=== PATIENT | female | born 1935 | race Caucasian/White ===

== ENCOUNTER → 2016-10-19 | Outpatient (CLI) | payer BC ==
[~2016-10-19] MED LIST: ALPOPS1510 OPL; BRIM0.1S OP; LISI-461 PO; MULT-506 PO
--- NOTE | 2016-10-20 12:48 | MAMMOGRAPHY REPORT ---
BILATERAL DIGITAL SCREENING MAMMOGRAM TOMOSYNTHESIS WITH CAD: 10/19/2016 CLINICAL HISTORY: Asymptomatic. Personal history of breast cancer. Routine screening. TECHNIQUE: Breast tomosynthesis in addition to standard 2D mammography was performed. Current study was also evaluated with a Computer Aided Detection (CAD) system. COMPARISON: Comparison is made to exams dated: 10/16/2015 mammogram, 10/15/2014 mammogram, 10/13/2013 dennis mogram, 10/12/2012 mammogram, 10/12/2011 mammogram, and 10/14/2010 ultrasound - [facility] ter. BREAST COMPOSITION: The tissue of both breasts is almost entirely fatty. FINDINGS: A linear scar marker overlies the 12:00 anterior left breast, denoting the area of prior l umpectomy. There is a coarse dystrophic calcification at the surgical site. There are mild to mode rate vascular calcifications in the breasts. Scattered benign-appearing round and coarse calcificat ions. An asymmetry in the superior right breast on the MLO view effaces on the tomosynthesis images , most likely normal overlapping blood vessels and fibroglandular tissue. No new suspicious mass, a rchitectural distortion or cluster of microcalcifications is seen. IMPRESSION: ACR BI-RADS CATEGORY 1: NEGATIVE There is no mammographic evidence of malignancy. A 1 year screening mammogram is recommended. The p atient will receive written notification of the results. Approximately 10% of breast cancers are not detected with mammography. A negative mammographic repor t should not delay biopsy if a clinically suggestive mass is present. Pamela Del Toro M.D. ay/:10/19/2016 16:49:48 Freight Unloader: Caroline Pimentel M, [facility] letter sent: Normal 1/2 BI-RADS Code: ACR BI-RADS Category 1: Negative
== END | disposition home or self-care (01) ==
LOC: C.MAMM 10:32
PROVIDERS: ATTEND Internal Medicine
DX: Z12.31 Encounter for screening mammogram for malignant neoplasm of breast (principal); Z85.3 Personal history of malignant neoplasm of breast

== ENCOUNTER 2016-11-19 10:07 | Observation (INO) | payer BC ==
[~2016-11-19] VITALS: Ht 162.6 cm; Wt 84.2 kg
[~2016-11-19 10:07] MED LIST changes: -BRIM0.1S OP
[2016-11-19] MEDS ORDERED: LORAZEPAM 2 MG/ML 1 ML VIAL IV STA (10:56)
[2016-11-19] MEDS ORDERED: SODIUM CHLORIDE 0.9% 250ML 250 ML IV STA (10:56)
[2016-11-19] MEDS ORDERED: SODIUM CHLORIDE 0.9% 1000ML 1,000 ML IV STA (10:56)
[2016-11-19] MEDS ORDERED: METHYLPREDNISOLONE 125 MG VIAL IV STA (10:56)
[2016-11-19] MEDS ORDERED: ONDANSETRON INJ 2 MG/ML 2 ML VIAL IV STA (10:56)
--- NOTE | 2016-11-19 11:15 | EMERGENCY ROOM VISIT NOTE ---
History Report prepared by Sylvester: Princess Mejias Under the Supervision of: Dr. Leah Quintero M.D. First contact with patient: 10:46 Chief Complaint: VERTIGO Stated Complaint: DIZZY Nursing Triage Summary: lasted for 10 days of "vertigo" seen by pcp pa was prescribed meclazine with no relief. pt reports every day increasing vertigo with nausea History of Present Illness The patient is a 81 year old female who presents to the Emergency Room with complaints of constant dizziness beginning 1 week ago. The patient states that she was having trouble walking and was stumbling and feeling like the room was spinning. She reports that she went to see her doctor and was prescribed Meclizine. She notes that the Meclizine helps her dizziness for an hour before her symptoms resume. She complains of dull head pain, light sensitivity, nausea , room spinning, and muscle achiness. The patient denies any vomiting, speech changes, chest pain, urinary symptoms, fever, cough, cold, and shortness of breath. She notes that she has a history of vertigo and last got it shortly after she was diagnosed with shingles. The patient's family notes that she has stenosis in her lower back and had an injection 2 weeks ago just prior to the onset of her vertigo. She reports that her dizziness today feels similar to the last time that she had vertigo but notes that she did had a fall with her previous episode of vertigo. Source of History: patient Onset: 1 week ago Position: other (global) Quality: other (dizziness) Timing: constant Modifying Factors (Worsening): other (light) Associated Symptoms: + nausea, No fevers, No cough, No chest pain, No SOB, No vomiting, No urinary symptoms Note: She complains of room spinning and muscle achiness. The patient denies any speech changes and cold. Review of Systems See HPI for pertinent positives & negatives. A total of 10 systems reviewed and were otherwise negative. Past Medical & Surgical Medical Problems: (1) Shingles (2) Vertigo Family History No pertinent family history stated. Social History Smoking Status: Never Smoker Marital Status: Housing Status: lives with significant other Occupation Status: retired Current/Historical Medications Scheduled Brimonidine Tartrate (Alphagan P Oph), 1 DROPS OP BID Lisinopril (Zestril), 10 MG PO DAILY Multivitamin (Multivitamin), 1 TAB PO DAILY Allergies Coded Allergies: Codeine (Verified Adverse Reaction, Mild, HALLUCINATIONS, 11/19/16) Physical Exam Vital Signs Date Time Temp Pulse Resp B/P (MAP) Pulse Ox O2 Delivery O2 Flow Rate FiO2 11/19/16 13:43 168/66 11/19/16 13:07 66 20 94 11/19/16 12:37 65 19 92 11/19/16 12:20 60 11/19/16 11:52 60 14 132/69 97 Room Air 11/19/16 11:49 132/69 11/19/16 11:45 62 18 143/69 63 137/74 77 132/69 11/19/16 10:13 36.7 80 18 142/71 95 Room Air Physical Exam Vital signs reviewed. General: Well-appearing, elderly, in no significant distress. HEENT: No scleral icterus, PERRLA, neck supple. Atraumatic. Cardiovascular: Regular rate and rhythm, no extra sounds. Pulmonary: Clear to auscultation bilaterally, normal work of breathing. Abdomen: Soft, nontender, nondistended, positive bowel sounds. Musculoskeletal: Atraumatic, no peripheral edema. Neurologic: Patient awake alert and oriented x 3, full strength in all 4 extremities. Cranial nerves 2 through 12 grossly intact. Cerebellar exam is intact. Skin: Warm, dry, no rash Medical Decision & Procedures ER Provider Diagnostic Interpretation: CT results as stated below per my review and radiologist interpretation: CT SCAN OF THE BRAIN WITHOUT IV CONTRAST FINDINGS: Brain parenchyma: There are age-related involutional changes noting mild to moderate patchy subcortical and periventricular microangiopathic change. There is no hemorrhage, mass effect, or evidence of acute territorial ischemia by CT criteria. Payne-white matter is preserved. No extra-axial fluid collection is seen. Ventricles, sulci, cisterns: Prominent secondary to involutional change. Intracranial vasculature: There is atherosclerotic calcification of the cavernous carotid and vertebral arteries. Calvarium: Unremarkable. Sinuses and mastoids: The visualized paranasal sinuses are clear. The mastoid air cells are well pneumatized. Orbits: The bony orbits are grossly intact. There are bilateral ocular lens implants. IMPRESSION: There is no hemorrhage, mass effect, or evidence of acute territorial ischemia by CT criteria. Electronically signed by: Haroon Norris M.D. 11/19/2016 11:44 AM Dictated Date/Time: 11/19/2016 11:42 AM Laboratory Results Test 11/19/16 11:15 11/19/16 11:32 Immature Granulocyte % (Auto) 0.2 % White Blood Count 5.96 K/uL (4.8-10.8) Red Blood Count 4.63 M/uL (4.2-5.4) Hemoglobin 13.8 g/dL (12.0-16.0) Hematocrit 41.7 % (37-47) Mean Corpuscular Volume 90.1 fL (80-100) Mean Corpuscular Hemoglobin 29.8 pg (25-34) Mean Corpuscular Hemoglobin Concent 33.1 g/dl (32-36) Platelet Count 233 K/uL (130-400) Mean Platelet Volume 9.7 fL (7.4-10.4) Neutrophils (%) (Auto) 57.5 % Lymphocytes (%) (Auto) 26.2 % Monocytes (%) (Auto) 13.9 % Eosinophils (%) (Auto) 1.7 % Basophils (%) (Auto) 0.5 % Neutrophils # (Auto) 3.43 K/uL (1.4-6.5) Lymphocytes # (Auto) 1.56 K/uL (1.2-3.4) Monocytes # (Auto) 0.83 K/uL (0.11-0.59) Eosinophils # (Auto) 0.10 K/uL (0-0.5) Basophils # (Auto) 0.03 K/uL (0-0.2) Immature Granulocyte # (Auto) 0.01 K/uL (0.00-0.02) Prothrombin Time 10.5 SECONDS (9.0-12.0) Prothromb Time International Ratio 1.0 (0.9-1.1) Activated Partial Thromboplast Time 25.5 SECONDS (21.0-31.0) Partial Thromboplastin Ratio 1.0 Magnesium Level 2.5 mg/dl (1.8-2.4) Total Bilirubin 0.4 mg/dl (0.2-1) Direct Bilirubin < 0.1 mg/dl (0-0.2) Aspartate Amino Transf (AST/SGOT) 28 U/L (15-37) Alanine Aminotransferase (ALT/SGPT) 35 U/L (12-78) Alkaline Phosphatase 88 U/L (45-117) Total Protein 6.8 gm/dl (6.4-8.2) Albumin 3.4 gm/dl (3.4-5.0) Urine Color YELLOW Urine Appearance CLEAR (CLEAR) Urine pH 7.5 (4.5-7.5) Urine Specific [place] 1.011 (1.000-1.030) Urine Protein NEG (NEG) Urine Glucose (UA) NEG (NEG) Urine Ketones NEG (NEG) Urine Occult Blood NEG (NEG) Urine Nitrite NEG (NEG) Urine Bilirubin NEG (NEG) Urine Urobilinogen NEG (NEG) Urine Leukocyte Esterase NEG (NEG) Laboratory results per my review. Medications Administered Medications (Trade) Dose Ordered Sig/Sandy Route Start Time Stop Time Status Last Admin Dose Admin Sodium Chloride 250 ml @ 999 mls/hr Q16M STAT IV 11/19/16 10:56 11/19/16 11:11 DC 11/19/16 10:56 999 MLS/HR Sodium Chloride 1,000 ml @ 125 mls/hr Q8H STAT IV 11/19/16 10:56 11/19/16 16:11 DC 11/19/16 10:56 125 MLS/HR Lorazepam (Ativan Inj) 0.5 mg NOW STAT IV 11/19/16 10:56 11/19/16 11:00 DC 11/19/16 10:56 0.5 MG Ondansetron HCl (Zofran Inj) 4 mg NOW STAT IV 11/19/16 10:56 11/19/16 11:00 DC 11/19/16 10:56 4 MG Methylprednisolone Sodium Succinate (Solu-Medrol IV) 125 mg NOW STAT IV 11/19/16 10:56 11/19/16 11:00 DC 11/19/16 10:56 125 MG ECG Indication: other (Dizziness) Rate (beats per minute): 68 Rhythm: normal sinus Findings: no acute ischemic change, left axis deviation, other (previous inferior and anterior infarct) ED Course 1046: Past medical records reviewed. The patient was evaluated in room C3. A complete history and physical examination was performed. 1056: Solu-Medrol IV 125mg IV, Zofran Inj 4mg IV, Ativan Inj 0.5mg IV, Sodium Chloride 1000 ml @ 125 mls/hr IV, Sodium Chloride 250 ml @ 999 mls/hr IV. 1317: I reevaluated and updated the patient. She is feeling better and will get an ambulatory trial and lunch tray. 1345: I reviewed the patient's case with Dr. Tovar. She will evaluate the patient for further management. 1352: Upon reevaluation, the patient is resting comfortably. I discussed laboratory and radiographic results with the patient. She verbalized agreement of the treatment plan. I spoke with Dr. Tovar of the [facility] Hospitalist Service. The patient will be evaluated for further management and care. Medical Decision Differential diagnosis: Etiologies such as benign positional vertigo, dehydration, hypovolemia, anemia, tumor, infection, hypoglycemia, electrolyte abnormalities, cardiac sources, intracerebral event, toxicologic, neurologic, as well as others were entertained. Medication Reconciliation: I attest that I have personally reviewed the patient' s current medication list. Blood Pressure Screening: Patient was found to have a slightly elevated blood pressure due to age and circumstances. I do not believe that the patient requires hypertension monitoring. This pt was evaluated and appeared to be in no distress. IV access was obtained and lab work was drawn. Pt was placed on the ekg monitor. PT was hydrated with IV NSS, given IV zofran, ativan and solu medral. 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 CT head is negative. Pt continued to have difficulty ambulating , falling to the side. There is concern for intractable vertigo vs stroke. Given her age and duration of symptoms, pt was d/w the hospitalist for further management. Consults Time Called: 1341 Consulting Physician: Dr. Tovar - [facility] Returned Call: [phone] I reviewed the patient's case with Dr. Tovar. She will evaluate the patient for further management. Impression Primary Impression: Vertigo Scribe Attestation The scribe's documentation has been prepared under my direction and personally reviewed by me in its entirety. I confirm that the note above accurately reflects all work, treatment, procedures, and medical decision making performed by me. Departure Information Dispostion Being Evaluated By Hospitalist Referrals Doron Gibbs MD (PCP) Patient Instructions [facility]
--- NOTE | 2016-11-19 11:45 | DIAGNOSTIC IMAGING REPORT ---
CT SCAN OF THE BRAIN WITHOUT IV CONTRAST CLINICAL HISTORY: Dizziness and vertigo. COMPARISON STUDY: CT of the brain dated 10/09/2006. TECHNIQUE: Unenhanced axial CT scan of the brain is performed from the vertex to the skull base. CT DOSE: 788.63 mGycm FINDINGS: Brain parenchyma: There are age-related involutional changes noting mild to moderate patchy subcortical and periventricular microangiopathic change. There is no hemorrhage, mass effect, or evidence of acute territorial ischemia by CT criteria. Payne-white matter is preserved. No extra-axial fluid collection is seen. Ventricles, sulci, cisterns: Prominent secondary to involutional change. Intracranial vasculature: There is atherosclerotic calcification of the cavernous carotid and vertebral arteries. Calvarium: Unremarkable. Sinuses and mastoids: The visualized paranasal sinuses are clear. The mastoid air cells are well pneumatized. Orbits: The bony orbits are grossly intact. There are bilateral ocular lens implants. IMPRESSION: There is no hemorrhage, mass effect, or evidence of acute territorial ischemia by CT criteria. Electronically signed by: Haroon Norris M.D. 11/19/2016 11:44 AM Dictated Date/Time: 11/19/2016 11:42 AM
[2016-11-19 11:48] LABS: BASO % 0.5 %; BASO ABS # 0.03 K/uL (0-0.2); COMPLETE YES; EOS % 1.7 %; HEMATOCRIT 41.7 % (37-47); IG% 0.2 %; LYMPH % 26.2 %; LYMPH ABS # 1.56 K/uL (1.2-3.4); MEAN CELL VOLUME 90.1 fL (80-100); MEAN CORPUSCULAR HEMOGLOBIN 29.8 pg (25-34); MEAN CORPUSCULAR HGB CONC 33.1 g/dl (32-36); MEAN PLATELET VOLUME 9.7 fL (7.4-10.4); MONO % 13.9 %; NEUT % 57.5 %; PLATELET COUNT 233 K/uL (130-400); RED BLOOD COUNT 4.63 M/uL (4.2-5.4); WHITE BLOOD COUNT 5.96 K/uL (4.8-10.8)
[2016-11-19 11:53] LABS: URINE APPEARANCE CLEAR (CLEAR); URINE BILIRUBIN NEG (NEG); URINE COLOR YELLOW; URINE NITRITE NEG (NEG); URINE PH 7.5 (4.5-7.5); URINE SPECIFIC GRAVITY 1.011 (1.000-1.030); UROBILINOGEN NEG (NEG); ZZUR CULT IF INDIC CLEAN CATCH NO
[2016-11-19 12:03] LABS: MANUAL MICROSCOPIC REQUIRED? NO; REVIEW REQ? NO
[2016-11-19 12:16] LABS: ALKALINE PHOSPHATASE 88 U/L (45-117); ALT/SGPT 35 U/L (12-78); BLOOD UREA NITROGEN 14 mg/dl (7-18); CALCIUM 8.7 mg/dl (8.5-10.1); CARBON DIOXIDE 30 mmol/L (21-32); CHLORIDE 106 mmol/L (98-107); GLUCOSE 122 mg/dl (70-99); SODIUM 141 mmol/L (136-145)
[2016-11-19 12:19] LABS: CREATININE 0.79 mg/dl (0.60-1.20)
[2016-11-19 12:22] LABS: AST/SGOT 28 U/L (15-37); MAGNESIUM 2.5 mg/dl (1.8-2.4)
[2016-11-19] MEDS ORDERED: BRIM0.1S OP (12:32)
[2016-11-19 13:03] LABS: POTASSIUM 4.3 mmol/L (3.5-5.1)
[2016-11-19] MEDS ORDERED: POLYETHYLENE (MIRALAX) 17 GM PACK PO PRN (14:00)
[2016-11-19] MEDS ORDERED: ONDANSETRON INJ 2 MG/ML 2 ML VIAL IV PRN (14:00)
[2016-11-19] MEDS ORDERED: ACETAMINOPHEN 325 MG TAB PO PRN (14:00)
[2016-11-19] MEDS ORDERED: MAGNESIUM HYDROXIDE SUSP 30 ML UDC PO PRN (14:00)
[2016-11-19] MEDS ORDERED: IV FLUIDS COMPLETED PRN (14:00)
[2016-11-19] MEDS ORDERED: MECLIZINE HCL 25 MG TAB PO PRN (14:00)
--- NOTE | 2016-11-19 14:09 | History and Physical ---
History & Physical Date & Time of Service: Nov 19, 2016 at 14:07 Chief Complaint: DIZZY Primary Care Physician: Doron Gibbs MD History of Present Illness Source: patient The patient is a 81 year old female with PMH as mentioned below, who presents to the Emergency Room with complaints of vertigo beginning 1 week ago. Patient had similar complaints 1 year ago- vertigo, relieved by maneuver, and at same time was diagnosed with shingles as well. She was at her baseline (independently ambulates without any assistance, ADLS- independently) till 1 week ago when she developed sudden onset vertigo, worse when she tries to walk, worse with head movements, change in positions, associated with nausea, on and off headaches, but no vomiting, localized weakness, numbness, facial asymmetry, tingling, fever, chills. No chest pain, SOB, abd pain, diarrhea. She does have spinal stenosis and had an injection 2 wees ago. She saw her PCP for these complaints, was prescribed Meclizine - helped partially, but as symptoms continued came to ER for further evaluation. In ED, hemodynamically stable. Labs- no sig abnormalities, Received Meclizine, Ativan, Zofran, solu medrol, with partial relief. CT head- no sig abnormalities , CBC, BMP- no significant abnormalities. Will admit her to ER for vertigo, persistent, difficulty ambulating secondary to it = for further evaluation and mx. Past Medical/Surgical History Medical Problems: (1) Shingles Status: Resolved (2) Vertigo Status: Resolved Social History Smoking Status: Never Smoker Marital Status: Occupational Status: retired Immunizations History of Tetanus Vaccine?: Yes History of Pneumococcal: No History of Hepatitis B Vaccine: No Multi-Drug Resistant Organisms History of MDRO: No Allergies Coded Allergies: Codeine (Verified Adverse Reaction, Mild, HALLUCINATIONS, 11/19/16) Home Medications Scheduled Brimonidine Tartrate (Alphagan P Oph), 1 DROPS OP BID Lisinopril (Zestril), 10 MG PO DAILY Multivitamin (Multivitamin), 1 TAB PO DAILY Review of Systems Constitutional: No fever, No chills, No weight loss Eyes: No worsening of vision, No redness, No discharge ENT: No hearing loss, No nasal symptoms Respiratory: No cough, No sputum, No wheezing, No shortness of breath Cardiovascular: No chest pain, No orthopnea, No edema Abdomen: No pain, No nausea, No vomiting, No diarrhea, No constipation Genitourinary - Female: No dysuria, No urinary frequency Neurologic: + vertigo, + balance problems, No memory loss, No paralysis, No weakness, No numbness/tingling Psychiatric: No depression symptoms, No anxiety Endocrine: No fatigue Hematologic / Lymphatic: No abnormal bleeding/bruising Integumentary: No rash Physical Exam Vital Signs Date Time Temp Pulse Resp B/P (MAP) Pulse Ox O2 Delivery O2 Flow Rate FiO2 11/19/16 12:20 60 11/19/16 11:52 60 14 132/69 97 Room Air 11/19/16 11:45 62 18 143/69 63 137/74 77 132/69 11/19/16 10:13 36.7 80 18 142/71 95 Room Air General Appearance: no apparent distress Head: normocephalic, atraumatic Eyes: PERRL ENT: hearing grossly normal Neck: supple, no JVD Respiratory/Chest: chest non-tender, lungs clear, normal breath sounds, no respiratory distress, no accessory muscle use Cardiovascular: regular rate, rhythm, no edema, no JVD, no murmur Abdomen/GI: normal bowel sounds, non tender, soft Extremities/Musculoskelatal: no calf tenderness, no pedal edema Neurologic/Psych: 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, no motor/sensory deficits, alert, oriented x 3, + pertinent finding (gait not assessed as patient has vertigo) Skin: normal color Diagnostics Laboratory Results Results Past 24 Hours Test 11/19/16 11:15 11/19/16 11:32 Range/Units White Blood Count 5.96 4.8-10.8 K/uL Red Blood Count 4.63 4.2-5.4 M/uL Hemoglobin 13.8 12.0-16.0 g/dL Hematocrit 41.7 37-47 % Mean Corpuscular Volume 90.1 80-100 fL Mean Corpuscular Hemoglobin 29.8 25-34 pg Mean Corpuscular Hemoglobin Concent 33.1 32-36 g/dl Platelet Count 233 130-400 K/uL Mean Platelet Volume 9.7 7.4-10.4 fL Neutrophils (%) (Auto) 57.5 % Lymphocytes (%) (Auto) 26.2 % Monocytes (%) (Auto) 13.9 % Eosinophils (%) (Auto) 1.7 % Basophils (%) (Auto) 0.5 % Neutrophils # (Auto) 3.43 1.4-6.5 K/uL Lymphocytes # (Auto) 1.56 1.2-3.4 K/uL Monocytes # (Auto) 0.83 0.11-0.59 K/uL Eosinophils # (Auto) 0.10 0-0.5 K/uL Basophils # (Auto) 0.03 0-0.2 K/uL RDW Standard Deviation 42.5 36.4-46.3 fL RDW Coefficient of Variation 13.0 11.5-14.5 % Immature Granulocyte % (Auto) 0.2 % Immature Granulocyte # (Auto) 0.01 0.00-0.02 K/uL Sodium Level 141 136-145 mmol/L Potassium Level 4.3 3.5-5.1 mmol/L Chloride Level 106 98-107 mmol/L Carbon Dioxide Level 30 21-32 mmol/L Anion Gap 5.0 3-11 mmol/L Blood Urea Nitrogen 14 7-18 mg/dl Creatinine 0.79 0.60-1.20 mg/dl Est Creatinine Clear Calc Drug Dose 57.7 ml/min Estimated GFR () 80.8 Estimated GFR (Non- 69.7 BUN/Creatinine Ratio 18.0 10-20 Random Glucose 122 70-99 mg/dl Calcium Level 8.7 8.5-10.1 mg/dl Magnesium Level 2.5 1.8-2.4 mg/dl Total Bilirubin 0.4 0.2-1 mg/dl Direct Bilirubin < 0.1 0-0.2 mg/dl Aspartate Amino Transf (AST/SGOT) 28 15-37 U/L Alanine Aminotransferase (ALT/SGPT) 35 12-78 U/L Alkaline Phosphatase 88 45-117 U/L Total Protein 6.8 6.4-8.2 gm/dl Albumin 3.4 3.4-5.0 gm/dl Urine Color YELLOW Urine Appearance CLEAR CLEAR Urine pH 7.5 4.5-7.5 Urine Specific [place] 1.011 1.000-1.030 Urine Protein NEG NEG Urine Glucose (UA) NEG NEG Urine Ketones NEG NEG Urine Occult Blood NEG NEG Urine Nitrite NEG NEG Urine Bilirubin NEG NEG Urine Urobilinogen NEG NEG Urine Leukocyte Esterase NEG NEG Diagnostic Radiology CT head- no significant acute abnormalities Impression Assessment and Plan Patient is a 81 year old F who comes in with vertigo, persistent x 7 days. ASSESSMENT AND PLAN: VERTIGO: Persistent x 7 days, partially relieved by Meclizine prescribed by outpatient PCP. Prior hx of similar episode x 1 year ago, when she had shingles, was treated with maneuver per her. Vertigo is worse with movements and associated with nausea, headaches, but no localized weakness. Gait affected as stumbles -Likely BPPV, Benign etiology, but need to rule out stroke as persistent x 7 days -IVF -PT/OT for Nicola Maneuver -Meclizine 25 mg PO TID PRN -Work up- MRI brain, Orthostats HTN Blood pressure stable -On lisinopril at home- hold till stroke ruled out DVT PROPHYLAXIS Lovenox SQ FULL CODE PER PATIENT, but no prolonged artificial support DISPOSITION Observation med-surg PT/OT ordered If MRI +ve for stroke, will transfer to telemetry Discussed with daughter/ by bedside. Level of Care Med/Surg Resuscitation Status DO NOT RESUSCITATE VTE Prophylaxis VTE Risk Assessment Done? Y/N: Yes Risk Level: Moderate Given or contraindicated: Enoxaparin (Lovenox)SQ
[2016-11-19] MEDS ORDERED: GADAVIST IV PRN (15:30)
[2016-11-19 15:37] VITALS: O2SAT 95
--- NOTE | 2016-11-19 15:42 | DIAGNOSTIC IMAGING REPORT ---
MRI OF THE BRAIN WITHOUT AND WITH IV CONTRAST CLINICAL HISTORY: Vertigo. Evaluate for stroke. COMPARISON STUDY: Head CT November 19, 2016. TECHNIQUE: Utilizing a 1.5 Lena magnet and dedicated coil, multiplanar, multiecho imaging of the brain was performed pre and postcontrast administration. IV administration of 8 mL of Gadavist contrast was uneventful. FINDINGS: There are no areas of restricted diffusion. No acute intracranial hemorrhage, midline shift or mass effect is present. Ventricular system is unremarkable for age. Basilar cisterns are patent. There are no extra axial collections. Flow-voids for the major intracranial vessels are present. There is no intracranial masses or pathologic enhancement. Numerous white matter T2 hyperintense foci suggest small vessel disease. Calvarial signal is maintained. A small mucous retention cyst within the left maxillary sinus is noted. Orbits are unremarkable. IMPRESSION: 1. No acute intracranial findings. 2. No intracranial mass or pathologic enhancement. 3. Mild atrophy and moderate small vessel disease. Electronically signed by: Akhil Lombardo M.D. 11/19/2016 3:41 PM Dictated Date/Time: 11/19/2016 3:36 PM
[2016-11-19 16:21] VITALS: BP 136/65; PULSE 75; TEMP 36.4; O2SAT 93
[2016-11-19 16:33] LABS: PROTHROMBIN TIME (PATIENT) 10.5 SECONDS (9.0-12.0)
[2016-11-19 16:57] VITALS: BP 136/65; PULSE 75; TEMP 36.4; Ht 162.6 cm; Wt 84.2 kg
[2016-11-19] MEDS: ENOXAPARIN 30 MG/0.3 ML SYR SQ SCH (18:09)
[2016-11-19] MEDS: SODIUM CHLORIDE 0.9% 1000ML 1,000 ML IV SCH (18:09)
[2016-11-19 23:27] VITALS: BP 125/63; PULSE 79; TEMP 36.5; O2SAT 92
[2016-11-20] MEDS: SODIUM CHLORIDE 0.9% 1000ML 1,000 ML IV SCH ×2 (03:13→17:15)
[2016-11-20 07:14] VITALS: BP 104/60; PULSE 65; TEMP 36.4; O2SAT 93
[2016-11-20 07:43] LABS: HEMATOCRIT 39.4 % (37-47); MEAN CELL VOLUME 90.6 fL (80-100); MEAN PLATELET VOLUME 9.6 fL (7.4-10.4); PLATELET COUNT 216 K/uL (130-400); RED BLOOD COUNT 4.35 M/uL (4.2-5.4); WHITE BLOOD COUNT 11.23 K/uL (4.8-10.8)
[2016-11-20] MEDS: MULTIVITAMIN TAB PO SCH (07:57)
[2016-11-20] MEDS: PANTOprazole SOD 40 MG TAB PO SCH (07:57)
[2016-11-20 08:20] LABS: BUN/CREATININE RATIO 19.8 (10-20); CREATININE 0.88 mg/dl (0.60-1.20); POTASSIUM 4.7 mmol/L (3.5-5.1)
[2016-11-20 09:07] LABS: CALCIUM 8.7 mg/dl (8.5-10.1)
[2016-11-20] MEDS ORDERED: MECLIZINE HCL 25 MG TAB PO STA (11:09)
--- NOTE | 2016-11-20 12:46 | DIAGNOSTIC IMAGING REPORT ---
CERVICAL SPINE 3 VIEWS HISTORY: Neuropathy neck pain COMPARISON: None. FINDINGS: The cervical spine is visualized from C1 through the superior endplate of T1. There is no fracture. No subluxation. Moderate degenerative disc change primarily from C5 through C7. Prevertebral soft tissues and the atlantodens interval are intact. IMPRESSION: Moderate degenerative disc change from C5 through C7. Otherwise negative cervical spine. Incidental note is made of dense calcification of the carotid vasculature. Electronically signed by: Cristóbal Hayes M.D. 11/20/2016 12:44 PM Dictated Date/Time: 11/20/2016 12:43 PM
--- NOTE | 2016-11-20 13:01 | Neurology Consultation ---
Neurology Consultation Date of Consultation: Nov 20, 2016. Attending Physician: Boris Pelayo MD Primary Care Physician: Doron Gibbs MD Reason for Consultation: persistent dizziness History of Present Illness Source: patient Marianne is a 81 year old female who has a PMH HTN, spinal stenosis vertigo presents with a 1 week history of dizziness and neck pain similar complaints 1 year ago- vertigo, relieved by maneuver, and at same time was diagnosed with shingles as well. She was at her baseline (independently ambulates without any assistance, ADLS- independently) till 1 week ago when she developed sudden onset vertigo, worse when she tries to walk, worse with head movements, change in positions, associated with nausea, on and off headaches. She saw her PCP for these complaints, was prescribed Meclizine which helped some but was still dizzy and came to the ED to be evaluated. She states when she rolls in bed and stands and turns her head or when she drives she gets dizzy. It is a room spinning with rolling in bed and when she drives the car with the motion. denies CP, SOB, abdominal pain, weakness, numbness tingling, slurred speech, facial droop, N, V, falls. Social History Marital Status: Housing Status: lives with significant other Occupation Status: retired Allergies Coded Allergies: Codeine (Verified Adverse Reaction, Mild, HALLUCINATIONS, 11/19/16) Current Inpatient Medications Current Inpatient Medications Medications (Trade) Dose Ordered Sig/Sandy Route Start Time Stop Time Status Last Admin Dose Admin Multivitamins (Multivitamin Tab) 1 tab DAILY PO 11/20/16 09:00 12/20/16 08:59 11/20/16 07:57 1 TAB Miscellaneous Information (Order Awaiting Action) 1 ea QS N/A 11/20/16 00:00 12/20/16 00:00 Acetaminophen (Tylenol Tab) 650 mg Q4H PRN PO 11/19/16 14:00 12/19/16 13:59 11/20/16 07:58 650 MG Magnesium Hydroxide (Milk Of Magnesia Susp) 30 ml Q6H PRN PO 11/19/16 14:00 12/19/16 13:59 Polyethylene (Miralax Powder Packet) 17 gm DAILY PRN PO 11/19/16 14:00 12/19/16 13:59 Ondansetron HCl (Zofran Inj) 4 mg Q6H PRN IV 11/19/16 14:00 12/19/16 13:59 Pantoprazole Sodium (Protonix Tab) 40 mg QAM PO 11/20/16 09:00 12/20/16 08:59 11/20/16 07:57 40 MG Sodium Chloride 1,000 ml @ 75 mls/hr [id number] IV 11/19/16 14:00 12/19/16 13:59 11/20/16 03:13 75 MLS/HR Meclizine HCl (Antivert Tab) 25 mg TID PRN PO 11/19/16 14:00 12/19/16 13:59 Miscellaneous (Iv Fluids Completed) 1 ea PRN PRN N/A 11/19/16 14:00 11/19/17 13:59 Enoxaparin Sodium (Lovenox Inj) 30 mg Q24H SQ 11/19/16 18:00 12/19/16 17:59 11/19/16 18:09 30 MG Gadobutrol (Gadavist) 8 mmol UD PRN IV 11/19/16 15:30 11/23/16 15:29 Physical Exam Vital Signs (Past 24 Hrs): Date Time Temp Pulse Resp B/P (MAP) Pulse Ox O2 Delivery O2 Flow Rate FiO2 11/20/16 08:00 Room Air 11/20/16 07:14 36.4 65 18 104/60 (75) 93 11/20/16 00:00 Room Air 11/19/16 23:27 36.5 79 20 125/63 (83) 92 Room Air 11/19/16 16:57 36.4 75 20 136/65 Room Air 11/19/16 16:21 36.4 75 20 136/65 (88) 93 Room Air 11/19/16 15:37 36.7 70 16 133/66 95 11/19/16 14:42 70 16 95 11/19/16 14:37 71 22 94 11/19/16 14:32 133/66 11/19/16 14:07 67 21 95 11/19/16 14:02 164/88 11/19/16 13:43 168/66 11/19/16 13:07 66 20 94 Physical Exam: Constitutional: appearance nourished, healthy and normal Ears, Nose, Mouth and Throat: mucous membranes moist, no injection and skin normal, eyes normal Cardiovascular: normal S-1 and S-2 and regular rate and rhythm with systolic murmur Respiratory: clear to auscultation (CTA) and no rales, rhonchi or wheeze Musculoskeletal: non pitting peripheral edema Skin: no stigmata of neurocutaneous disease noted and normal and intact Eyes: extraocular muscles intact (EOMI) and pupils equal, round and reactive to light (PERRL) NEUROLOGIC EXAMINATION: Mental status: Alert and interactive Oriented to full date and location Oriented to person Speech fluent with no evidence of aphasia Cranial Nerves smile eye brow raise symmetric, tongue midline Reflexes: Deep tendon reflexes were symmetrical and graded 2/5. Plantar responses were flexor. Sensory: vibration intact, GT proprioception intact Coordination: Romberg absent Gait/Stance: Posture normal. Gait normal: with steady with steps, base, turning, heel and toe walking and tandem gait. Motor: Negative for pronator drift of out stretched arms with eyes closed. 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 5/5 bilaterally, hip flex 5/5 bilaterally Laboratory Results Past 24 Hours: 11/20/16 07:19 11/20/16 07:19 Test 11/20/16 07:19 Red Blood Count 4.35 M/uL (4.2-5.4) Mean Corpuscular Volume 90.6 fL (80-100) Mean Corpuscular Hemoglobin 29.0 pg (25-34) Mean Corpuscular Hemoglobin Concent 32.0 g/dl (32-36) RDW Standard Deviation 42.5 fL (36.4-46.3) RDW Coefficient of Variation 12.7 % (11.5-14.5) Mean Platelet Volume 9.6 fL (7.4-10.4) Anion Gap 6.0 mmol/L (3-11) Est Creatinine Clear Calc Drug Dose 51.8 ml/min Estimated GFR () 70.9 Estimated GFR (Non- 61.2 BUN/Creatinine Ratio 19.8 (10-20) Calcium Level 8.7 mg/dl (8.5-10.1) Imaging MRI with and without contrast- . No acute intracranial findings. No intracranial mass or pathologic enhancement. Mild atrophy and moderate small vessel disease. C spine plain film- Moderate degenerative disc change from C5 through C7. Otherwise negative cervical spine. Incidental note is made of dense calcification of the carotid vasculature. Impression 81 year old female with 10 days of vertigo with standing and motion Plan 1. no focal weakness 2. MRI with no evidence of stroke 3. ECHO pending read 4. PT for Nicola 5. if not resolved would contact [facility] for further treatment 6. meclizine is only minimally effect in these cases 7. 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 Meclizine not likely to do much other than sedate her and would not go with scopolamine patch as this is likely to be mor harmful than beneficial Needs Nicola and may need several attempts as her prior treatment in [place] needed three treatments At this ;point neurology has nothing to offer Would suggest contacting our audiology/ent section at [facility] to see if outpatient therapy is available here in hopes that she would not need to travel to [place] for treatment in the balance center We will sign off for now please feel free to contact us in the future if any other neurological issues emerge Erik Smart MD
[2016-11-20] MEDS ORDERED: PERFLUTREN LIPID MICROSPHERE (DEFINITY) IV ONE (14:09)
[2016-11-20 14:11] VITALS: BP_SYST 146; BP_SYST 149; BP_SYST 155; BP_DIAS 71; PULSE 69; PULSE 79; PULSE 81; TEMP 36.5; O2SAT 95
[2016-11-20 14:51] VITALS: BP 137/71; PULSE 80
--- NOTE | 2016-11-20 16:40 | Progress Note ---
Internal Med Progress Note Date of Service: Nov 20, 2016. Provider Documentation: SUBJECTIVE: still feels dizzy Turing head makes head spin afebrile has some nausea no sob or cough OBJECTIVE: Vital Signs-as noted below Exam: General-alert and awake. Not in distress ENT-Normal hearing Neck-no neck masses, supple Lungs-cta b/l no wheezing or crackles Heart-s1 and s2 heard regular , no murmurs Abdomen-soft bowel sounds present non tender no distension Extremities- no edema present no erythema Neuro-alert and awake moves extremities Lab data as noted below. 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 and recommends repeat cliff HTN On lisinopril DVT PROPHYLAXIS Lovenox SQ FULL CODE PER PATIENT, but no prolonged artificial support DISPOSITION pt/ot to be determined Vital Signs: Date Time Temp Pulse Resp B/P (MAP) Pulse Ox O2 Delivery O2 Flow Rate FiO2 11/20/16 14:51 80 11/20/16 14:11 36.5 69 20 149/71 (97) 95 79 155/71 (99) 81 146/71 (96) 11/20/16 08:00 Room Air 11/20/16 07:14 36.4 65 18 104/60 (75) 93 11/20/16 00:00 Room Air 11/19/16 23:27 36.5 79 20 125/63 (83) 92 Room Air 11/19/16 16:57 36.4 75 20 136/65 Room Air Lab Results: Results Past 24 Hours Test 11/20/16 07:19 Range/Units White Blood Count 11.23 4.8-10.8 K/uL Red Blood Count 4.35 4.2-5.4 M/uL Hemoglobin 12.6 12.0-16.0 g/dL Hematocrit 39.4 37-47 % Mean Corpuscular Volume 90.6 80-100 fL Mean Corpuscular Hemoglobin 29.0 25-34 pg Mean Corpuscular Hemoglobin Concent 32.0 32-36 g/dl RDW Standard Deviation 42.5 36.4-46.3 fL RDW Coefficient of Variation 12.7 11.5-14.5 % Platelet Count 216 130-400 K/uL Mean Platelet Volume 9.6 7.4-10.4 fL Sodium Level 142 136-145 mmol/L Potassium Level 4.7 3.5-5.1 mmol/L Chloride Level 106 98-107 mmol/L Carbon Dioxide Level 30 21-32 mmol/L Anion Gap 6.0 3-11 mmol/L Blood Urea Nitrogen 17 7-18 mg/dl Creatinine 0.88 0.60-1.20 mg/dl Est Creatinine Clear Calc Drug Dose 51.8 ml/min Estimated GFR () 70.9 Estimated GFR (Non- 61.2 BUN/Creatinine Ratio 19.8 10-20 Random Glucose 121 70-99 mg/dl Calcium Level 8.7 8.5-10.1 mg/dl
--- NOTE | 2016-11-20 16:56 | ECHOCARDIOGRAM REPORT ---
*NOTICE TO RECEIVING [employer]ENCY This information is strictly Confidential and protected under [place] law. [place] law prohibits you from making any further disclosure of this information unless further disclosure is expressly permitted by the written consent of the person to whom it pertains or is authorized by law. A general authorization for the release of medical or other information is not sufficient for this purpose. Hospital accepts no responsibility if the information is made available to any other person, INCLUDING THE PATIENT. Interpretation Summary * Name: CRISSY EDWARDS Study Date: 11/20/2016 12:41 PM BP: 104/60 mmHg * Patient Location: .[id number]\[id number]\1 HR: 65 * : 1935 (M/d/yyy) Gender: Female Height: 64 in * Age: 81 yrs Ethnicity: MO Weight: 185 lb * Ordering Physician: Boris Pelayo * Referring Physician: Doron Gibbs * Performed By: Meli Osorio, design intern * * Reason For Study: Dizzy, EKG changes, valve issues * BSA: 1.9 m2 * -- Conclusions -- * The left ventricular wall motion is normal. * There is mild concentric left ventricular hypertrophy. * The left ventricle is hyperdynamic. * The LV Ejection Fraction = >70 %. * The aortic valve is moderately calcified. * Mild valvular aortic stenosis. * Doppler findings do not suggest pulmonary hypertension. * Grade I diastolic dysfunction, (abnormal relaxation pattern). Procedure Details * A complete two-dimensional transthoracic echocardiogram was performed (2D, M-mode, Doppler and color flow Doppler). * A contrast injection of Definity was performed to improve assessment of LV function. * Contrast was injected into an intravenous site in the left arm. * One vial of Definity ultrasound contrast was diluted in normal saline to a total volume of 10 ml. A total of '3' ml of solution was administered during imaging. * Lot # [id number] of Definity utilized for procedure. * Expiration date DEC 29. * The attending nurse who injected the contrast agent was Amalia Barksdale RN. Left Ventricle * The left ventricle is normal in size. * There is mild concentric left ventricular hypertrophy. * The left ventricle is hyperdynamic. * Ejection Fraction = >70 %. * The left ventricular wall motion is normal. Right Ventricle * The right ventricle is normal size. * The right ventricular systolic function is normal as assessed by tricuspid annular plane systolic excursion (TAPSE) (normal >1.5 cm). Atria * The left atrial size is normal. * Right atrial size is normal. * There is no evidence of atrial septal defect, but resolution does not allow assessment for a patent foramen ovale. Mitral Valve * There is mild mitral annular calcification. * There is no mitral valve stenosis. * Significant mitral regurgitation is absent. Tricuspid Valve * The tricuspid valve is normal. * There is no tricuspid stenosis. * Significant tricuspid regurgitation is absent. * Doppler findings do not suggest pulmonary hypertension. Aortic Valve * The aortic valve is moderately calcified. * Mild valvular aortic stenosis. * There is no significant aortic regurgitation. Pulmonic Valve * The pulmonary valve is not well seen, but the Doppler examination is normal without significant regurgitation or stenosis. Great Vessels * The aortic root and proximal ascending aorta are normal sized. Pericardium/Pleural * There is no pericardial effusion. Great Vessels * Normal inferior vena cava diameter and respiratory variation suggests normal central venous pressure. Left Ventricular Diastolic Function * Grade I diastolic dysfunction, (abnormal relaxation pattern). MMode 2D Measurements and Calculations IVSd 1.3 cm IVSs 2.3 cm LVIDd 3.8 cm LVIDs 2.3 cm LVPWd 1.8 cm LVPWs 2.0 cm IVS/LVPW 0.72 FS 39.1 % EDV(Teich) 62.8 ml ESV(Teich) 18.7 ml EF(Teich) 70.3 % EDV(cubed) 55.8 ml ESV(cubed) 12.6 ml EF(cubed) 77.4 % % IVS thick 78.5 % % LVPW thick 12.9 % LV mass(C)d 226.5 grams LV mass(C)dI 119.7 grams/m\S\2 LV mass(C)s 233.0 grams LV mass(C)sI 123.1 grams/m\S\2 CO(Teich) 3.1 l/min CI(Teich) 1.7 l/min/m\S\2 SV(Teich) 44.2 ml SI(Teich) 23.3 ml/m\S\2 CO(cubed) 3.1 l/min CI(cubed) 1.6 l/min/m\S\2 SV(cubed) 43.2 ml SI(cubed) 22.8 ml/m\S\2 ACS 1.1 cm asc Aorta Diam 3.0 cm LVOT diam 2.2 cm LVOT area 3.7 cm\S\2 LVAd ap4 26.3 cm\S\2 LVLd ap4 8.1 cm EDV(MOD-sp4) 69.2 ml LVAs ap4 13.1 cm\S\2 LVLs ap4 6.3 cm ESV(MOD-sp4) 22.2 ml EF(MOD-sp4) 67.9 % LVAd ap2 26.7 cm\S\2 LVLd ap2 8.1 cm EDV(MOD-sp2) 71.7 ml LVAs ap2 13.0 cm\S\2 LVLs ap2 6.3 cm ESV(MOD-sp2) 21.7 ml EF(MOD-sp2) 69.7 % CO(MOD-sp4) 3.3 l/min CI(MOD-sp4) 1.8 l/min/m\S\2 SV(MOD-sp4) 47.0 ml SI(MOD-sp4) 24.8 ml/m\S\2 CO(MOD-sp2) 3.6 l/min CI(MOD-sp2) 1.9 l/min/m\S\2 SV(MOD-sp2) 50.0 ml SI(MOD-sp2) 26.4 ml/m\S\2 Doppler Measurements and Calculations MV E max sharon 84.5 cm/sec MV A max sharon 109.0 cm/sec MV E/A 0.78 MV P1/2t max sharon 104.5 cm/sec MV P1/2t 105.9 msec MVA(P1/2t) 2.1 cm\S\2 MV dec slope 289.1 cm/sec\S\2 MV dec time 0.43 sec Ao V2 max 283.7 cm/sec Ao max PG 32.5 mmHg Ao max PG (full) 25.5 mmHg Ao V2 mean 188.6 cm/sec Ao mean PG 16.8 mmHg Ao V2 VTI 61.6 cm AUGUSTINA(V,A) 1.7 cm\S\2 AUGUSTINA(V,D) 1.7 cm\S\2 LV V1 max PG 7.0 mmHg LV V1 max 131.9 cm/sec PA V2 max 110.8 cm/sec PA max PG 5.1 mmHg
[2016-11-20] MEDS: ENOXAPARIN 30 MG/0.3 ML SYR SQ SCH (18:10)
[2016-11-20 23:22] VITALS: BP 124/68; PULSE 70; TEMP 36.6; O2SAT 91
[2016-11-21] MEDS: SODIUM CHLORIDE 0.9% 1000ML 1,000 ML IV SCH (03:50)
[2016-11-21 07:19] VITALS: BP 131/69; TEMP 36.5; O2SAT 92
[2016-11-21] MEDS: PANTOprazole SOD 40 MG TAB PO SCH (07:41)
[2016-11-21] MEDS: MULTIVITAMIN TAB PO SCH (07:42)
[2016-11-21] MEDS ORDERED: LISINOPRIL 10 MG TAB PO SCH (09:00)
--- NOTE | 2016-11-21 10:02 | Discharge Instructions ---
Discharge Instructions Date of Service Nov 21, 2016. Admission Reason for Admission: Vertigo Discharge Discharge Diagnosis / Problem: vertigo Discharge Goals Goal(s): Decrease discomfort, Improve function Activity Recommendations Activity Limitations: resume your previous activity . Instructions / Follow-Up Instructions / Follow-Up FOLLOWUP WITH FAMILY DOCTOR ON December AT 12:45PM Current Hospital Diet Patient's current hospital diet: Regular Diet Discharge Diet Recommended Diet: AHA Diet (Heart Healthy) Pending Studies Studies pending at discharge: no Medical Emergencies . Who to Call and When: Medical Emergencies: If at any time you feel your situation is an emergency, please call 911 immediately. . Non-Emergent Contact Non-Emergency issues call your: Primary Care Provider . . "Provider Documentation" section prepared by Boris Pelayo. . VTE Core Measure Inpt VTE Proph given/why not?: Enoxaparin (Lovenox)SQ
[2016-11-21 10:12] VITALS: BP 131/69; PULSE 70; TEMP 36.5; O2SAT 92
--- NOTE | 2016-11-21 18:59 | Progress Note ---
Internal Med Progress Note Date of Service: Nov 21, 2016. Provider Documentation: SUBJECTIVE: dizziness and vertigo resolved ambulating in room fine afebrile no nausea wants to go home OBJECTIVE: Vital Signs-as noted below Exam: General-alert and awake. Not in distress ENT-Normal hearing Neck-no neck masses, supple Lungs-cta b/l no wheezing or crackles Heart-s1 and s2 heard regular , no murmurs Abdomen-soft bowel sounds present non tender no distension Extremities- no edema present no erythema Neuro-alert and awake moves extremities Lab data as noted below. 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
--- NOTE | 2016-11-21 19:06 | Discharge Summary ---
Discharge Summary Date of Service Nov 21, 2016. Discharge Summary Admission Date: Nov 19, 2016 at 13:49 Discharge Date: Nov 21, 2016 Discharge Disposition: Home Principal Diagnosis: vertigo Secondary Diagnoses/Problems: (1) Shingles Status: Resolved (2) Vertigo Procedures: CT HEAD: There is no hemorrhage, mass effect, or evidence of acute territorial ischemia by CT criteria. BRAIN MRI: 1. No acute intracranial findings. 2. No intracranial mass or pathologic enhancement. 3. Mild atrophy and moderate small vessel disease. CERVICAL SPINE XRAY: Moderate degenerative disc change from C5 through C7. Otherwise negative cervical spine. Incidental note is made of dense calcification of the carotid vasculature. ECHO: The left ventricular wall motion is normal. * There is mild concentric left ventricular hypertrophy. * The left ventricle is hyperdynamic. * The LV Ejection Fraction = >70 %. * The aortic valve is moderately calcified. * Mild valvular aortic stenosis. * Doppler findings do not suggest pulmonary hypertension. * Grade I diastolic dysfunction, (abnormal relaxation pattern). Consultations: NEUROLOGY Medication Reconciliation Continued Medications: Brimonidine Tartrate (Alphagan P Oph) 0.1 % Narcisa 1 DROPS OP BID Lisinopril (Zestril) 10 Mg Tab 10 MG PO DAILY, 0 Refills Multivitamin (Multivitamin) Tab 1 TAB PO DAILY, 0 Refills Admission Information HPI (per Admitting provider): The patient is a 81 year old female with PMH as mentioned below, who presents to the Emergency Room with complaints of vertigo beginning 1 week ago. Patient had similar complaints 1 year ago- vertigo, relieved by maneuver, and at same time was diagnosed with shingles as well. She was at her baseline (independently ambulates without any assistance, ADLS- independently) till 1 week ago when she developed sudden onset vertigo, worse when she tries to walk, worse with head movements, change in positions, associated with nausea, on and off headaches, but no vomiting, localized weakness, numbness, facial asymmetry, tingling, fever, chills. No chest pain, SOB, abd pain, diarrhea. She does have spinal stenosis and had an injection 2 wees ago. She saw her PCP for these complaints, was prescribed Meclizine - helped partially, but as symptoms continued came to ER for further evaluation. In ED, hemodynamically stable. Labs- no sig abnormalities, Received Meclizine, Ativan, Zofran, solu medrol, with partial relief. CT head- no sig abnormalities , CBC, BMP- no significant abnormalities. Will admit her to ER for vertigo, persistent, difficulty ambulating secondary to it = for further evaluation and mx. 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 Discharge Instructions Discharge Instructions Date of Service Nov 21, 2016. Admission Reason for Admission: Vertigo Discharge Discharge Diagnosis / Problem: vertigo Discharge Goals Goal(s): Decrease discomfort, Improve function Activity Recommendations Activity Limitations: resume your previous activity . Instructions / Follow-Up Instructions / Follow-Up FOLLOWUP WITH FAMILY DOCTOR ON December AT 12:45PM Current Hospital Diet Patient's current hospital diet: Regular Diet Discharge Diet Recommended Diet: AHA Diet (Heart Healthy) Pending Studies Studies pending at discharge: no Medical Emergencies . Who to Call and When: Medical Emergencies: If at any time you feel your situation is an emergency, please call 911 immediately. . Non-Emergent Contact Non-Emergency issues call your: Primary Care Provider . . "Provider Documentation" section prepared by Boris Pelayo. . VTE Core Measure Inpt VTE Proph given/why not?: Enoxaparin (Lovenox)SQ
--- NOTE | 2016-11-26 13:25 | EDITING REQUIRED CODING QUERY ---
CQSUPPORTING DIAGNOSIS NEEDED A supporting diagnosis is required for the test/procedure performed on this patient in order for us to be reimbursed by the patient's insurance. Please provide a supporting diagnosis for the following test/procedure listed below next to the test name along with your signature. *If there is no additional diagnosis for this patient that would support the following test/procedure please document that below next to the test/procedure. Test(s)/Procedure(s) that require a supporting diagnosis: DOS 11/20/16 THERAPY REHAB OT/PT Provider Signature: __benign position vertigo? Date: Thank you Bety Carpenter Health Information Management Once completed, please kindly fax back to [phone] For questions please call [phone]
== END 2016-11-21 10:28 | disposition home or self-care (01) ==
LOC: C.EDB 10:08 → C.MS2W 13:49 → ENRESERV 14:04
PROVIDERS: ADMIT Internal Medicine; ATTEND Internal Medicine
DX: R42 Dizziness and giddiness (principal); Z88.5 Allergy status to narcotic agent; H81.10 Benign paroxysmal vertigo, unspecified ear

== ENCOUNTER 2020-03-08 08:07 | Inpatient (IN) ==
--- NOTE | 2020-02-21 16:39 | PAT Medication Instructions ---
Medication Instructions Date of Service February 21, 2020 Home Medications brimonidine [Alphagan P] 1 drp OPB BID lisinopril 20 mg PO QAM rosuvastatin 10 mg PO HS Zyvulta 1 drp OPB QAM aspirin 81 mg PO PM gabapentin 100 mg PO BID meclizine 12.5 mg PO DAILY PRN thrzvakcyhpp-xcow-[id number] acid [Centrum] 1 tab PO QAM DO NOT take the morning of surgery lisinopril 20 mg PO QAM [id number]-eomv-bqkgm acid [Centrum] 1 tab PO QAM Take morning of surgery With a small sip of water, OTHERWISE NOTHING TO EAT OR DRINK AFTER MIDNIGHT: brimonidine [Alphagan P] 1 drp OPB BID Zyvulta 1 drp OPB QAM gabapentin 100 mg PO BID meclizine 12.5 mg PO DAILY PRN (if needed) BRING YOUR EYE DROPS WITH YOU TO THE HOSPITAL Take evening before surgery brimonidine [Alphagan P] 1 drp OPB BID rosuvastatin 10 mg PO HS aspirin 81 mg PO PM gabapentin 100 mg PO BID meclizine 12.5 mg PO DAILY PRN (if needed) Other Notes If you have any questions please call us at [phone] or [phone] or or [phone]
--- NOTE | 2020-02-23 13:47 | Anesthesiology Consultation ---
Date of Service February 23, 2020 Assessment & Plan (1) Encounter for pre-operative examination: COVID Status: As of 02/22 assessment, patient denies travel to endemic area, known exposure/sick contacts, or symptoms of COVID19. Patient instructed that they and their household members must follow strict social distancing guidelines, wear a mask in public and avoid travel for 14 days prior to surgery. Preoperative COVID19 testing to be completed prior to surgery per surgeon's a rrangements. Patient made aware to self-isolate as much as possible between COVID testing and surgery. [facility] AM DOS Chart Review Chart Review: Acceptable Risk for Surgery (pending surgeon-ordered PCP and cardio clearance) and Patient seen in Pre Admission Testing Teaching & Discussion Instructed NPO after midnight before surgery, except medications with 15 cc of water. Medication instructions provided according to the PAT guidelines. History Surgery Operation Date: 03/08/20 10:05 Proposed Procedures p L3-L5 Decompression and Fusion, Spinal Cord Monitoring - Aidan Mack, Height/Weight Height: 5 ft 4 in Weight: 83.4 kg Allergies Allergy/AdvReac Type Severity Reaction Status Date / Time latex Allergy Redness of Verified 02/20/20 08:58 Skin codeine AdvReac Mild HALLUCINATI Verified 10/13/18 11:08 ONS Medications Home Medications Medication Instructions Recorded Confirmed Last Taken brimonidine [Alphagan P] 1 drp OPB BID 10/13/18 02/20/20 10/12/18 21:00 lisinopril 20 mg PO QAM 10/13/18 02/20/20 10/12/18 rosuvastatin 10 mg PO HS 10/13/18 02/20/20 10/12/18 Zyvulta 1 drp OPB QAM 02/20/20 02/20/20 Unknown aspirin 81 mg PO PM 02/20/20 02/20/20 Unknown gabapentin 100 mg PO BID 02/20/20 02/20/20 Unknown meclizine 12.5 mg PO DAILY PRN 02/20/20 02/20/20 Unknown barucvuugywq-adld-qkeoy acid 1 tab PO QAM 02/20/20 02/20/20 Unknown [Centrum] Past Medical History Medical History (Updated 02/26/20 @ 08:39 by Venkat Watters) Aortic stenosis Mild per 2017 [facility] echo GERD (gastroesophageal reflux disease) Glaucoma History of breast cancer left breast Hyperlipidemia Hypertension Macular degeneration Paroxysmal A-fib Follows with [facility] cardiology, Dr. Cid. On ASA 81mg only. Shingles ~2013 Type 2 diabetes mellitus Diet "controlled," though glucose > 200 on pre-op labs and most recent A1C with PCP 01/04 7.1% Exercise / Class Metabolic Activity III < 4 Walking/Shop/Light housework (Denies CP or SOB with ambulation on one level) Past Surgical History Surgical History H/O: hysterectomy History of appendectomy History of cholecystectomy History of colonoscopy History of lumpectomy of left breast with lymph node dissection. LEFT LIMB RESTRICTION History of right shoulder replacement History of tonsillectomy Status post right knee replacement [place] teeth extracted Past Anesthesia History No Hx of Anesthesia Complications and No Family Hx of Anesthesia Complications History of PONV No Hx of PONV and Hx of Motion Sickness (HAS VERTIGO) Social History Smoking Status: Never smoker Do You Dip or Chew Tobacco: No Hx Alcohol Use: No Hx Substance Use: No substance use type: does not use Review of Systems Pt denies any recent chest pain, shortness of breath, palpitations, cough, fever, URI, or uncontrolled acid reflux. Physical Exam Vital Signs BP: 144/76 P: 75bpm SPO2: 96% RA T: 98.1 F R: 16 ENMT Mouth: + dentures (full upper); no chipped teeth and no loose teeth Thyromental Distance: > or= 3.5 Finger Breadths Mallampati Class: II Neck normal visual inspection; neck extension not limited (but does have some pain with extension) Respiratory normal respiratory effort Auscultation: lungs clear to auscultation bilaterally Cardiovascular Rate/Rhythm: regular rate and regular rhythm Heart Sounds: + murmur (II-III/ MARY loudest at RSB and tricuspid area) Vessels: + carotid bruit (vs radiation, L>R) Extremities: no edema Testing Laboratory Results 02/23/20 14:01 02/23/20 14:01 PT 10.8 Seconds (9.0-12.0) 02/23/20 14:01 INR 1.0 (0.9-1.1) 02/23/20 14:01 APTT 26.1 Seconds (21.0-31.0) 02/23/20 14:01 Urine Color Yellow 02/23/20 14:01 Urine Appearance Clear (Clear) 02/23/20 14:01 Urine pH 7.0 (4.5-7.5) 02/23/20 14:01 Ur Specific Snyder 1.008 (1.000-1.030) 02/23/20 14:01 Urine Protein Negative (Negative) 02/23/20 14:01 Urine Glucose (UA) Negative (Negative) 02/23/20 14:01 Urine Ketones Negative (Negative) 02/23/20 14:01 Urine Nitrite Negative (Negative) 02/23/20 14:01 Ur Leukocyte Esterase 1+ (Negative) H 02/23/20 14:01 Urine WBC (Auto) 1-5 /hpf (0-5) 02/23/20 14:01 Urine RBC (Auto) 0-4 /hpf (0-4) 02/23/20 14:01 U Hyaline Cast (Auto) 0 /lpf (0-5) 02/23/20 14:01 U Epithel Cells (Auto) 5-10 /lpf (0-5) H 02/23/20 14:01 Urine Bacteria (Auto) Negative (Negative) 02/23/20 14:01 Blood Type O Positive 02/23/20 14:01 Antibody Screen NEGATIVE 02/23/20 14:01 Electrocardiogram Date: 02/23/20 Findings: + NSR @ (72bpm) LAFB. No significant change from 10/13/18. Chest X-Ray Date: 02/23/20 FINDINGS: Right shoulder arthroplasty is partially imaged. There are cholecystectomy clips. Lung volumes are diminished. This is unchanged. Mild bibasilar opacities favor atelectasis. There is no consolidation or evidence for pulmonary edema. The appearance of the chest is unchanged. Mild cardiomegaly is unchanged. IMPRESSION: No acute cardiopulmonary findings. No change in appearance of the chest. Echocardiogram Date: 02/12/15 EF: >70% Other Findings: + diastolic dysfunction (grade I) LV wall motion is normal. Mild concentric LVH. The left ventricle is hyp erdynamic. The aortic valve is moderately calcified with mild valvular aortic stenosis (AUGUSTINA 1.7cm2, MG 16.8). Doppler findings do not suggest pulmonary hypertension. Grade 1 diastolic dysfunction.
--- NOTE | 2020-02-23 14:52 | XRay Report ---
XR chest Pre-admission PA/Lat CLINICAL HISTORY: Preoperative evaluation. COMPARISON STUDY: Chest radiograph October 13, 2018. FINDINGS: Right shoulder arthroplasty is partially imaged. There are cholecystectomy clips. Lung volu mes are diminished. This is unchanged. Mild bibasilar opacities favor atelectasis. There is no consol idation or evidence for pulmonary edema. The appearance of the chest is unchanged. Mild cardiomegaly is unchanged. IMPRESSION: No acute cardiopulmonary findings. No change in appearance of the chest. ACT 112: Negative or not required by law. Electronically signed by: Akhil Lombardo M.D. 02/23/2020 2:51 PM
[2020-02-23 15:21] LABS: Basophils # (auto) 0.03 K/uL (0-0.2); Basophils % (auto) 0.4 %; Eosinophils # (auto) 0.11 K/uL (0-0.5); Eosinophils % (auto) 1.5 %; Hematocrit (blood only) 40.4 % (37-47); Hemoglobin 12.9 g/dL (12.0-16.0); Lymphocytes # (auto) 2.41 K/uL (1.2-3.4); Lymphocytes % (auto) 32.1 %; Mean Corpuscular Hemoglobin 29.3 pg (25-34); Mean Corpuscular Hgb Conc 31.9 g/dL (32-36); Mean Corpuscular Volume 91.8 fL (80-100); Monocytes # (auto) 0.72 K/uL (0.11-0.59); Monocytes % (auto) 9.6 %; Neutrophils # (auto) 4.23 K/uL (1.4-6.5); Neutrophils % (auto) 56.4 %; Platelet Count 278 K/uL (130-400); RDW Coefficient of Variation 12.7 % (11.5-14.5); RDW Standard Deviation 42.5 fL (36.4-46.3)
[2020-02-23 15:30] LABS: Appearance Urine Clear (Clear); Bacteria Urine Automated Negative (Negative); Bilirubin Urine Negative (Negative); Blood Urine Negative (Negative); Cast Urine Automated 0 /lpf (0-5); Color Urine Yellow; Glucose Urine UA Negative (Negative); Ketones Urine Negative (Negative); Leukocyte Esterase Urine 1+ (Negative); Nitrite Urine Negative (Negative); Protein Urine Negative (Negative); RBC Urine Automated 0-4 /hpf (0-4); Specific Gravity Urine 1.008 (1.000-1.030); Urobilinogen Urine Negative (Negative)
[2020-02-23 15:44] LABS: Partial Thromboplastin Ratio 0.9; Partial Thromboplastin Time 26.1 Seconds (21.0-31.0); Prothrombin Time 10.8 Seconds (9.0-12.0)
[2020-02-23 16:17] LABS: BUN Creatinine Ratio 11.1 (10-20); Calcium 9.4 mg/dl (8.5-10.1); Creatinine Clr Calc Pharmacy 45.2 ml/min; Est GFR (African American) 63.3; Est GFR (Non-African American) 54.6; Potassium 4.6 mmol/L (3.5-5.1)
--- NOTE | 2020-02-23 17:54 | Electrocardiogram Report ---
Test Reason : Blood Pressure : / mmHG Vent. Rate : 072 BPM Atrial Rate : 072 BPM P-R Int : 188 ms QRS Dur : 122 ms QT Int : 398 ms P-R-T Axes : 044 -63 057 degrees QTc Int : 435 ms Normal sinus rhythm Left anterior fascicular block Abnormal ECG When compared with ECG of 13-OCT-2018 10:21, No significant change was found Confirmed by Ray Hart ([id number]) on 02/23/2020 5:53:33 PM Referred By: Aidan Mack Confirmed By:Franco Hart
[~2020-03-08 08:07] MED LIST changes: +ACETAMINOPHEN 500 MG TAB PO SCH; -ALPOPS1510 OPL; +CEFAZOLIN 2000MG 2,000 MG/15 ML SYR IV SCH; +CeleBREX 200 MG CAP PO SCH; +GABAPENTIN 300 MG CAP PO SCH; -LISI-461 PO; +LR 15ML/HR IV SCH; -MULT-506 PO
[2020-03-08] MEDS ORDERED: ONDANSETRON INJ 2 MG/ML 2 ML VIAL IV PRN ×2 (08:26→13:03)
[2020-03-08] MEDS ORDERED: ePHEDrine sulfate 50 MG/ML AMP IV PRN (08:26)
[2020-03-08] MEDS ORDERED: HYDROmorphone INJ 1 MG/ML SYRINGE IV PRN ×2 (08:26→13:03)
[2020-03-08] MEDS ORDERED: fentaNYL citrate 100 MCG/2 ML VIAL IV PRN (08:26)
[2020-03-08] MEDS ORDERED: ATROPINE SULFATE 0.1 MG/ML 10ML SYR IV PRN (08:26)
--- NOTE | 2020-03-08 08:58 | History & Physical Bridge Note ---
Date of Service March 08, 2020 History & Physical Bridge Note I have examined the patient, reviewed the History & Physical and in the interval since the performance of the History & Physical I have noted the following changes of clinical significance: no changes noted
--- NOTE | 2020-03-08 09:00 | History & Physical Report ---
Date of Service March 08, 2020 Assessment & Plan (1) Neurogenic claudication due to lumbar spinal stenosis: Admission and Anticipated Discharge Date Admission Date: L3-L5 decompression fusion History of Present Illness Chief Complaint: Back and bilateral leg pain Primary Care Provider: Doron Gibbs MD This is a 84-year-old female who presents with worsening back and bilateral leg pain. After failing course of nonoperative care is here for surgical invention. Allergies Allergy/AdvReac Type Severity Reaction Status Date / Time latex Allergy Redness of Verified 03/08/20 08:40 Skin codeine AdvReac Mild HALLUCINATI Verified 03/08/20 08:40 ONS Home Medications Home Medications Medication Instructions Recorded Confirmed Type lisinopril 20 mg PO QAM 10/13/18 03/08/20 History rosuvastatin 10 mg PO HS 10/13/18 03/08/20 History aspirin 81 mg PO PM 02/20/20 03/08/20 History gabapentin 100 mg PO BID 02/20/20 03/08/20 History meclizine 12.5 mg PO DAILY PRN 02/20/20 03/08/20 History jbmrzyyzndjt-osmn-fxlch acid 1 tab PO QAM 02/20/20 03/08/20 History [Centrum] latanoprostene bunod [Vyzulta] 1 drp OPB DAILY 03/08/20 03/08/20 History Past Med/Surg History Medical History (Updated 03/08/20 @ 08:59 by Aidan Mack DO) Aortic stenosis Mild per 2017 [facility] echo GERD (gastroesophageal reflux disease) Glaucoma History of breast cancer left breast Hyperlipidemia Hypertension Macular degeneration Paroxysmal A-fib Follows with [facility] cardiology, Dr. Cid. On ASA 81mg only. Shingles ~2013 Type 2 diabetes mellitus Diet "controlled," though glucose > 200 on pre-op labs and most recent A1C with PCP 01/04 7.1% Surgical History H/O: hysterectomy History of appendectomy History of cholecystectomy History of colonoscopy History of lumpectomy of left breast with lymph node dissection. LEFT LIMB RESTRICTION History of right shoulder replacement History of tonsillectomy Status post right knee replacement [place] teeth extracted Social History Smoking Status: Never smoker Second Hand Exposure: No; Do You Dip or Chew Tobacco: No; Hx Alcohol Use: No Hx Substance Use: No Preferred Language: Angolan Communication Ability: Effective Beliefs That Will Affect Care: None Current Living Situation: Alone Current Living Situation Comment: Lives in independent living [facility] Feels Safe at Home: Yes Safety Concerns: Feels Safe At This Time Assistive Devices: Glasses and Walker Physical Exam Physical Exam: Patient alert and oriented neurologically intact. Heart regular rate and rhythm. Lungs clear to auscultation.
[2020-03-08] MEDS ORDERED: LIDOCAINE HCL 2% 2 ML VIAL/AMP(20MG/ML) INFIL ONE (09:23)
[2020-03-08] MEDS ORDERED: MIDAZOLAM HCL 1 MG/ML 2ML VIAL ONE (09:23)
[2020-03-08] MEDS ORDERED: PROPOFOL IV EMULSION 10 MG/ML 20 ML VIAL IV ONE ×2 (09:23→11:28)
[2020-03-08] MEDS ORDERED: DEXAMETHASONE SOD INJ 4 MG/ML VIAL ONE ×2 (09:23→10:07)
[2020-03-08] MEDS ORDERED: fentaNYL citrate 100 MCG/2 ML VIAL ONE (09:23)
[2020-03-08] MEDS ORDERED: ROCURONIUM BROMIDE 10 MG/ML 5 ML VIAL IV ONE (09:23)
[2020-03-08] MEDS ORDERED: ONDANSETRON INJ 2 MG/ML 2 ML VIAL ONE (09:23)
[2020-03-08] MEDS ORDERED: BUPIVACAINE/EPINEPHRINE 0.25% 1:200,000 30 ML VIAL ONE (09:29)
[2020-03-08] MEDS ORDERED: BACITRACIN INJ 50,000 UNIT VIAL ONE (09:30)
[2020-03-08] MEDS ORDERED: FLOSEAL HEMOSTATIC MATRIX 10ML TOP ONE (10:58)
[2020-03-08] MEDS ORDERED: NEOSTIGMINE METHYLSULFATE 1 MG/ML 10ML VIAL ONE (11:28)
[2020-03-08] MEDS ORDERED: GLYCOPYRROLATE 0.2 MG/ML VIAL ONE (11:29)
--- NOTE | 2020-03-08 11:33 | Operative Report ---
Post Operative Report Pre & Post Diagnosis Operation Date: 03/08/20 09:10 Pre-Op Diagnosis: Neurogenic claudication due to lumbar spinal stenosis Post-Op Diagnosis: Neurogenic claudication due to lumbar spinal stenosis I identified the patient and participated in the time-out.: Yes Procedure Operation Date: 03/08/20 09:10 Actual Procedures #1 lumbar decompression with bilateral medial facetectomies and foraminotomies L3-4 L4-5. #2 posterior spinal fusion L3-4 L4-5 per #3 placement posterior instrumentation L3-4 L4-5 per #4 placement of locally harvested morselized autograft in the posterior lateral gutters. #5 placement infuse collagen sponge plan master graft in the posterior lateral gutters. Surgeon Aidan Mack, Certified Procedural Coder Lamin Gamino Estimated Blood Loss 400 Findings Consistent with Post-Op Diagnosis Specimens None Indications This is an 84-year-old female presents with above-mentioned diagnosis after failing extensive course of nonoperative care is here for surgical invention. Description of Procedure Patient was met with identified informed consent obtained. Patient was then taken to the operative suite underwent intubation placed in the prone position the Mckay table atop the Rodolfo frame. All bony prominences well-padded eyes inspected to ensure no external pressure placed upon them. This point the lumbar spine was prepped and draped in normal sterile fashion. Sharp dissection with the assistance of Bovie cautery was performed down to and exposing the lamina transverse processes of L3-L4-L5 bilaterally. From caudal cephalad fashion complete laminectomy of L4 and L3 was performed including bilateral medial facetectomies and foraminotomies addressing severe spinal stenosis. Pedicle screws were then placed in L3-L4-L5 bilaterally with assistance of fluoroscopy and the proper size cesar locked in position. The transverse pro cesses of L3 L4-5 were then burred to subcortical bleeding bone. Infuse collagen sponge master graft local autograft was placed in the posterior lateral gutters. 15 round RUDOLPH drain inserted. Incision was then closed with 1 Vicryl the fascia 2-0 Vicryl subcutaneously and 4 Monocryl for final skin closure. Steri-Strip sterile dressings placed. Patient waken taken to PACU stable condition. Please note spinal cord monitoring was utilized at the procedure no changes noted. Lastly Lamin Gamino was present at the entire surgery involved the patient positioning complex portions of the surgery and final skin closure. I attest to the content of the Intraoperative Record and any orders documented therein. Any exceptions are noted below.
--- NOTE | 2020-03-08 11:44 | Fluoroscopy Report ---
FL lumbar spine 2-3V CLINICAL HISTORY: L3-5 DECOMPRESSION/FUSION/INTERBODY COMPARISON STUDY: None. FLUOROSCOPY TIME: 28 seconds. FINDINGS: 2 fluoroscopic spot images of the lumbar spine demonstrate posterior decompression and fusi on from L3 through L5 with posterior screws and rods. The hardware appears intact. IMPRESSION: Fluoroscopy provided for a L3-L5 posterior decompression and fusion ACT 112: Negative or not required by law. Electronically signed by: Mario More M.D. 03/08/2020 11:43 AM
[2020-03-08] MEDS ORDERED: LORazepam 0.5 MG/1 ML VIAL IV PRN (13:03)
[2020-03-08] MEDS ORDERED: METOCLOPRAMIDE HCL INJ 5 MG/ML 2 ML VIAL IV PRN (13:03)
[2020-03-08] MEDS ORDERED: bisacodyL 10 MG SUPP PR PRN (13:03)
[2020-03-08] MEDS ORDERED: DO NOT ADMINISTER PNEUMOCOCCAL VACCINE PRN (13:03)
[2020-03-08] MEDS ORDERED: MAGNESIUM HYDROXIDE SUSP 30 ML UDC PO PRN (13:03)
[2020-03-08] MEDS ORDERED: HYDROmorphone INJ 0.5 MG/0.5 ML SYR IV PRN (13:03)
[2020-03-08] MEDS ORDERED: LORazepam 0.5 MG TAB PO PRN (13:03)
[2020-03-08] MEDS ORDERED: SOD PHOSPHATE/SOD BIPHOSPHATE ENEMA 132 ML BTL PR PRN (13:03)
[2020-03-08] MEDS ORDERED: ONDANSETRON 4 MG OD TAB PO PRN (13:03)
[2020-03-08] MEDS ORDERED: DO NOT ADMINISTER FLU VACCINE PRN (13:03)
[2020-03-08] MEDS ORDERED: OXYCODONE HCL IR 5 MG TAB (IMMEDIATE RELEASE) PO PRN (13:03)
[2020-03-08] MEDS ORDERED: NALOXONE HCL 0.4 MG/1 ML VIAL/CARP IV PRN (13:03)
[2020-03-08] MEDS ORDERED: PROMETHAZINE HCL 12.5 MG in SODIUM CHLORIDE 0.9% 50 ML IV PRN (13:03)
[2020-03-08] MEDS ORDERED: MECLIZINE 12.5 MG TAB PO PRN (13:03)
[2020-03-08] MEDS ORDERED: TRAMADOL HCL 50 MG TABLET PO PRN (13:03)
[2020-03-08] MEDS ORDERED: ACETAMINOPHEN 1,000 MG/100 ML VIAL IV PRN (13:03)
[2020-03-08] MEDS ORDERED: FAMOTIDINE 20 MG TAB PO PRN (13:03)
[2020-03-08] MEDS ORDERED: ALUMINUM/MAGNESIUM SUSP 30 ML UDC PO PRN (13:03)
--- NOTE | 2020-03-08 13:34 | Hospitalist Consultation ---
Date of Consultation March 08, 2020 Assessment & Plan (1) S/P spinal surgery: This is an 84-year-old female with PMH of moderate aortic stenosis, paroxysmal atrial fibrillation, hypertension, history of breast cancer s/p surgical resection, vertigo and other medical problems as below who is POD#0 s/p lumbar decompression with bilateral medial facetectomies and foraminotomies L3-4 L4-5. - POD#0 s/p lumbar decompression with bilateral medial facetectomies and foraminotomies L3-4 L4-5 -Pt is doing well post-operatively -Per ortho for pain control, wound care, anticoagulation and activities -Monitor H&H (preop hgb 12.9, EBL 400ml), continue incentive spirometry, PT/OT when appropriate (2) Aortic stenosis: Preop TTE showed aortic stenosis is now moderate. Will decrease IV fluid rate to 60ml/hr (3) Hypertension: Mildly elevated at 146/73. Optimize pain control and continue lisinopril (4) Hyperlipidemia: Continue statin (5) Paroxysmal A-fib: Controlled heart rate at 78 in NSR. Not on any rate or rhythm control or anticoagulation. Follows with Dr. Cid of cardiology (6) Type 2 diabetes mellitus: A1v of 7.1 in December 2019 - diet controlled -SSI while in-patient -[facility] AC HS (7) History of breast cancer: Status post surgical resection 2013 (8) Vertigo: Meclizine as needed PCP: Bernie Dispo: Per primary service Patient seen in collaboration with Dr. Hatch. Please see addendum. Supervising Physician Co-Signing Physician Notes Attending Addendum: Delayed entry Date of service noted above care coordinated with IFTIKHAR Cunningham please refer to her notes for full details, I agree with her notes patient seen and examined, records reviewed by myself as well on exam, patient seen resting in bed, comfortable, not in distress States pain is well controlled Denies chest pain, dizziness, palpitations no other symptoms VS noted and reviewed oriented x3 , not in distress, speaks in sentences with no effort nor accessory muscle use normal rate, regular rhythm, no murmurs clear breath sounds bilaterally non distended, soft, nontender no bipedal edema, erythema, warmth no neuro deficits ASSESSMENT AND PLAN Diabetes type 2 Hyperglycemia noted likely from a steroid Pharmacy glycemic consult placed History of aortic stenosis Needs to be cautious with IV fluids to prevent volume overload other diagnoses and plan of care as per IFTIKHAR Hatch MD History of Present Illness Reason for Consultation: Postop medical management Attending Physician: Aidan Mack DO History of Present Illness This is an 84-year-old female with PMH of moderate aortic stenosis, paroxysmal atrial fibrillation, hypertension, history of breast cancer s/p surgical resection, vertigo and other medical problems as below who is POD#0 s/p lumbar decompression with bilateral medial facetectomies and foraminotomies L3-4 L4-5. Patient is feeling well postoperatively, denying any surgical site pain or paresthesias or pain of lower extremities. Denies any fever, chills, lightheadedness, visual changes, chest pain, palpitations, shortness of breath, nausea, vomiting, abdominal pain, dysuria, diarrhea or constipation. Peace catheter in place. PCP is Dr. Gibbs. Allergies Allergy/AdvReac Type Severity Reaction Status Date / Time latex Allergy Redness of Verified 03/08/20 08:40 Skin codeine AdvReac Mild HALLUCINATI Verified 03/08/20 08:40 ONS Home Medications Home Medications Medication Instructions Recorded Confirmed Type lisinopril 20 mg PO QAM 10/13/18 03/08/20 History rosuvastatin 10 mg PO HS 10/13/18 03/08/20 History aspirin 81 mg PO PM 02/20/20 03/08/20 History gabapentin 100 mg PO BID 02/20/20 03/08/20 History meclizine 12.5 mg PO DAILY PRN 02/20/20 03/08/20 History uvkcfxvxsdko-lprw-psnpi acid 1 tab PO QAM 02/20/20 03/08/20 History [Centrum] latanoprostene bunod [Vyzulta] 1 drp OPB DAILY 03/08/20 03/08/20 History oxycodone 5 mg PO Q6H PRN #20 tab 03/09/20 Rx tramadol 50 mg PO Q6H PRN #20 tab 03/09/20 Rx Patient History Medical History Aortic stenosis Moderate per February 2020 echo GERD (gastroesophageal reflux disease) Glaucoma History of breast cancer left breast Hyperlipidemia Hypertension Macular degeneration Paroxysmal A-fib Follows with [facility] cardiology, Dr. Palak Wing 2013 Type 2 diabetes mellitus Diet "controlled," though glucose > 200 on pre-op labs and most recent A1C with PCP 01/04 7.1% Surgical History H/O: hysterectomy History of appendectomy History of cholecystectomy History of colonoscopy History of lumpectomy of left breast with lymph node dissection. LEFT LIMB RESTRICTION History of right shoulder replacement History of tonsillectomy Status post right knee replacement [place] teeth extracted Family History Other Cancer Heart disease Social History Smoking Status: Never smoker Second Hand Exposure: No; Do You Dip or Chew Tobacco: No; Hx Alcohol Use: No Hx Substance Use: No Preferred Language: Greenlandic Communication Ability: Effective Beliefs That Will Affect Care: None Current Living Situation: Alone Current Living Situation Comment: Lives in independent living [facility] Feels Safe at Home: Yes Safety Concerns: Feels Safe At This Time Assistive Devices: Walker Review of Systems Review of Systems: At least ten systems reviewed and negative except as noted in the HPI. Physical Exam Physical Exam: General Appearance: WD/WN, vitals as above, NAD, sitting up in bed, pleasant, conversing easily Head: normocephalic, atraumatic Eyes: normal inspection, PERRL, conjunctivae normal, anicteric sclerae ENT: external ear and nose normal, oropharynx normal Neck: normal visual inspection, trachea midline, no thyromegaly Respiratory: normal respiratory effort, lungs clear to auscultation, no wheeze, rales, rhonchi Cardiovascular: regular rate, rhythm, +systolic ejection murmur, normal peripheral pulses, no BLE edema Abdomen/GI: normal bowel sounds, soft, nontender, no hepatosplenomegaly Extremities/Musculoskeletal: + Lumbosacral dressing c/d/i. RUDOLPH drain visualized. No cyanosis or clubbing, extremities motor strength 5/5 Neurologic: PERRL, CN's II-XI intact bilaterally and moves all extremities Psychiatric: A+Ox3, euthymic affect Skin: no rashes, normal color, warm/dry Results & Data Results & Data ([facility]) Vital Signs (Past 12 Hours) Vital Signs Temp Pulse Pulse Resp BP Pulse Ox 03/08/20 13:08 36.5 C 73 16 156/71 H 100 03/08/20 12:45 73 15 155/54 H 99 03/08/20 12:35 36.3 C L 73 18 152/63 H 99 03/08/20 12:25 73 12 171/64 H 98 03/08/20 12:15 77 19 169/68 H 100 03/08/20 12:05 88 18 183/71 H 100 03/08/20 11:55 36.5 C 104 H 23 179/89 H 97 03/08/20 08:49 36.8 C 72 20 173/70 H 95
[2020-03-08] MEDS ORDERED: DEXTROSE 50% 50 ML SYRINGE IV PRN (14:21)
[2020-03-08] MEDS ORDERED: GLUCOSE 10 TABS/TUBE PO PRN (14:21)
[2020-03-08] MEDS ORDERED: GLUCAGON FOR INJ 1 MG VIAL SQ PRN (14:21)
[2020-03-08] MEDS ORDERED: CARBOHYDRATES FOR HYPOGLYCEMIA PO PRN (14:21)
[2020-03-08] MEDS ORDERED: GLUCOSE 40% GEL 15 GM TUBE PO PRN (14:21)
--- NOTE | 2020-03-08 14:47 | Anesthesiology Progress Note ---
Date of Service March 08, 2020 Anesthesia Post Procedure Vital Signs Vital Signs: Temp Pulse Pulse Resp BP Pulse Ox 03/08/20 14:00 36.4 C L 91 H 16 135/70 100 03/08/20 13:30 36.4 C L 78 16 146/73 H 100 03/08/20 13:08 36.5 C 73 16 156/71 H 100 03/08/20 12:45 73 15 155/54 H 99 03/08/20 12:35 36.3 C L 73 18 152/63 H 99 03/08/20 12:25 73 12 171/64 H 98 03/08/20 12:15 77 19 169/68 H 100 03/08/20 12:05 88 18 183/71 H 100 03/08/20 11:55 36.5 C 104 H 23 179/89 H 97 03/08/20 08:49 36.8 C 72 20 173/70 H 95 Pain Intensity Bilateral Lower Back: Pain Intensity: 0 Transfer of Care Handoff Completed per policy Notes Mental Status: alert / awake / arousable and participated in evaluation Patient Amnestic to Procedure: Yes Nausea / Vomiting: adequately controlled Pain: adequately controlled Airway Patency, RR, SpO2: stable & adequate BP & HR: stable & adequate Hydration State: stable & adequate Anesthetic Complications: no major complications apparent and Pt Satisfied with anesthetic care
[2020-03-08] MEDS: SODIUM CHLORIDE 0.9% 1000ML 1,000 ML IV SCH (14:48)
[2020-03-08] MEDS: INSULIN ASPART 100 UNITS/ML 3 ML PEN SC SCH ×2 (17:54→21:06)
[2020-03-08] MEDS: CEFAZOLIN 2000MG 2,000 MG/15 ML SYR IV SCH (17:55)
[2020-03-08] MEDS ORDERED: LANTUS PER UNIT CHARGE SQ ONE (18:15)
[2020-03-08] MEDS ORDERED: PHARMACY GLYCEMIC MGMT CONSULT SCH (20:43)
[2020-03-08] MEDS: GABAPENTIN 100 MG CAP PO SCH (21:07)
[2020-03-08] MEDS: DOCUSATE SODIUM/SENNA 50/8.6MG TAB PO SCH (21:07)
[2020-03-08] MEDS: ASPIRIN 81 MG ECTAB PO SCH (21:07)
[2020-03-08] MEDS: ROSUVASTATIN CALCIUM 10 MG TAB PO SCH (21:08)
[2020-03-09] MEDS: INSULIN ASPART 100 UNITS/ML 3 ML PEN SC SCH ×6 (00:25→20:48)
[2020-03-09] MEDS: CEFAZOLIN 2000MG 2,000 MG/15 ML SYR IV SCH (02:35)
[2020-03-09] MEDS: SODIUM CHLORIDE 0.9% 1000ML 1,000 ML IV SCH (02:43)
[2020-03-09] MEDS: POLYETHYLENE (MIRALAX) 17 GM PACK PO SCH ×4 (06:26→23:46)
[2020-03-09 06:39] LABS: Hematocrit (blood only) 32.6 % (37-47); Hemoglobin 10.6 g/dL (12.0-16.0); Immature Granulocytes # (auto) 0.07 K/uL (0.00-0.02); Immature Granulocytes % (auto) 0.4 %; Lymphocytes # (auto) 1.89 K/uL (1.2-3.4); Lymphocytes % (auto) 10.6 %; Mean Corpuscular Hemoglobin 29.1 pg (25-34); Mean Corpuscular Hgb Conc 32.5 g/dL (32-36); Mean Corpuscular Volume 89.6 fL (80-100); Mean Platelet Volume 9.5 fL (7.4-10.4); Monocytes # (auto) 1.18 K/uL (0.11-0.59); Monocytes % (auto) 6.6 %; Neutrophils # (auto) 14.69 K/uL (1.4-6.5); Neutrophils % (auto) 82.4 %; Platelet Count 249 K/uL (130-400); RDW Coefficient of Variation 12.8 % (11.5-14.5); RDW Standard Deviation 41.6 fL (36.4-46.3); Red Blood Count 3.64 M/uL (4.2-5.4); White Blood Count 17.83 K/uL (4.8-10.8)
[2020-03-09 07:07] LABS: BUN Creatinine Ratio 14.8 (10-20); Calcium 8.9 mg/dl (8.5-10.1); Creatinine Clr Calc Pharmacy 56.5 ml/min; Est GFR (African American) 82.9; Est GFR (Non-African American) 71.5; Potassium 4.9 mmol/L (3.5-5.1)
[2020-03-09] MEDS: lisinopriL 20 MG TAB PO SCH (08:52)
[2020-03-09] MEDS: [UNRECOGNIZED DRUG - OTHER] OP SCH (08:54)
[2020-03-09] MEDS: LATANOPROSTENE BUNOD OP SCH (08:54)
[2020-03-09] MEDS: GABAPENTIN 100 MG CAP PO SCH ×2 (08:54→20:05)
--- NOTE | 2020-03-09 10:41 | Orthopedic Progress Note ---
Date of Service March 09, 2020 Assessment & Plan (1) Neurogenic claudication due to lumbar spinal stenosis: Admission and Anticipated Discharge Date Admission Date: March 08, 2020 At this time continue physical therapy monitor RUDOLPH output anticipate possible discharge home Wednesday. Subjective Back pain controlled leg symptoms markedly improved. Physical Exam Physical Exam: Patient is in the chair at the bedside. Is good strength testing. Appears comfortable. Results & Data ([facility]) Vital Signs (Past 12 Hours) Vital Signs Temp Pulse Resp BP Pulse Ox 03/09/20 07:37 36.6 C 74 16 120/63 94 03/09/20 03:53 36.8 C 71 16 107/63 95 03/09/20 00:06 36.4 C L 71 16 111/66 93
[2020-03-09] MEDS: INSULIN GLARGINE SOLOSTAR 100 UNITS/ML 3 ML PEN SC SCH ×2 (13:33→20:47)
--- NOTE | 2020-03-09 14:17 | Pharmacy Report ---
Glycemic Control Consultation - Date of Service March 09, 2020 - Scope Scope: Glycemic Pharmacist consulted for glycemic control and to write orders per [facility] inpatient glycemic control protocol. - Objective Weight: 83.4 kg Accuchecks BSG (last 24hrs): 03/08/20 03/08/20 03/08/20 17:09 20:26 20:28 Glucose POC Glucose 271 H 329 H* 353 H* 03/09/20 03/09/20 03/09/20 00:18 03:55 06:02 Glucose 98 POC Glucose 181 H 112 H 03/09/20 03/09/20 08:22 11:57 Glucose POC Glucose 116 H 171 H Laboratory Data (last 24hrs): 03/09/20 06:02 Potassium 4.9 Carbon Dioxide 28 Anion Gap 6.0 Creatinine 0.76 Est Cr Clr Drug Dosing 56.5 - Recent Pertinent Medications Outpatient Anti-diabetic Regimen: * N/A * A1c = -- % -- The patient is currently receiving: * Basal insulin: Lantus 30 units SQ x 1 * Correctional Insulin: Novolog Correction per scale ACHS Goal Range: Low 120 mg/dL - High 150 mg/dL Correction Factor: 20 mg/dL/unit * Prandial insulin: Per carb ratio of 1 unit per 6 grams CHO consumed Risk Factors for Insulin Resistance: * Steroids: dexamethasone 8 mg IV x 1 * Recent Surgery: POD 0 * Diet: T2DM - Assessment & Plan Assessment & Plan: ASSESSMENT: * Mrs Myrick is an 84 y/o F with no PMH of diabetes who presents for lumbar surgery. She received dexamethasone 8 mg during surgery. * Her post-op blood sugars were 271-329 mg/dL. She was given 30 units of Lantus by the evening pharmacist and started on weight-based stress of 3 Novolog. * Overnight BSGs were 181-112 mg/dL and she received 2 extra units. * Fasting BSG this morning was 116 mg/dL. Held off on going morning Lantus to see if BSGs bounced back. Lunch was 171 mg/dL. * Aim for approximately 24 units of Lantus/day (30 units appears too aggressive especially since patient received dexamethasone yesterday). Start Lantus 12 units BID with lunch. * Continue Novolog weight-based stress of 3. PLAN FOR INPATIENT GLYCEMIC CONTROL: * Basal insulin * Lantus 12 units SQ BID * Bolus insulin * NovoLog per scale ACHS or Q6hrs while NPO * Goal Range: Low 120 mg/dL - High 150 mg/dL * Correction Factor: 20 mg/dL/unit * Nutritional / Prandial insulin per carb ratio of 1 unit per 6 grams CHO consumed * Please note that the plan above was derived based on current level of insulin resistance and hospital stress. These recommendations are appropriate for inpatient admission only. Plan of care upon discharge will need to be reassessed to avoid potential outpatient hypo/hyperglycemia. Thank you.
--- NOTE | 2020-03-09 19:58 | Hospitalist Progress Note ---
Date of Service March 09, 2020 Assessment & Plan (1) S/P spinal surgery: This is an 84-year-old female with PMH of moderate aortic stenosis, paroxysmal atrial fibrillation, hypertension, history of breast cancer s/p surgical resection, vertigo and other medical problems as below who is POD#0 s/p lumbar decompression with bilateral medial facetectomies and foraminotomies L3-4 L4-5. - POD#1 s/p lumbar decompression with bilateral medial facetectomies and foraminotomies L3-4 L4-5 -Stable overall -Management of medical conditions noted below (2) Aortic stenosis: Preop TTE showed aortic stenosis is now moderate Patient is euvolemic We will monitor volume status closely Practice caution with IV fluids to prevent volume overload (3) Hypertension: Pressure stable overall Continue lisinopril (4) Hyperlipidemia: Continue statin (5) Paroxysmal A-fib: Heart rate controlled Follows with Dr. Cid of cardiology (6) Type 2 diabetes mellitus: A1c of 7.1 in December 2019 - diet controlled Hyperglycemia noted yesterday Likely secondary to dexamethasone Pharmacy glycemic control consult placed Currently on insulin Lantus and sliding scale (7) History of breast cancer: Status post surgical resection 2013 (8) Vertigo: Meclizine as needed PCP: Bernie Dispo: Per primary service Thank you for this consultation. We will follow the patient with you during their hospital stay. You can reach a member of the [facility] Hospitalist Team 04/01 via pager @ [phone]. Admission and Anticipated Discharge Date Admission Date: March 08, 2020 Subjective Follow-up for status post back surgery, hyperglycemia, aortic stenosis, other problems noted below Seen resting bed, comfortable, not in distress States she feels fine overall Ambulating the hallways twice today with no problems Denies chest pain, palpitations, shortness of breath, dizziness No other symptoms Review of Systems Review of Systems: All systems reviewed & are unremarkable except as noted in Subjective Physical Exam Physical Exam: General- oriented x 3, not in distress, speaks in sentences with no effort or accessory muscle use Eyes- anicteric Neck- no JVD Lungs- clear breath sounds bilaterally, no crackles or wheezing Heart- normal rate, regular rhythm; no murmurs Abdomen- normal bowel sounds, nondistended, soft, nontender Extremities- no pretibial edema, no calf tenderness Neuro- alert, oriented x 3; no gross focal neurologic deficits Skin- warm & dry Results & Data Results & Data ([facility]) Vital Signs (Past 12 Hours) Vital Signs Temp Pulse Resp BP Pulse Ox 03/09/20 15:11 36.8 C 71 18 122/68 99 03/09/20 12:10 36.8 C 68 16 102/61 98 Laboratory Results Laboratory Results - last 24 hr 03/08/20 03/08/20 03/09/20 20:26 20:28 00:18 WBC RBC Hgb Hct MCV MCH MCHC RDW Std Deviation RDW Coeff of Kasey Plt Count MPV Immature Gran % (Auto) Neut % (Auto) Lymph % (Auto) [place] % (Auto) Eos % (Auto) Baso % (Auto) Neut # (Auto) Lymph # (Auto) [place] # (Auto) Eos # (Auto) Baso # (Auto) Immature Gran # (Auto) Sodium Potassium Chloride Carbon Dioxide Anion Gap BUN Creatinine Est Cr Clr Drug Dosing Est GFR ( Amer) Est GFR (Non-Af Amer) BUN/Creatinine Ratio Glucose POC Glucose 329 H* 353 H* 181 H Calcium 03/09/20 03/09/20 03/09/20 03:55 06:02 06:02 WBC 17.83 H RBC 3.64 L Hgb 10.6 L Hct 32.6 L MCV 89.6 MCH 29.1 MCHC 32.5 RDW Std Deviation 41.6 RDW Coeff of Kasey 12.8 Plt Count 249 MPV 9.5 Immature Gran % (Auto) 0.4 Neut % (Auto) 82.4 Lymph % (Auto) 10.6 [place] % (Auto) 6.6 Eos % (Auto) 0.0 Baso % (Auto) 0.0 Neut # (Auto) 14.69 H Lymph # (Auto) 1.89 [place] # (Auto) 1.18 H Eos # (Auto) 0.00 Baso # (Auto) 0.00 Immature Gran # (Auto) 0.07 H Sodium 136 Potassium 4.9 Chloride 102 Carbon Dioxide 28 Anion Gap 6.0 BUN 11 Creatinine 0.76 Est Cr Clr Drug Dosing 56.5 Est GFR ( Amer) 82.9 Est GFR (Non-Af Amer) 71.5 BUN/Creatinine Ratio 14.8 Glucose 98 POC Glucose 112 H Calcium 8.9 09/03/09/20 03/09/20 08:22 11:57 17:10 WBC RBC Hgb Hct MCV MCH MCHC RDW Std Deviation RDW Coeff of Kasey Plt Count MPV Immature Gran % (Auto) Neut % (Auto) Lymph % (Auto) [place] % (Auto) Eos % (Auto) Baso % (Auto) Neut # (Auto) Lymph # (Auto) [place] # (Auto) Eos # (Auto) Baso # (Auto) Immature Gran # (Auto) Sodium Potassium Chloride Carbon Dioxide Anion Gap BUN Creatinine Est Cr Clr Drug Dosing Est GFR ( Amer) Est GFR (Non-Af Amer) BUN/Creatinine Ratio Glucose POC Glucose 116 H 171 H 125 H Calcium
[2020-03-09] MEDS: ACETAMINOPHEN 500 MG TAB PO PRN (20:03)
[2020-03-09] MEDS: ROSUVASTATIN CALCIUM 10 MG TAB PO SCH (20:04)
[2020-03-09] MEDS: DOCUSATE SODIUM/SENNA 50/8.6MG TAB PO SCH (20:05)
[2020-03-09] MEDS: ASPIRIN 81 MG ECTAB PO SCH (20:05)
[2020-03-10] MEDS ORDERED: INSULIN ASPART 100 UNITS/ML 3 ML PEN SC SCH
[2020-03-10] MEDS: POLYETHYLENE (MIRALAX) 17 GM PACK PO SCH (04:02)
[2020-03-10] MEDS: ACETAMINOPHEN 500 MG TAB PO PRN (04:03)
[2020-03-10] MEDS: GABAPENTIN 100 MG CAP PO SCH ×2 (08:21→20:59)
[2020-03-10] MEDS: lisinopriL 20 MG TAB PO SCH (08:21)
[2020-03-10] MEDS: DEXAMETHASONE SOD PHOSPHATE 8 MG in SYRINGE 0 ML IV SCH (08:22)
[2020-03-10] MEDS: INSULIN ASPART 100 UNITS/ML 3 ML PEN SC SCH ×4 (08:28→21:01)
[2020-03-10] MEDS: INSULIN GLARGINE SOLOSTAR 100 UNITS/ML 3 ML PEN SC SCH ×2 (08:29→21:02)
[2020-03-10] MEDS: LATANOPROSTENE BUNOD OP SCH (08:30)
[2020-03-10] MEDS: [UNRECOGNIZED DRUG - OTHER] OP SCH (08:30)
--- NOTE | 2020-03-10 08:39 | Orthopedic Progress Note ---
Date of Service March 10, 2020 Assessment & Plan (1) Neurogenic claudication due to lumbar spinal stenosis: Patient is doing well. Continue with pain control today. DVT prophylaxis is in the form of teds and SCDs. Continue physical therapy and ambulation. Maintain RUDOLPH drain. Anticipate discharge home to [facility] living tomorrow. Admission and Anticipated Discharge Date Admission Date: March 08, 2020 Supervising Physician Co-Signing Physician Notes Dr. Aidan Mack Subjective Patient is postoperative day 2 posterior lumbar decompression fusion L3-5. She is doing well. Radicular leg pain that she had preoperatively has resolved. Back pain is controlled. Yesterday in physical therapy she was ambling roughly 160 feet. RUDOLPH drain output last shift was 30 cc. Lab values are stable. Overall she is doing well. Review of Systems Review of Systems: All systems reviewed & are unremarkable except as noted in HPI & below Physical Exam Physical Exam: She sitting in a chair eating breakfast. She is in no acute distress. She is alert and oriented x3. Lumbar dressing is clean dry and intact with RUDOLPH drain intact and functioning. Calf soft nontender bilaterally. Strength is intact bilateral lower extremities. Constitutional: WD/WN, vitals as above Eyes: normal visual harvey by confrontation ENMT: external ear and nose normal, oropharynx normal Neck: normal visual inspection Respiratory: normal respiratory effort Cardiovascular: Vessels: normal peripheral pulses and dorsalis pedis pulses present Chest (Breasts): Chest: normal inspection of chest Gastrointestinal (Abdomen): Inspection/Auscultation: abdomen normal to inspection Musculoskeletal: no cyanosis or clubbing, extremities motor strength 5/5 Extremities: extremities normal to inspection Skin: no rashes, warm and dry Neurologic: normal touch/pain/proprioception, deep tendon reflexes 2+ bilaterally and moves all extremities Psychiatric: A+Ox3, euthymic affect Results & Data ([facility]) Vital Signs (Past 12 Hours) Vital Signs Temp Pulse Resp BP Pulse Ox 03/10/20 07:15 37 C 70 16 142/66 H 94 03/09/20 23:17 36.9 C 69 16 114/64 90
--- NOTE | 2020-03-10 11:36 | Pharmacy Report ---
Glycemic Control Progress Note - Date of Service March 10, 2020 - Scope Glycemic Pharmacist consulted for glycemic control to write orders per [facility] inpatient glycemic control protocol. - Objective Accuchecks BSG(last 24 hours):: 03/09/20 03/09/20 03/09/20 11:57 17:10 20:41 POC Glucose 171 H 125 H 136 H 03/10/20 07:49 POC Glucose 112 H - Recent Pertinent Medications The patient is currently receiving: * Basal insulin: Lantus 12 units every 12 hours * Correctional Insulin: Novolog Correction per scale ACHS Goal Range: Low 120 mg/dL - High 150 mg/dL Correction Factor: 20 mg/dL/unit * Prandial insulin: Per carb ratio of 1 unit per 6 grams CHO consumed - Outpatient Anti-Diabetic Meds N/A - Assessment & Plan ASSESSMENT: * See progress note from 03/09/20 for more background info, in short: * Pt receiving SQ basal bolus insulin regimen for hyperglycemia secondary to baseline DM (outpatient regimen on hold). Patient is currently POD 2 for lumbar surgery. She is receiving dexamethasone 8 mg IV daily starting today. * Patient is currently receiving an average of 39 units of insulin per day * 24 units of basal insulin * 15 units of prandial/correctional insulin * BSGs ranging 116 - 171 mg/dl over the past 24hrs * Changes needed to insulin regimen: * AM Fasting BSG = 112 mg/dl. This is in goal range for patient based on inpatient targets and co-morbidities. Eventually this dose of Lantus will be too aggressive but with dexamethasone 8 mg IV on board will continue. * Post-prandial BSGs were in range yesterday. Tightened slightly for addition of steroid. * Total daily dose = 40-50 units. PLAN FOR INPATIENT GLYCEMIC CONTROL: * Continuing Lantus 12 units SQ BID * TIGHTENING correction factor to 18 mg/dl/unit * TIGHTENING carb ratio to 1 unit per 5 grams CHO consumed * Continuing goal range of Low 110 mg/dL - High 140 mg/dL RECOMMENDATIONS FOR DISCHARGE: * HbA1C ordered for tomorrow. Thank you.
[2020-03-10 17:01] LABS: Hematocrit (blood only) 32.8 % (37-47); Hemoglobin 10.6 g/dL (12.0-16.0)
--- NOTE | 2020-03-10 19:42 | Hospitalist Progress Note ---
Date of Service March 10, 2020 Assessment & Plan (1) S/P spinal surgery: This is an 84-year-old female with PMH of moderate aortic stenosis, paroxysmal atrial fibrillation, hypertension, history of breast cancer s/p surgical resection, vertigo and other medical problems as below who is POD#0 s/p lumbar decompression with bilateral medial facetectomies and foraminotomies L3-4 L4-5. - s/p lumbar decompression with bilateral medial facetectomies and foraminotomies L3-4 L4-5 -Stable overall -Management of medical conditions noted below (2) Aortic stenosis: Preop TTE showed aortic stenosis is now moderate Patient remains euvolemic Practice caution with IV fluids to prevent volume overload (3) Hypertension: Pressure stable overall Continue lisinopril (4) Hyperlipidemia: Continue statin (5) Paroxysmal A-fib: Heart rate controlled Follows with Dr. Cid of cardiology (6) Type 2 diabetes mellitus: A1c of 7.1 in December 2019 - diet controlled Hyperglycemia Likely secondary to dexamethasone Pharmacy glycemic control consult placed Currently on insulin Lantus and sliding scale Blood glucose readings within acceptable range (7) History of breast cancer: Status post surgical resection 2013 (8) Vertigo: Meclizine as needed PCP: Bernie Dispo: Per primary service Thank you for this consultation. We will follow the patient with you during their hospital stay. You [facility] via pager @ [phone]. Admission and Anticipated Discharge Date Admission Date: March 08, 2020 Subjective Follow-up status post back surgery, history of aortic stenosis, etc. Seen resting in bed, comfortable, watching TV In good spirits States she feels fine overall Ambulated again today with no problems Denies chest pain, shortness of breath, dizziness abdominal pain, nausea vomiting No other symptom Review of Systems Review of Systems: All systems reviewed & are unremarkable except as noted in HPI & below Physical Exam Physical Exam: General- oriented x 3, not in distress, speaks in sentences with no effort or accessory muscle use Eyes- anicteric Neck- no JVD Lungs- clear sounds, no crackles or wheezing bilaterally Heart- normal rate, regular rhythm; no murmurs Abdomen- normal bowel sounds, nondistended, soft, no tenderness Extremities- no pretibial edema, no calf tenderness Neuro- alert, oriented x 3; no gross focal neurologic deficits Skin- warm & dry Results & Data Results & Data ([facility]) Vital Signs (Past 12 Hours) Vital Signs Temp Pulse Resp BP Pulse Ox 03/10/20 15:24 36.9 C 96 H 18 119/69 92 Laboratory Results Laboratory Results - last 24 hr 03/08/20 03/09/20 03/10/20 08:53 20:41 07:49 Hgb Hct POC Glucose 136 H 112 H Crossmatch See Detail 03/10/20 03/10/20 03/10/20 12:11 16:48 17:05 Hgb 10.6 L Hct 32.8 L POC Glucose 120 H 263 H Crossmatch
[2020-03-10] MEDS: ASPIRIN 81 MG ECTAB PO SCH (20:58)
[2020-03-10] MEDS: ROSUVASTATIN CALCIUM 10 MG TAB PO SCH (20:58)
[2020-03-10] MEDS: DOCUSATE SODIUM/SENNA 50/8.6MG TAB PO SCH (20:59)
[2020-03-11 06:56] LABS: Estimated Average Glucose 157 mg/dl; Hemoglobin A1C 7.1 % (4.5-5.6)
[2020-03-11] MEDS: lisinopriL 20 MG TAB PO SCH (07:43)
[2020-03-11] MEDS: [UNRECOGNIZED DRUG - OTHER] OP SCH (07:43)
[2020-03-11] MEDS: DEXAMETHASONE SOD PHOSPHATE 8 MG in SYRINGE 0 ML IV SCH (07:43)
[2020-03-11] MEDS: LATANOPROSTENE BUNOD OP SCH (07:43)
[2020-03-11] MEDS: GABAPENTIN 100 MG CAP PO SCH (07:44)
[2020-03-11] MEDS: INSULIN GLARGINE SOLOSTAR 100 UNITS/ML 3 ML PEN SC SCH (07:44)
[2020-03-11] MEDS: INSULIN ASPART 100 UNITS/ML 3 ML PEN SC SCH ×2 (07:47→12:30)
--- NOTE | 2020-03-11 11:13 | Discharge Summary ---
Date of Service March 11, 2020 Admission HPI Per Admitting Provider This is a 84-year-old female who presents with worsening back and bilateral leg pain. After failing course of nonoperative care is here for surgical invention. Principal Diagnosis Lumbar spinal stenosis with neurogenic claudication Discharge Data Allergies Allergy/AdvReac Type Severity Reaction Status Date / Time latex Allergy Redness of Verified 03/08/20 08:40 Skin codeine AdvReac Mild HALLUCINATI Verified 03/08/20 08:40 ONS Consultations 03/08/20 13:03 Consult Case Management - Discharge Planning Routine Consult Hospitalist Routine Procedures Performed Operation Date: 03/08/20 09:10 Actual Procedures p L3-L5 Decompression and Fusion, Spinal Cord Monitoring(Not Applicable) - Aidan Mack DO Ordered Studies 03/08/20 09:10 FL fluoroscopy <1hr Routine FL lumbar spine 2-3V Routine Hospital Course (1) Neurogenic claudication due to lumbar spinal stenosis: Patient with lumbar decompression fusion tolerated as well as taken to orthopedic for postoperative. Postop day 1 she was up and ambulating progressed to postop 2 on postop day 3 RUDOLPH drain decreased probably. Excellent strength testing. Pain well controlled. Subsequently discharged home. Discharge orders instructions from the chart for further review. Total Time Total Time Spent Total Time Spent (In Minutes): 20 minutes Discharge Plan Discharge Items Patient Disposition: Home - Self-Care Reason For Visit: Spinal Stenosis, Lumbar Region with Neurogenic Cla Discharge Diagnosis: Lumbar spinal stenosis with neurogenic claudication Activity: As commented below Non-emergency contact: Primary Care Provider Call non-emergency contact if: you have any medication questions Follow-up/Referrals: Doron Gibbs MD [Primary Care Provider] - Diet: Regular Addtl Attending Provider Instructions: ACTIVITY RECOMMENDATIONS: SELF CARE INSTRUCTIONS AFTER THORACIC/LUMBAR FUSIONS 1. You may walk to your tolerance. It is good exercise for your legs and back. Expect some back and intermittent leg aches and pains. 2. You may perform "counter-top" level activities (make a sandwich, thomas with a project, etc.). 3. No bending or lifting of more than 10 pounds or back twisting of any nature (roll like a log when turning in bed). 4. You may ride in a car for 20-30 minutes at a time. No driving until after your first visit with your doctor. 5. Frequent changes of position and restricting sitting to 30 minutes at a time will help limit the amount of back spasms and stiffness you may experience. 6. You may discontinue the use of ambulatory aids (cane, crutches, etc.) once your strength and confidence allow. 7. You may costing analyst the shower and let water strike your incision when you arrive home at least once daily. Do not take a tub bath, sit in a hot tub or go into a swimming pool until after your first recheck in the office. SPECIAL CARE INSTRUCTIONS: VERY IMPORTANT TO READ AND REVIEW A. Your surgical incision has been closed with a cosmetic suture under the skin that will dissolve in about 6 weeks. In 14 days, you can use a pair of clean scissors and cut the suture that is left outside of the skin at the ends of your incision. 1. The small skin tapes can be removed 7 days after surgery if they have not fallen off by that point. 2. You may keep the wound open to air as much as possible to promote healing after post-op day number 5 unless told otherwise by your doctor. 3. If you think the wound looks like it is becoming infected (redness or worsening drainage) and/or you are experiencing fever, chill or worsening back pain and muscle spasms, contact the office so that we may evaluate you as soon as possible. B. Complications are uncommon, but please contact us if you have any signs or symptoms of: 1. wound infection (fever higher than 102.5 degrees F, redness, separation of wound, drainage, or increasing pain from the incision) 2. blood clots in legs (pain, swelling, redness and warmth in legs) 3. urinary tract infection (fever higher than 102.5 degrees F, burning upon urination or increased frequency of urination) 4. nerve problems (inability to walk on your toes or heels, numbness, loss of bowel or bladder control) 5. any other symptoms that concern you C. Please call the office at if you have any concerns or questions about your operation or recovery. D. No smoking! Smoking drastically decreases the chance of a solid fusion. E. Do not take any anti-inflammatory medications (Indocin, Advil, Motrin, Aspirin, Naprosyn, etc.) as these may inhibit the chance of a solid fusion. Tylenol is okay to take for pain. MANAGING PAIN AFTER SPINAL SURGERY 1. Narcotic medication is intended for short-term use and will be provided for surgical pain. Surgical pain usually lasts for a period of 4-6 weeks. Narcotic medication includes Percocet, Vicodin, Darvocet, Tylenol #3 or Lortab. 2. Longer-term pain is more appropriately treated with non-narcotic medication such as Tylenol ES. 3. Muscle spasm is not appropriately treated with narcotics. Muscle relaxers such as Soma, Flexeril or Skelaxin can be used along with Tylenol ES. 4. Remember that we all live with some "aches and pains". This is not unusual or uncommon after an injury or as we get older. a. Back pain is expected and may include muscle spasms for [address] surgery[address] The pain should gradually improve. If the pain worsens for no apparent reason, please contact the office. b. Intermittent leg pain may also be experienced and should not be concerned about unless it worsens for no apparent reason. If so, please contact the office. 5. We will provide appropriate medication within the normal guidelines of their prescribed use. We will also be very cautious and aware of potential abuse and extended duration of patients' medication needs. a. Pain medications are for your comfort and to assist with sleep and rest so that the tissue can heal. They are not provided in order to return to normal activity and should not be used through the day. To do so or worsening pain at night can result from ongoing tissue damage and development of tolerance to the prescribed medicine. 6. Please allow 2-3 days to process refills. Prescriptions will not be mailed but must be picked up at the office. FOLLOW UP VISIT: Keep your scheduled follow-up appointment. Any questions, please call the office at . Pending Studies at Discharge: No Stand-Alone Forms: My All [employer], Smoking Cessation Medications and DC Order Prescriptions: New tramadol 50 mg tablet 50 mg PO Q6H PRN (Reason: pain, moderate) Qty: 20 RF: 0 oxycodone 5 mg tablet 5 mg PO Q6H PRN (Reason: pain, severe) Qty: 20 RF: 0 Continued lisinopril 10 mg tablet 20 mg PO QAM RF: 0 rosuvastatin 10 mg tablet 10 mg PO HS RF: 0 meclizine 12.5 mg Tablet 12.5 mg PO DAILY PRN (Reason: Dizziness) RF: 0 aspirin 81 mg Tablet 81 mg PO PM RF: 0 gabapentin 100 mg Capsule 100 mg PO BID RF: 0 Centrum 18-400 mg-mcg Tablet 1 tab PO QAM RF: 0 Vyzulta 0.024 % Drops 1 drp OPB DAILY RF: 0 Discharge Orders: Discharge Order (Routine); Ordered 03/11/20 Ordered By: Aidan Kendall/Other Patient Handouts: Managing Type 2 Diabetes, A1C Admission Data Admit Date/Time: 03/08/20 12:17 Attending Provider: Aidan Mack Admit Provider: Aidan Mack Primary Care Provider: Doron Gibbs Other Providers: Erik Cornell ; Venkat Hatch ; [facility]
--- NOTE | 2020-03-13 18:22 | Hospitalist Progress Note ---
Date of Service delayed entry date of service 03/11/20 March 13, 2020 Assessment & Plan (1) S/P spinal surgery: This is an 84-year-old female with PMH of moderate aortic stenosis, paroxysmal atrial fibrillation, hypertension, history of breast cancer s/p surgical resection, vertigo and other medical problems as below who is POD#0 s/p lumbar decompression with bilateral medial facetectomies and foraminotomies L3-4 L4-5. - s/p lumbar decompression with bilateral medial facetectomies and foraminotomies L3-4 L4-5 -Stable for discharge -Management of medical conditions noted below (2) Aortic stenosis: Preop TTE showed aortic stenosis is now moderate Patient remains euvolemic (3) Hypertension: Pressure stable overall Continue lisinopril (4) Hyperlipidemia: Continue statin (5) Paroxysmal A-fib: Heart rate controlled Follows with Dr. Cid of cardiology (6) Type 2 diabetes mellitus: A1c 7.1 Hyperglycemia Likely secondary to dexamethasone recommended to patient and daughter to ff up with PCP to discuss possible initiation of Metformin (7) History of breast cancer: Status post surgical resection 2013 (8) Vertigo: Meclizine as needed PCP: Bernie Dispo: Per primary service Plan of care discussed with patient in detail and at length all questions answered They are understanding, agreeable and comfortable with plan of care Thank you for this consultation. We will follow the patient with you during their hospital stay. You can [facility] a [facility] via pager @ [phone]. Admission and Anticipated Discharge Date Admission Date: March 08, 2020 Subjective ff up for s/p back surgery seen resting in bed, comfortable states she feels fine overall denies chest pain, dyspnea, palpitations, dizziness no other symptoms Review of Systems Review of Systems: All systems reviewed & are unremarkable except as noted in Subjective Physical Exam Physical Exam: General- oriented x 3, not in distress, speaks in sentences with no effort or accessory muscle use Eyes- anicteric Neck- no JVD Lungs- clear breath sounds bilaterally no crackles Heart- normal rate, regular rhythm; no murmurs Abdomen- normal bowel sounds, nondistended, soft, nontender Extremities- no pretibial edema, no calf tenderness Neuro- alert, oriented x 3; no gross focal neurologic deficits Skin- warm & dry Results & Data Results & Data ([facility]) Laboratory Results noted and reviewed
== END 2020-03-11 13:53 | disposition home or self-care (01) | DRG 460 ==
LOC: ASU 08:07 → 3E 12:17

== ENCOUNTER 2023-08-12 11:50 | Inpatient (IN) ==
--- NOTE | 2023-08-12 11:58 | Emergency Department Note ---
Impression & Plan Closed intertrochanteric fracture, Fall, Chronic hyponatremia, Acute hip pain ED Provider Note NAME: CRISSY EDWARDS AGE: 87 SEX: F : 1935 ARRIVES VIA: Ambulance INFORMANT: Patient, ED PROVIDER(S): Leobardo Gresham MD CHIEF COMPLAINT: Fall, left hip pain MEDICAL DECISION MAKING: Patient presents due to concern for fall and associated left hip pain. IV was established and blood work was obtained. Patient did have an x-ray completed of the left hip. Patient does not take any blood thinning medications. Blood work shows a normal white count H&H and platelet count. The patient's kidney function unremarkable. Hyponatremic at 133 although this appears chronic and stable from prior blood work. Glucose 115 but nonfasting and not DKA. Bicarb is actually elevated at 33 with normal anion gap. Urinalysis does not show evidence of blood or infection. The patient's hip and pelvis x-ray does show intertrochanteric fracture. Chest x-ray does not show any obvious pneumonia or pneumothorax. I did convey the findings to the patient and the patient's family at the bedside. Patient was ordered additional pain medication IV fentanyl 25 mcg. I did speak with the on-call hospital Baylee Mccloud PA-C and the patient was admitted by Dr. Persaud. Discussion w/ other healthcare providers: Baylee Mccloud PA-C and Dr. Persaud Prior /Outside records reviewed: None Differential diagnosis: Fracture, sprain, strain, subluxation, dislocation, contusion, ligamentous injury, neurovascular, as well as other etiologies were considered. Diagnostics, as interpreted by me: ECG: Sinus with PVCs, rate of 62, left axis deviation no ST elevations. Cardiac monitoring: An order was placed for continuous cardiac monitoring. The monitor shows a rate of 65 with sinus rhythm. Patient was placed on pulse oximetry Medical decision rules: None Imaging studies: I informally interpreted the patient's left hip and pelvis x-ray does show a left intertrochanteric fracture with formal report to follow. I informally interpreted the patient's chest x-ray which does not show obvious pneumonia or pneumothorax with formal report to follow. Right shoulder prosthesis noted. HPI: Patient presents due to concern for fall and associated left hip pain. The patient states that she was walking in the grass toward a concrete pathway and then she fell to her left side. The patient denies any head strike or LOC. Patient denies any chest pain or shortness of breath but does complain of left- sided hip discomfort and was not able to get up and ambulate. Patient denies any back or abdominal pain. The patient does not take any blood thinning medications. Patient did not take anything prior to arrival and was brought in via EMS. PAST MEDICAL HISTORY: See Below PAST SURGICAL HISTORY: See Below SOCIAL HISTORY: See Below HOME MEDICATIONS: See Below ALLERGIES: See Below VITALS: See Below PHYSICAL EXAMINATION: GENERAL: NAD, non-toxic. Wearing glasses. EYE EXAM: Normal conjunctiva. PERRL, no anisocoria and EOM's grossly intact w/o pain. OROPHARYNX: Moist mucus membranes, grossly normal dentition. NECK: Trachea midline, no stridor. Supple, no nuchal rigidity, no adenopathy, non-tender. No signs of meningismus. FROM of the neck with good chin to chest and neck extension. LUNGS: Clear to auscultation. Normal chest wall mechanics. HEART: Normal sinus rhythm, systolic ejection murmur noted. ABDOMEN: Abdomen soft, non-tender, no masses, no rebound or guarding. BACK: No midline lower back discomfort. SKIN: No rashes and no bruising. UPPER EXTREMITIES: Upper extremities are grossly normal. LOWER EXTREMITIES: Left lower extremity slightly shortened compared to the right, pain over the lateral aspect of the left hip, no ecchymosis, decreased range of motion of the left hip but able to flex and extend at the ankle with no sensory deficits and is perfused in the left lower extremity. NEURO EXAM: A&O x3, cranial nerves II-XII grossly intact, normal speech, moves all 4 extremities. Past Med/Surg History Medical History (Updated 08/12/23 @ 16:50 by Leobardo Gresham MD) Type 2 diabetes mellitus Diet "controlled," though glucose > 200 on pre-op labs and most recent A1C with PCP 01/04 7.1% Aortic stenosis Moderate per February 2020 echo Paroxysmal A-fib Follows with [facility] cardiology, Dr. Cid History of breast cancer left breast GERD (gastroesophageal reflux disease) Macular degeneration Glaucoma Hyperlipidemia Hypertension Shingles 2013 Surgical History History of lumpectomy of left breast with lymph node dissection. LEFT LIMB RESTRICTION History of appendectomy Status post right knee replacement History of right shoulder replacement History of colonoscopy H/O: hysterectomy History of cholecystectomy Mobile teeth extracted History of tonsillectomy Family History Other Cancer Heart disease Social History Smoking Status: Never smoker Second Hand Exposure: No; Do You Dip or Chew Tobacco: No; Hx Alcohol Use: No Hx Substance Use: No Preferred Language: Albanian Communication Ability: Effective Beliefs That Will Affect Care: None Current Living Situation: Alone Current Living Situation Comment: Lives in independent living [facility] Feels Safe at Home: Yes Assistive Devices: Glasses and Walker Allergies Allergies Allergy/AdvReac Type Severity Reaction Status Date / Time latex Allergy Redness of Verified 09/09/21 08:26 Skin codeine AdvReac Mild HALLUCINATI Verified 09/09/21 08:26 ONS Home Meds Home Medications Medication Instructions Recorded Confirmed lisinopril 10 mg tablet 40 mg PO QAM 10/13/18 08/12/23 rosuvastatin 10 mg tablet 10 mg PO HS 10/13/18 08/12/23 multivitamin-ferrous 1 tab PO QAM 02/20/20 08/12/23 fumarate-folic acid 18 mg-400 mcg tablet (Centrum) latanoprost 0.005 % eye drops 1 drp OPB DAILY 09/09/21 08/12/23 metoprolol tartrate 25 mg tablet 12.5 mg PO BID 09/09/21 08/12/23 Stool Softener See Rx Instructions .Route .COMPLEX 08/12/23 08/12/23 aspirin 81 mg tablet,delayed 81 mg PO PM 08/12/23 08/12/23 release Results & Data (ED) Vital Signs Vital Signs - 24 hr 08/12/23 11:50 08/12/23 11:52 08/12/23 12:00 Temperature 36.5 C Temperature Source Oral Pulse Rate 62 65 63 Pulse Rate from SpO2 Sensor Respiratory Rate 18 38 H 29 H Respiratory Effort / Characteristics Non-Labored Spontaneous Respiratory Depth Normal Respiratory Pattern Regular Blood Pressure 197/111 H 197/111 H 178/94 H Blood Pressure Mean 139 139 122 Blood Pressure Position Lying Pulse Oximetry 96 96 97 Oxygen Delivery Method Room Air Room Air Room Air Sepsis Recent Fever Within 48 Hours No Sepsis New/Unexplained Change in Mental Status No Sepsis Action Taken by Nursing No Action Required 08/12/23 12:30 08/12/23 12:40 08/12/23 13:00 Temperature Temperature Source Pulse Rate 61 59 L 64 Pulse Rate from SpO2 Sensor Respiratory Rate 27 H 29 H 25 H Respiratory Effort / Characteristics Respiratory Depth Respiratory Pattern Blood Pressure 173/68 H 167/70 H Blood Pressure Mean 103 102 Blood Pressure Position Pulse Oximetry 98 96 Oxygen Delivery Method Room Air Room Air Sepsis Recent Fever Within 48 Hours Sepsis New/Unexplained Change in Mental Status Sepsis Action Taken by Nursing 08/12/23 13:14 08/12/23 13:20 08/12/23 13:50 Temperature Temperature Source Pulse Rate 58 L 59 L 65 Pulse Rate from SpO2 Sensor 58 L Respiratory Rate 17 21 Respiratory Effort / Characteristics Respiratory Depth Respiratory Pattern Blood Pressure Blood Pressure Mean Blood Pressure Position Pulse Oximetry 97 Oxygen Delivery Method Sepsis Recent Fever Within 48 Hours Sepsis New/Unexplained Change in Mental Status Sepsis Action Taken by Nursing 08/12/23 14:00 08/12/23 14:31 08/12/23 15:01 Temperature Temperature Source Pulse Rate 60 60 63 Pulse Rate from SpO2 Sensor Respiratory Rate 18 18 18 Respiratory Effort / Characteristics Respiratory Depth Respiratory Pattern Blood Pressure 163/75 H 169/56 H 169/56 H Blood Pressure Mean 104 93 93 Blood Pressure Position Pulse Oximetry 94 95 95 Oxygen Delivery Method Room Air Room Air Room Air Sepsis Recent Fever Within 48 Hours Sepsis New/Unexplained Change in Mental Status Sepsis Action Taken by [facility] Medications Current Medication List: was personally reviewed by me Laboratory Data Attestation: I reviewed the patient's lab results. 08/12/23 11:50 08/12/23 11:50 Lab Results 08/12/23 08/12/23 Range/Units 11:50 15:00 WBC 9.59 (4.8-10.8) K/ul RBC 4.61 (4.20-5.40) M/uL Hgb 14.1 (12.0-16.0) g/dl Hct 41.1 (37.0-47.0) % MCV 89.2 (80.0-100.0) fL MCH 30.6 (25.0-34.0) pg MCHC 34.3 (32.0-36.0) g/dL RDW Std Deviation 40.4 (36.4-46.3) fL RDW Coeff of Kasey 12.5 (11.5-14.5) % Plt Count 280 (130-400) K/uL MPV 9.5 (9.4-12.4) fL Immature Gran % (Auto) 0.9 % Neut % (Auto) 53.5 % Lymph % (Auto) 34.6 % Nance % (Auto) 9.7 % Eos % (Auto) 0.8 % Baso % (Auto) 0.5 % Neut # (Auto) 5.12 (1.40-6.50) K/uL Lymph # (Auto) 3.32 (1.20-3.40) K/uL Nance # (Auto) 0.93 H (0.11-0.59) K/uL Eos # (Auto) 0.08 (0.00-0.50) K/uL Baso # (Auto) 0.05 (0.00-0.20) K/uL Immature Gran # (Auto) 0.09 (0.01-0.20) K/uL PT 10.9 (9.0-12.0) Seconds INR 1.0 (0.9-1.1) APTT 27 (21-31) Seconds PTT Ratio 1.0 Sodium 133 L (136-145) mmol/L Potassium 4.2 (3.5-5.1) mmol/L Chloride 94 L (98-107) mmol/L Carbon Dioxide 33 H (21-32) mmol/L Anion Gap 6 (3-11) BUN 9 (6-23) mg/dl Creatinine 0.62 (0.6-1.2) mg/dl Est Cr Clr Drug Dosing 61.3 ml/min Est GFR ( Amer) 93.3 ml/min Est GFR (Non-Af Amer) 80.5 ml/min BUN/Creatinine Ratio 14.5 (10-20) Glucose 150 H (70-99(Fasting)) mg/dl Calcium 9.3 (8.6-10.3) mg/dl Total Bilirubin 0.5 (0.2-1.0) mg/dl AST 27 (13-39) U/L ALT 22 (7-52) U/L Alkaline Phosphatase 67 (34-104) U/L Total Protein 7.0 (6.0-8.3) gm/dl Albumin 4.2 (3.4-5.0) gm/dl Globulin 2.8 (2.5-4.0) gm/dl Albumin/Globulin Ratio 1.5 (0.9-2) SARS-CoV-2, RNA, NAAT NEGATIVE (NEGATIVE) Administered Medications Discontinued Medications Fentanyl Citrate (Fentanyl Citrate Pf 100 Mcg/2 Ml Vial) 25 mcg IV NOW STA Stop: 08/12/23 14:15 Last Admin: 08/12/23 15:10 Dose: 25 mcg Documented By: LMM Acetaminophen (Ofirmev) 1,000 mg in 100 mls @ 400 mls/hr IV NOW STA Stop: 08/12/23 12:30 Last Infusion: 08/12/23 12:46 Dose: Infused Documented By: Admin: 08/12/23 12:30 Dose: 400 mls/hr Documented By: LMM Morphine Sulfate (Morphine Sulfate 4 Mg/Ml 1 Ml Carp\\Vial) 4 mg IV NOW STA Stop: 08/12/23 12:17 Last Admin: 08/12/23 12:49 Dose: Not Given Documented By: LMM Morphine Sulfate (Morphine Sulfate 2 Mg/Ml Carp) 2 mg IV NOW STA Stop: 08/12/23 12:37 Last Admin: 08/12/23 12:41 Dose: 2 mg Documented By: LMM Imaging Data Radiologist's Impression: Chest X-Ray 08/12/23 00:00 XR chest 1V not portable HISTORY: Left hip fracture. Preop. COMPARISON: Chest 04/10/2023. FINDINGS: No pneumothorax. No pleural effusions. There are low lung volumes. Left basilar linear densities favor subsegmental atelectasis or scarring. This is similar to the prior study. The heart remains mildly enlarged. No evidence for pulmonary edema. No new focal lung consolidations. The right shoulder prosthesis, prior cholecystectomy, lumbar spinal fusion hardware again noted. No acute fractures identified. IMPRESSION: No significant change compared to the prior study. No acute process. ACT 112: Negative or not required by law. Electronically signed by: Mario More M.D. 08/12/2023 2:09 PM Hip/Pelvis X-Ray 08/12/23 12:17 SINGLE VIEW PELVIS; 2 VIEWS LEFT HIP CLINICAL HISTORY: Fall. Left hip injury. FINDINGS: An AP, portable, supine view of the pelvis with AP and crosstable lateral views of the left hip are correlated with pelvic CT dated 10/13/2018. The skeletal structures are osteopenic. There is a comminuted and angulated intertrochanteric fracture of the left proximal femur. Fragments are offset by up to 1.5 cm. Overlying soft tissue edema is noted. No additional acute fracture is seen involving the right hip or the bony pelvis. Moderate arthritic change and joint space narrowing is seen in the hips, left greater than right. Degenerative sclerosis is noted in the sacroiliac joints and pubic symphysis. Spondylotic and postsurgical change is noted in the lower lumbar spine. There are numerous pelvic phleboliths. IMPRESSION: Intertrochanteric fracture of the left proximal femur as above. Electronically signed by: Haroon Norris M.D. 08/12/2023 1:43 PM Discharge Plan Visit Data Chief Complaint: Fall Stated Complaint: FALL, L HIP PAIN ED Provider: Leobardo Gresham Discharge Problem: Closed intertrochanteric fracture, Fall, Chronic hyponatremia, Acute hip pain Patient Disposition: Admitted As Inpatient Discharge Instructions Interventions: ED Discharge Assessment Last Done: 08/12/23 15:38 Discharge Problem: Closed intertrochanteric fracture Qualifiers: Encounter type: initial encounter Fracture alignment: displaced Laterality: l eft Qualified Code(s): S72.142A - Displaced intertrochanteric fracture of left femur, initial encounter for closed fracture Fall Qualifiers: Encounter type: initial encounter Qualified Code(s): W19.XXXA - Unspecified fall, initial encounter Acute hip pain Qualifiers: Laterality: left Qualified Code(s): M25.552 - Pain in left hip
[2023-08-12] MEDS: ACETAMINOPHEN 1,000 MG/100 ML VIAL IV STA (12:30)
[2023-08-12] MEDS: MoRPHine SULFATE 2 MG/ML CARP IV STA (12:41)
[2023-08-12] MEDS: MoRPHine SULFATE 4 MG/ML 1 ML CARP\\VIAL IV STA (12:49)
[2023-08-12 13:20] LABS: Basophils # (auto) 0.05 K/uL (0.00-0.20); Basophils % (auto) 0.5 %; Eosinophils # (auto) 0.08 K/uL (0.00-0.50); Eosinophils % (auto) 0.8 %; Hematocrit (blood only) 41.1 % (37.0-47.0); Hemoglobin 14.1 g/dl (12.0-16.0); Immature Granulocytes # (auto) 0.09 K/uL (0.01-0.20); Immature Granulocytes % (auto) 0.9 %; Lymphocytes # (auto) 3.32 K/uL (1.20-3.40); Lymphocytes % (auto) 34.6 %; Mean Corpuscular Hemoglobin 30.6 pg (25.0-34.0); Mean Corpuscular Hgb Conc 34.3 g/dL (32.0-36.0); Mean Corpuscular Volume 89.2 fL (80.0-100.0); Mean Platelet Volume 9.5 fL (9.4-12.4); Monocytes # (auto) 0.93 K/uL (0.11-0.59); Monocytes % (auto) 9.7 %; Neutrophils # (auto) 5.12 K/uL (1.40-6.50); Neutrophils % (auto) 53.5 %; Platelet Count 280 K/uL (130-400); RDW Coefficient of Variation 12.5 % (11.5-14.5); RDW Standard Deviation 40.4 fL (36.4-46.3); Red Blood Count 4.61 M/uL (4.20-5.40); White Blood Count 9.59 K/ul (4.8-10.8)
[2023-08-12 13:38] LABS: Albumin Globulin Ratio 1.5 (0.9-2); Albumin Level 4.2 gm/dl (3.4-5.0); BUN Creatinine Ratio 14.5 (10-20); Bilirubin,Total 0.5 mg/dl (0.2-1.0); Calcium 9.3 mg/dl (8.6-10.3); Creatinine Clr Calc Pharmacy 61.3 ml/min; Est GFR (African American) 93.3 ml/min; Est GFR (Non-African American) 80.5 ml/min; Globulin 2.8 gm/dl (2.5-4.0); Potassium 4.2 mmol/L (3.5-5.1)
--- NOTE | 2023-08-12 13:44 | XRay Report ---
SINGLE VIEW PELVIS; 2 VIEWS LEFT HIP CLINICAL HISTORY: Fall. Left hip injury. FINDINGS: An AP, portable, supine view of the pelvis with AP and crosstable lateral views of the left hip are correlated with pelvic CT dated 10/13/2018. The skeletal structures are osteopenic. There is a comminuted and angulated intertrochanteric fracture of the left proximal femur. Fragments are offset by up to 1.5 cm. Overlying soft tissue edema is noted. No additional acute fracture is seen involvin g the right hip or the bony pelvis. Moderate arthritic change and joint space narrowing is seen in th e hips, left greater than right. Degenerative sclerosis is noted in the sacroiliac joints and pubic s ymphysis. Spondylotic and postsurgical change is noted in the lower lumbar spine. There are numerous pelvic phleboliths. IMPRESSION: Intertrochanteric fracture of the left proximal femur as above. Electronically signed by: Haroon Norris M.D. 08/12/2023 1:43 PM
[2023-08-12 13:45] LABS: Partial Thromboplastin Time 27 Seconds (21-31); Prothrombin Time 10.9 Seconds (9.0-12.0)
--- NOTE | 2023-08-12 14:10 | History & Physical Report ---
Date of Service August 12, 2023 Assessment & Plan (1) Fracture of left hip: Plan: -Admit to med telemetry -Check CXR for preop clearance, EKG reviewed personally without signs of acute ST wave inversions or ischemia -Last echo reviewed from June 23, 2023 showing EF of 55 to 59%, moderate to severe aortic stenosis, heard on exam -Pain control ordered, Tylenol [id number], tramadol every 4, IV morphine for breakthrough pain -Bowel regimen, ordered MiraLAX and stool softener today, last BM was 3 days ago - Ortho consulted - Pt has not eaten yet today, keep NPO until ortho see's to determine if she would be candidate for late evening surgery. If not, then allow diet today and will make NPO after midnight. -PT/OT consults (2) Paroxysmal A-fib: Plan: -Chronic, stable, rate controlled on metoprolol 12.5 twice daily -She is not on anticoagulation other than baby aspirin (3) Hypertension: Plan: -Chronic, stable -BP is slightly elevated likely secondary to pain, pain management as above, continue lisinopril p.o. daily (4) Hyperlipidemia: Plan: -Continue statin therapy -Chronic, stable (5) Aortic stenosis: Plan: -Present on exam, reviewed most recent echo done on 06/23/2023 as above -Chronic, stable (6) History of breast cancer: Plan: -Remote history of such status post partial mastectomy, right, XRT, no history of chemotherapy (7) Type 2 diabetes mellitus: Plan: -ISS with Accu-Cheks ACHS -Check A1c, patient is not on any oral anti-hyperglycemic medications DVT PPx:teds, scds Lines: 2 PIV FEN/GI: N.p.o. for now, await Ortho to determine if patient can have diet today CODE: Full code Dispo: From home, likely to remain in the hospital x 1-2 days A total of 77 minutes were spent with greater than 50% of that time face to face with the patient, personally reviewing all current laboratories, imaging studies, past medication reconciliation, outpatient chart review, and discussion with specialists to collaborate care for the patient with attending. Please see attending documentation for corrections and/or additions. History of Present Illness Chief Complaint: Fall Primary Care Provider: Doron Gibbs MD This is an 87-year-old female with PMHx of paroxysmal A-fib, severe aortic stenosis, history of SVT, HTN, HLD, DM type II, anxiety, mild dementia, remote history of breast cancer in 2004 noticed post partial mastectomy, who presents to the hospital with acute fall, suffering a left-sided hip fracture. Her son in law is present with her at bedside and supports the history. Patient walks with a walker at baseline. Was ambulating outside to son's car to grab some groceries this morning ultimately had mechanical fall and tripped over the edge of the sidewalk. She was unable to stand up, could not bear weight on the leg due to pain. She has good sensation in her lower leg and can move/wiggle toes. She is not on any blood thinning medications, took her medications last yesterday. She has not eaten anything yet today. Last bowel movement was 3 days ago, patient notes this is not normal for her, is willing to take stool softener today. Her pain is fairly well-controlled in her hip but it reports chronic lower back pain and states that this is the thing that is bothering her the worst currently. She underwent spinal surgery by Dr. Mack approximately 1 year ago. Other orthopedic surgeries include a right shoulder replacement which was done in a different facility many years ago. She has no preference on orthopedic surgeon currently. Allergies Allergy/AdvReac Type Severity Reaction Status Date / Time latex Allergy Redness of Verified 09/09/21 08:26 Skin codeine AdvReac Mild HALLUCINATI Verified 09/09/21 08:26 ONS Home Medications Medication Instructions Recorded Confirmed Type lisinopril 10 mg tablet 40 mg PO QAM 10/13/18 08/12/23 History rosuvastatin 10 mg tablet 10 mg PO HS 10/13/18 08/12/23 History multivitamin-ferrous 1 tab PO QAM 02/20/20 08/12/23 History fumarate-folic acid 18 mg-400 mcg tablet (Centrum) latanoprost 0.005 % eye drops 1 drp OPB DAILY 09/09/21 08/12/23 History metoprolol tartrate 25 mg tablet 12.5 mg PO BID 09/09/21 08/12/23 History Stool Softener See Rx Instructions .Route .COMPLEX 08/12/23 08/12/23 History aspirin 81 mg tablet,delayed 81 mg PO PM 08/12/23 08/12/23 History release Past Med/Surg History Medical History Type 2 diabetes mellitus Diet "controlled," though glucose > 200 on pre-op labs and most recent A1C with PCP 01/04 7.1% Aortic stenosis Moderate per February 2020 echo Paroxysmal A-fib Follows with [facility] cardiology, Dr. Cid History of breast cancer left breast GERD (gastroesophageal reflux disease) Macular degeneration Glaucoma Hyperlipidemia Hypertension Shingles 2013 Surgical History History of lumpectomy of left breast with lymph node dissection. LEFT LIMB RESTRICTION History of appendectomy Status post right knee replacement History of right shoulder replacement History of colonoscopy H/O: hysterectomy History of cholecystectomy [place] teeth extracted History of tonsillectomy Family History Other Cancer Heart disease Social History Smoking Status: Never smoker Second Hand Exposure: No; Do You Dip or Chew Tobacco: No; Hx Alcohol Use: No Hx Substance Use: No Preferred Language: [place] Communication Ability: Effective Station Baggage Porter Required: No Beliefs That Will Affect Care: None Current Living Situation: Family Current Living Situation Comment: Lives in independent living [facility] Feels Safe at Home: Yes Safety Concerns: Feels Safe At This Time Assistive Devices: Denture - Upper, Denture - Lower and Walker Review of Systems Review of Systems: Constitutional: No fever, sweats or chills Eyes: No diplopia, no worsening or blurred vision ENT: normal hearing, no trouble swallowing Respiratory: No cough, sputum, dyspnea at rest or on exertion Cardiovascular: No chest pain, tightness or palpitations Abdomen: No pain, nausea, vomiting, diarrhea or constipation Musculoskeletal: Left hip pain, chronic lower back pain, otherwise no joint pain, calf pain, swelling Neurologic: No weakness, numbness/tingling, or balance problems, uses a walker at baseline Psychiatric: No anxiety or depression Skin: No rash or itch Physical Exam Physical Exam: General: awake, alert, no apparent distress, elderly white female Head: Normocephalic, atraumatic ENT: PERRL, EOMI, no pharyngeal exudate, mucous membranes moist Chest: Clear to auscultation, on room air, no adventitious breath sounds Cardiac: Regular rate and rhythm, loud MARY grade 3/4 with radiation to carotids, no JVD, normal peripheral pulses, good capillary refill Abdominal: NABS x 4 quadrants, soft, nondistended, nontender to palpation, no rebound or guarding Extremities: LLE shortened and externally rotated, sensation to light touch intact, distal pulses present and equal bilaterally 2+, no peripheral edema or erythema, calfs nontender to palpation Psych: Normal mood and affect Neuro: AAO x 3, strength intact bilaterally and rated 5/5 in all extremities except strength not tested in LLE, no motor deficits, speech is clear, no peripheral sensory deficits Results & Data Results & Data Vital Signs (Past 12 Hours) Vital Signs Temp Pulse Resp BP Pulse Ox O2 Del Method 08/12/23 13:50 65 21 97 08/12/23 13:20 59 L 17 08/12/23 13:14 58 L 08/12/23 13:00 64 25 H 167/70 H 96 Room Air 08/12/23 12:40 59 L 29 H 08/12/23 12:30 61 27 H 173/68 H 98 Room Air 08/12/23 12:00 63 29 H 178/94 H 97 Room Air 08/12/23 11:52 65 38 H 197/111 H 96 Room Air 08/12/23 11:50 36.5 C 62 18 197/111 H 96 Room Air Laboratory Results 08/12/23 11:50 WBC 9.59 RBC 4.61 Hgb 14.1 Hct 41.1 MCV 89.2 MCH 30.6 MCHC 34.3 RDW Std Deviation 40.4 RDW Coeff of [place] 12.5 Plt Count 280 MPV 9.5 Immature Gran % (Auto) 0.9 Neut % (Auto) 53.5 Lymph % (Auto) 34.6 [place] % (Auto) 9.7 Eos % (Auto) 0.8 Baso % (Auto) 0.5 Neut # (Auto) 5.12 Lymph # (Auto) 3.32 [place] # (Auto) 0.93 H Eos # (Auto) 0.08 Baso # (Auto) 0.05 Immature Gran # (Auto) 0.09 PT 10.9 INR 1.0 APTT 27 PTT Ratio 1.0 Sodium 133 L Potassium 4.2 Chloride 94 L Carbon Dioxide 33 H Anion Gap 6 BUN 9 Creatinine 0.62 Est Cr Clr Drug Dosing 61.3 Est GFR ( Amer) 93.3 Est GFR (Non-Af Amer) 80.5 BUN/Creatinine Ratio 14.5 Glucose 150 H Calcium 9.3 Total Bilirubin 0.5 AST 27 ALT 22 Alkaline Phosphatase 67 Total Protein 7.0 Albumin 4.2 Globulin 2.8 Albumin/Globulin Ratio 1.5 Diagnostic Findings Hip/Pelvis X-Ray 08/12/23 12:17 SINGLE VIEW PELVIS; 2 VIEWS LEFT HIP CLINICAL HISTORY: Fall. Left hip injury. FINDINGS: An AP, portable, supine view of the pelvis with AP and crosstable lateral views of the left hip are correlated with pelvic CT dated 10/13/2018. The skeletal structures are osteopenic. There is a comminuted and angulated intertrochanteric fracture of the left proximal femur. Fragments are offset by up to 1.5 cm. Overlying soft tissue edema is noted. No additional acute fracture is seen involving the right hip or the bony pelvis. Moderate arthritic change and joint space narrowing is seen in the hips, left greater than right. Degenerative sclerosis is noted in the sacroiliac joints and pubic symphysis. Spondylotic and postsurgical change is noted in the lower lumbar spine. There are numerous pelvic phleboliths. IMPRESSION: Intertrochanteric fracture of the left proximal femur as above. Electronically signed by: Haroon Norris M.D. 08/12/2023 1:43 PM ECG Additional Comments: Reviewed personally no signs of ST wave inversions or ischemia Code Status & VTE Plan Code Status Full code-discussed with patient and son-in-law at present at bedside Supervising Physician Co-Signing Physician Notes I have seen and examined the patient and have discussed the case with the provider above. I have reviewed the advanced practitioner's documentation, and I agree with, and take responsibility for that plan of care. Patient is 87-year-old female with a history of mild dementia diabetes and other conditions as noted above including severe aortic stenosis. Family is at bedside and assist with history. Patient denies any recent issues with chest pain, shortness of breath or other issues with ambulation. She is very functional at baseline. She denies any syncope or recent hospitalizations. She denies any history of problems with surgeries. On exam she is awake and alert in no acute distress. Lower extremities are neurovascularly intact. She does report some numbness to her left leg which is externally rotated and she has not repositions leg for a while. Exam as otherwise noted above. Agree with surgery if orthopedics recommends. Aortic stenosis appears chronic and stable and EKG was reviewed. Plan for OR tonight for repair of left hip fracture after mechanical fall. Will continue with postoperative care and standard DVT prophylaxis when cleared by surgery. DO Hung
--- NOTE | 2023-08-12 14:10 | XRay Report ---
XR chest 1V not portable HISTORY: Left hip fracture. Preop. COMPARISON: Chest 04/10/2023. FINDINGS: No pneumothorax. No pleural effusions. There are low lung volumes. Left basilar linear dens ities favor subsegmental atelectasis or scarring. This is similar to the prior study. The heart remai ns mildly enlarged. No evidence for pulmonary edema. No new focal lung consolidations. The right shou lder prosthesis, prior cholecystectomy, lumbar spinal fusion hardware again noted. No acute fractures identified. IMPRESSION: No significant change compared to the prior study. No acute process. ACT 112: Negative or not required by law. Electronically signed by: Mario More M.D. 08/12/2023 2:09 PM
--- NOTE | 2023-08-12 14:21 | Electrocardiogram Report ---
Test Reason : Blood Pressure : / mmHG Vent. Rate : 062 BPM Atrial Rate : 062 BPM P-R Int : 190 ms QRS Dur : 108 ms QT Int : 418 ms P-R-T Axes : 073 -62 044 degrees QTc Int : 424 ms Sinus rhythm with occasional Premature ventricular complexes Left axis deviation Moderate voltage criteria for LVH, may be normal variant ( R in aVL ) Septal infarct (cited on or before 12-AUG-2023) Abnormal ECG When compared with ECG of 10-APR-2023 11:37, Premature ventricular complexes are now Present Right bundle branch block is no longer Present Questionable change in initial forces of Septal leads Confirmed by Niko Laureano ([id number]) on 08/12/2023 2:21:33 PM Referred By: REFERRED SELF Confirmed By:Niko Laureano
[2023-08-12] MEDS: fentaNYL citrate PF 100 MCG/2 ML VIAL IV STA (15:10)
[2023-08-12 15:42] LABS: Appearance Urine Clear (Clear); Bacteria Urine Automated Negative (Negative); Bilirubin Urine Negative (Negative); Blood Urine Negative (Negative); Cast Urine Automated 0 /lpf (0-5); Color Urine Yellow; Glucose Urine UA Negative (Negative); Ketones Urine Negative (Negative); Leukocyte Esterase Urine Negative (Negative); Nitrite Urine Negative (Negative); RBC Urine Automated 0-4 /hpf (0-4); Specific Gravity Urine 1.012 (1.000-1.030); Urobilinogen Urine Negative (Negative); WBC Urine Automated 0 /hpf (0-5)
[2023-08-12 15:43] LABS: Protein Urine Trace (Negative)
[2023-08-12] MEDS ORDERED: ONDANSETRON INJ 2 MG/ML 2 ML VIAL IV PRN ×2 (16:11→16:21)
[2023-08-12] MEDS ORDERED: NALOXONE HCL 0.4 MG/1 ML VIAL/CARP IV PRN (16:11)
--- NOTE | 2023-08-12 16:18 | Anesthesiology Consultation ---
Date of Service August 12, 2023 Assessment & Plan (1) Encounter for pre-operative examination: Plan Last echo reviewed from June 23, 2023 showing EF of 55 to 59%, moderate to severe aortic stenosis per hospitalist Chart Review Chart Review: copy worker initiated History Surgery Operation Date: 08/12/23 12:45 Proposed Procedures p Left Hip Long Trochanteric Femoral Nail - Eric Bryant M.D. Height/Weight Height: 5 ft 3 in Weight: 76.2 kg Allergies Allergy/AdvReac Type Severity Reaction Status Date / Time latex Allergy Redness of Verified 09/09/21 08:26 Skin codeine AdvReac Mild HALLUCINATI Verified 09/09/21 08:26 ONS Medications Home Medications Medication Instructions Recorded Confirmed Last Taken lisinopril 10 mg tablet 40 mg PO QAM 10/13/18 08/12/23 03/07/20 08:00 rosuvastatin 10 mg tablet 10 mg PO HS 10/13/18 08/12/23 03/07/20 21:00 multivitamin-ferrous 1 tab PO QAM 02/20/20 08/12/23 03/07/20 08:00 fumarate-folic acid 18 mg-400 mcg tablet (Centrum) latanoprost 0.005 % eye drops 1 drp OPB DAILY 09/09/21 08/12/23 Unknown metoprolol tartrate 25 mg tablet 12.5 mg PO BID 09/09/21 08/12/23 Unknown Stool Softener See Rx Instructions .Route .COMPLEX 08/12/23 08/12/23 Unknown aspirin 81 mg tablet,delayed 81 mg PO PM 08/12/23 08/12/23 Unknown release Past Medical History Medical History (Updated 08/12/23 @ 16:20 by Dm Hubbard DO) Type 2 diabetes mellitus Diet "controlled," though glucose > 200 on pre-op labs and most recent A1C with PCP 01/04 7.1% Aortic stenosis Moderate per February 2020 echo Paroxysmal A-fib Follows with [facility] cardiology, Dr. Cid History of breast cancer left breast GERD (gastroesophageal reflux disease) Macular degeneration Glaucoma Hyperlipidemia Hypertension Shingles 2013 Past Family History Family History Other Cancer Heart disease Past Surgical History Surgical History History of lumpectomy of left breast with lymph node dissection. LEFT LIMB RESTRICTION History of appendectomy Status post right knee replacement History of right shoulder replacement History of colonoscopy H/O: hysterectomy History of cholecystectomy [place] teeth extracted History of tonsillectomy Social History Smoking Status: Never smoker Do You Dip or Chew Tobacco: No Hx Alcohol Use: No Hx Substance Use: No substance use type: does not use Physical Exam Vital Signs Last Vital Signs Temp 97.7 F 08/12/23 11:50 Pulse 63 08/12/23 16:00 Resp 18 08/12/23 16:00 BP 153/61 H 08/12/23 16:00 Pulse Ox 96 08/12/23 16:00 O2 Del Method Room Air 08/12/23 16:00 Testing Laboratory Results 08/12/23 11:50 08/12/23 11:50 PT 10.9 Seconds (9.0-12.0) 08/12/23 11:50 INR 1.0 (0.9-1.1) 08/12/23 11:50 APTT 27 Seconds (21-31) 08/12/23 11:50 Urine Color Yellow 08/12/23 15:25 Urine Appearance Clear (Clear) 08/12/23 15:25 Urine pH 8.0 (4.5-7.5) H 08/12/23 15:25 Ur Specific [place] 1.012 (1.000-1.030) 08/12/23 15:25 Urine Protein Trace (Negative) H 08/12/23 15:25 Urine Glucose (UA) Negative (Negative) 08/12/23 15:25 Urine Ketones Negative (Negative) 08/12/23 15:25 Urine Nitrite Negative (Negative) 08/12/23 15:25 Ur Leukocyte Esterase Negative (Negative) 08/12/23 15:25 Urine WBC (Auto) 0 /hpf (0-5) 08/12/23 15:25 Urine RBC (Auto) 0-4 /hpf (0-4) 08/12/23 15:25 U Hyaline Cast (Auto) 0 /lpf (0-5) 08/12/23 15:25 U Epithel Cells (Auto) 5-10 /lpf (0-5) H 08/12/23 15:25 Urine Bacteria (Auto) Negative (Negative) 08/12/23 15:25 Electrocardiogram Date: 08/12/23 Sinus rhythm with occasional Premature ventricular complexes, rate 62 bpm Left axis deviation Moderate voltage criteria for LVH, may be normal variant ( R in aVL ) Septal infarct (cited on or before 12-AUG-2023) Abnormal ECG When compared with ECG of 10-APR-2023 11:37, Premature ventricular complexes are now Present Right bundle branch block is no longer Present Questionable change in initial forces of Septal leads Confirmed by Niko Laureano ([id number]) on 08/12/2023 2:21:33 PM Chest X-Ray Date: 08/12/23 Findings: + NAD
[2023-08-12] MEDS ORDERED: fentaNYL citrate PF 100 MCG/2 ML VIAL IV PRN (16:21)
[2023-08-12] MEDS ORDERED: ATROPINE SULFATE 0.1 MG/ML 10ML SYR IV PRN (16:21)
[2023-08-12] MEDS ORDERED: ePHEDrine sulfate 50 MG/ML AMP IV PRN (16:21)
[2023-08-12] MEDS ORDERED: ROCURONIUM BROMIDE 10 MG/ML 5 ML VIAL IV ONE (16:32)
[2023-08-12] MEDS ORDERED: fentaNYL citrate PF 100 MCG/2 ML VIAL ONE (16:32)
[2023-08-12] MEDS ORDERED: PROPOFOL IV EMULSION 10 MG/ML 20 ML VIAL IV ONE (16:32)
[2023-08-12] MEDS ORDERED: LIDOCAINE 2% 2 ML VIAL/AMP(20MG/ML) INFIL ONE (16:32)
[2023-08-12] MEDS ORDERED: ONDANSETRON INJ 2 MG/ML 2 ML VIAL ONE (16:32)
[2023-08-12] MEDS ORDERED: DEXAMETHASONE SOD INJ 4 MG/ML VIAL ONE (16:32)
--- NOTE | 2023-08-12 16:46 | Orthopedic Consultation ---
Date of Consultation August 12, 2023 Assessment & Plan (1) Intertrochanteric fracture of left hip: She has a comminuted, displaced, intertrochanteric proximal femur fracture with some subtrochanteric extension. I would either recommend cephalomedullary nailing to stabilize this injury. Patient and her daughter are in agreement. Risks, benefits, and alternatives of surgery were explained in detail. The surgical procedure, as well as postoperative recovery and rehabilitation, was also explained in detail. Risks include bleeding; infection; damage to surrounding structures such as nerves, blood vessels, and tendons that run in the area; persistent pain or stiffness; nonunion; malunion; hardware failure; painful prominent hardware requiring removal; or need for further surgery. The patient and her daughter understand all of this and wish to proceed with surgery. Informed consent was obtained from her daughter, Felipa Meléndez, who is her power of deputy county attorney. History of Present Illness Reason for Consultation: Left hip fracture Requesting Physician: Dr. Persaud Attending Physician: Amanda Persaud, DO History of Present Illness Ms. Myrick is an 87-year-old female who injured her left hip during a ground- level fall this morning when she tripped on a curb and fell onto her left side. She had immediate pain and inability bear weight. She normally ambulates with a walker. She has numerous medical issues including paroxysmal atrial fibrillation (although not on anticoagulation), severe aortic stenosis, diabetes. Allergies Allergy/AdvReac Type Severity Reaction Status Date / Time latex Allergy Redness of Verified 09/09/21 08:26 Skin codeine AdvReac Mild HALLUCINATI Verified 09/09/21 08:26 ONS Home Medications Medication Instructions Recorded Confirmed Type lisinopril 10 mg tablet 40 mg PO QAM 10/13/18 08/12/23 History rosuvastatin 10 mg tablet 10 mg PO HS 10/13/18 08/12/23 History multivitamin-ferrous 1 tab PO QAM 02/20/20 08/12/23 History fumarate-folic acid 18 mg-400 mcg tablet (Centrum) latanoprost 0.005 % eye drops 1 drp OPB DAILY 09/09/21 08/12/23 History metoprolol tartrate 25 mg tablet 12.5 mg PO BID 09/09/21 08/12/23 History Stool Softener See Rx Instructions .Route .COMPLEX 08/12/23 08/12/23 History aspirin 81 mg tablet,delayed 81 mg PO PM 08/12/23 08/12/23 History release Patient History Medical History (Updated 08/12/23 @ 16:50 by Leobardo Gresham MD) Type 2 diabetes mellitus Diet "controlled," though glucose > 200 on pre-op labs and most recent A1C with PCP 01/04 7.1% Aortic stenosis Moderate per February 2020 echo Paroxysmal A-fib Follows with [facility] cardiology, Dr. Cid History of breast cancer left breast GERD (gastroesophageal reflux disease) Macular degeneration Glaucoma Hyperlipidemia Hypertension Shingles 2013 Surgical History History of lumpectomy of left breast with lymph node dissection. LEFT LIMB RESTRICTION History of appendectomy Status post right knee replacement History of right shoulder replacement History of colonoscopy H/O: hysterectomy History of cholecystectomy [place] teeth extracted History of tonsillectomy Family History Other Cancer Heart disease Social History Smoking Status: Never smoker Second Hand Exposure: No; Do You Dip or Chew Tobacco: No; Hx Alcohol Use: No Hx Substance Use: No Preferred Language: Korean Communication Ability: Effective Beliefs That Will Affect Care: None Current Living Situation: Alone Current Living Situation Comment: Lives in independent living [facility] Feels Safe at Home: Yes Assistive Devices: Glasses and Walker Physical Exam Physical Exam: She is disoriented to place and time. Examination of the left hip shows no open wounds. There is shortening and external rotation of the leg. There is mild swelling and tenderness to palpation of the thigh and hip area. Compartments are soft and compressible. Intact ankle dorsiflexion and plantarflexion. Results & Data Vital Signs (Past 12 Hours) Vital Signs Temp Pulse Resp BP Pulse Ox O2 Del Method 08/12/23 16:27 65 08/12/23 16:00 63 18 153/61 H 96 Room Air 08/12/23 15:30 63 18 128/73 97 Room Air 08/12/23 15:01 63 18 169/56 H 95 Room Air 08/12/23 14:31 60 18 169/56 H 95 Room Air 08/12/23 14:00 60 18 163/75 H 94 Room Air 08/12/23 13:50 65 21 97 08/12/23 13:20 59 L 17 08/12/23 13:14 58 L 08/12/23 13:00 64 25 H 167/70 H 96 Room Air 08/12/23 12:40 59 L 29 H 08/12/23 12:30 61 27 H 173/68 H 98 Room Air 08/12/23 12:00 63 29 H 178/94 H 97 Room Air 08/12/23 11:52 65 38 H 197/111 H 96 Room Air 08/12/23 11:50 36.5 C 62 18 197/111 H 96 Room Air Diagnostic Findings New x-rays of the left hip obtained today were reviewed. They show a comminuted, displaced, intertrochanteric proximal femur fracture. There is a reverse obliquity component to this fracture, with slight subtrochanteric extension. (1) Intertrochanteric fracture of left hip Encounter type: initial encounter Fracture alignment: displaced Fracture type: closed Qualified Code(s): S72.142A - Displaced intertrochanteric fracture of left femur, initial encounter for closed fracture
[2023-08-12] MEDS: ceFAZolin 2000MG 2,000 MG/15 ML SYR IV SCH (17:16)
[2023-08-12] MEDS ORDERED: ePHEDrine sulfate 50 MG/5 ML SYR ONE (17:43)
[2023-08-12] MEDS: BUPIVACAINE 0.5 % 5 MG/1 ML MPF 30ML VIAL ONE (18:25)
[2023-08-12] MEDS: LIDOCAINE 1% LOCAL 20 ML VIAL ONE (18:26)
--- NOTE | 2023-08-12 18:46 | Operative Report ---
Post Operative Report Pre & Post Diagnosis Operation Date: 08/12/23 12:45 Pre-Op Diagnosis: Left hip intertrochanteric femur fracture Post-Op Diagnosis: Left hip intertrochanteric femur fracture I identified the patient and participated in the time-out.: Yes Procedure Operation Date: 08/12/23 12:45 Actual Procedures Left hip cephalomedullary nailing of intertrochanteric femur fracture ([id number]) - Eric Bryant M.D. Surgeon Eric Bryant MD Quad Stayer None Estimated Blood Loss 75 Findings Consistent with Post-Op Diagnosis Specimens None Drains None Anesthesia Type General Complications none Disposition Disposition: Recovery Room Indications Ms. Myrick is an 87-year-old female who injured her left hip during a ground- level fall. History, clinical exam, and imaging were consistent with the above diagnosis. Risks, benefits, and alternatives of surgery were explained in detail. The patient understood all this and wished to proceed. Description of Procedure Implants: Synthes Intermediate (235mm) 130 degree 12mm Trochanteric Fixation Nail, 11mm helical blade, 5mm distal locking screw Patient was identified in the preoperative holding area. Operative extremity was marked. Patient was then brought back to the operating room, and general anesthesia was induced without complication. Appropriate weight-based dose of Ancef was infused intravenously for antibiotic prophylaxis. Patient was then positioned on the fracture table with the traction apparatus. The nonoperative hip was flexed and placed into the well leg ponce. Longitudinal traction was applied to the operative hip. Fracture reduction was then performed under fluoroscopic imaging. Once acceptable reduction had been achieved, the left hip was then prepped and draped in a standard sterile fashion using Chlorhexidine prep. I first made an incision just proximal to the greater trochanter in line with the femoral shaft axis, and split the fibers of the iliotibial band. I then bluntly palpated down to the greater trochanter and inserted the guidewire down to the tip of the greater trochanter. It was appropriately positioned on AP and lateral images, and then driven into the proximal femur. I then inserted the soft tissue protector down to the tip of the greater trochanter and then passed the entry reamer over top of the guidewire. It was advanced down towards the lesser trochanter to open the proximal femur. I then inserted the Synthes intermediate length TFN attached to the targeting arm into the proximal femur. I malleted it down to an appropriate depth for proper trajectory of the helical blade into the femoral head. Once the nail was at an appropriate depth, I then attached the targeting guide for the helical blade onto the targeting arm. Incision was made in line with the guide through the skin and iliotibial band. The guide sleeve was placed against the lateral cortex of the femur. Guidewire was then inserted through the guide and up into the femoral neck and head. I verified proper placement and trajectory under both AP and lateral images. I advanced the guidewire to the subchondral bone in the femoral head and verified proper depth on orthogonal images. I then measured the depth off of the guidewire. The drill for the helical blade was then set at an appropriate level to match the measured length. The drill was then advanced to the set depth. An appropriate length helical blade was selected and malleted into place over the guidewire. The fracture site was then compressed through the helical blade with the compression ring. I then deployed the set screw proximally to prevent rotation of the helical blade during fracture compression. Fracture compression was then applied using the compression ring on the helical blade targeting sleeve. I then made an incision for the distal locking screw in line with the drill guide through skin and iliotibial band. I then placed the drill sleeve down on the lateral cortex of the femur and drilled through the distal locking hole. Screw length was then measured off of the calibrated drill bit, and an appropriate length was selected and then inserted. The screw length was verified under fluoroscopic imaging. Final fluoroscopic images were then obtained to ensure proper hardware placement, screw length, and fracture reduction. The wounds were then copiously irrigated with sterile saline. Incision sites were then anesthetized with a 50-50 mixture of 1% lidocaine and 0.5% Marcaine without epinephrine. I then closed the iliotibial band and deep dermal tissue with #0 Vicryl suture. Subcutaneous tissues closed with 3-0 Vicryl suture, and skin was closed with larisa. Sterile dressings were then applied with Xeroform, sterile gauze, and foam tape. Drapes were then removed and traction apparatus was disconnected. The patient was awakened from general anesthesia, transferred over to the stretcher, and taken to the Post Anesthesia Care Unit in stable condition. There were no immediate complications from the procedure. I was present and scrubbed for the entire procedure. I attest to the content of the Intraoperative Record and any orders documented therein. Any exceptions are noted below.
[2023-08-12] MEDS: LABETALOL HCL IV 5 MG/ML 20ML IV ONE (18:48)
--- NOTE | 2023-08-12 19:09 | Anesthesiology Progress Note ---
Date of Service August 12, 2023 Anesthesia Post Procedure Vital Signs Vital Signs: Temp Pulse Pulse Pulse Resp BP BP 08/12/23 19:00 88 21 131/60 08/12/23 18:50 100 H 25 H 90/59 L 08/12/23 18:48 124 H 145/67 H 08/12/23 18:42 97.9 F 128 H 21 148/72 H 08/12/23 16:50 97.9 F 69 25 H 161/65 H 08/12/23 16:27 65 08/12/23 16:00 63 18 153/61 H 08/12/23 15:30 63 18 128/73 08/12/23 15:01 63 18 169/56 H 08/12/23 14:31 60 18 169/56 H 08/12/23 14:00 60 18 163/75 H 08/12/23 13:50 65 21 08/12/23 13:20 59 L 17 08/12/23 13:14 58 L 08/12/23 13:00 64 25 H 167/70 H 08/12/23 12:40 59 L 29 H 08/12/23 12:30 61 27 H 173/68 H 08/12/23 12:00 63 29 H 178/94 H 08/12/23 11:52 65 38 H 197/111 H 08/12/23 11:50 97.7 F 62 18 197/111 H Pulse Ox O2 Del Method O2 Flow Rate 08/12/23 19:00 99 Nasal Cannula 2 08/12/23 18:50 95 Nasal Cannula 2 08/12/23 18:48 08/12/23 18:42 99 Oxymask 10 08/12/23 16:50 98 Room Air 08/12/23 16:27 08/12/23 16:00 96 Room Air 08/12/23 15:30 97 Room Air 08/12/23 15:01 95 Room Air 08/12/23 14:31 95 Room Air 08/12/23 14:00 94 Room Air 08/12/23 13:50 97 08/12/23 13:20 08/12/23 13:14 08/12/23 13:00 96 Room Air 08/12/23 12:40 08/12/23 12:30 98 Room Air 08/12/23 12:00 97 Room Air 08/12/23 11:52 96 Room Air 08/12/23 11:50 96 Room Air Pain Intensity Left Hip: Pain Intensity: 5 Transfer of Care Handoff Completed per policy Notes Mental Status: alert / awake / arousable and participated in evaluation Patient Amnestic to Procedure: Yes Nausea / Vomiting: adequately controlled Pain: adequately controlled Airway Patency, RR, SpO2: stable & adequate BP & HR: stable & adequate Hydration State: stable & adequate Anesthetic Complications: no major complications apparent and Pt Satisfied with anesthetic care
--- NOTE | 2023-08-12 19:16 | Fluoroscopy Report ---
INTRAOPERATIVE RADIOGRAPHS CLINICAL HISTORY: Open reduction and internal fixation of the left proximal femur. Fluoro time: 66 seconds Ka,r: 16.68 mGy FINDINGS: 5 spot fluoroscopic views of the left femur are correlated with radiographs dated 08/12/2023 . There has been intertrochanteric and intramedullary nail fixation of a comminuted intertrochanteric fracture of the left proximal femur. Near anatomic alignment is restored. A single cortical lag scre w transfixes the distal end of the intramedullary nail. IMPRESSION: Intraoperative images from open reduction and internal fixation of the left proximal femu r as above. Electronically signed by: Haroon Norris M.D. 08/12/2023 7:13 PM
[2023-08-12] MEDS: METOPROLOL TARTRATE 25 MG TAB PO SCH (21:14)
[2023-08-12] MEDS: ACETAMINOPHEN 500 MG TAB PO SCH (21:15)
[2023-08-12] MEDS: POLYETHYLENE (MIRALAX) 17 GM PACK PO SCH (21:15)
[2023-08-12] MEDS: ROSUVASTATIN CALCIUM 10 MG TAB PO SCH (21:16)
[2023-08-12] MEDS: LABETALOL HCL IV 5 MG/ML 20ML IV STA (21:29)
[2023-08-12] MEDS: bisacodyL 5 MG TABEC PO ONE (21:31)
[2023-08-12] MEDS: LACTATED RINGER'S 1,000 ML IV SCH (23:15)
--- NOTE | 2023-08-13 00:37 | XRay Report ---
LEFT HIP 2 VIEWS CLINICAL HISTORY: Postoperative examination. FINDINGS: AP and crosstable lateral views of the left hip are compared to study dated 08/12/2023. The skeletal structures are osteopenic. Intertrochanteric and intramedullary nails have been placed trans fixing a comminuted intertrochanteric fracture of the left proximal femur. Near-anatomic alignment is restored. A single cortical lag screw transfixes the distal end of the intramedullary nail. No new f racture is seen. The visualized left hemipelvis appears intact. Mild arthritic change and joint space narrowing is seen in the left hip. Fusion hardware is noted in the lower lumbar spine. Skin clips, s ubcutaneous gas, and soft tissue swelling overlying the left hip are expected postsurgical changes. T here is atherosclerotic calcification of the left femoral artery. IMPRESSION: Expected postsurgical findings status post open reduction PA and internal fixation of the left proximal femur. Near anatomic alignment is restored. Electronically signed by: Haroon Norris M.D. 08/13/2023 12:35 AM
[2023-08-13] MEDS: ceFAZolin 2000MG 2,000 MG/15 ML SYR IV SCH (00:51)
[2023-08-13 06:31] LABS: Basophils # (auto) 0.03 K/uL (0.00-0.20); Basophils % (auto) 0.2 %; Hematocrit (blood only) 33.2 % (37.0-47.0); Hemoglobin 10.5 g/dl (12.0-16.0); Immature Granulocytes # (auto) 0.09 K/uL (0.01-0.20); Immature Granulocytes % (auto) 0.6 %; Lymphocytes # (auto) 1.35 K/uL (1.20-3.40); Lymphocytes % (auto) 9.7 %; Mean Corpuscular Hemoglobin 28.2 pg (25.0-34.0); Mean Corpuscular Hgb Conc 31.6 g/dL (32.0-36.0); Mean Corpuscular Volume 89.2 fL (80.0-100.0); Mean Platelet Volume 9.3 fL (9.4-12.4); Monocytes # (auto) 0.85 K/uL (0.11-0.59); Monocytes % (auto) 6.1 %; Neutrophils # (auto) 11.57 K/uL (1.40-6.50); Neutrophils % (auto) 83.4 %; Platelet Count 204 K/uL (130-400); RDW Coefficient of Variation 12.4 % (11.5-14.5); RDW Standard Deviation 40.6 fL (36.4-46.3); Red Blood Count 3.72 M/uL (4.20-5.40); White Blood Count 13.89 K/ul (4.8-10.8)
[2023-08-13 07:53] LABS: BUN Creatinine Ratio 16.1 (10-20); Calcium 8.4 mg/dl (8.6-10.3); Creatinine Clr Calc Pharmacy 61.3 ml/min; Est GFR (African American) 93.3 ml/min; Est GFR (Non-African American) 80.5 ml/min; Potassium 4.8 mmol/L (3.5-5.1)
[2023-08-13] MEDS: ASPIRIN 325 MG ECTAB PO SCH (08:09)
[2023-08-13] MEDS: lisinopril 40 MG TAB PO SCH (08:11)
[2023-08-13] MEDS: LATANOPROST 0.005% OP SOLN 2.5 ML BTL OPB SCH (08:13)
[2023-08-13] MEDS: CEROVITE ADV FORMULA TAB PO SCH (08:14)
--- NOTE | 2023-08-13 10:03 | Orthopedic Progress Note ---
Date of Service August 13, 2023 Assessment & Plan (1) Intertrochanteric fracture of left hip: Plan: Postop day 1 status post left TFN PT/OT protocols. DVT prophylaxis-aspirin 325 mg p.o. daily-SCDs Pain management as written. DC planning-patient is a resident of [facility]. Plans will be to transfer to their nursing facility for a short-term stay before returning to her apartment. Admission and Anticipated Discharge Date Admission Date: August 12, 2023 Subjective Postop day 1 Patient sitting up in bed awake and alert. She is complaining of pain in the left hip from where her surgery is. At rest she states that the pain is controlled however getting in and out of bed is her biggest sure right now. She is able to do it and get to a bedside commode with help. No other complaints this morning. Physical Exam Physical Exam: Dressings are clean, dry, and intact. Calves are soft and nontender. Neurovascular intact. Toes are mobile. Results & Data Vital Signs (Past 12 Hours) Vital Signs Temp Pulse Resp BP Pulse Ox O2 Del Method O2 Flow Rate 08/13/23 08:02 Nasal Cannula 08/13/23 07:49 36.5 C 76 16 104/58 L 97 Room Air, Nasal Cannula 2 08/13/23 03:17 36.5 C 71 16 110/56 L 97 Room Air 08/12/23 23:11 36.3 C L 72 16 113/65 96 Nasal Cannula 2 Laboratory Results Laboratory Results WBC 13.89 K/ul (4.8-10.8) H 08/13/23 05:42 RBC 3.72 M/uL (4.20-5.40) L 08/13/23 05:42 Hgb 10.5 g/dl (12.0-16.0) L D 08/13/23 05:42 Hct 33.2 % (37.0-47.0) L 08/13/23 05:42 MCV 89.2 fL (80.0-100.0) 08/13/23 05:42 MCH 28.2 pg (25.0-34.0) 08/13/23 05:42 MCHC 31.6 g/dL (32.0-36.0) L 08/13/23 05:42 RDW Std Deviation 40.6 fL (36.4-46.3) 08/13/23 05:42 RDW Coeff of Kasey 12.4 % (11.5-14.5) 08/13/23 05:42 Plt Count 204 K/uL (130-400) 08/13/23 05:42 MPV 9.3 fL (9.4-12.4) L 08/13/23 05:42 Immature Gran % (Auto) 0.6 % 08/13/23 05:42 Neut % (Auto) 83.4 % 08/13/23 05:42 Lymph % (Auto) 9.7 % 08/13/23 05:42 Bowman % (Auto) 6.1 % 08/13/23 05:42 Eos % (Auto) 0.0 % 08/13/23 05:42 Baso % (Auto) 0.2 % 08/13/23 05:42 Neut # (Auto) 11.57 K/uL (1.40-6.50) H 08/13/23 05:42 Lymph # (Auto) 1.35 K/uL (1.20-3.40) 08/13/23 05:42 Bowman # (Auto) 0.85 K/uL (0.11-0.59) H 08/13/23 05:42 Eos # (Auto) 0.00 K/uL (0.00-0.50) 08/13/23 05:42 Baso # (Auto) 0.03 K/uL (0.00-0.20) 08/13/23 05:42 Immature Gran # (Auto) 0.09 K/uL (0.01-0.20) 08/13/23 05:42 PT 10.9 Seconds (9.0-12.0) 08/12/23 11:50 INR 1.0 (0.9-1.1) 08/12/23 11:50 APTT 27 Seconds (21-31) 08/12/23 11:50 PTT Ratio 1.0 08/12/23 11:50 Sodium 131 mmol/L (136-145) L 08/13/23 05:42 Potassium 4.8 mmol/L (3.5-5.1) 08/13/23 05:42 Chloride 95 mmol/L (98-107) L 08/13/23 05:42 Carbon Dioxide 30 mmol/L (21-32) 08/13/23 05:42 Anion Gap 6 (3-11) 08/13/23 05:42 BUN 10 mg/dl (6-23) 08/13/23 05:42 Creatinine 0.62 mg/dl (0.6-1.2) 08/13/23 05:42 Est Cr Clr Drug Dosing 61.3 ml/min 08/13/23 05:42 Est GFR ( Amer) 93.3 ml/min 08/13/23 05:42 Est GFR (Non-Af Amer) 80.5 ml/min 08/13/23 05:42 BUN/Creatinine Ratio 16.1 (10-20) 08/13/23 05:42 Glucose 192 mg/dl (70-99(Fasting)) H 08/13/23 05:42 POC Glucose 181 mg/dl (70-99) H 08/13/23 07:40 Calcium 8.4 mg/dl (8.6-10.3) L 08/13/23 05:42 Total Bilirubin 0.5 mg/dl (0.2-1.0) 08/12/23 11:50 AST 27 U/L (13-39) 08/12/23 11:50 ALT 22 U/L (7-52) 08/12/23 11:50 Alkaline Phosphatase 67 U/L (34-104) 08/12/23 11:50 Total Protein 7.0 gm/dl (6.0-8.3) 08/12/23 11:50 Albumin 4.2 gm/dl (3.4-5.0) 08/12/23 11:50 Globulin 2.8 gm/dl (2.5-4.0) 08/12/23 11:50 Albumin/Globulin Ratio 1.5 (0.9-2) 08/12/23 11:50 25-OH Vitamin D Total 34.4 ng/ml (30-100) 08/13/23 05:42 Urine Color Yellow 08/12/23 15:25 Urine Appearance Clear (Clear) 08/12/23 15:25 Urine pH 8.0 (4.5-7.5) H 08/12/23 15:25 Ur Specific [place] 1.012 (1.000-1.030) 08/12/23 15:25 Urine Protein Trace (Negative) H 08/12/23 15:25 Urine Glucose (UA) Negative (Negative) 08/12/23 15:25 Urine Ketones Negative (Negative) 08/12/23 15:25 Urine Blood Negative (Negative) 08/12/23 15:25 Urine Nitrite Negative (Negative) 08/12/23 15:25 Urine Bilirubin Negative (Negative) 08/12/23 15:25 Urine Urobilinogen Negative (Negative) 08/12/23 15:25 Ur Leukocyte Esterase Negative (Negative) 08/12/23 15:25 Urine WBC (Auto) 0 /hpf (0-5) 08/12/23 15:25 Urine RBC (Auto) 0-4 /hpf (0-4) 08/12/23 15:25 U Hyaline Cast (Auto) 0 /lpf (0-5) 08/12/23 15:25 U Epithel Cells (Auto) 5-10 /lpf (0-5) H 08/12/23 15:25 Urine Bacteria (Auto) Negative (Negative) 08/12/23 15:25 SARS-CoV-2, RNA, NAAT NEGATIVE (NEGATIVE) 08/12/23 15:00 Impressions Hip/Pelvis X-Ray 08/12/23 12:17 SINGLE VIEW PELVIS; 2 VIEWS LEFT HIP CLINICAL HISTORY: Fall. Left hip injury. FINDINGS: An AP, portable, supine view of the pelvis with AP and crosstable lateral views of the left hip are correlated with pelvic CT dated 10/13/2018. The skeletal structures are osteopenic. There is a comminuted and angulated intertrochanteric fracture of the left proximal femur. Fragments are offset by up to 1.5 cm. Overlying soft tissue edema is noted. No additional acute fracture is seen involving the right hip or the bony pelvis. Moderate arthritic change and joint space narrowing is seen in the hips, left greater than right. Degenerative sclerosis is noted in the sacroiliac joints and pubic symphysis. Spondylotic and postsurgical change is noted in the lower lumbar spine. There are numerous pelvic phleboliths. IMPRESSION: Intertrochanteric fracture of the left proximal femur as above. Electronically signed by: Haroon Norris M.D. 08/12/2023 1:43 PM Hip X-Ray 08/12/23 18:52 LEFT HIP 2 VIEWS CLINICAL HISTORY: Postoperative examination. FINDINGS: AP and crosstable lateral views of the left hip are compared to study dated 08/12/2023. The skeletal structures are osteopenic. Intertrochanteric and intramedullary nails have been placed transfixing a comminuted intertrochanteric fracture of the left proximal femur. Near-anatomic alignment is restored. A single cortical lag screw transfixes the distal end of the intramedullary nail. No new fracture is seen. The visualized left hemipelvis appears intact. Mild arthritic change and joint space narrowing is seen in the left hip. Fusion hardware is noted in the lower lumbar spine. Skin clips, subcutaneous gas, and soft tissue swelling overlying the left hip are expected postsurgical changes. There is atherosclerotic calcification of the left femoral artery. IMPRESSION: Expected postsurgical findings status post open reduction PA and internal fixation of the left proximal femur. Near anatomic alignment is restored. Electronically signed by: Haroon Norris M.D. 08/13/2023 12:35 AM (1) Intertrochanteric fracture of left hip Encounter type: initial encounter Fracture type: closed Fracture alignment: displaced Qualified Code(s): S72.142A - Displaced intertrochanteric fracture of left femur, initial encounter for closed fracture
[2023-08-13] MEDS: bisacodyL 5 MG TABEC PO SCH (10:11)
--- OUTSIDE RECORDS SUMMARY | 2023-08-13 11:39 | External Medical Summary | Summary of Care ---
Author Name Unknown Organization [facility] Address [address] [facility] [place] [address] Phone [phone] Care Team Providers Care Line Patroller Name Role Phone Doron Gibbs MD Primary Care Provider + Reason for Visit * Reason Comments Follow Up Encounter Details Date Type Department Care Team (Late st Contact Info) Description 07/26/2023 3:30 PM EST Office Visit Cardiology, [facility] [address] [facility] [place] [address] Beth Pisano PA-C [address] [place] [address] PAF (paroxysmal atrial fibrillation) (FORMERLY [facility]; Nonrheumatic aortic valve stenosis; HTN, goal below 140/80; Dyslipidemia, goal LDL below 130 Allergies Active Allergy Reactions Criticality Noted Date Comments Alendronate Sodium Other (Please comment) High 03/07/2014 GERD Brimonidine Tartrate 09/17/2021 Codeine 01/07/2011 nausea Donepezil Nausea/vomiting 03/15/2023 Nausea with 1 month trial Latex Rash 10/13/2017 Rivastigmine Rash 03/15/2023 Rivastigmine patch caused skin rash documented as of this encounter (statuses as of 07/26/2023) Medications Medication Sig Dispensed Refills Start Date End Date Status CENTRUM SILVER PO TABS 1 po qd 0 0 12/30/2004 Active Aspirin 81 MG Tablet Take 1 Tab by mouth daily. 34 Tab 5 03/18/2016 Active Latanoprost 0.005 % Ophthalmic Solution (Xalatan) INSTILL 1 DROP INTO EACH EYE ONCE DAILY AT NIGHT 0 02/21/2021 Active Acetaminophen 500 MG Oral Tablet (Tylenol)Indications :Chronic left-sided low back pain without sciatica Take 2 Tablets by mouth every 8 hours as needed for Pain, Severe. 100 Tablet 0 05/13/2021 Active Metoprolol Tartrate 25 MG Oral Tablet (Lopressor)Indicatio ns:Palpitations,PAF (paroxysmal atrial fibrillation) (HCC),HTN, goal below 140/90 TAKE 1 TABLET IN THE MORNING AND 1 TABLET BEFORE BEDTIME 180 Tablet 2 03/05/2023 Active Rosuvastatin Calcium 10 MG Oral Tablet (Crestor)Indications :PAD (peripheral artery disease) (FORMERLY [facility]) TAKE 1 TABLET DAILY 90 Tablet 1 06/03/2023 Active Lisinopril 40 MG Oral TabletIndications:Hy pertension goal BP (blood pressure) < 140/90 TAKE 1 TABLET DAILY 90 Tablet 3 07/14/2023 Active documented as of this encounter (statuses as of 07/26/2023) Active Problems Problem Noted Date Diagnosed Date Mixed Alzheimer's and vascular dementia 04/14/20 23 Mild dementia with anxiety 09/23/2022 Bilateral carotid artery disease 08/29/2021 SVT (supraventricular tachycardia) 05/13/2021 Obesity, Class I, BMI 30.0-34.9 (see actual BMI) 03/01/2021 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 03/01/2021 Retinal change 03/01/2021 Moderate aortic stenosis 03/18/2020 PALMA (generalized anxiety disorder) 01/24/2019 Type 2 diabetes mellitus wit h hemoglobin A1c goal of less than 8.5% 02/16/2018 Chronic left-sided low back pain without sciatic a 02/15/2018 BPPV (benign paroxysmal positional vertigo) 11/12 PAF (paroxysmal atrial fibrillation) 01/22/2016 Hyperlipidemia 03/12/2014 HTN, goal below 140/90 03/07/2014 documented as of this encounter (statuses as of 07/26/2023) Resolved Problems Problem Noted Date Diagnosed Date Resolved Date Disorder of arteries and art erioles, unspecified 09/12/2020 08/29/2021 PAD (peripheral artery disease) 02/15/2018 03/10/2018 Carotid atherosclerosis 11/24/201601/2019 Kidney disease, chronic, sta ge III (GFR 30-59 ml/min) 12/23/2015 10/13/2017 Overview: Per CKD protocol #1 Vertigo 09/25/2015 03/02/2018 Mild aortic stenosis by prior echocardiogram 4 03/18/2020 ADVANCE DIRECTIVE INFORMATION 06/03/2005 02/15/2018 Overview: Yes, Copy scanned at patient level in the electronic medical record.(Go to Action, Patient File to view) Patient aware they must notify their healthcare provider of changes. MAL ARA [id number] 03/03/200505/2017 BREAST CANCER UPPER INNER 01/13/2005 Malignant neoplasm of female breast 09/23/2016 Overview: Breast documented as of this encounter (statuses as of 07/26/2023) Immunizations Name Administration Dates Next Due COVID-19 mRNA, LNP-s, No Pre serve, 2-Dose Series (GraphSQL) 04/14/2021,08/03/2020,07/13/2020 Pneumococcal Conjugate Vacc, 13 Valent (Prevnar) 03/12/2015 Pneumococcal Polysaccharide PPV23 (Pneumovax) 06/14/2004 Season Influenza, Quad, PF, Adjuvanted, 65+ Yrs, IM (FLUAD) 04/05/2020 Seasonal Influenza, PF, 6 M & above, IM , (FluLaval or Fluzone) 03/08/2018 Seasonal Influenza, Quadriva lent Hd (Fluzone Hd) 03/29/2023,03/24/2022 Seasonal Influenza, Quadriva lent, No Preserve, IM 03/20/2016 Seasonal Influenza, Split, I IV3, With Preserve, Inj 02/15/2015,03/07/2014 Seasonal Influenza, Trivalen t, Adjuvanted, 65+ yrs 03/12/2021,03/29/2019 Seasonal Influenza, Trivalen t, High Dose, No Preserve, IM 02/26/2017 TD - Tetanus/Diptheria (ADULT) 10/14/2017 TDAP (age 11 and older)(Adacel) 06/14/2004 documented as of this encounter Social History Tobacco Use Types Packs/Day Years Used Date Smoking Tobacco: Never Smokeless Tobacco: Never Tobacco Cessation:Counseling Given: Not Answered Alcohol Use Standard Drinks/Week Comments No 0 (1 standard drink = 0.6 oz pur e alcohol) PHQ-2 Answer Date Recorded PHQ Adult Total Score 0 04/14/2023 Hunger Vital Sign Answer Date Recorded Within the past 12 months, y ou worried that your food would run out before you got the money to buy more. Never true 05/24/20 20 Within the past 12 months, t he food you bought just didn't last and you didn't have money to get more. Never true 05/24/2020 Sex and Gender Information Value Date Recorded Sex Assigned at Female 01/24/2019 2:37 PM EDT Gender Identity Female 01/24/2019 2:37 PM EDT Sexual Orientation Straight 01/24/2019 2: 37 PM EDT Job Start Date Occupation Industry Not on file Not on file Not on file documented as of this encounter Last Filed Vital Signs Vital Sign Reading Time Taken Comments Blood Pressure 130/74 07/26/2023 3:36 PM EST Pulse 64 07/26/2023 3:36 PM EST Temperature - - Respiratory Rate - - Oxygen Saturation 96% 07/26/2023 3:36 PM EST Inhaled Oxygen Concentration - - Weight 75.8 kg (167 lb) 07/26/2023 3:36 PM EST Height - - Body Mass Index 29.58 06/16/2023 10:52 AM EST documented in this encounter Progress Notes * Beth Pisano PA-C - 07/26/2023 3:35 PM EST 07/26/2023 Cardiology Follow Up Primary Stations Superintendent: Dr. Cid Past Medical History: Paroxysmal atrial fibrillation Moderate to severe aortic stenosis Dementia HPI: Marianne Myrick is a 87 year old female who presents for cardiology follow up. Presents today accompanied by daughter who helps provide history due to patient's dementia. States she has been feeling well. Had one episode of dizziness around New Years, but improved. Gets short of breath if she over exerts herself. Denies chest pain, palpitations, shortness of breath, edema, PND , orthopnea, syncope. Compliant with all medications. Sees ophthalmology routinely. Follows with neurology for dementia. REVIEW OF SYSTEMS: See HPI for pertinent positives. All others negative other than those noted in the HPI. CONSTITUTIONAL: No change in weight, No weakness, No fatigue and No fevers, No sweats or chills. PULMONARY: No cough, sputum, or hemoptysis, No wheezing, No shortness of breath and No recent change in breathing. CARDIOVASCULAR: No chest pain, + dyspnea on exertion, No edema, No palpitations and No syncope. GASTROINTESTINAL: No abdominal pain, No change in bowel habits, No significant heartburn, No nausea, No vomiting, No diarrhea, No constipation, No blood in stools or black tarry stools. No dysphagia. HEMATOLOGIC: No abnormal bleeding and No bruising. NEUROLOGICAL: Normal balance, No headaches and No weakness. Review of patient's allergies indicates: Allergen Reactions Alendronate Sodium Other (Please comment) GERD Brimonidine Tartrate Codeine nausea Donepezil Nausea/vomiting Nausea with 1 month trial Latex Rash Rivastigmine Rash Rivastigmine patch caused skin rash Current Outpatient Medications Medication Sig Dispense Refill CENTRUM SILVER PO TABS 1 po qd 0 0 Aspirin 81 MG Tablet Take 1 Tab by mouth daily. 34 Tab 5 Latanoprost 0.005 % Ophthalmic Solution (Xalatan) INSTILL 1 DROP INTO EACH EYE ONCE DAILY AT NIGHT Acetaminophen 500 MG Oral Tablet (Tylenol) Take 2 Tablets by mouth every 8 hours as needed for Pain, Severe. 100 Tablet 0 Metoprolol Tartrate 25 MG Oral Tablet (Lopressor) TAKE 1 TABLET IN THE MORNING AND 1 TABLET BEFORE BEDTIME 180 Tablet 2 Rosuvastatin Calcium 10 MG Oral Tablet (Crestor) TAKE 1 TABLET DAILY 90 Tablet 1 Lisinopril 40 MG Oral Tablet TAKE 1 TABLET DAILY 90 Tablet 3 No current facility-administered medications for this visit. Past Medical History: Diagnosis Date Breast cancer (HCC) 2004 BREAST CANCER UPPER INNER 01/13/2005 HTN, goal below 140/90 03/07/2014 INFORMATION 12/2009 DVT left leg/[facility]/Dr. Burns MAL ARA [id number] 03/03/2005 Malignant neoplasm of female breast (HCC) Breast Malignant neoplasm of female breast (HCC) Breast Mild aortic stenosis by prior echocardiogram 03/07/2014 Severe Alzheimer's dementia (HCC) Shingles 08/2015 left chest wall Type 2 diabetes mellitus with hemoglobin A1c goal of less than 8.5% (HCC) 02/16/2018 Vertigo 09/25/2015 Family History Problem Relation Age of Onset Arthritis Mother Heart failure Mother Arthritis Father Glaucoma Father Heart failure Brother COPD Brother Other (chrones) Sister Obesity Sister Cancer Sister Cervical Multiple Sclerosis Daughter Cancer Brother Lung Social History Socioeconomic History Marital status: Spouse name: Ronn Number of children: 1 Occupational History Occupation: retired Occupation: [employer] Tobacco Use Smoking status: Never Smokeless tobacco: Never Vaping Use Vaping Use: Never used Substance and Sexual Activity Alcohol use: No Drug use: No Social Determinants of Health Food Insecurity: No Food Insecurity (05/24/2020) Hunger Vital Sign Worried About Running Out of Food in the Last Year: Never true Ran Out of Food in the Last Year: Never true OBJECTIVE/PHYSICAL EXAMINATION: BP 130/74 | Pulse 64 | Wt 75.8 kg (167 lb) | SpO2 96% | BMI 29.58 kg/m | BSA 1.84 m General: No acute distress. A+Ox3. HEENT: Normocephalic. Atraumatic. PERRL. EOMI. Conjunctiva and sclera clear. NECK: No carotid bruits. No JVD. Carotid upstrokes are brisk. Heart: RRR. S1 and S2 noted. Grade 3/6 systolic murmur. No rubs or gallops. PMI non displaced. Lungs: Clear to auscultation. No wheezes. No rhonchi. No rales. Abdomen: Normal bowel sounds. Soft. Nontender. No masses or organomegaly. No abdominal bruits. Extremities: No edema. No clubbing or cyanosis. Pulses: radial=2/4, posterior tibial=2/4, dorsalis pedis = 2/4. NEURO: No focal deficits. PSYCH: Appropriate affect and insight. DATA Labs & Imaging Reviewed Below: Echo 06/23/23 The examination is adequate to evaluate the referral indication. The qualitative LV ejection fraction is 55-59% (normal). The left ventricular cavity size is normal. The LV wall thickness is moderately increased (concentric). The left atrium is normal sized (< 35 ml/m^2). The left ventricular diastolic function is mildly abnormal (grade I). Moderate aortic valve sclerosis is present. The aortic valve is moderately calcified. There is no significant aortic regurgitation. moderate to severe aortic stenosis EKG 04/08/23 Normal sinus rhythm, left axis deviation, no change compared to previous EKG Zio 09/2022 Patient had a min HR of 41 bpm, max HR of 152 bpm, and avg HR of 65 bpm. Predominant underlying rhythm was Sinus Rhythm. Slight P wave morphology changes were noted. 2294 Supraventricular Tachycardiaruns occurred, the run with the fastest interval lasting 9 beats with a max rate of 152 bpm, the longest lasting 31.9 secs with an avg rate of 118 bpm. Supraventricular Tachycardia was detected within +/- 45 seconds of symptomatic patient event(s). Isolated SVEs were rare (<1.0%), SVE Couplets were rare (<1.0%), and SVE Triplets were rare (<1.0%). Isolated VEs were rare (<1.0%), VE Couplets were rare (<1.0%), and no VE Triplets were present. Ventricular Trigeminy was present. Symptoms correlate with supraventricular tachycardia and supraventricular ectopy. ASSESSMENT/PLAN: 87 year old female 1. PAF (paroxysmal atrial fibrillation) ([facility]) - feeling well from cardiac standpoint - continue aspirin 81 mg daily, patient declined anticoagulation in past, concern for fall risk, bleeding - continue metoprolol tartrate 25 mg twice daily 2. Nonrheumatic aortic valve stenosis - moderate to severe aortic stenosis per echo 06/2023 3. HTN, goal below 140/80 - continue lisinopril 40 mg daily 4. Dyslipidemia - controlled, LDL 50 - continue rosuvastatin 10 mg daily DISPOSITION: Follow up 6 months or sooner if symptoms worsen/fail to improve. All questions were answered to the patients satisfaction. Patient advised to report to ED with any and all emergencies. The patient agrees to the above plan and will call with additional questions or concerns. Beth Pisano PA-C Cardiology, [address] [place] [address] I spent a total of 30 minutes on the date of service in preparation, delivery, and documentation ofthe care provided to Marianne Myrick excluding any time spent in the performance of separately billed services. This chart was completed in part utilizing [employer] Speech Voice Recognition Software. Grammatical errors, random word insertions, pronoun errors, and incomplete sentences are an occasional consequence of this system due to software limitations, ambient noise, and hardware issues. Any formal questions or concerns about the content, text, or information contained within the body of this dictation should be directly addressed to the provider for clarification. documented in this encounter Nursing Notes * Leann Joshua CMA - 07/26/2023 3:35 PM EST Examination Room: 2 Name: Marianne Myrick Date of : (1935) Reason for Visit: 3M Interim Hospitalization(s): NONE Problems/Concerns: denied Chest Pain/SOB: denied chest pain, but does have SOB [facility] is a way you can talk to your provider online through e-mail. Would you like to sign up? I can activate it for you? ALREADY ACTIVE Patient was instructed to not get up on the exam table until directed and assisted by their provider; patient is to remain seated in the chair/ wheelchair/ exam table for fall prevention and safety reasons. Patient is aware to have assistance to step down off exam table with personnel. Patient voiced full comprehension of instructions. documented in this encounter Plan of Treatment Upcoming Encounters Date Type Department Care Team (Late st Contact Info) Description 08/20/2023 9:00 AM EST Office Visit Neurology [place] [address] [address] [place] [address] Jasmyn Santana CRNP [address] [place] [address] 11/03/2023 4:40 PM EDT Office Visit General Internal Medicine [facility] [place] [address] [place] [address] Doron Gibbs MD [address] [facility] [address] Health Maintenance Due Date Last Done Comments Zoster Vaccines (1 of 2) 1984 Hepatitis B (1 of 3 - Risk 3-dose series) 1994 Diabetic Eye Exam 11/24/2022 11/24/2021, , 07/07/2021, Additional history exists DXA Scan 01/19/2023 01/20/2016, 07/2007, 02/14/2008, Additional history exists COVID-19 Vaccine ( season) 2023 04/14/2021, 08/03/2020, 07/13/2020 Albumin/Creatinine Ratio 09/24/2023 023, 08/29/2021, 07/10/2020, Additional history exists Diabetic Foot Exam 09/24/2023 09/23/2022, 0 08/29/2021, 10/24/2020, Additional history exists HbA1c 10/19/2023 04/20/2023, 09/12, 04/02/2022, Additional history exists Depression Screening 04/14/2024 04/14/2023 DTaP,Tdap,and Td Vaccines (3 - Td or Tdap) 10/15/2027 10/14/2017, 06/14/2004 Pneumococcal Vaccine: 65+ Years Completed 03/12/2015, 06/14/2004 Influenza Vaccine (FLU shot) Completed , 03/24/2022, 03/12/2021, Additional history exists GARDASIL-HPV IMMUNIZATION SERIES Aged Out No longer eligible based on patient's age to complete this topic MENINGOCOCCAL (MENACTRA/MENVEO) Aged Out No longer eligible based on patient's age to complete this topic documented as of this encounter Medical Devices Not on filedocumented as of this encounter Visit Diagnoses Diagnosis PAF (paroxysmal atrial fibrillation) (HCC)- Primary Atrial fibrillation Nonrheumatic aortic valve stenosis Aortic valve disorders HTN, goal below 140/80 Unspecified essential hypertension Dyslipidemia, goal LDL below 130 Other and unspecified hyperlipidemia documented in this encounter Advance Directives Documents on File Type Date Recorded Patient Station Captain Expl anation POLST 06/19/2019 POLST - Care Teams Line Patroller Relationship Specialty Start Date End Date Doron Gibbs MD [address] [place] [address] PCP - General Internal Medicine 02/16/14 documented as of this encounter"
--- OUTSIDE RECORDS SUMMARY | 2023-08-13 11:40 | External Medical Summary | Summary of Care ---
Author Name Unknown Organization [facility] Address [address] [place] [address] Phone [phone] Care Team Providers Care [employer] Sales Representative Name Role Phone Niko Burns MD Primary Care Provider Encounter Details Date Type Department Care Team (Latest Contact Info) Description 10/12/2012 10:15 AM EDT - 10/12/2012 11:59 PM EDT Hospital Encounter Radiology Film File [address] [place] [address] Discharge Disposition: Home - Self Care Allergies Active Allergy Reactions Criticality Noted Date Comments Alendronate Sodium Other (Please comment) High 03/07/2014 GERD Brimonidine Tartrate 09/17/2021 Codeine 01/07/2011 nausea Donepezil Nausea/vomiting 03/15/2023 Nausea with 1 month trial Latex Rash 10/13/2017 Rivastigmine Rash 03/15/2023 Rivastigmine patch caused skin rash documented as of this encounter (statuses as of 07/09/2023) Medications Medication Sig Dispensed Refills Start Date End Date Status CENTRUM SILVER PO TABS 1 po qd 0 0 12/30/2004 Active documented as of this encounter (statuses as of 07/09/2023) Active Problems Problem Noted Date Diagnosed Date Mixed Alzheimer's and vascular dementia 04/14/20 Mild dementia with anxiety 09/23/2022 Bilateral carotid [...] as of this encounter (statuses as of 07/09/2023) Resolved Problems Problem Noted Date Diagnosed Date Resolved Date Disorder of arteries and art erioles, unspecified 09/12/2020 08/29/2021 PAD (peripheral artery disease) 02/15/2018 03/10/2018 Carotid atherosclerosis 11/24/2016 0501/2019 Kidney disease, chronic, sta ge III (GFR 30-59 ml/min) 12/23/2015 10/13/2017 Overview: Per CKD protocol #1 Vertigo 09/25/2015 03/02/2018 Mild aortic stenosis by prior echocardiogram 4 03/18/2020 ADVANCE DIRECTIVE INFORMATION 06/03/2005 02/15/2018 Overview: Yes, Copy scanned at patient level in the electronic medical record.(Go to Action, Patient File to view) Patient aware they must notify their healthcare provider of changes. MAL ARA [id number] 03/03/200505/2017 BREAST CANCER UPPER INNER 01/13/2005 Malignant neoplasm of female breast 09/23/2016 Overview: Breast documented as of this encounter (statuses as of 07/09/2023) Immunizations Name Administration Dates Next Due Pneumococcal Polysaccharide PPV23 (Pneumovax) TDAP (age 11 and older)(Adacel) 06/14/2004 documented as of this encounter Social History Tobacco Use Types Packs/Day Years Used Date Smoking Tobacco: Never Alcohol Use Standard Drinks/Week Comments Yes 0 (1 standard drink = 0.6 oz pur e alcohol) occ. PHQ-2 Answer Date Recorded PHQ Adult Total [...] file Not on file Not on file COVID-19 Exposure Response Date Recorded In the last month, have you been in contact with someone who was confirmed or suspected to have Coronavirus / COVID-19? No / Unsure 01/09/2020 1:00 PM EDT documented as of this encounter Plan of Treatment Upcoming Encounters Date Type Department Care Team (Late st Contact Info) Description 07/26/2023 3:30 PM EST Office Visit Cardiology, [facility] [address] [facility] [place] [address] Beth Pisano PA-C [address] [place], [place] [id number] 08/20/2023 9:00 AM EST Office Visit Neurology [facility] [address] [place] [address] Jasmyn Santana CRNP [address] [place] [address] 11/03/2023 4:40 PM EDT Office Visit General Internal Medicine [facility] [address] [place] [address] Doron Gibbs MD [address] [facility] [place] [address] Health Maintenance Due Date Last Done Comments Zoster Vaccines (1 of 2) 1984 Hepatitis B (1 of 3 - Risk 3-dose series) 1994 Diabetic Eye Exam 11/24/2022 11/24/2021, , 07/07/2021, Additional history exists DXA Scan 01/19/2023 01/20/2016, 0907/2007, 02/14/2008, Additional history exists COVID-19 Vaccine ( [...] Not on filedocumented as of this encounter Procedures Procedure Name Priority Date/Time Associated Diagnosis Comments RADIOLOGY EXAM - MAMMOGRAPHY (IMAGES ONLY, NO REPORT) Routine 10/12/2012 10:15 AM EDT documented in this encounter Results * RADIOLOGY EXAM - MAMMOGRAPHY (IMAGES ONLY, NO REPORT) (10/12/2012 10:15 AM EDT) 10/12/2012 10:1 3 AM EDT Narrative Scheduling, Silent - 07/08/2023 10:42 AM EST This is an imaging study not interpreted or resulted by a [facility] or [facility] contracted radiologist. Naif Gayle PA-C RAD MAMMOGRAPHY documented in this encounter Advance Directives Documents on File Type Date Recorded Patient Forensic Examiner Expl anation POLST 06/19/2019 POLST - Care Teams Electronics Parts Sales Representative Relationship Specialty Start Date End Date Niko Burns MD [address] [place] [address] PCP - General 10/12/99 02/15/14 documented as of this encounter
--- OUTSIDE RECORDS SUMMARY | 2023-08-13 11:40 | External Medical Summary | Summary of Care ---
Author Name Unknown Organization [facility] Address [address] [place] [address] Phone [phone] Care Team Providers Care Event Producer Name Role Phone Doron Gibbs MD Primary Care Provider + Encounter Details Date Type Department Care Team (Latest Contact Info) Description 10/15/2014 11:05 AM EDT - 10/15/2014 11:59 PM EDT Hospital Encounter Radiology Film File [address] [place] [address] Discharge Disposition: Home - Self [...] their healthcare provider of changes. MAL ARA [id number] 03/03/200505/2017 BREAST CANCER UPPER INNER 01/13/2005 Malignant neoplasm of female breast 09/23/2016 Overview: Breast documented as of this encounter (statuses as of 07/09/2023) Immunizations Name Administration Dates Next Due Pneumococcal Polysaccharide PPV23 (Pneumovax) Seasonal Influenza, Split, IIV3, With Preserve, Inj 03/07/2014 TDAP (age 11 and older)(Adacel) 06/14/2004 documented as of this encounter Social History Tobacco Use Types Packs/Day Years Used Date Smoking Tobacco: Never Smokeless Tobacco: Never Alcohol Use Standard Drinks/Week Comments No 0 [...] 07/26/2023 3:30 PM EST Office Visit Cardiology, [facility] 132 [facility] [place] [address] Beth Pisano PA-C [address] [place], [place] [id number] 08/20/2023 9:00 AM EST Office Visit Neurology [facility] [address] [place] [address] Jasmyn Santana CRNP [address] [place] [address] 11/03/2023 4:40 PM EDT Office Visit General Internal Medicine [facility] [address] [place] [address] Doron Gibbs MD 200 [facility] [place] [address] Health Maintenance Due Date Last Done Comments [...] - MAMMOGRAPHY (IMAGES ONLY, NO REPORT) Routine 10/15/2014 11:05 AM EDT documented in this encounter Results * RADIOLOGY EXAM - MAMMOGRAPHY (IMAGES ONLY, NO REPORT) (10/15/2014 11:05 AM EDT) 10/15/2014 11:0 4 AM EDT Narrative Scheduling, Silent - 07/08/2023 10:44 AM EST This is an imaging study not interpreted or resulted by a [facility] or [employer] contracted radiologist. Naif Gayle PA-C RAD MAMMOGRAPHY documented in this encounter Advance Directives Documents on File Type Date Recorded Patient Pallet Rectifier Expl anation POLST 06/19/2019 POLST - Care Teams Event Producer Relationship Specialty Start Date End Date Doron Gibbs MD 200 [facility] [place] [address] PCP - General Internal Medicine 02/16/14 documented as of this encounter
--- OUTSIDE RECORDS SUMMARY | 2023-08-13 11:40 | External Medical Summary | Summary of Care ---
Author Name Unknown Organization [facility] Address [address] [place] [address] Phone [phone] Care Team Providers Care Lcpc Name Role Phone Doron Gibbs MD Primary Care Provider + Encounter Details Date Type Department Care Team (Latest Contact Info) Description 10/19/2016 10:50 AM EDT - 10/19/2016 11:59 PM EDT Hospital Encounter Radiology Film File [address] [place] [address] Discharge Disposition: Home - Self Care Allergies Active Allergy Reactions Criticality Noted Date Comments Alendronate Sodium Other (Please comment) High 03/07/2014 GERD Brimonidine Tartrate 09/17/2021 Codeine 01/07/2011 nausea Donepezil Nausea/vomiting 03/15/2023 Nausea with 1 month trial Latex Rash 10/13/2017 Rivastigmine Rash 03/15/2023 Rivastigmine patch caused skin rash documented as of this encounter (statuses as of 07/08/2023) Medications Medication Sig Dispensed Refills Start Date End Date Status CENTRUM SILVER PO TABS 1 po qd 0 0 12/30/2004 Active Aspirin 81 MG Tablet Take 1 Tab by mouth daily. 34 Tab 5 03/18/2016 Active documented as of this encounter (statuses as of 07/08/2023) Active Problems Problem Noted Date Diagnosed Date [...] as of this encounter (statuses as of 07/08/2023) Resolved Problems Problem Noted Date Diagnosed Date [...] their healthcare provider of changes. MAL ARA [id number] 03/03/200505/2017 BREAST CANCER UPPER INNER 01/13/2005 Malignant neoplasm of female breast 09/23/2016 Overview: Breast documented as of this encounter (statuses as of 07/08/2023) Immunizations Name Administration Dates Next Due Pneumococcal Conjugate Vacc, 13 Valent (Prevnar) 03/12/2015 Pneumococcal Polysaccharide PPV23 (Pneumovax) Seasonal Influenza, Quadrivalent, No Preserve, I M 03/20/2016 Seasonal Influenza, Split, IIV3, With Preserve, Inj 02/15/2015,03/07/2014 TDAP (age 11 and older)(Adacel) 06/14/2004 documented [...] 07/26/2023 3:30 PM EST Office Visit Cardiology, [facility] 132 [facility] [place] [address] Beth Pisano PA-C [address] [place] [address] 08/20/2023 9:00 AM EST Office Visit Neurology [facility] 200 [facility] [address] Jasmyn Santana CRNP [address] [facility] [address] 11/03/2023 4:40 PM EDT Office Visit General Internal Medicine [facility] 200 [facility] [place], [place] [address] Doron Gibbs MD 200 [facility] [place] [address] Health Maintenance Due Date Last Done Comments [...] - MAMMOGRAPHY (IMAGES ONLY, NO REPORT) Routine 10/19/2016 10:50 AM EDT documented in this encounter Results * RADIOLOGY EXAM - MAMMOGRAPHY (IMAGES ONLY, NO REPORT) (10/19/2016 10:50 AM EDT) 10/19/2016 10:5 0 AM EDT Narrative Scheduling, Silent - 07/07/2023 2:23 PM EST This is an imaging study not interpreted or resulted by a [facility] or [employer] contracted radiologist. Naif Gayle PA-C RAD MAMMOGRAPHY documented in this encounter Advance Directives Documents on File Type Date Recorded Patient Proposal Analyst Expl anation POLST 06/19/2019 POLST - Care Teams Lcpc Relationship Specialty Start Date End Date Doron Gibbs MD 200 [facility] [place] [address] PCP - General Internal Medicine 02/16/14 documented as of this encounter
--- OUTSIDE RECORDS SUMMARY | 2023-08-13 11:40 | External Medical Summary | Summary of Care ---
Author Name Unknown Organization [facility] Address [address] [place] [address] Phone [phone] Care Team Providers Care Bench Worker Apprentice Name Role Phone Niko Burns MD Primary Care Provider Encounter Details Date Type Department Care Team (Latest Contact Info) Description 10/12/2011 2:35 PM EDT - 10/12/2011 11:59 PM EDT Hospital Encounter Radiology Film File [address] [place] [address] Discharge Disposition: Home - Self [...] their healthcare provider of changes. MAL ARA [id number] 03/03/200505/2017 BREAST CANCER UPPER INNER 01/13/2005 Malignant [...] 07/26/2023 3:30 PM EST Office Visit Cardiology, [facility] 132 [facility] [place] [address] Beth Pisano PA-C [address] [place], [place] [phone] 08/20/2023 9:00 AM EST Office Visit Neurology [facility] [address] [place] [address] Jasmyn Santana CRNP [address] [place] [address] 11/03/2023 4:40 PM EDT Office Visit General Internal Medicine [facility] [address] [place] [address] Doron Gibbs MD 200 [facility] [place] [address] Health Maintenance Due Date Last Done Comments [...] - MAMMOGRAPHY (IMAGES ONLY, NO REPORT) Routine 10/12/2011 2:35 PM EDT documented in this encounter Results * RADIOLOGY EXAM - MAMMOGRAPHY (IMAGES ONLY, NO REPORT) (10/12/2011 2:35 PM EDT) 10/12/2011 2:33 PM EDT Narrative Scheduling, Silent - 07/07/2023 3:12 PM EST This is an imaging study not interpreted or resulted by a [facility] or [employer] contracted radiologist. Naif Gayle PA-C RAD MAMMOGRAPHY documented in this encounter Advance Directives Documents on File Type Date Recorded Patient Merchandising Representative Expl anation POLST 06/19/2019 POLST - Care Teams Bench Worker Apprentice Relationship Specialty Start Date End Date Niko Burns MD [address] [place] [address] [facility] 101 [place] [address] PCP - General 10/12/99 02/15/14 documented as of this encounter
--- OUTSIDE RECORDS SUMMARY | 2023-08-13 11:40 | External Medical Summary | Summary of Care ---
Author Name Unknown Organization [facility] Address [address] [place] [address] Phone [phone] Care Team Providers Care Stain Applicator Name Role Phone Doron Escobar MD Primary Care Provider + Reason for Visit * Reason Comments eRx-Medication Refill Encounter Details Date Type Department Care Team (Late st Contact Info) Description 07/13/2023 Refill General Internal Medicine [facility] 200 [facility] [address] Doron Escobar MD 200 [place] [address] Hypertension goal BP (blood pressure) < 140/90 Allergies Active Allergy Reactions Criticality Noted Date Comments Alendronate Sodium Other (Please comment) High 03/07/2014 GERD Brimonidine Tartrate 09/17/2021 Codeine 01/07/2011 nausea Donepezil Nausea/vomiting 03/15/2023 Nausea with 1 month trial Latex Rash 10/13/2017 Rivastigmine Rash 03/15/2023 Rivastigmine patch caused skin rash documented as of this encounter (statuses as of 07/14/2023) Medications Medication Sig Dispensed Refills Start Date End Date Status CENTRUM SILVER PO TABS 1 po qd 0 0 12/30/2004 Active Aspirin 81 MG Tablet Take 1 Tab by mouth daily. 34 Tab 5 03/18/2016 Active Latanoprost 0.005 % Ophthalmic Solution (Xalatan) INSTILL 1 DROP INTO EACH EYE ONCE DAILY AT NIGHT 0 02/21/2021 Active Acetaminophen 500 MG Oral Tablet (Tylenol)Indicati ons:Chronic left-sided low back pain without sciatica Take 2 Tablets by mouth every 8 hours as needed for Pain, Severe. 100 Tablet 0 05/13/2021 Active Metoprolol Tartrate 25 MG Oral Tablet (Lopressor)Indica tions:Palpitation s,PAF (paroxysmal atrial fibrillation) (HCC),HTN, goal below 140/90 TAKE 1 TABLET IN THE MORNING AND 1 TABLET BEFORE BEDTIME 180 Tablet 2 03/05/2023 Active Rosuvastatin Calcium 10 MG Oral Tablet (Crestor)Indicati ons:PAD (peripheral artery disease) (HCC) TAKE 1 TABLET DAILY 90 Tablet 1 06/03/2023 Active Lisinopril 40 MG Oral TabletIndications :Hypertension goal BP (blood pressure) < 140/90 TAKE 1 TABLET DAILY 90 Tablet 3 07/14/2023 Active Lisinopril 40 MG Oral TabletIndications :Hypertension goal BP (blood pressure) < 140/90 TAKE 1 TABLET DAILY 90 Tablet 3 07/20/2022 07/14/2023 Discontinued documented as of this encounter (statuses as of 07/14/2023) Active Problems Problem Noted Date Diagnosed Date [...] as of this encounter (statuses as of 07/14/2023) Resolved Problems Problem Noted Date Diagnosed Date [...] their healthcare provider of changes. MAL ARA [id number] 03/03/200505/2017 BREAST CANCER UPPER INNER 01/13/2005 Malignant neoplasm of female breast 09/23/2016 Overview: Breast documented as of this encounter (statuses as of 07/14/2023) Immunizations Name Administration Dates Next Due COVID-19 mRNA, LNP-s, No Pre serve, 2-Dose Series ([employer]) 04/14/2021,08/03/2020,07/13/2020 Pneumococcal Conjugate Vacc, 13 Valent (Prevnar) [...] on file documented as of this encounter Miscellaneous Notes * Telephone Encounter - Kayce Salazar RPh - 07/14/2023 11:25 AM EST Signed Prescriptions: Disp Refills Lisinopril 40 MG Oral Tablet 90 Tab*3 Sig: TAKE 1 TABLET DAILYAuthorizing Provider: DORON ESCOBAR User: KAYCE SALAZAR documented in this encounter Plan of Treatment Upcoming Encounters Date Type Department Care Team (Late st Contact Info) Description 07/26/2023 3:30 PM EST Office Visit Cardiology, [address] [place] [id number] Beth Pisano PA-C [address] [place] [address] [place] [address] 08/20/2023 9:00 AM EST Office Visit Neurology [facility] 200 [facility] [place] [address] Jasmyn Santana CRNP [address] [facility] [place] [address] 11/03/2023 4:40 PM EDT Office Visit General Internal Medicine [facility] [place] [address] [facility] [place] [address] Doron Escobar MD 200 [facility] [place] [address] Health Maintenance Due Date Last Done Comments [...] as of this encounter Visit Diagnoses Diagnosis Hypertension goal BP (blood pressure) < 140/90 Unspecified essential hypertension documented in this encounter Advance Directives Documents on File Type Date Recorded Patient Job Honer Expl anation POLST 06/19/2019 POLST - Care Teams Stain Applicator Relationship Specialty Start Date End Date Doron Escobar MD 200 [place] [address] PCP - General Internal Medicine 02/16/14 documented as of this encounter
--- OUTSIDE RECORDS SUMMARY | 2023-08-13 11:40 | External Medical Summary | Summary of Care ---
Author Name Unknown Organization [facility] Address [address] [place] [address] Phone [phone] Care Team Providers Care Clerk Of Court Name Role Phone Doron Gibbs MD Primary Care Provider + Reason for Referral * (Within 10 days (routine)) - Pending Review Specialty Diagnoses / Procedures Referred By Grecia murray Referred To Contact Radiology Diagnoses Breast pain, left Procedures US BREAST LIMITED LEFT Naif Gayle PA-C [address] [place] [address] Referral ID Status Reason Start Date Expiration Date V isits Requested Visits Authorized [id number] Pending Review 06/16/2023 999 999 Reason for Visit * Reason Comments Nausea Dizziness X's 2 days Palpitations Breast Pain X's several weeks. L breast, to and L side. Intermittent. Encounter Details Date Type Department Care Team (Late st Contact Info) Description 06/16/2023 11:00 AM EST Office Visit General Internal Medicine [facility] 200 [facility] [place] [phone] Naif Gayle PA-C [address] [place] [address] Breast pain, left*; Nausea without vomiting; Dizziness; HTN, goal below 140/90; PAF (paroxysmal atrial fibrillation) (HCC); Benign paroxysmal positional vertigo, unspecified laterality; Mixed Alzheimer's and vascular dementia (HCC) Allergies Active Allergy Reactions Criticality Noted Date Comments Alendronate Sodium Other (Please comment) High 03/07/2014 GERD Brimonidine Tartrate 09/17/2021 Codeine 01/07/2011 nausea Donepezil Nausea/vomiting 03/15/2023 Nausea with 1 month trial Latex Rash 10/13/2017 Rivastigmine Rash 03/15/2023 Rivastigmine patch caused skin rash documented as of this encounter (statuses as of 06/16/2023) Medications Medication Sig Dispensed Refills Start Date [...] Pain, Severe. 100 Tablet 0 05/13/2021 Active Lisinopril 40 MG Oral TabletIndications :Hypertension goal BP (blood pressure) < 140/90 TAKE 1 TABLET DAILY 90 Tablet 3 07/20/2022 Active Metoprolol Tartrate 25 MG Oral Tablet (Lopressor)Indica tions:Palpitation s,PAF (paroxysmal atrial fibrillation) ([facility]),HTN, goal below 140/90 TAKE 1 TABLET IN THE MORNING AND 1 TABLET BEFORE BEDTIME 180 Tablet 2 03/05/2023 Active Rosuvastatin Calcium 10 MG Oral Tablet (Crestor)Indicati ons:PAD (peripheral artery disease) ([facility]) TAKE 1 TABLET DAILY 90 Tablet 1 06/03/2023 Active meclizine (ANTIVERT) 25 MG TabletIndications :Benign paroxysmal positional vertigo, unspecified laterality TAKE 1 TABLET BY MOUTH THREE TIMES DAILY NEEDED FOR DIZZINESS 270 Tab 1 09/19/2019 4 Discontinued Fluconazole 150 MG Oral Tablet (Diflucan)Indicat ions:Fungal rash of torso Take 1 Tablet by mouth once a week. 3 Tablet 0 04/14/2023 4 Discontinued documented as of this encounter (statuses as of 06/16/2023) Active Problems Problem Noted Date Diagnosed Date [...] as of this encounter (statuses as of 06/16/2023) Resolved Problems Problem Noted Date Diagnosed Date [...] their healthcare provider of changes. MAL ARA [id number] 03/03/200505/2017 BREAST CANCER UPPER INNER 01/13/2005 Malignant neoplasm of female breast 09/23/2016 Overview: Breast documented as of this encounter (statuses as of 06/16/2023) Immunizations Name Administration Dates Next Due COVID-19 mRNA, LNP-s, No Pre serve, 2-Dose Series ([employer]) 04/14/2021,08/03/2020,07/13/2020 Pneumococcal Conjugate Vacc, 13 Valent (Prevnar) [...] Sign Reading Time Taken Comments Blood Pressure 132/68 06/16/2023 10:52 AM EST Pulse 64 06/16/2023 10:52 AM EST Temperature 37.1 C (98.7 F) 06/16/2023 10:[address] Respiratory Rate - - Oxygen Saturation 97% 06/16/2023 10:52 AM EST Inhaled Oxygen Concentration - - Weight 75.8 kg (167 lb 3.2 oz) 06/16/2023 10:52 AM EST Height 160 cm (5' 3") 06/16/2023 10:52 AM EST Body Mass Index 29.62 06/16/2023 10:52 AM EST documented in this encounter Nursing Notes * Nohemy Ashley LPN - 06/16/2023 10:52 AM EST Chief Complaint Patient presents with Nausea Dizziness X's 2 days Palpitations Breast Pain X's several weeks. L breast, to and L side. Intermittent. documented in this encounter Plan of Treatment Upcoming Encounters Date Type Department Care Team (Late st Contact Info) Description 06/22/2023 3:00 PM EST Cardiac Studies Cardiac Studies, [address] [place] [address] 06/28/2023 12:30 PM EST Imaging Radiology [address] [place] [address] 06/28/2023 2:00 PM EST Imaging Radiology [facility] [place] [address] 07/26/2023 3:30 PM EST Office Visit Cardiology, [address] [place] [address] Beth Pisano PA-C [address] [place] [address] [place] [address] 08/20/2023 9:00 AM EST Office Visit Neurology [facility] 200 [facility] [place] [address] Jasmyn Santana CRNP [address] [place] [address] 11/03/2023 4:40 PM EDT Office Visit General Internal Medicine [facility] 200 [facility] [place] [address] Doron Gibbs MD 200 [facility] [place] [address] Pending Results Name Type Priority Associated Diagnoses Date /Time COMPREHENSIVE METABOLIC PANEL Lab Routine Nausea without vomiting Dizziness 06/16/2023 11:32 AM EST Scheduled Orders Name Type Priority Associated Diagnoses Orde r Schedule MAMMOGRAM DIAGNOSTIC BILATERAL Medical Imaging Routine Breast pain, left Expected: 06/16/2023, Expires: 07/17/2024 BREAST LIMITED LEFT Medical Imaging Routine Breast pain, left Expected: 06/16/2023, Expires: 07/17/2024 COMPREHENSIVE METABOLIC PANEL Lab Routine Nausea without vomiting Dizziness Expected: 06/16/2023 (Approximate), Expires: 06/15/2024 Health Maintenance Due Date Last Done Comments [...] as of this encounter Visit Diagnoses Diagnosis Breast pain, left- Primary Mastodynia Nausea without vomiting Dizziness Dizziness and giddiness HTN, goal below 140/90 Unspecified essential hypertension PAF (paroxysmal atrial fibrillation) (HCC) Atrial fibrillation Benign paroxysmal positional vertigo, unspecified laterality Mixed Alzheimer's and vascular dementia (HCC) Alzheimer's disease documented in this encounter Advance Directives Documents on File Type Date Recorded Patient Sugar Sampler Expl anation POLST 06/19/2019 POLST - Care Teams Clerk Of Court Relationship Specialty Start Date End Date Doron Gibbs MD 200 [facility] [place] [address] PCP - General Internal Medicine 02/16/14 documented as of this encounter
--- OUTSIDE RECORDS SUMMARY | 2023-08-13 11:40 | External Medical Summary | Summary of Care ---
Author Name Unknown Organization [facility] Address [address] [place] [address] Phone [phone] Care Team Providers Care Business Trainer Name Role Phone Doron Gibbs MD Primary Care Provider + Encounter Details Date Type Department Care Team (Latest Contact Info) Description 11/16/2017 11:30 AM EDT - 11/16/2017 11:59 PM EDT Hospital Encounter Radiology Film File [address] [place] [address] Discharge Disposition: Home - Self [...] their healthcare provider of changes. MAL ARA [id number] 03/03/200505/2017 BREAST CANCER UPPER INNER 01/13/2005 Malignant neoplasm of female breast 09/23/2016 Overview: Breast documented as of this encounter (statuses as of 07/08/2023) Immunizations Name Administration Dates Next Due Pneumococcal Conjugate Vacc, 13 Valent (Prevnar) 03/12/2015 Pneumococcal Polysaccharide PPV23 (Pneumovax) Seasonal Influenza, Quadrivalent, No Preserve, I M 03/20/2016 Seasonal Influenza, Split, IIV3, With Preserve, Inj 02/15/2015,03/07/2014 Seasonal Influenza, Trivalen t, High Dose, No [...] 07/26/2023 3:30 PM EST Office Visit Cardiology, [facility] 132 [facility] [place] [address] Beth Pisano PA-C [address] [place] [address] 08/20/2023 9:00 AM EST Office Visit Neurology [facility] 200 [facility] [address] Jasmyn Santana CRNP [address] [facility] [place] [address] 11/03/2023 4:40 PM EDT Office Visit General Internal Medicine [facility] [address] [place] [address] [place] [address] Doron Gibbs MD 200 [facility] [place] [address] Health Maintenance Due Date Last Done Comments [...] 10/24/2020, Additional history exists HbA1c 10/19/2023 04/20/2023, 0407/2022, 04/02/2022, Additional history exists Depression Screening 04/14/2024 [...] - MAMMOGRAPHY (IMAGES ONLY, NO REPORT) Routine 11/16/2017 11:30 AM EDT documented in this encounter Results * RADIOLOGY EXAM - MAMMOGRAPHY (IMAGES ONLY, NO REPORT) (11/16/2017 11:30 AM EDT) 11/16/2017 11:2 8 AM EDT Narrative Scheduling, Silent - 07/07/2023 2:22 PM EST This is an imaging study not interpreted or resulted by a [employer] or [employer] contracted radiologist. Naif Gayle PA-C RAD MAMMOGRAPHY documented in this encounter Advance Directives Documents on File Type Date Recorded Patient Recordist Expl anation POLST 06/19/2019 POLST - Care Teams Business Trainer Relationship Specialty Start Date End Date Doron Gibbs MD [address] [place] [address] PCP - General Internal Medicine 02/16/14 documented as of this encounter
--- OUTSIDE RECORDS SUMMARY | 2023-08-13 11:40 | External Medical Summary | Summary of Care ---
Author Name Unknown Organization [facility] Address [address] [place] [address] Phone [phone] Care Team Providers Care Hand Etcher Helper Name Role Phone Doron Gibbs MD Primary Care Provider + Encounter Details Date Type Department Care Team (Latest Contact Info) Description 10/16/2015 11:05 AM EDT - 10/16/2015 11:59 PM EDT Hospital Encounter Radiology Film File [address] [place] [address] Discharge Disposition: Home - Self [...] their healthcare provider of changes. MAL ARA [id number] 03/03/200505/2017 BREAST CANCER UPPER INNER 01/13/2005 Malignant neoplasm of female breast 09/23/2016 Overview: Breast documented as of this encounter (statuses as of 07/08/2023) Immunizations Name Administration Dates Next Due Pneumococcal Conjugate Vacc, 13 Valent (Prevnar) 03/12/2015 Pneumococcal Polysaccharide PPV23 (Pneumovax) Seasonal Influenza, Split, [...] Visit Cardiology, [facility] [address] [place] [address] Beth Pisano PA-C [address] [place], [place] [phone] 08/20/2023 9:00 AM EST Office Visit Neurology [facility] [address] [place] [address] Jasmyn Santana CRNP [address] [place] [address] 11/03/2023 4:40 PM EDT Office Visit General Internal Medicine [facility] [address] [place] [address] Doron Gibbs MD [address] [place] [address] Health Maintenance Due Date Last Done Comments [...] - MAMMOGRAPHY (IMAGES ONLY, NO REPORT) Routine 10/16/2015 11:05 AM EDT documented in this encounter Results * RADIOLOGY EXAM - MAMMOGRAPHY (IMAGES ONLY, NO REPORT) (10/16/2015 11:05 AM EDT) 10/16/2015 11:0 1 AM EDT Narrative Scheduling, Silent - 07/07/2023 2:21 PM EST This is an imaging study not interpreted or resulted by a [facility] or [employer] contracted radiologist. Naif BUITRAGO-Lexi RAD MAMMOGRAPHY documented in this encounter Advance Directives Documents on File Type Date Recorded Patient Taxi Cab Driver Expl anation POLST 06/19/2019 POLST - Care Teams Hand Etcher Helper Relationship Specialty Start Date End Date Doron Gibbs MD 200 [place] [address] PCP - General Internal Medicine 02/16/14 documented as of this encounter
--- OUTSIDE RECORDS SUMMARY | 2023-08-13 11:40 | External Medical Summary | Summary of Care ---
Author Name Unknown Organization [facility] Address [address] [place] [address] Phone [phone] Care Team Providers Care Bailiff Name Role Phone Niko Burns MD Primary Care Provider Encounter Details Date Type Department Care Team (Latest Contact Info) Description 10/13/2013 10:40 AM EDT - 10/13/2013 11:59 PM EDT Hospital Encounter Radiology Film File [address] [place] [address] Discharge Disposition: Home - Self [...] their healthcare provider of changes. MAL ARA [id number] 03/03/200505/2017 BREAST CANCER UPPER INNER 01/13/2005 Malignant [...] Visit Cardiology, [facility] [address] [facility] [place] [address] Beth Pisano PA-C [address] [place], [place] [id number] 08/20/2023 9:00 AM EST Office Visit Neurology [facility] [address] [place] [address] Jasmyn Santana CRNP [address] [place] [address] 11/03/2023 4:40 PM EDT Office Visit General Internal Medicine [facility] [address] [place] [address] Doron Gibbs MD 200 [facility] [place] [address] Health Maintenance Due Date Last Done Comments [...] - MAMMOGRAPHY (IMAGES ONLY, NO REPORT) Routine 10/13/2013 10:40 AM EDT documented in this encounter Results * RADIOLOGY EXAM - MAMMOGRAPHY (IMAGES ONLY, NO REPORT) (10/13/2013 10:40 AM EDT) 10/13/2013 10:3 8 AM EDT Narrative Scheduling, Silent - 07/08/2023 10:43 AM EST This is an imaging study not interpreted or resulted by a [facility] or [facility] contracted radiologist. Naif Gayle PA-C RAD MAMMOGRAPHY documented in this encounter Advance Directives Documents on File Type Date Recorded Patient Machine Rebuilder Expl anation POLST 06/19/2019 POLST - Care Teams Bailiff Relationship Specialty Start Date End Date Niko Burns MD [address] [place] [address] PCP - General 10/12/99 02/15/14 documented as of this encounter
--- OUTSIDE RECORDS SUMMARY | 2023-08-13 11:40 | External Medical Summary | Summary of Care ---
Author Name Unknown Organization [facility] Address [address] [place] [address] Phone [phone] Care Team Providers Care Game Design Instructor Name Role Phone Doron Gibbs MD Primary Care Provider + Reason for Visit * Reason Comments Outpatient Testing Encounter Details Date Type Department Care Team (Late st Contact Info) Description 06/16/2023 11:40 AM EST Laboratory [facility] [place] [address] [place] [id number] [place], Lab Scenery [address] [place] [address] Nausea without vomiting; Dizziness Allergies Active Allergy Reactions Criticality Noted Date [...] 0 05/13/2021 Active Lisinopril 40 MG Oral TabletIndications:Hy pertension [...] Oral Tablet (Crestor)Indications :PAD (peripheral artery disease) (HCC) TAKE 1 TABLET DAILY 90 Tablet 1 06/03/2023 Active documented as of this encounter (statuses [...] their healthcare provider of changes. MAL ARA [id number] 03/03/200505/2017 BREAST CANCER UPPER INNER 01/13/2005 Malignant neoplasm of female breast 09/23/2016 Overview: Breast documented as of this encounter (statuses as of 06/16/2023) Immunizations Name Administration Dates Next Due COVID-19 mRNA, LNP-s, No Pre serve, 2-Dose Series (Xatori) 04/14/2021,08/03/2020,07/13/2020 Pneumococcal Conjugate Vacc, 13 Valent (Prevnar) [...] on file documented as of this encounter Plan of Treatment Upcoming Encounters Date Type Department Care Team (Late st Contact Info) Description 06/22/2023 3:00 PM EST Cardiac Studies [address], [address] [address] 06/28/2023 12:30 PM EST Imaging Radiology [address] [place] [address] 06/28/2023 2:00 PM EST Imaging Radiology [address] [place] [address] 07/26/2023 3:30 PM EST Office [address] Cardiology, [address] [place] [address] Beth Pisano PA-C 400 [facility] [place] [address] 08/20/2023 9:00 AM EST Office Visit Neurology [facility] [address] [facility] [place] [address] Jasmyn Santana CRNP [address] [facility] [address] 11/03/2023 4:40 PM EDT Office Visit General Internal Medicine [facility] [address] [place] [address] Doron Gibbs MD 200 [facility] [place] [place] [address] Pending Results Name Type Priority Associated Diagnoses Date /Time COMPREHENSIVE METABOLIC PANEL Lab Routine Nausea without vomiting Dizziness 06/16/2023 11:32 AM EST Health Maintenance Due Date Last Done Comments [...] Procedure Name Priority Date/Time Associated Diagnosis Comments DIFFERENTIAL, AUTOMATED Routine 06/16/2023 11:32 AM EST Nausea without vomiting Dizziness CBC Routine 06/16/2023 11:32 AM EST Nausea without vomiting Dizziness CBC Routine 06/16/2023 11:32 AM EST Nausea without vomiting Dizziness documented in this encounter Results * (ABNORMAL) DIFFERENTIAL, AUTOMATED (06/16/2023 11:32 AM EST) WBC 9.44 4.00 - 10.80 K/uL 06/16/2023 11:43 AM EST [place] [place] Neutrophils % 60.4 40.0 - 75.0 % 06/16/2023 11:43 AM EST [place] 56-02 Lymphocytes % 25.8 18.0 - 42.0 % 06/16/2023 11:43 AM [facility] [place] 56-02 Monocytes % 13.2(H) 1.0 - 11.0 % 06/16/2023 11:43 AM EST LAB[facility] [place] 56-02 Eosinophils % 0.4 0.0 - 6.0 % 06/16/2023 11:43 AM EST [facility] [place] 56-02 Basophils % 0.2 0.0 - 2.0 % 06/16/2023 11:43 AM EST [facility] [place] 56-02 Absolute Neutrophils 5.69 1.80 - 7.70 K/uL 06/16/2023 11:43 AM EST [facility] [place] 56-02 Absolute Lymphocytes 2.44 1.00 - 4.80 K/ul 06/16/2023 11:43 AM EST [place] [place] 56-02 Absolute Monocytes 1.25(H) 0.00 - 1.10 K/uL 06/16/2023 11:43 AM EST [facility] [place] 56-02 Absolute Eosinophils 0.04 0.00 - 0.70 K/uL 06/16/2023 11:43 AM EST [facility] 56-02 Absolute Basophils 0.02 0.00 - 0.20 K/uL 06/16/2023 11:43 AM [facility] 56-02 Blood Venous blood specimen / Unknown Venipuncture / Unknown 06/16/2023 11:32 AM EST 06/16/2023 11:32 AM EST Naif Gayle PA-C LAB BLOOD ORDERABL ES [facility] [address] [place] [address] * CBC (06/16/2023 11:32 AM EST) WBC 9.44 4.00 - 10.80 K/uL 06/16/2023 11:43 AM EST [facility] 56 RBC 4.65 3.85 - 5.15 M/uL 06/16/2023 11:43 AM [facility] 56 HGB 13.3 12.0 - 15.3 g/dL 06/16/2023 11:43 AM [facility] 56 HCT 42.7 36.0 - 45.2 % 06/16/2023 11:43 AM [facility] 56 MCV 91.8 81.5 - 97.5 fL 06/16/2023 11:43 AM [facility] 56 MCH 28.6 27.0 - 34.0 pg 06/16/2023 11:43 AM [facility] 56 MCHC 31.1 32.0 - 36.0 g/dL 06/16/2023 11:43 AM [facility] 56 RDW 12.9 11.5 - 15.5 % 06/16/2023 11:43 AM [facility] 56 PLT 269 140 - 400 K/uL 06/16/2023 11:43 AM [facility] 56 MPV 8.9 6.6 - 11.1 fL 06/16/2023 11:43 AM [facility] 56- Blood Venous blood specimen / Unknown Venipuncture / Unknown 06/16/2023 11:32 AM EST 06/16/2023 11:32 AM EST Naif Gayle PA-C LAB BLOOD ORDERABL ES [facility] [address] [facility] [address] documented in this encounter Visit Diagnoses Diagnosis Nausea without vomiting Dizziness Dizziness and giddiness documented in this encounter Advance Directives Documents on File Type Date Recorded Patient Cardiac Cath Lab Manager Expl anation POLST 06/19/2019 POLST - Care Teams Game Design Instructor Relationship Specialty Start Date End Date Doron Gibbs MD [address] [facility] [address] PCP - General Internal Medicine 02/16/14 documented as of this encounter
--- OUTSIDE RECORDS SUMMARY | 2023-08-13 11:41 | External Medical Summary | Summary of Care ---
Author Name Unknown Organization [facility] Address [address] [place] [address] Phone [phone] Care Team Providers Care Dice Dealer Name Role Phone Doron Gibbs MD Primary Care Provider + Reason for Visit * Reason Onset Date Comments Forms Request 04/14/2023 Encounter Details Date Type Department Care Team (Late st Contact Info) Description 04/14/2023 Telephone General Internal Medicine [facility] 200 [facility] [place] [address] Doron Gibbs MD 200 [facility] [place] [address] Forms Request Allergies Active Allergy Reactions Criticality Noted Date Comments Alendronate Sodium Other (Please comment) High 03/07/2014 GERD Brimonidine Tartrate 09/17/2021 Codeine 01/07/2011 nausea Donepezil Nausea/vomiting 03/15/2023 Nausea with 1 month trial Latex Rash 10/13/2017 Rivastigmine Rash 03/15/2023 Rivastigmine patch caused skin rash documented as of this encounter (statuses as of 05/05/2023) Medications Medication Sig Dispensed Refills Start Date End Date Status CENTRUM SILVER PO TABS 1 po qd 0 0 12/30/2004 Active Aspirin 81 MG Tablet Take 1 Tab by mouth daily. 34 Tab 5 03/18/2016 Active meclizine (ANTIVERT) 25 MG TabletIndications:B enign paroxysmal positional vertigo, unspecified laterality TAKE 1 TABLET BY MOUTH THREE TIMES DAILY NEEDED FOR DIZZINESS 270 Tab 1 09/19/2019 Active Additional Information Patient not taking.Reported on 04/14/2023 Latanoprost 0.005 % Ophthalmic Solution (Xalatan) INSTILL 1 DROP INTO EACH EYE ONCE DAILY AT NIGHT 0 02/21/2021 Active Acetaminophen 500 MG Oral Tablet (Tylenol)Indication s:Chronic left-sided low back pain without sciatica Take 2 Tablets by mouth every 8 hours as needed for Pain, Severe. 100 Tablet 0 05/13/2021 Active Lisinopril 40 MG Oral TabletIndications:H ypertension goal BP (blood pressure) < 140/90 TAKE 1 TABLET DAILY 90 Tablet 3 07/20/2022 Active Rosuvastatin Calcium 10 MG Oral Tablet (Crestor)Indication s:PAD (peripheral artery disease) (HCC) TAKE 1 TABLET DAILY 90 Tablet 2 09/07/2022 Active Metoprolol Tartrate 25 MG Oral Tablet (Lopressor)Indicati ons:Palpitations,PA F (paroxysmal atrial fibrillation) (HCC),HTN, goal below 140/90 TAKE 1 TABLET IN THE MORNING AND 1 TABLET BEFORE BEDTIME 180 Tablet 2 03/05/2023 Active Fluconazole 150 MG Oral Tablet (Diflucan)Indicatio ns:Fungal rash of torso Take 1 Tablet by mouth once a week. 3 Tablet 0 04/14/2023 Active documented as of this encounter (statuses as of 05/05/2023) Active Problems Problem Noted Date Diagnosed Date [...] as of this encounter (statuses as of 05/05/2023) Resolved Problems Problem Noted Date Diagnosed Date [...] their healthcare provider of changes. MAL ARA [id number] 03/03/200505/2017 BREAST CANCER UPPER INNER 01/13/2005 Malignant neoplasm of female breast 09/23/2016 Overview: Breast documented as of this encounter (statuses as of 05/05/2023) Immunizations Name Administration Dates Next Due COVID-19 mRNA, LNP-s, No Pre serve, 2-Dose Series (Ideaxis) 04/14/2021,08/03/2020,07/13/2020 Pneumococcal Conjugate Vacc, 13 Valent (Prevnar) 03/12/2015 Pneumococcal Polysaccharide PPV23 (Pneumovax) 06/14/2004 SEASONAL INFLUENZA, PF, 6 M & Above, IM , (FLULAVAL or FLUZONE) 03/08/2018 Season Influenza, Quad, PF, Adjuvanted, 65+ Yrs, IM (FLUAD) 04/05/2020 Seasonal Influenza, Quadriva lent Hd (Fluzone Hd) [...] encounter Miscellaneous Notes * Telephone Encounter - Dennise Daniel CMA - 04/14/2023 4:30 PM EDT DME is completed at daughters request, spoke to Lena and she states they are going to sit down with Marianne tomorrow and decide where she would like to go, Daughter will call back with an update andfax number to facility they decide on. documented in this encounter Plan of Treatment Upcoming Encounters Date Type Department Care Team (Late st Contact Info) Description 06/22/2023 3:00 PM EST Cardiac Studies Cardiac Studies, [facility] 132 [facility] [place] [address] 07/26/2023 3:30 PM EST Office Visit Cardiology, [facility] 132 [facility] [place] [address] Beth Pisano PA-C 400 [facility] [place] [address] 08/20/2023 9:20 AM EST Office Visit Neurology [facility] 200 [facility] [place] [address] Jasmyn Santana CRNP [address] [facility] [address] 11/03/2023 4:40 PM EDT Office Visit General Internal Medicine [facility] 200 [facility] [place] [address] Doron Gibbs MD 200 [facility] [place] [address] Health Maintenance Due Date Last Done Comments [...] Not on filedocumented as of this encounter Advance Directives Documents on File Type Date Recorded Patient Stop Attacher Expl anation POLST 06/19/2019 POLST - Care Teams Dice Dealer Relationship Specialty Start Date End Date Doron Gibbs MD 200 [facility] [place] [address] PCP - General Internal Medicine 02/16/14 documented as of this encounter
--- OUTSIDE RECORDS SUMMARY | 2023-08-13 11:41 | External Medical Summary ---
Author Name Unknown Address Unknown Organization K09:[facility] [place] [address] Laboratory Report Ordering Provider Test Date Status THOR LOU 06/16/2023 11:32:51 Final Observation Date Value Abnormality Reference (Units ) Status WBC, Total 06/16/2023 11:32:51 9.44 4.00-10.8 0 (K/uL) Final RBC 06/16/2023 11:32:51 4.65 3.85-5.15 (M/uL) Final Hemoglobin 06/16/2023 11:32:51 13.3 12.0-15.3 (g/dL) Final HCT 06/16/2023 11:32:51 42.7 36.0-45.2 (%) Final MCV 06/16/2023 11:32:51 91.8 81.5-97.5 (fL) Final MCH 06/16/2023 11:32:51 28.6 27.0-34.0 (pg) Final MCHC 06/16/2023 11:32:51 31.1 32.0-36.0 (g/dL) Final RDW 06/16/2023 11:32:51 12.9 11.5-15.5 (%) Final Platelets 06/16/2023 11:32:51 269 140-400 (K /uL) Final MPV 06/16/2023 11:32:51 8.9 6.6-11.1 ( fL) Final Performing Location [facility] [place] [address]
--- OUTSIDE RECORDS SUMMARY | 2023-08-13 11:41 | External Medical Summary | Summary of Care ---
Author Name Unknown Organization [facility] Address [address] [place] [address] Phone [phone] Care Team Providers Care Wool Hat Sanding Machine Operator Name Role Phone Doron Gibbs MD Primary Care Provider + Reason for Visit * Reason Onset Date Comments Forms Request 04/14/2023 Encounter Details Date Type Department Care Team (Late st Contact Info) Description 04/14/2023 Telephone General Internal Medicine [facility] 200 [facility] [place] [address] Doron Gibbs MD 200 [facility] [address] Forms Request Allergies Active Allergy Reactions Criticality [...] their healthcare provider of changes. MAL ARA [id number] 03/03/200505/2017 BREAST CANCER UPPER INNER 01/13/2005 Malignant neoplasm of female breast 09/23/2016 Overview: Breast documented as of this encounter (statuses as of 05/05/2023) Immunizations Name Administration Dates Next Due COVID-19 mRNA, LNP-s, No Pre serve, 2-Dose Series (icomply) 04/14/2021,08/03/2020,07/13/2020 Pneumococcal Conjugate Vacc, 13 Valent (Prevnar) [...] 3:00 PM EST Cardiac Studies Cardiac Studies, [facility] 132 [facility] [place] [address] 07/26/2023 3:30 PM EST Office Visit Cardiology, [facility] 132 [facility] [place] [address] Beth Pisano PA-C 400 [facility] [place] [address] 08/20/2023 9:20 AM EST Office Visit Neurology [facility] 200 [facility] [place] [address] Jasmyn Santana CRNP [address] [facility] [address] 11/03/2023 4:40 PM EDT Office Visit General Internal Medicine [facility] 200 [facility] [place] [address] Doron Gibbs MD 200 [facility] [place] [address] Health Maintenance Due Date Last Done Comments [...] Documents on File Type Date Recorded Patient Content Engineer Expl anation POLST 06/19/2019 POLST - Care Teams Wool Hat Sanding Machine Operator Relationship Specialty Start Date End Date Doron Gibbs MD 200 [place] [address] PCP - General Internal Medicine 02/16/14 documented as of this encounter
--- OUTSIDE RECORDS SUMMARY | 2023-08-13 11:41 | External Medical Summary ---
Author Name Unknown Address Unknown Organization K01:[facility] [place] [place] - [address] [facility] [place] [address] Laboratory Report Ordering Provider Test Date Status ELSIE MONTAÑO 04/20/2023 07:36:01 Final Observation Date Value Abnormality Reference (Units ) Status Triglyceride 04/20/2023 07:36:01 83 <=174 ( mg/dL) Final Triglyceride Reference Range s (mg/dL):
<150 Acceptable
150-174 Borderline high
175-499 High
>=500 Very high Cholesterol 04/20/2023 07:36:01 135 <200 (mg /dL) Final Total Cholesterol Reference Ranges (mg/dL):
<200 Desirable
200-239 Borderline high
>=240 High HDL 04/20/2023 07:36:01 68 >49 (mg/dL ) Final HDL Cholesterol Reference Ra nges (mg/dL):
>=60 High (Desirable)
<50 Low (Undesirable) For Females
<40 Low (Undesirable) For Males NON-HDL CHOLESTEROL 04/20/2023 07:36:01 67 <=159 (mg/dL) Final Non-HDL Cholesterol Referenc e Range (mg/dL):
<100 Target level for high risk ASCVD patient
<130 Optimal for general population
130-159 Near optimal for general population
160-189 Borderline High
190-219 High
>=220 Very High LDL, (calculated) 04/20/2023 07:36:01 50 <= 129 (mg/dL) Final LDL Cholesterol Reference Ra nges (mg/dL):
<70 Target level for high risk ASCVD patient
<100 Optimal for general population
100-129 Near optimal for general population
130-159 Borderline high
160-189 High
>=190 Very high Performing Location [facility] [place] [place] - [address] [facility] [place] [address]
--- OUTSIDE RECORDS SUMMARY | 2023-08-13 11:41 | External Medical Summary | Summary of Care ---
Author Name Unknown Organization [facility] Address [address] [place] [address] Phone [phone] Care Team Providers Care Service Counter Cashier Name Role Phone Doron Gibbs MD Primary Care Provider + Reason for Visit * Reason Comments Follow Up 6 month follow up. P atient's daughters are presents and states concerns for message they had sent regarding changes in their mother. Message states concerns for memory changes and needing increase in care. Encounter Details Date Type Department Care Team (Late st Contact Info) Description 04/14/2023 2:40 PM EDT Office Visit General Internal Medicine Derick Dorman [place] [address] [facility] [place] [address] Doron Gibbs MD [address] [place] [address] Mixed Alzheimer's and vascular dementia (HCC)*; Type 2 diabetes mellitus with hemoglobin A1c goal of less than 8.5% ([facility]); Hyponatremia; PAF (paroxysmal atrial fibrillation) ([facility]); HTN, goal below 140/90; PALMA (generalized anxiety disorder); Elevated troponin; Mixed hyperlipidemia; Fungal rash of torso; Vision changes Allergies Active Allergy Reactions Criticality Noted Date Comments Alendronate Sodium Other (Please comment) High 03/07/2014 GERD Brimonidine Tartrate 09/17/2021 Codeine 01/07/2011 nausea Donepezil Nausea/vomiting 03/15/2023 Nausea with 1 month trial Latex Rash 10/13/2017 Rivastigmine Rash 03/15/2023 Rivastigmine patch caused skin rash documented as of this encounter (statuses as of 04/14/2023) Medications Medication Sig Dispensed Refills Start Date End Date Status CENTRUM SILVER PO TABS 1 po qd 0 0 12/30/2004 Active Aspirin 81 MG Tablet Take 1 Tab by mouth daily. 34 Tab 5 03/18/2016 Active meclizine (ANTIVERT) 25 MG TabletIndications :Benign [...] BEFORE BEDTIME 180 Tablet 2 03/05/2023 Active Cephalexin 500 MG Oral CapsuleIndication s:Acute UTI Take 1 Capsule by mouth in the morning and 1 Capsule before bedtime. Do all this for 7 days. 14 Capsule 0 04/08/2023 Active Fluconazole 150 MG Oral Tablet (Diflucan)Indicat ions:Fungal rash of torso Take 1 Tablet by mouth once a week. 3 Tablet 0 04/14/2023 Active Memantine HCl 5 MG Oral Tablet (Namenda) Take by mouth 1 tab daily week 1, 1 tab twice daily week 2, 2 tabs in am & 1 tab in pm week 3. 42 Tablet 0 03/10/2023 3 Discontinue d(Patient preference/ discontinua tion) Memantine HCl 10 MG Oral Tablet (Namenda) Take 1 Tablet by mouth in the morning and 1 Tablet before bedtime. Do not start before April 01, 2023. 60 Tablet 3 04/01/2023 3 Discontinue d(Patient preference/ discontinua tion) Fluconazole 150 MG Oral Tablet (Diflucan)Indicat ions:Fungal rash of torso Take 1 Tablet by mouth once a week. 3 Tablet 0 04/14/2023 3 Discontinue d(Medicatio n/Dose Changed) documented as of this encounter (statuses as of 04/14/2023) Active Problems Problem Noted Date Diagnosed Date [...] as of this encounter (statuses as of 04/14/2023) Resolved Problems Problem Noted Date Diagnosed Date [...] their healthcare provider of changes. MAL ARA [id number] 03/03/200505/2017 BREAST CANCER UPPER INNER 01/13/2005 Malignant neoplasm of female breast 09/23/2016 Overview: Breast documented as of this encounter (statuses as of 04/14/2023) Immunizations Name Administration Dates Next Due COVID-19 mRNA, LNP-s, No Pre serve, 2-Dose Series ([employer] 04/14/2021,08/03/2020,07/13/2020 Pneumococcal Conjugate Vacc, 13 Valent (Prevnar) [...] pur e alcohol) PHQ-2 Answer Date Recorded PHQ-2 Score 0 05/24/2020 Hunger Vital Sign Answer Date Recorded Within [...] Sign Reading Time Taken Comments Blood Pressure 136/64 04/14/2023 2:35 PM EDT Pulse 70 04/14/2023 2:35 PM EDT Temperature 36.7 C (98 F) 04/14/2023 2:35 PM EDT Respiratory Rate - - Oxygen Saturation 96% 04/14/2023 2:35 PM EDT Inhaled Oxygen Concentration - - Weight 76.3 kg (168 lb 3.2 oz) 04/14/2023 2:35 P M EDT Height 160 cm (5' 3") 04/14/2023 2:35 PM EDT Body Mass Index 29.8 04/14/2023 2:35 PM EDT documented in this encounter Progress Notes * Doron Gibbs MD - 04/14/2023 3:17 PM EDT Chief Complaint Patient presents with Follow Up 6 month follow up. Patient's daughters are presents and states concerns for message they had sent regarding changes in their mother. Message states concerns for memory changes and needing increase incare. SUBJECTIVE: Marianne Myrick is a 87 year old female with PMH as below who presents for follow up dementia, htn, dm. She is with her daughters. No cp sob, cordova memory is getting worse. More confusion, trouble remember to do creams, issues putting food away. Has seen neurology, didn't tolerate donepezil or memantine. Was see recently in ER for confusion, dx with possible uti, other work up ok, however did have elevated troponin in urgent care, seeing cardiology about this this week. No cp, sob, cordova. Chronic dizziness stable. No falls. Will get anxious at times with confusion, but they don't feel anxiety driving memory issues. Does see optho, right eye vision getting worse with pucker, may need eye patch Patient Active Problem List Diagnosis Code HTN, goal below 140/90 I10 Hyperlipidemia E78.5 PAF (paroxysmal atrial fibrillation) ([facility]) I48.0 BPPV (benign paroxysmal positional vertigo) H81.10 Chronic left-sided low back pain without sciatica M54.50, G89.29 Type 2 diabetes mellitus with hemoglobin A1c goal of less than 8.5% ([facility]) E11.9 PALMA (generalized anxiety disorder) F41.1 Moderate aortic stenosis I35.0 Obesity, Class I, BMI 30.0-34.9 (see actual BMI) E66.9 Exudative age-related macular degeneration of right eye ([facility]) H35.3210 Retinal change H35.9 SVT (supraventricular tachycardia) I47.10 Bilateral carotid artery disease ([facility]) I77.9 Mild dementia with anxiety ([facility]) F03.A4 Mixed Alzheimer's and vascular dementia ([facility]) G30.9, F01.50, F02.80 Current Outpatient Medications Medication Sig Dispense Refill [...] needed for Pain, Severe. 100 Tablet 0 Lisinopril 40 MG Oral Tablet TAKE 1 TABLET DAILY 90 Tablet 3 Rosuvastatin Calcium 10 MG Oral Tablet (Crestor) TAKE 1 TABLET DAILY 90 Tablet 2 Metoprolol Tartrate 25 MG Oral Tablet (Lopressor) TAKE 1 TABLET IN THE MORNING AND 1 TABLET BEFORE BEDTIME 180 Tablet 2 Cephalexin 500 MG Oral Capsule Take 1 Capsule by mouth in the morning and 1 Capsule before bedtime.Do all this for 7 days. 14 Capsule 0 Fluconazole 150 MG Oral Tablet (Diflucan) Take 1 Tablet by mouth once a week. 3 Tablet 0 meclizine (ANTIVERT) 25 MG Tablet TAKE 1 TABLET BY MOUTH THREE TIMES DAILY NEEDED FOR DIZZINESS (Patient not taking: Reported on 04/14/2023) 270 Tab 1 No current facility-administered medications for this visit. Review of patient's allergies indicates: Allergen Reactions Alendronate Sodium Other (Please comment) GERD Brimonidine Tartrate Codeine nausea Donepezil Nausea/vomiting Nausea with 1 month trial Latex Rash Rivastigmine Rash Rivastigmine patch caused skin rash Health Maintenance Due Topic Date Due Zoster Vaccines (1 of 2) Never done Hepatitis B (1 of 3 - Risk 3-dose series) Never done Depression Screening 05/24/2021 Diabetic Eye Exam 11/24/2022 DXA Scan 01/19/2023 COVID-19 Vaccine ( season) 2023 HbA1c 03/25/2023 ROS: CONSTITUTIONAL: No fevers, sweats, or chills EYE: No eye pain, redness, discharge EARS: No ear pain, No drainage, PULMONARY: No cough, sputum, or hemoptysis, No wheezing, No rales, No shortness of breath, and No recent change in breathing CARDIOVASCULAR: No chest pain, No shortness of breath, No dyspnea on exertion, No orthopnea, No paroxysmal nocturnal dyspnea, No edema, No palpitations, and No syncope GASTROINTESTINAL: No abdominal pain, No change in bowel habits, No significant heartburn, No significant change in appetite, No nausea, vomiting, diarrhea, or constipation, No hematemesis, No blood in stools or black tarry stools, No abdominal bloating or early satiety, and No dysphagia ALL OTHER SYSTEMS NEGATIVE I reviewed social, PMH, PSH, and family history and updated where needed. Social History Socioeconomic History Marital status: Spouse name: Ronn Number of children: 1 Years of education: Not on file Highest education level: Not on file Occupational History Occupation: retired Occupation: [email or web address] Tobacco Use Smoking status: Never Smokeless tobacco: Never Vaping Use Vaping Use: Never used Substance and Sexual Activity Alcohol use: No Drug use: No Sexual activity: Not on file Other Topics Concern Not on file Social History Narrative Not on file Social Determinants of Health Financial Resource Strain: Not on file Food Insecurity: No Food Insecurity (05/24/2020) Hunger Vital Sign Worried About Running Out of Food in the Last Year: Never true Ran Out of Food in the Last Year: Never true Transportation Needs: Not on file Physical Activity: Not on file Stress: Not on file Social Connections: Not on file Intimate Partner Violence: Not on file Housing Stability: Not on file Past Medical History: Diagnosis Date BREAST CANCER UPPER INNER 01/13/2005 HTN, goal below 140/90 03/07/2014 INFORMATION 12/2009 DVT left leg/[facility]/Dr. Burns MAL ARA [id number] 03/03/2005 Malignant neoplasm of female breast (HCC) Breast Malignant neoplasm of female breast (HCC) Breast Mild aortic stenosis by prior echocardiogram 03/07/2014 Severe Alzheimer's dementia (HCC) Shingles 08/2015 left chest wall Type 2 diabetes mellitus with hemoglobin A1c goal of less than 8.5% (HCC) 02/16/2018 Vertigo 09/25/2015 Past Surgical History: Procedure Laterality Date BX BREAST PERCUT W/IMAGE 01/01/2005 Left US-CNB at [facility] NONE 09/12/2004 right knee replacement at [facility] NONE 06/14/1995 right shoulder replacement [facility] NONE 06/14/1972 gallbladder [facility] PARTIAL MASTECTOMY 01/30/2005 Left PM/ALND at [facility] Dr. Castellon SPINAL FUSION, LUMBAR, COMBINED 03/08/2020 L3-5 with decompression Family History Problem Relation Age of Onset Arthritis Mother Heart failure Mother Arthritis Father Glaucoma Father Heart failure Brother COPD Brother Other (chrones) Sister Obesity Sister Cancer Sister Cervical Multiple Sclerosis Daughter Cancer Brother Lung OBJECTIVE: PHYSICAL EXAM: BP 136/64 | Pulse 70 | Temp 36.7 C (98 F) | Ht 1.6 m (5' 3") | Wt 76.3 kg (168 lb 3.2 oz) | SpO2 96% | BMI 29.80 kg/m | BSA 1.84 m General: alert, healthy, and no distress Head: Normocephalic, No masses, lesions, tenderness or abnormalities Eye Exam: conjunctiva are pink and non-injected, sclera clear Ears: External ears normal, Canals clear, TM's Normal Heart: regular rate & rhythm, no gallops, PMI non-displaced, S-1 normal, S-2 normal, and II/ HSM Lungs: normal respiratory rate and rhythm, lungs clear to auscultation Extremities: no edema, no clubbing, no cyanosis Neuro Exam: alert with fluent speech, needs aid standing, walks with walker Psych: normal affect, no flight of ideas or tangential thought, good eye contact, no pressured speech Skin: beefy red rash left axilla D/C Summary ER: The patient is an 87-year-old female with history of Alzheimer dementia, aortic stenosis, presents emergency department with her two daughters at the bedside over concern for increasing confusion over the past 2 days. Patient's daughter states that the patient lives alone and she has been contacting both of her daughters frequently by phone for a variety of things including how to use the microwave and for basic questions, she is also exhibited some mild agitation. This is apparently an acute change in the patient's baseline mental status although she does have a history of dementia. She was seen at an urgent care yesterday and diagnosed with a urinary tract infection and started on Keflex. Patient's daughter states that the patient's symptoms have not improved since then and therefore they brought her into the ED to be assessed. On arrival here to the ED the patient is resting comfortably in bed, she does not exhibit any focal deficits, she is alert, she is afebrile on presentation and otherwise appears to be in no acute distress. Patient appears well on arrival here to the ED, IV was established lab work obtained, patient was placed on site monitor. Lab work shows no leukocytosis, hemoglobin is normal, platelet count is normal, CMP does not show any critical findings, troponin is negative x1, EKG does not show any acute ischemic changes. TSH is within normal limits. Chest x-ray does not show any evidence of any acute process, CT imaging of the head does not show any evidence of any acute intracranial abnormality. Urinalysis shows 2+ leukocyte esterase and some pyuria, will send for culture, I recommended that the patient continue to take Keflex as prescribed. She just started taking Keflex yesterday for a course totaling of 7 days therefore I feel it is early to say that she has failed outpatient therapy. Overall on reassessment patient appears well, family at the bedside is in agreement for discharge which I think is reasonable given the patient's unremarkable work-up. She does not have any concerning findings on neurologic exam, she does not have any focal deficits, I have low suspicion for any acute intracranial process as a source of her symptoms. I suspect that she has a mild UTI exacerbatingher underlying dementia. Patient's daughters at the bedside are in agreement for close outpatient follow-up in the office, they will return the patient to the ER if she develops any new or worsening symptoms. Patient was discharged in stable condition 03/10/23 neuro: Repeat MMSE today with impairment in orientation, attention, visuopatial executive function and delayed recall, which is stable (MMSE 03/24/2022). Intact with all of her ADLs and some impairment in IADLS (finances, medications, driving, housekeeping and shopping). Findings are consistent for mild to moderate mixed AD and Vascular dementia. Will start Memantine as ordered. Patient and daughters educated on how to titrate dose. No safety concerns at this time. Encouraged to continue regular socialization, continues puzzle books. Would recommend reading and other cognitively stimulating activities. Mixed Alzheimer's and vascular dementia (HCC) Start memantine as ordered. Avoid cognitive impairing medications, such as benzodiazepines, antihistamines, anticholinergic (e.g.e paroxetine), muscle relaxants, medications used for bladder spasm such as oxybutynin Continue cognitively stimulating activities like puzzles, reading and socialization. 4. Continue baby aspirin, lisinopril, metoprolol and Rosuvastatin as ordered. - Memantine HCl 5 MG Oral Tablet (Namenda); Take by mouth 1 tab daily week 1, 1 tab twice daily week 2, 2 tabs in am & 1 tab in pm week 3. - Memantine HCl 10 MG Oral Tablet (Namenda); Take 1 Tablet by mouth in the morning and 1 Tablet before bedtime. Do not start before April 01, 2023. ASSESSMENT: G30.9,F01.50,F02.80 Mixed Alzheimer's and vascular dementia (HCC) (primary encounter diagnosis) E11.9 Type 2 diabetes mellitus with hemoglobin A1c goal of less than 8.5% ([facility]) E87.1 Hyponatremia I48.0 PAF (paroxysmal atrial fibrillation) ([facility]) I10 HTN, goal below 140/90 F41.1 PALMA (generalized anxiety disorder) R79.89 Elevated troponin E78.2 Mixed hyperlipidemia B36.9 Fungal rash of torso H53.9 Vision changes PLAN: Mixed Alzheimer's and vascular dementia (HCC) (Primary) Seems like worsening Labs show urine culture not c/w uti We discussed higher level of care, they are looking into and agreeable Cont f/u neurology Recheck labs to assess A1c, sodium Type 2 diabetes mellitus with hemoglobin A1c goal of less than 8.5% ([facility]) - COMPREHENSIVE METABOLIC PANEL; Future; Expected date: 04/14/2023 - HEMOGLOBIN A1C; Future; Expected date: 04/14/2023 Cont diet Hyponatremia Recheck PAF (paroxysmal atrial fibrillation) ([facility]) - CBC WITH WBC DIFFERENTIAL; Future; Expected date: 04/14/2023 Sees cardiology HTN, goal below 140/90 Cont metoprolol, lisinopril PALMA (generalized anxiety disorder) Discussed med, but fearful of side effect, dizziness Follow Elevated troponin Await cardiology Mixed hyperlipidemia Cont crestor Fungal rash of torso - Fluconazole 150 MG Oral Tablet (Diflucan); Take 1 Tablet by mouth once a week. Not using cream regularly, will do oral Vision changes Appreciate optho aid Follow Up: Return in about 6 months (around 10/13/2023), or if symptoms worsen or fail to improve. Doron Gibbs MD documented in this encounter Nursing Notes * Dennise Daniel CMA - 04/14/2023 2:33 PM EDT Chief Complaint Patient presents with Follow Up 6 month follow up. Patient's daughters are presents and states concerns for message they had sent regarding changes in their mother. Message states concerns for memory changes and needing increase incare. documented in this encounter Plan of Treatment Upcoming Encounters Date Type Department Care Team (Late st Contact Info) Description 04/16/2023 9:00 AM EDT Office Visit Cardiology, [facility] [address] [facility] [place] [address] Beth Pisano PA-C [address] [facility] [place] [phone] 08/20/2023 9:20 AM EST Office [facility] [address] [facility] [address] Jasmyn Santana CRNP [address] [facility] [id number] Scheduled Orders Name Type Priority Associated Diagnoses Orde r Schedule COMPREHENSIVE METABOLIC PANEL Lab Routine Type 2 diabetes mellitus with hemoglobin A1c goal of less than 8.5% ([facility]) Expected: 04/14/2023 (Approximate), Expires: 04/13/2024 HEMOGLOBIN A1C Lab Routine Type 2 diabetes mellitus with hemoglobin A1c goal of less than 8.5% ([facility]) Expected: 04/14/2023 (Approximate), Expires: 04/13/2024 CBC WITH WBC DIFFERENTIAL Lab Routine PAF (paroxysmal atrial fibrillation) ([facility]) Expected: 04/14/2023 (Approximate), Expires: 04/14/2024 Health Maintenance Due Date Last Done Comments Zoster Vaccines (1 of 2) 1984 Hepatitis B (1 of 3 - Risk 3-dose series) 1994 Depression Screening 05/24/2021 05/24/2020 Diabetic Eye Exam 11/24/2022 11/24/2021, , 12/09/2020, Additional history exists DXA Scan 01/19/2023 01/20/2016, 07/2007, 02/14/2008, Additional history exists COVID-19 Vaccine ( season) 2023 04/14/2021, 08/03/2020, 07/13/2020 HbA1c 03/25/2023 09/23/2022, 03/15, 08/29/2021, Additional history exists Albumin/Creatinine Ratio 09/24/2023 023, 08/29/2021, 07/10/2020, Additional history exists Diabetic Foot Exam 09/24/2023 09/23/2022, 0 08/29/2021, 10/24/2020, Additional history exists DTaP,Tdap,and Td Vaccines (3 - Td or [...] as of this encounter Visit Diagnoses Diagnosis Mixed Alzheimer's and vascular dementia (HCC)- Primary Alzheimer's disease Type 2 diabetes mellitus with hemoglobin A1c goal of less than 8.5% (HCC) Hyponatremia Hyposmolality and/or hyponatremia PAF (paroxysmal atrial fibrillation) (HCC) Atrial fibrillation HTN, goal below 140/90 Unspecified essential hypertension PALMA (generalized anxiety disorder) Generalized anxiety disorder Elevated troponin Other abnormal blood chemistry Mixed hyperlipidemia Fungal rash of torso Vision changes Unspecified visual disturbance documented in this encounter Advance Directives Documents on File Type Date Recorded Patient Hr Clerk Expl anation POLST 06/19/2019 POLST - Care Teams Service Counter Cashier Relationship Specialty Start Date End Date Doron Gibbs MD [address] [place] [address] PCP - General Internal Medicine 02/16/14 documented as of this encounter
--- OUTSIDE RECORDS SUMMARY | 2023-08-13 11:41 | External Medical Summary | Summary of Care ---
Author Name Unknown Organization [facility] Address [address] [facility] [place] [address] Phone [phone] Care Team Providers Care Commissary Agent Name Role Phone Doron Gibbs MD Primary Care Provider + Reason for Referral * Precert (Within 10 days (routine)) - Pending Review Specialty Diagnoses / Procedures Referred By Grecia murray Referred To Contact Cardiac Studies Diagnoses Moderate aortic stenosis PAF (paroxysmal atrial fibrillation) (HCC) Lipid screening Procedures ECHO, COMPLETE (2D), TRANS-THORACIC Beth Pisano PA-C [address] [place] [address] Referral ID Status Reason Start Date Expiration Date Visits Requested Visits Authorized [id number] Pending Review Precert 04/17/2023 999 999 Reason for Visit * Reason Comments Emergency Department Follow-Up [facility] 03/15 02/03. Labs and EKG performed recently. Episodes of Afib occur and patients get anxious per daughter. Encounter Details Date Type Department Care Team (Late st Contact Info) Description 04/16/2023 9:00 AM EDT Office Visit Cardiology, [facility] [address] [facility] [place] [address] Beth Pisano PA-C [address] [place] [address] PAF (paroxysmal atrial fibrillation) ([facility])*; Moderate aortic stenosis; Lipid screening Allergies Active Allergy Reactions Criticality Noted Date Comments Alendronate Sodium Other (Please comment) High 03/07/2014 GERD Brimonidine Tartrate 09/17/2021 Codeine 01/07/2011 nausea Donepezil Nausea/vomiting 03/15/2023 Nausea with 1 month trial Latex Rash 10/13/2017 Rivastigmine Rash 03/15/2023 Rivastigmine patch caused skin rash documented as of this encounter (statuses as of 04/16/2023) Medications Medication Sig Dispensed Refills Start Date End Date Status CENTRUM SILVER PO TABS 1 po qd 0 0 12/30/2004 Active Aspirin 81 MG Tablet Take 1 Tab by mouth daily. 34 Tab 5 03/18/2016 Active meclizine (ANTIVERT) 25 MG TabletIndication s:Benign paroxysmal positional vertigo, unspecified laterality TAKE 1 TABLET BY MOUTH THREE TIMES DAILY NEEDED FOR DIZZINESS 270 Tab 1 09/19/2019 Active Additional Information Patient not taking.Reported on 04/14/2023 Latanoprost 0.005 % Ophthalmic Solution (Xalatan) INSTILL 1 DROP INTO EACH EYE ONCE DAILY AT NIGHT 0 02/21/2021 Active Acetaminophen 500 MG Oral Tablet (Tylenol)Indicat ions:Chronic left-sided low back pain without sciatica Take 2 Tablets by mouth every 8 hours as needed for Pain, Severe. 100 Tablet 0 05/13/2021 Active Lisinopril 40 MG Oral TabletIndication s:Hypertension goal BP (blood pressure) < 140/90 TAKE 1 TABLET DAILY 90 Tablet 3 07/20/2022 Active Rosuvastatin Calcium 10 MG Oral Tablet (Crestor)Indicat ions:PAD (peripheral artery disease) ([facility]) TAKE 1 TABLET DAILY 90 Tablet 2 09/07/2022 Active Metoprolol Tartrate 25 MG Oral Tablet (Lopressor)Indic ations:Palpitati ons,PAF (paroxysmal atrial fibrillation) ([facility]),HTN, goal below 140/90 TAKE 1 TABLET IN THE MORNING AND 1 TABLET BEFORE BEDTIME 180 Tablet 2 03/05/2023 Active Fluconazole 150 MG Oral Tablet (Diflucan)Indica tions:Fungal rash of torso Take 1 Tablet by mouth once a week. 3 Tablet 0 04/14/2023 Active Cephalexin 500 MG Oral CapsuleIndicatio ns:Acute UTI Take 1 Capsule by mouth in the morning and 1 Capsule before bedtime. Do all this for 7 days. 14 Capsule 0 04/08/2023 3 Discontinued documented as of this encounter (statuses as of 04/16/2023) Active Problems Problem Noted Date Diagnosed Date [...] as of this encounter (statuses as of 04/16/2023) Resolved Problems Problem Noted Date Diagnosed Date Resolved Date Disorder of arteries and art erioles, unspecified 09/12/2020 08/29/2021 PAD (peripheral artery disease) 02/15/2018 03/10/2018 Carotid atherosclerosis 11/24/2016 05/01/2019 Kidney disease, chronic, sta ge III (GFR 30-59 ml/min) 12/23/2015 10/13/2017 Overview: Per CKD protocol #1 Vertigo 09/25/2015 03/02/2018 Mild aortic stenosis by prior echocardiogram 4 03/18/2020 ADVANCE DIRECTIVE INFORMATION 06/03/2005 02/15/2018 Overview: Yes, Copy scanned at patient level in the electronic medical record.(Go to Action, Patient File to view) Patient aware they must notify their healthcare provider of changes. MAL ARA [id number] 03/03/200505/2017 BREAST CANCER UPPER INNER 01/13/2005 Malignant neoplasm of female breast 09/23/2016 Overview: Breast documented as of this encounter (statuses as of 04/16/2023) Immunizations Name Administration Dates Next Due COVID-19 [...] Sign Reading Time Taken Comments Blood Pressure 132/72 04/16/2023 8:55 AM EDT Pulse 80 04/16/2023 8:55 AM EDT Temperature - - Respiratory Rate 16 04/16/2023 8:55 AM EDT Oxygen Saturation - - Inhaled Oxygen Concentration - - Weight 76.2 kg (168 lb) 04/16/2023 8:55 AM EDT Height - - Body Mass Index 29.76 04/14/2023 2:35 PM EDT documented in this encounter Progress Notes * Beth Pisano PA-C - 04/16/2023 9:00 AM EDT 04/15/2023 Cardiology Follow Up Primary Casing Crew: Dr. Cid Past Medical History: Paroxysmal atrial fibrillation Moderate aortic stenosis Dementia HPI: Marianne Myrick is a 87 year old female who presents for cardiology follow up. Last evaluated in clinic 01/[address] Cid. Since last visit, she presented to [facility] ED 04/10/23 with increased confusion, was diagnosed with UTI. Per records, patient was in sinus rhythm on monitor, EKG sinus rhythm with rate 54 bpm. She was discharged to home Presents today accompanied by daughter who helps provide history due to patient's dementia. States she has had 4 episodes of dizziness and brain fog. At times feels her heart fluttering, although notsure if it is related to dizziness. When not feeling well she will be checked by nurse and states blood pressure normal or high. Does feels anxious and stressed at times, more now due to memory issues, wants to discuss starting Zoloft. She is not able to wear a heart monitor due to adhesive allergy. Denies chest pain, shortness of breath, edema, PND, orthopnea, syncope. 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 Sees neurology for dementia. REVIEW OF SYSTEMS: See HPI for pertinent positives. All others negative other than those noted in the HPI. CONSTITUTIONAL: No change in weight, No weakness, No fatigue and No fevers, No sweats or chills. PULMONARY: No cough, sputum, or hemoptysis, No wheezing, No shortness of breath and No recent change in breathing. CARDIOVASCULAR: No chest pain, No dyspnea on exertion, No edema, + palpitations and No syncope. GASTROINTESTINAL: No abdominal [...] 1 TABLET BEFORE BEDTIME 180 Tablet 2 Fluconazole 150 MG Oral Tablet (Diflucan) Take 1 Tablet by mouth once a week. 3 Tablet 0 meclizine (ANTIVERT) 25 MG Tablet TAKE 1 TABLET BY MOUTH THREE TIMES DAILY NEEDED FOR DIZZINESS (Patient not taking: Reported on 04/14/2023) 270 Tab 1 No current facility-administered medications for this visit. Past Medical History: Diagnosis Date BREAST CANCER UPPER INNER 01/13/2005 HTN, goal below 140/90 03/07/2014 INFORMATION 12/2009 DVT left leg/[facility]/Dr. Burns MAL ARA [id number] 03/03/2005 Malignant neoplasm of female breast (HCC) Breast Malignant neoplasm of female breast (HCC) Breast Mild aortic stenosis by prior echocardiogram 03/07/2014 Severe Alzheimer's dementia ([facility]) Shingles 08/2015 left chest wall Type 2 diabetes mellitus with hemoglobin A1c goal of less than 8.5% ([facility]) 02/16/2018 Vertigo 09/25/2015 Family History Problem Relation Age of Onset Arthritis Mother Heart failure Mother Arthritis Father Glaucoma Father Heart failure Brother COPD Brother Other (chrones) Sister Obesity Sister Cancer Sister Cervical Multiple Sclerosis Daughter Cancer Brother Lung Social History Socioeconomic History Marital status: Spouse name: Ronn Number of children: 1 Occupational History Occupation: retired Occupation: [employer] Tobacco Use Smoking status: Never Smokeless tobacco: Never Vaping Use Vaping Use: Never used Substance and Sexual Activity Alcohol use: No Drug use: No Social Determinants of Health Food Insecurity: No Food Insecurity (05/24/2020) Hunger Vital Sign Worried About Running Out of Food in the Last Year: Never true Ran Out of Food in the Last Year: Never true OBJECTIVE/PHYSICAL EXAMINATION: BP 132/72 | Pulse 80 | Resp 16 | Wt 76.2 kg (168 lb) | BMI 29.76 kg/m | BSA 1.84 m General: No [...] insight. DATA Labs & Imaging Reviewed Below: EKG 04/08/23 Normal sinus rhythm, left axis deviation, no change compared to previous EKG [facility] 09/2022 Patient had a min HR of [...] correlate with supraventricular tachycardia and supraventricular ectopy. Echo 12/03/20 The examination is adequate to evaluate the referral indication. The LV wall thickness is mildly increased (concentric). The qualitative LV ejection fraction is 60-64% (normal). The left ventricular wall motion is normal. The left ventricular diastolic function is mildly abnormal (grade I). Moderate aortic valve sclerosis is present. The aortic valve is mildly calcified. Moderate aortic valve stenosis is present. Compared to prior study 02/28/2020, no significant change noted. ASSESSMENT/PLAN: 87 year old year old female 1. PAF (paroxysmal atrial fibrillation) (HCC) - regular rhythm and rate on exam today - patient and daughter believe she is having more frequent episodes of atrial fibrillation and dizziness, difficult to tell if atrial fibrillation vs anxiety vs vision issue, discussed event monitor,but patient unable to tolerate due to adhesive allergy - plans to discuss anxiety treatment options with PCP - follow up with ophthalmology - discussed anticoagulation, patient declines, prefers to stay on aspirin, denies stroke like symptoms - continue aspirin, lisinopril, metoprolol 2. Moderate aortic stenosis - denies fatigue, shortness of breath - repeat echo as aortic stenosis may have worsened, contributing to dizziness 3. Lipid screening - lipid panel - continue rosuvastatin DISPOSITION: Follow up 3 months or sooner if symptoms worsen/fail to improve. All questions were answered to the patients satisfaction. Patient advised to report to ED with any and all emergencies. The patient agrees to the above plan and will call with additional questions or concerns. Beth Pisano PA-C Cardiology, [address] [place] [address] I spent a total of 40 minutes on the date of service in preparation, delivery, and documentation ofthe care provided to Marianne Myrick excluding any time spent in the performance of separately billed services. This chart was completed in part utilizing [employer] Speech Voice Recognition Software. Grammatical errors, random [...] documented in this encounter Nursing Notes * Jalen Smyth LPN - 04/16/2023 8:54 AM EDT Patient identified by full name and date of Chief Complaint Patient presents with Emergency Department Follow-Up [facility] 04/10/23. Labs and EKG performed recently. Episodes of Afib occur and patients get anxious perdaughter. Examination Room: 7 Name: Marianne Myrick Date of : (1935). Reason for Visit: ED follow up Interim Hospitalization(s): [facility] ED 04/10/23 Problems/Concerns: See chief complaint Chest Pain/SOB: See chief complaint [facility] Discussed: Not applicable [facility] a way you can [...] 3:00 PM EST Cardiac Studies Cardiac Studies, [address] [place] [address] 07/26/2023 3:30 PM EST Office Visit Cardiology, [facility] [address] [facility] [place] [address] Beth Pisano PA-C [address] [facility] [place] [address] 08/20/2023 9:20 AM EST Office Visit Neu[facility] [address] Jasmyn Santana CRNP [address], [place] [id number] Scheduled Orders Name Type Priority Associated Diagnoses Orde r Schedule ECHO, COMPLETE (2D), TRANS-THORACIC Echocardiology Routine Moderate aortic stenosis PAF (paroxysmal atrial fibrillation) (HCC) Lipid screening Expected: 04/17/2023, Expires: 05/16/2025 LIPID PANEL WITH DIRECT LDL IF TG IS HIGH Lab Routine Moderate aortic stenosis PAF (paroxysmal atrial fibrillation) (HCC) Lipid screening Expected: 04/17/2023, Expires: 04/16/2024 Health Maintenance Due Date Last Done Comments Zoster Vaccines (1 of 2) 1984 Hepatitis B (1 of 3 - Risk 3-dose series) 1994 Diabetic Eye Exam 11/24/2022 11/24/2021, , 12/09/2020, Additional history exists DXA Scan 01/19/2023 01/20/2016, 07/2007, 02/14/2008, Additional history exists COVID-19 Vaccine ( season) 2023 04/14/2021, 08/03/2020, 07/13/2020 HbA1c 03/25/2023 09/23/2022, 03/15, 08/29/2021, Additional history exists Albumin/Creatinine Ratio 09/24/2023 023, 08/29/2021, 07/10/2020, Additional history exists Diabetic Foot Exam 09/24/2023 09/23/2022, 0 08/29/2021, 10/24/2020, Additional history exists Depression Screening 04/14/2024 04/14/2023 [...] (paroxysmal atrial fibrillation) (HCC)- Primary Atrial fibrillation Moderate aortic stenosis Aortic valve disorders Lipid screening Screening for lipoid disorders documented in this encounter Advance Directives Documents on File Type Date Recorded Patient Supervisor In Charge Expl anation POLST 06/19/2019 POLST - Care Teams Commissary Agent Relationship Specialty Start Date End Date Doron Gibbs MD [address] [place] [address] PCP - General Internal Medicine 02/16/14 documented as of this encounter"
--- OUTSIDE RECORDS SUMMARY | 2023-08-13 11:41 | External Medical Summary ---
Author Name Unknown Address Unknown Organization K[facility] [place] [address] Laboratory Report Ordering Provider Test Date Status LUZ WEI 04/20/2023 07:36:01 Final Observation Date Value Abnormality Reference (Units ) Status SYNC LEUKOCYTES IN BLOOD BY AUTOMATED COUNT 04/20/2023 07:36:01 7.94 4.00-10.80 (K/uL) Final Segs 04/20/2023 07:36:01 47.7 40.0-75.0 (%) Final Lymphs % 04/20/2023 07:36:01 39.9 18.0-42.0 (%) Final Monos 04/20/2023 07:36:01 10.6 1.0-11.0 (%) Final Eosinophils 04/20/2023 07:36:01 1.5 0.0-6.0 (%) Final Basos 04/20/2023 07:36:01 0.3 0.0-2.0 (%) Final Absolute Segs 04/20/2023 07:36:01 3.79 1.80-7.70 (K/uL) Final Lymphs, absolute 04/20/2023 07:36:01 3.17 1.00-4.80 (K/ul) Final Monos, Abs 04/20/2023 07:36:01 0.84 0.00-1.10 (K/uL) Final Eos, Abs 04/20/2023 07:36:01 0.12 0.00-0.70 (K/uL) Final Basos, Abs 04/20/2023 07:36:01 0.02 0.00-0.20 (K/uL) Final Performing Location [facility] [place] [address]
--- OUTSIDE RECORDS SUMMARY | 2023-08-13 11:41 | External Medical Summary ---
Author Name Unknown Address Unknown Organization K09[facility] [place] [address] Laboratory Report Ordering Provider Test Date Status LUZ WEI 04/20/2023 07:36:01 Final Observation Date Value Abnormality Reference (Units ) Status WBC, Total 04/20/2023 07:36:01 7.94 4.00-10.8 0 (K/uL) Final RBC 04/20/2023 07:36:01 4.65 3.85-5.15 (M/uL) Final Hemoglobin 04/20/2023 07:36:01 13.3 12.0-15.3 (g/dL) Final HCT 04/20/2023 07:36:01 42.7 36.0-45.2 (%) Final MCV 04/20/2023 07:36:01 91.8 81.5-97.5 (fL) Final MCH 04/20/2023 07:36:01 28.6 27.0-34.0 (pg) Final MCHC 04/20/2023 07:36:01 31.1 32.0-36.0 (g/dL) Final RDW 04/20/2023 07:36:01 13.6 11.5-15.5 (%) Final Platelets 04/20/2023 07:36:01 243 140-400 (K /uL) Final MPV 04/20/2023 07:36:01 8.9 6.6-11.1 ( fL) Final Performing Location [facility] [place] [address]
--- OUTSIDE RECORDS SUMMARY | 2023-08-13 11:41 | External Medical Summary | Summary of Care ---
Author Name Unknown Organization [facility] Address [address] [place] [address] Phone [phone] Care Team Providers Care Graduate Studies Dean Name Role Phone Doron Gibbs MD Primary Care Provider + Reason for Visit * Reason Comments Outpatient Testing Encounter Details Date Type Department Care Team (Late st Contact Info) Description 04/20/2023 8:10 AM EST Laboratory [facility] [place] [address] [place] [phone] [place], [facility] [address] [place] [address] Type 2 diabetes mellitus with hemoglobin A1c goal of less than 8.5% ([facility]); PAF (paroxysmal atrial fibrillation) ([facility]); Moderate aortic stenosis; Lipid screening Allergies Active Allergy Reactions Criticality Noted Date Comments Alendronate Sodium Other (Please comment) High 03/07/2014 GERD Brimonidine Tartrate 09/17/2021 Codeine 01/07/2011 nausea Donepezil Nausea/vomiting 03/15/2023 Nausea with 1 month trial Latex Rash 10/13/2017 Rivastigmine Rash 03/15/2023 Rivastigmine patch caused skin rash documented as of this encounter (statuses as of 04/20/2023) Medications Medication Sig Dispensed Refills Start Date [...] as of this encounter (statuses as of 04/20/2023) Active Problems Problem Noted Date Diagnosed Date [...] as of this encounter (statuses as of 04/20/2023) Resolved Problems Problem Noted Date Diagnosed Date [...] their healthcare provider of changes. MAL ARA [id number] 03/03/200505/2017 BREAST CANCER UPPER INNER 01/13/2005 Malignant neoplasm of female breast 09/23/2016 Overview: Breast documented as of this encounter (statuses as of 04/20/2023) Immunizations Name Administration Dates Next Due COVID-19 [...] 3:00 PM EST Cardiac Studies Cardiac Studies, [facility] [address] [place] [address] 07/26/2023 3:30 PM EST Office Visit Cardiology, [facility] [address] [place] [address] Beth Pisano PA-C [address] [place] [address] [place] [address] 08/20/2023 9:20 AM EST Office Visit Neurology [facility] [place] [address] [place] [address] Jasmyn Santana CRNP [address] [facility] [place] [address] Pending Results Name Type Priority Associated Diagnoses Date /Time COMPREHENSIVE METABOLIC PANEL Lab Routine Type 2 diabetes mellitus with hemoglobin A1c goal of less than 8.5% ([facility]) 04/20/2023 7:36 AM EST HEMOGLOBIN A1C Lab Routine Type 2 diabetes mellitus with hemoglobin A1c goal of less than 8.5% ([facility]) 04/20/2023 7:36 AM EST LIPID PANEL WITH DIRECT LDL IF TG IS HIGH Lab Routine Moderate aortic stenosis PAF (paroxysmal atrial fibrillation) ([facility]) Lipid screening 04/20/2023 7:36 AM EST Health Maintenance Due Date Last [...] Date/Time Associated Diagnosis Comments DIFFERENTIAL, AUTOMATED Routine 04/20/2023 7:36 AM EST PAF (paroxysmal atrial fibrillation) (HCC) CBC Routine 04/20/2023 7:36 AM EST PAF (paroxysmal atrial fibrillation) (HCC) CBC Routine 04/20/2023 7:36 AM EST PAF (paroxysmal atrial fibrillation) (HCC) documented in this encounter Results * DIFFERENTIAL, AUTOMATED (04/20/2023 7:36 AM EST) WBC 7.94 4.00 - 10.80 K/uL 04/20/2023 7:49 AM EST [facility] 56-02 Neutrophils % 47.7 40.0 - 75.0 % 04/20/2023 7:49 AM EST [facility] 56-02 Lymphocytes % 39.9 18.0 - 42.0 % 04/20/2023 7:49 AM EST [facility] 56-02 Monocytes % 10.6 1.0 - 11.0 % 04/20/2023 7:49 AM EST [facility] 56-02 Eosinophils % 1.5 0.0 - 6.0 % 04/20/2023 7:49 AM EST [facility] 56-02 Basophils % 0.3 0.0 - 2.0 % 04/20/2023 7:49 AM EST [facility] 56-02 Absolute Neutrophils 3.79 1.80 - 7.70 K/uL 04/20/2023 7:49 AM EST [facility] 56-02 Absolute Lymphocytes 3.17 1.00 - 4.80 K/ul 04/20/2023 7:49 AM EST [facility] 56-02 Absolute Monocytes 0.84 0.00 - 1.10 K/uL 04/20/2023 7:49 AM EST [facility] 56-02 Absolute Eosinophils 0.12 0.00 - 0.70 K/uL 04/20/2023 7:49 AM [facility] 56 Absolute Basophils 0.02 0.00 - 0.20 K/uL 04/20/2023 7:49 AM [facility] 56 Blood Venous blood specimen / Unknown Venipuncture / Unknown 04/20/2023 7:36 AM EST 04/20/2023 7:36 AM EST Doron Gibbs MD LAB BLOOD ORDERA [facility]ES [facility] [address] [place] [address] * CBC (04/20/2023 7:36 AM EST) WBC 7.94 4.00 - 10.80 K/uL 04/20/2023 7:49 AM [facility] 56 RBC 4.65 3.85 - 5.15 M/uL 04/20/2023 7:[address] HGB 13.3 12.0 - 15.3 g/dL 04/20/2023 7:49 AM [facility] 56 HCT 42.7 36.0 - 45.2 % 04/20/2023 7:49 AM [facility] 56 MCV 91.8 81.5 - 97.5 fL 04/20/2023 7:49 AM [facility] 56 MCH 28.6 27.0 - 34.0 pg 04/20/2023 7:49 AM [facility] 56 MCHC 31.1 32.0 - 36.0 g/dL 04/20/2023 7:49 AM [facility] 56 RDW 13.6 11.5 - 15.5 % 04/20/2023 7:49 AM [facility] 56- PLT 243 140 - 400 K/uL 04/20/2023 7:49 AM [facility] 56- MPV 8.9 6.6 - 11.1 fL 04/20/2023 7:49 AM [facility] 56- Blood Venous blood specimen / Unknown Venipuncture / Unknown 04/20/2023 7:36 AM EST 04/20/2023 7:36 AM EST Doron Gibbs MD LAB BLOOD [facility]A [facility] 56-[address] [place] [address] documented in this encounter Visit Diagnoses Diagnosis Type 2 diabetes mellitus with hemoglobin A1c goal of less than 8.5% (HCC) PAF (paroxysmal atrial fibrillation) (HCC) Atrial fibrillation Moderate aortic stenosis Aortic valve disorders Lipid screening Screening for lipoid disorders documented in this encounter Advance Directives Documents on File Type Date Recorded Patient Video Game Technician Expl anation POLST 06/19/2019 POLST - Care Teams Graduate Studies Dean Relationship Specialty Start Date End Date Doron Gibbs MD [address] [place] [address] PCP - General Internal Medicine 02/16/14 documented as of this encounter
--- OUTSIDE RECORDS SUMMARY | 2023-08-13 11:41 | External Medical Summary | Summary of Care ---
Author Name Unknown Organization [facility] Address [address] [place] [address] Phone [phone] Care Team Providers Care Faculty Member Name Role Phone Doron Escobar MD Primary Care Provider + Reason for Visit * Reason Comments eRx-Medication Refill Encounter Details Date Type Department Care Team (Late st Contact Info) Description 06/03/2023 Refill General Internal Medicine [facility] [place] [address] [facility] [address] Doron Escobar MD [address] [place] [address] PAD (peripheral artery disease) ([facility]) Allergies Active Allergy Reactions Criticality Noted Date Comments Alendronate Sodium Other (Please comment) High 03/07/2014 GERD Brimonidine Tartrate 09/17/2021 Codeine 01/07/2011 nausea Donepezil Nausea/vomiting 03/15/2023 Nausea with 1 month trial Latex Rash 10/13/2017 Rivastigmine Rash 03/15/2023 Rivastigmine patch caused skin rash documented as of this encounter (statuses as of 06/03/2023) Medications Medication Sig Dispensed Refills Start Date [...] Tablet (Lopressor)Indic ations:Palpitati ons,PAF (paroxysmal atrial fibrillation) (HCC),HTN, goal below 140/90 TAKE 1 TABLET IN THE MORNING AND 1 TABLET BEFORE BEDTIME 180 Tablet 2 03/05/2023 Active Fluconazole 150 MG Oral Tablet (Diflucan)Indica tions:Fungal rash of torso Take 1 Tablet by mouth once a week. 3 Tablet 0 04/14/2023 Active Rosuvastatin Calcium 10 MG Oral Tablet (Crestor)Indicat ions:PAD (peripheral artery disease) ([facility]) TAKE 1 TABLET DAILY 90 Tablet 1 06/03/2023 Active Rosuvastatin Calcium 10 MG Oral Tablet (Crestor)Indicat ions:PAD (peripheral artery disease) ([facility]) TAKE 1 TABLET DAILY 90 Tablet 2 09/07/2022 3 Discontinued documented as of this encounter (statuses as of 06/03/2023) Active Problems Problem Noted Date Diagnosed Date [...] as of this encounter (statuses as of 06/03/2023) Resolved Problems Problem Noted Date Diagnosed Date [...] their healthcare provider of changes. MAL ARA [id number] 03/03/200505/2017 BREAST CANCER UPPER INNER 01/13/2005 Malignant neoplasm of female breast 09/23/2016 Overview: Breast documented as of this encounter (statuses as of 06/03/2023) Immunizations Name Administration Dates Next Due COVID-19 mRNA, LNP-s, No Pre serve, 2-Dose Series ([email or web address]) 04/14/2021,08/03/2020,07/13/2020 Pneumococcal Conjugate Vacc, 13 Valent (Prevnar) [...] encounter Miscellaneous Notes * Telephone Encounter - Bi De La O RPh - 06/03/2023 1:55 PM EST Signed Prescriptions: Disp Refills Rosuvastatin Calcium 10 MG Oral Tablet (Cr*90 Tab*1 Sig: TAKE 1 TABLET DAILYAuthorizing Provider: DORON ESCOBAR User: BI DE LA O documented in this encounter Plan of Treatment Upcoming Encounters Date Type Department Care Team (Late st Contact Info) Description 06/22/2023 3:00 PM EST [facility] [address] [facility] [place] [address] 07/26/2023 3:30 PM EST [facility] [address] [facility] [place] [address] Beth Pisano PA-C [address] [facility] [place] [address] 08/20/2023 9:20 AM EST Office Visit Neurology [facility] [address] [facility] [place] [address] Jasmyn Santana CRNP [address] [place] [address] 11/03/2023 4:40 PM EDT Office Visit General Internal Medicine [facility] [address] [facility] [place] [address] Doron Escobar MD [address] [facility] [place] [address] Health Maintenance Due Date Last Done Comments [...] as of this encounter Visit Diagnoses Diagnosis PAD (peripheral artery disease) (HCC) Peripheral vascular disease, unspecified documented in this encounter Advance Directives Documents on File Type Date 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
--- OUTSIDE RECORDS SUMMARY | 2023-08-13 11:41 | External Medical Summary ---
Author Name Unknown Address Unknown Organization K09:[facility] [place] [address] Laboratory Report Ordering Provider Test Date Status THOR LOU 06/16/2023 11:32:51 Final Observation Date Value Abnormality Reference (Units ) Status SYNC LEUKOCYTES IN BLOOD BY AUTOMATED COUNT 06/16/2023 11:32:51 9.44 4.00-10.80 (K/uL) Final Segs 06/16/2023 11:32:51 60.4 40.0-75.0 (%) Final Lymphs % 06/16/2023 11:32:51 25.8 18.0-42.0 (%) Final Monos 06/16/2023 11:32:51 13.2 Above high normal 1.0-11.0 (%) Final Eosinophils 06/16/2023 11:32:51 0.4 0.0-6.0 (%) Final Basos 06/16/2023 11:32:51 0.2 0.0-2.0 (%) Final Absolute Segs 06/16/2023 11:32:51 5.69 1.80-7.70 (K/uL) Final Lymphs, absolute 06/16/2023 11:32:51 2.44 1.00-4.80 (K/ul) Final Monos, Abs 06/16/2023 11:32:51 1.25 Above high normal 0.00-1.10 (K/uL) Final Eos, Abs 06/16/2023 11:32:51 0.04 0.00-0.70 (K/uL) Final Basos, Abs 06/16/2023 11:32:51 0.02 0.00-0.20 (K/uL) Final Performing Location [facility] [place] [address]
--- OUTSIDE RECORDS SUMMARY | 2023-08-13 11:41 | External Medical Summary ---
Author Name Unknown Address Unknown Organization K09:[facility] [address] [place] [address] Laboratory Report Ordering Provider Test Date Status LUZ WEI 04/20/2023 07:36:01 Final Observation Date Value Abnormality Reference (Units ) Status BUN 04/20/2023 07:36:01 9 6-20 (mg/dL) Final Creatinine 04/20/2023 07:36:01 0.7 0.5-1.0 (mg/dL) Final Glomerular filtration rate/1.73 sq M.predicted [Volume Rate/Area] in Serum, Plasma or Blood by Creatinine-based formula (CKD-EPI) 04/20/2023 07:36:01 84 >=60 (mL/min) Final eGFR is calculated based on the CKD-EPI 2020 equation SODIUM 04/20/2023 07:36:01 136 135-146 (m mol/L) Final Potassium 04/20/2023 07:36:01 4.8 3.5-5.1 (m mol/L) Final Cl 04/20/2023 07:36:01 95 Below low normal 98- 107 (mmol/L) Final CO2 04/20/2023 07:36:01 30 22-32 (mmo l/L) Final Anion gap 04/20/2023 07:36:01 11 7-15 (mmol /L) Final Glucose 04/20/2023 07:36:01 143 Above high normal 70 -120 (mg/dL) Final Albumin 04/20/2023 07:36:01 4.2 3.8-5.0 (g /dL) Final AST (Aspartate aminotransferase) 04/20/2023 07:36:01 29 10-35 (U/L) Fin al Alk Phos 04/20/2023 07:36:01 77 35-130 (U/ L) Final Bilirubin, Total 04/20/2023 07:36:01 0.4 <=1 .2 (mg/dL) Final Calcium 04/20/2023 07:36:01 9.7 8.4-10.2 ( mg/dL) Final Protein 04/20/2023 07:36:01 6.3 6.0-8.3 (g /dL) Final ALT (Alanine aminotransferase) 04/20/2023 07:36:01 23 10-35 (U/L) Jose alberts Performing Location [facility] [address] [place] [address]
--- OUTSIDE RECORDS SUMMARY | 2023-08-13 11:41 | External Medical Summary ---
Author Name Unknown Address Unknown Organization K01[place] [place] [address] [facility] [address] Laboratory Report Ordering Provider Test Date Status LUZ WEI 04/20/2023 07:36:01 Final Observation Date Value Abnormality Reference (Units ) Status HbA1C 04/20/2023 07:36:01 6.9 Above high normal 4. 0-5.6 (%) Final The use of HbA1c to monitor glycemic status is based on normal hemoglobin and HbA composition. This test should not be used in patients with abnormal hemoglobin that affects the half life of the red blood cell or the in vivo glycation rates. Glucose, estimated average 04/20/2023 07:36:01 151 Above high normal <126 (mg/dL) Jose alberts Performing Location [facility] [place] [address] [facility] [address]
--- OUTSIDE RECORDS SUMMARY | 2023-08-13 11:41 | External Medical Summary ---
Author Name Unknown Address Unknown Organization K09:[facility] [address] [place] [address] Laboratory Report Ordering Provider Test Date Status THOR LOU 06/16/2023 11:32:51 Final Observation Date Value Abnormality Reference (Units ) Status BUN 06/16/2023 11:32:51 8 6-20 (mg/dL) Final Creatinine 06/16/2023 11:32:51 0.7 0.5-1.0 (mg/dL) Final Glomerular filtration rate/1.73 sq M.predicted [Volume Rate/Area] in Serum, Plasma or Blood by Creatinine-based formula (CKD-EPI) 06/16/2023 11:32:51 82 >=60 (mL/min) Final eGFR is calculated based on the CKD-EPI 2020 equation SODIUM 06/16/2023 11:32:51 133 Below low normal 135 -146 (mmol/L) Final Potassium 06/16/2023 11:32:51 4.8 3.5-5.1 (m mol/L) Final Cl 06/16/2023 11:32:51 93 Below low normal 98- 107 (mmol/L) Final CO2 06/16/2023 11:32:51 32 22-32 (mmo l/L) Final Anion gap 06/16/2023 11:32:51 8 7-15 (mmol /L) Final Glucose 06/16/2023 11:32:51 143 Above high normal 70 -120 (mg/dL) Final Albumin 06/16/2023 11:32:51 4.4 3.8-5.0 (g /dL) Final AST (Aspartate aminotransferase) 06/16/2023 11:32:51 26 10-35 (U/L) Fin al Alk Phos 06/16/2023 11:32:51 78 35-130 (U/ L) Final Bilirubin, Total 06/16/2023 11:32:51 0.4 <=1 .2 (mg/dL) Final Calcium 06/16/2023 11:32:51 9.9 8.4-10.2 ( mg/dL) Final Protein 06/16/2023 11:32:51 6.6 6.0-8.3 (g /dL) Final ALT (Alanine aminotransferase) 06/16/2023 11:32:51 21 10-35 (U/L) Jose alberts Performing Location [facility] [address] [place] [address]
--- OUTSIDE RECORDS SUMMARY | 2023-08-13 11:42 | External Medical Summary | Summary of Care ---
Author Name Unknown Organization [facility] Address [address] [place] [address] Phone [phone] Care Team Providers Care Game Room Attendant Name Role Phone Doron Gibbs MD Primary Care Provider + Reason for Visit * Reason Comments Outpatient Testing Encounter Details Date Type Department Care Team (Late st Contact Info) Description 04/08/2023 4:50 PM EDT Laboratory Laboratory, [facility] [address] [place] [address] [facility] [address] [place] [address] Confusion; Dizziness; Palpitations Allergies Active Allergy Reactions Criticality Noted Date Comments Alendronate Sodium Other (Please comment) High 03/07/2014 GERD Brimonidine Tartrate 09/17/2021 Codeine 01/07/2011 nausea Donepezil Nausea/vomiting 03/15/2023 Nausea with 1 month trial Latex Rash 10/13/2017 Rivastigmine Rash 03/15/2023 Rivastigmine patch caused skin rash documented as of this encounter (statuses as of 04/08/2023) Medications Medication Sig Dispensed Refills Start Date End Date Status CENTRUM SILVER PO TABS 1 po qd 0 0 12/30/2004 Active Aspirin 81 MG Tablet Take 1 Tab by mouth daily. 34 Tab 5 03/18/2016 Active meclizine (ANTIVERT) 25 MG TabletIndications:B enign paroxysmal positional vertigo, unspecified laterality TAKE 1 TABLET BY MOUTH THREE TIMES DAILY NEEDED FOR DIZZINESS 270 Tab 1 09/19/2019 Active Latanoprost 0.005 % Ophthalmic Solution (Xalatan) [...] BEFORE BEDTIME 180 Tablet 2 03/05/2023 Active Memantine HCl 10 MG Oral Tablet (Namenda) Take 1 Tablet by mouth in the morning and 1 Tablet before bedtime. Do not start before April 01, 2023. 60 Tablet 3 04/01/2023 Active Cephalexin 500 MG Oral CapsuleIndications: Acute UTI Take 1 Capsule by mouth in the morning and 1 Capsule before bedtime. Do all this for 7 days. 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 MAL ARA [id number] 03/03/200505/2017 BREAST CANCER UPPER INNER 01/13/2005 Malignant neoplasm of female breast 09/23/2016 Overview: Breast documented as of this encounter (statuses as of 04/08/2023) Immunizations Name Administration Dates Next Due COVID-19 mRNA, LNP-s, No Pre serve, 2-Dose Series ([employer]) 04/14/2021,08/03/2020,07/13/2020 Pneumococcal Conjugate Vacc, 13 Valent (Prevnar) 03/12/2015 Pneumococcal Polysaccharide PPV23 (Pneumovax) 06/14/2004 SEASONAL INFLUENZA, PF, 6 M & Above, IM , (FLULAVAL or FLUZONE) 03/08/2018 Season Influenza, Quad, PF, Adjuvanted, 65+ Yrs, IM (FLUAD) 04/05/2020 Seasonal Influenza, Quadriva lent Hd (Fluzone Hd) 03/24/2022 Seasonal Influenza, Quadriva lent, No Preserve, IM [...] PM EDT Office Visit General Internal Medicine [facility] [address] [place] [address] Doron Gibbs MD 200 [facility] [place] [address] 08/20/2023 9:20 AM EST [facility] [place] [address] [facility] [place] [address] Jasmyn Santana CRNP [address] [place] [address] Pending Results Name Type Priority Associated Diagnoses Date /Time COMPREHENSIVE METABOLIC PANEL Lab STAT Confusion Dizziness Palpitations 04/08/2023 4:58 PM EDT TROPONIN T, HIGH SENSITIVITY Lab STAT Confusion Dizziness Palpitations 04/08/2023 4:58 PM EDT D-DIMER Lab STAT Confusion Dizziness Palpitations 04/08/2023 4:58 PM EDT TSH WITH FREE T4 IF INDICATED Lab STAT Confusion Dizziness Palpitations 04/08/2023 4:58 PM EDT IRON SCREEN, INCLUDING TIBC Lab STAT Confusion Dizziness Palpitations 04/08/2023 4:58 PM EDT Health Maintenance Due Date Last Done Comments Zoster Vaccines (1 of 2) 1984 Hepatitis B (1 of 3 - Risk 3-dose series) 1994 Depression Screening 05/24/2021 05/24/2020 DIABETES-EYE EXAM 11/24/2022 11/24/2021, , 08/06/2020, Additional history exists DXA Scan 01/19/2023 01/20/2016, 07/2007, 02/14/2008, Additional history exists COVID-19 Vaccine ( season) 2023 04/14/2021, 08/03/2020, 07/13/2020 Influenza Vaccine (FLU shot) (#1) 2023 03/24/2022, 03/12/2021, 04/05/2020, Additional history exists HbA1c 03/25/2023 09/23/2022, 03/15, 08/29/2021, Additional history exists Albumin/Creatinine Ratio 09/24/2023 023, 08/29/2021, 07/10/2020, Additional history exists Diabetic Foot Exam 09/24/2023 09/23/2022, 0 08/29/2021, 10/24/2020, Additional history exists DTaP,Tdap,and Td Vaccines (3 - Td or Tdap) 10/15/2027 10/14/2017, 06/14/2004 Pneumococcal Vaccine: 65+ Years Completed 03/12/2015, 06/14/2004 GARDASIL-HPV IMMUNIZATION SERIES Aged Out No longer eligible based on patient's age to complete this topic MENINGOCOCCAL (MENACTRA/MENVEO) Aged Out No longer eligible based on patient's age to complete this topic documented as of this encounter Medical Devices Not on filedocumented as of this encounter Procedures Procedure Name Priority Date/Time Associated Diagnosis Comments DIFFERENTIAL, AUTOMATED STAT 04/08/2023 4:58 PM EDT Confusion Dizziness Palpitations CBC STAT 04/08/2023 4:58 PM EDT Confusion Dizziness Palpitations CBC STAT 04/08/2023 4:58 PM EDT Confusion Dizziness Palpitations documented in this encounter Results * (ABNORMAL) DIFFERENTIAL, AUTOMATED (04/08/2023 4:58 PM EDT) WBC 10.86(H) 4.00 - 10.80 K/uL 04/08/2023 5:04 PM EDT [facility] Neutrophils % 54.4 40.0 - 75.0 % 04/08/2023 5:04 PM EDT [facility] Lymphocytes % 33.9 18.0 - 42.0 % 04/08/2023 5:04 PM EDT [facility]10 Monocytes % 10.4 1.0 - 11.0 % 04/08/2023 5:04 PM EDT [facility] Eosinophils % 1.0 0.0 - 6.0 % 04/08/2023 5:04 PM EDT [facility]10 Basophils % 0.3 0.0 - 2.0 % 04/08/2023 5:04 PM EDT [facility] Absolute Neutrophils 5.91 1.80 - 7.70 K/uL 04/08/2023 5:04 PM EDT [facility] Absolute Lymphocytes 3.68 1.00 - 4.80 K/ul 04/08/2023 5:04 PM EDT [facility]10 Absolute Monocytes 1.13(H) 0.00 - 1.10 K/uL 04/08/2023 5:04 PM EDT [facility]10 Absolute Eosinophils 0.11 0.00 - 0.70 K/uL 04/08/2023 5:04 PM EDT [facility] Absolute Basophils 0.03 0.00 - 0.20 K/uL 04/08/2023 5:04 PM EDT [facility]10 Blood Venous blood specimen / Unknown Venipuncture / Unknown 04/08/2023 4:58 PM EDT 04/08/2023 4:58 PM EDT Keegan Wagner PA-C LAB BLOOD O RDERABLES [facility] [place] [address] * (ABNORMAL) CBC (04/08/2023 4:58 PM EDT) WBC 10.86(H) 4.00 - 10.80 K/uL 04/08/2023 5:04 PM EDT [facility] RBC 4.82 3.85 - 5.15 M/uL 04/08/2023 5:04 PM EDT [facility]10 HGB 14.1 12.0 - 15.3 g/dL 04/08/2023 5:04 PM EDT [facility]10 HCT 43.9 36.0 - 45.2 % 04/08/2023 5:04 PM EDT [facility] MCV 91.1 81.5 - 97.5 fL 04/08/2023 5:04 PM EDT [facility] MCH 29.3 27.0 - 34.0 pg 04/08/2023 5:04 PM EDT [facility] MCHC 32.1 32.0 - 36.0 g/dL 04/08/2023 5:04 PM EDT [facility] RDW 13.3 11.5 - 15.5 % 04/08/2023 5:04 PM EDT [facility] PLT 262 140 - 400 K/uL 04/08/2023 5:04 PM EDT [facility] MPV 8.7 6.6 - 11.1 fL 04/08/2023 5:04 PM EDT [facility] Blood Venous blood specimen / Unknown Venipuncture / Unknown 04/08/2023 4:58 PM EDT 04/08/2023 4:58 PM EDT Keegan Wagner PA-C LAB BLOOD O RDERABLES [facility] [facility] [place] [address] documented in this encounter Visit Diagnoses Diagnosis Confusion Unspecified psychosis Dizziness Dizziness and giddiness Palpitations documented in this encounter Advance Directives Documents on File 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
--- OUTSIDE RECORDS SUMMARY | 2023-08-13 11:42 | External Medical Summary ---
Author Name Unknown Address Unknown Organization K01:[facility] [place] - [address] [place] [id number] Laboratory Report Ordering Provider Test Date Status KIESHA OTOOLE 04/08/2023 17:12:28 Final Observation Date Value Abnormality Reference (Units) Status Bacteria identified in Specimen by Culture 04/08/2023 17:12:28 No significant growth Final Test: Culture, Urine, Quanti tative
Specimen Source: Urine, Clean Catch
Specimen Type: Urine
Specimen Date: 04/08/2023 5:12 PM
Result Date: 04/09/2023 4:28 PM
Result Status: Final result
Resulting Lab: [facility] [place]
[address]
[facility] [address]

CULTURE

No significant growth

null Performing Location [facility] [place] - [address] [facility] [address]
--- OUTSIDE RECORDS SUMMARY | 2023-08-13 11:42 | External Medical Summary | Summary of Care ---
Author Name Unknown Organization [facility] Address [address] [place] [address] Phone [phone] Care Team Providers Care Organ Teacher Name Role Phone Doron Gibbs MD Primary Care Provider + Reason for Visit * Reason Comments Dizziness Encounter Details Date Type Department Care Team ([facility] Contact Info) Description 04/08/2023 4:15 PM EDT Convenient Care Visit [facility] [address] [place] [address] Keegan Wagner PA-C [address] [place] [address] Confusion*; Dizziness; Palpitations; Acute UTI Allergies Active Allergy Reactions Criticality Noted Date [...] their healthcare provider of changes. MAL ARA [id number] 03/03/200505/2017 BREAST CANCER UPPER INNER 01/13/2005 Malignant neoplasm of female breast 09/23/2016 Overview: Breast documented as of this encounter (statuses as of 04/08/2023) Immunizations Name Administration Dates Next Due COVID-19 mRNA, LNP-s, No Pre serve, 2-Dose Series ([employer]) 04/14/2021,08/03/2020,07/13/2020 Pneumococcal Conjugate Vacc, 13 Valent (Prevnar) [...] Sign Reading Time Taken Comments Blood Pressure 156/70 04/08/2023 3:29 PM EDT Pulse 65 04/08/2023 3:29 PM EDT Temperature 37.2 C (98.9 F) 04/08/2023 3:29 PM ED T Respiratory Rate 16 04/08/2023 3:29 PM EDT Oxygen Saturation 95% 04/08/2023 3:29 PM EDT Inhaled Oxygen Concentration - - Weight 76.6 kg (168 lb 12.8 oz) 04/08/2023 3:29 PM EDT Height 160 cm (5' 3") 04/08/2023 3:29 PM EDT Body Mass Index 29.9 04/08/2023 3:29 PM EDT documented in this encounter Patient Instructions * Patient Instructions* Keegan Wagner PA-C - 04/08/2023 4:34 PM EDT Labs at [facility] today or tomorrow morning. Follow-up with Neurology and Cardiology this week or next. ER if short of breath, chest pain, passing out, stroke-like symptoms. For UTI: Keflex for a week. (Twice a day). Drink plenty of fluids and increase fluid intake over next 48-72 hours. Take all medications as prescribed, even if you are feeling better sooner so as to reduce risk of reinfection and to reduce the chance of antibiotic resistance developing. We will notify you of your urine culture results. F/U with PCP with no improvement in 3-5 days. Go immediately to the ED with any change or worsening symptoms including chills, fevers, back pain. documented in this encounter Progress Notes * Keegan Wagner PA-C - 04/08/2023 4:04 PM EDT Nursing Notes: Angeline Leonard LPN 04/08/23 1541 Sign at exiting of workspace 87 yo female presents with daughters with periods of confusion with recent diagnosis of alzheimers.Intermittent vertigo/anxiety Subjective Marianne Myrick is a 87 year old female with a PMH of DM2, Paroxysmal Afib, SVT, Bilateral DEENA, HTN, Aortic stensos, BPPV, Macular degeneration, PALMA, Dementia that presents for Dizziness Dizziness Quality: Lightheadedness, room spinning and imbalance Severity: Moderate Onset quality: Sudden Duration: 1 hour Timing: Intermittent Progression: Waxing and waning Chronicity: New Context: bending over and standing up Context: not with bowel movement, not with ear pain, not with eye movement, not with head movement,not with inactivity, not with loss of consciousness, not with medication, not with physical activity and not when urinating Relieved by: Being still Worsened by: Nothing Ineffective treatments: None tried Associated symptoms: palpitations, vision changes and weakness Associated symptoms: no blood in stool, no chest pain, no diarrhea, no headaches, no nausea, no shortness of breath, no syncope and no vomiting Altered Mental Status Presenting symptoms: behavior changes, confusion, disorientation and memory loss Severity: Moderate Most recent episode: Today (She had an episode 8 days ago, and yesterday as well - episodes last for an hour or so) Episode history: Multiple Duration: 1 hour Timing: Sporadic Progression since onset: daughters feel becoming more frequent. Chronicity: New Context: dementia (has a h/o dementia, but these episodes have been happening in morning) and [facility] resident Context: not head injury, not recent change in medication, not recent illness and not recent infection Associated symptoms: abdominal pain, abnormal movement (when she feels dizzy, she is off balance), light-headedness, palpitations, visual change and weakness Associated symptoms: no agitation, no bladder incontinence, no decreased appetite, no depression, no difficulty breathing, no eye deviation, no fever, no hallucinations, no headaches, no nausea, no rash, no seizures, no slurred speech and no vomiting She takes metoprolol daily for her heart/Afib. She was diagnosed with dementia in Spring 2022. She takes Memantine for dementia, and a little over a week ago is when she upped her dose, around the start of the presenting symptoms. Objective BP 156/70 | Pulse 65 | Temp 37.2 C (98.9 F) (Tympanic) | Resp 16 | Ht 1.6 m (5' 3") | Wt 76.6 kg (168 lb 12.8 oz) | SpO2 95% | BMI 29.90 kg/m | BSA 1.85 m Body mass index is 29.9 kg/m. BP Readings from Last 3 Encounters: 04/08/23 156/70 02/09/23 112/70 11/27/22 148/70 Wt Readings from Last 3 Encounters: 04/08/23 76.6 kg (168 lb 12.8 oz) 02/09/23 80.3 kg (177 lb) 11/27/22 79.7 kg (175 lb 11.2 oz) Physical Exam Vitals and nursing note reviewed. Constitutional: General: She is not in acute distress. Appearance: She is well-developed. She is not ill-appearing, toxic-appearing or diaphoretic. HENT: Head: Normocephalic and atraumatic. Eyes: General: No scleral icterus. Extraocular Movements: Extraocular movements intact. Pupils: Pupils are equal, round, and reactive to light. Neck: Vascular: No JVD. Trachea: No tracheal deviation. Cardiovascular: Rate and Rhythm: Normal rate and regular rhythm. Pulses: Radial pulses are 2+ on the right side and 2+ on the left side. Heart sounds: Normal heart sounds. No murmur heard. No friction rub. No gallop. Pulmonary: Effort: No accessory muscle usage. Breath sounds: No decreased breath sounds, wheezing, rhonchi or rales. Chest: Chest wall: No mass, deformity, tenderness or crepitus. Abdominal: General: Bowel sounds are normal. Palpations: Abdomen is soft. There is no hepatomegaly or splenomegaly. Tenderness: There is no abdominal tenderness. There is no guarding or rebound. Comments: No CVA tenderness Musculoskeletal: General: Normal range of motion. Cervical back: Normal range of motion and neck supple. Right lower leg: No tenderness. No edema. Left lower leg: No tenderness. No edema. Skin: General: Skin is warm and dry. Capillary Refill: Capillary refill takes less than 2 seconds. Nails: There is no clubbing. Neurological: General: No focal deficit present. Mental Status: She is alert and oriented to person, place, and time. Mental status is at baseline. GCS: GCS eye subscore is 4. GCS verbal subscore is 5. GCS motor subscore is 6. Cranial Nerves: No cranial nerve deficit, dysarthria or facial asymmetry. Sensory: No sensory deficit. Motor: No weakness. Gait: Gait (but walks with walker) normal. Psychiatric: Mood and Affect: Mood normal. Mood is not anxious. Speech: Speech normal. Behavior: Behavior normal. Behavior is not agitated. Results for orders placed or performed in visit on 09/28/22 CULTURE, URINE, QUANTITATIVE Specimen: Urine, Clean Catch Result Value Ref Range Culture Growth No significant growth Assessment and plan 1. Confusion - URINALYSIS, POINT OF CARE (ENTER/EDIT) - CULTURE, URINE, QUANTITATIVE - GLUCOSE METER, POINT OF CARE (ENTER/EDIT) - EKG; Future - EKG 2. Dizziness - EKG; Future - EKG 3. Palpitations - EKG; Future - EKG Symptoms are likely Mixed etiology, 2/2 dementia, UTI, Afib, vertigo, possible medication SE. Will treat UTI and follow culture VS stable, PT stable, Neur exam stable today EKG done today reveals NSR at rate of 61bpm with no ST changes. LAD LVH QRS widening, which is new since her last EKG in September 2022. Cannot rule out septal infarct,which was seen in September 2022. Incomplete RBBB no longer noted. Will get labs to r/o internal organ, thyroid, ischemia, clot. ER if acutely worsening, short-term follow-up with neuro and cardio Follow up As above Total time today including reviewing chart before the visit, pertinent labs, imaging reports, face to face time, and documentation time was 60 minutes. The above was discussed and understanding was expressed. Keegan Wagner PA-C documented in this encounter Nursing Notes * Angeline Leonard LPN - 04/08/2023 3:38 PM EDT 87 yo female presents with daughters with periods of confusion with recent diagnosis of alzheimers.Intermittent vertigo/anxiety documented in this encounter Plan of Treatment Upcoming Encounters Date Type Department Care Team (Late st Contact Info) Description 04/14/2023 2:40 PM EDT Office Visit General Internal Medicine [facility] [address] [facility] [place] [address] Doron Gibbs MD [address] [facility] [place] [address] 08/20/2023 9:20 AM EST Office Visit Neurology [facility] [address] [facility] [place] [address] Jasmyn Santana CRNP [address] [place] [address] Pending Results Name Type Priority Associated Diagnoses Date /Time CULTURE, URINE, QUANTITATIVE Lab Routine Confusion 04/08/2023 5:12 PM EDT TROPONIN T, HIGH SENSITIVITY Lab STAT Confusion Dizziness Palpitations 04/08/2023 4:58 PM EDT D-DIMER Lab STAT Confusion Dizziness Palpitations 04/08/2023 4:58 PM EDT TSH WITH FREE T4 IF INDICATED Lab STAT Confusion Dizziness Palpitations 04/08/2023 4:58 PM EDT IRON SCREEN, INCLUDING TIBC Lab STAT Confusion Dizziness Palpitations 04/08/2023 4:58 PM EDT Scheduled Orders Name Type Priority Associated Diagnoses Orde r Schedule EKG EKG Routine Confusion Dizziness Palpitations Expected: 04/08/2023 (Approximate), Expires: 05/09/2023 TROPONIN T, HIGH SENSITIVITY Lab STAT Confusion Dizziness Palpitations Expected: 04/08/2023, Expires: 05/09/2023 D-DIMER Lab STAT Confusion Dizziness Palpitations Expected: 04/08/2023, Expires: 05/09/2023 TSH WITH FREE T4 IF INDICATED Lab STAT Confusion Dizziness Palpitations Expected: 04/08/2023, Expires: 05/09/2023 IRON SCREEN, INCLUDING TIBC Lab STAT Confusion Dizziness Palpitations Expected: 04/08/2023, Expires: 05/09/2023 Health Maintenance Due Date Last Done Comments [...] Procedure Name Priority Date/Time Associated Diagnosis Comments GLUCOSE METER, POINT OF CARE (ENTER/EDIT) Routine 04/08/2023 Confusion URINALYSIS, POINT OF CARE (ENTER/EDIT) Routine 04/08/2023 Confusion documented in this encounter Results * (ABNORMAL) COMPREHENSIVE METABOLIC PANEL (04/08/2023 4:58 PM EDT) BUN 12 6 - 20 mg/dL 04/08/2023 5:29 PM EDT [facility] Creatinine 0.8 0.5 - 1.0 mg/dL 04/08/2023 5:29 PM EDT [facility] Estimated Glomerular Filtration Rate 73 >=60 mL/min 04/08/2023 5:29 PM EDT [facility] Comment:eGFR is calculated b ased on the CKD-EPI 2020 equation Sodium 132(L) 135 - 146 mmol/L 04/08/2023 5:29 PM EDT [facility] Potassium 4.5 3.5 - 5.1 mmol/L 04/08/2023 5:29 PM EDT [facility] Chloride 90(L) 98 - 107 mmol/L 04/08/2023 5:29 PM EDT [facility] CO2 30 22 - 32 mmol/L 04/08/2023 5:29 PM EDT [facility] Anion Gap 12 7 - 15 mmol/L 04/08/2023 5:29 PM EDT [facility] Glucose 108 70 - 120 mg/dL 04/08/2023 5:29 PM EDT [facility] Albumin 4.3 3.8 - 5.0 g/dL 04/08/2023 5:29 PM EDT [facility] AST 29 10 - 35 U/L 04/08/2023 5:29 PM EDT [facility] Alkaline Phosphatase 74 35 - 130 U/L 04/08/2023 5:29 PM EDT [facility] Bilirubin, Total 0.5 <=1.2 mg/dL 04/08/2023 5:29 PM EDT [facility]10 Calcium 9.6 8.4 - 10.2 mg/dL 04/08/2023 5:29 PM EDT [facility] Protein 7.1 6.0 - 8.3 g/dL 04/08/2023 5:29 PM EDT [facility] ALT 21 10 - 35 U/L 04/08/2023 5:29 PM EDT [facility] Blood Venous blood specimen / Unknown Venipuncture / Unknown 04/08/2023 4:58 PM EDT 04/08/2023 4:58 PM EDT Keegan Wagner PA-C LAB BLOOD O RDERABLES [facility] [place] [id number] * GLUCOSE METER, POINT OF CARE (ENTER/EDIT) (04/08/2023) Glucose Meter Result 107 70 - 120 mg/dL Blood 04/08/2023 Keegan Wagner PA-C LAB POINT O F CARE TEST ENTER/EDIT ORDERABLES * (ABNORMAL) URINALYSIS, POINT OF CARE (ENTER/EDIT) (04/08/2023) Color, Urine Yellow Yellow or Light Yellow Clarity, Urine Clear Clear Glucose, Urine Negative Negative mg/dL Bilirubin, Urine Negative Negative Ketone, Urine Negative Negative mg/dL Specific [place], Urine 1.010 1.003 - 1.030 Blood, Urine Trace-intact Negative pH, Urine 7.0 5.0 - 7.5 units Protein, Urine Negative Negative mg/dL Urobilinogen, Urine 0.2 0.2 - 1.0 mg/dL Nitrite, Urine Negative Negative Esterase, Urine Moderate Negative Urine 04/08/2023 Keegan Wagner PA-C LAB POINT O F CARE TEST ENTER/EDIT ORDERABLES documented in this encounter Visit Diagnoses Diagnosis Confusion- Primary Unspecified psychosis Dizziness Dizziness and giddiness Palpitations Acute UTI Urinary tract infection, site not specified documented in this encounter Advance Directives Documents on File Type Date Recorded Patient Center Receptionist Expl anation POLST 06/19/2019 POLST - Care Teams Organ Teacher Relationship Specialty Start Date End Date Doron Gibbs MD [address] [place] [address] PCP - General Internal Medicine 02/16/14 documented as of this encounter
--- OUTSIDE RECORDS SUMMARY | 2023-08-13 11:42 | External Medical Summary | Summary of Care ---
Author Name Unknown Organization [facility] Address [address] [place] [address] Phone [phone] Care Team Providers Care Welding Machine Operator Gas Metal Arc Name Role Phone Doron Gibbs MD Primary Care Provider + Reason for Visit * Reason Onset Date Comments Advice 04/09/2023 Encounter Details Date Type Department Care Team (Late st Contact Info) Description 04/09/2023 Telephone Cardiology, [facility] [address] [place] [address] Lamin Cid, [address] [facility] [address] Advice Allergies Active Allergy Reactions Criticality Noted Date Comments Alendronate Sodium Other (Please comment) High 03/07/2014 GERD Brimonidine Tartrate 09/17/2021 Codeine 01/07/2011 nausea Donepezil Nausea/vomiting 03/15/2023 Nausea with 1 month trial Latex Rash 10/13/2017 Rivastigmine Rash 03/15/2023 Rivastigmine patch caused skin rash documented as of this encounter (statuses as of 04/09/2023) Medications Medication Sig Dispensed Refills Start Date [...] as of this encounter (statuses as of 04/09/2023) Active Problems Problem Noted Date Diagnosed Date [...] as of this encounter (statuses as of 04/09/2023) Resolved Problems Problem Noted Date Diagnosed Date [...] their healthcare provider of changes. MAL ARA [id number] 03/03/200505/2017 BREAST CANCER UPPER INNER 01/13/2005 Malignant neoplasm of female breast 09/23/2016 Overview: Breast documented as of this encounter (statuses as of 04/09/2023) Immunizations Name Administration Dates Next Due COVID-19 [...] encounter Miscellaneous Notes * Telephone Encounter - Jelena Santiago PA-C - 04/09/2023 8:12 PM EDT Confirmed patient Results relayed to daughter. Recommend ED if symptoms persist. Patient daughter (POA) expressed understanding. All questions answered. Agrees with Plan. * Telephone Encounter - Pamela Reyes CMA - 04/09/2023 2:38 PM EDT Patient's daughter presenting to clinic to f/u on phone call. Spoke with Dr. Cid who advised that troponin level is not significantly elevated and patient doesnot need repeat testing prior to appointment. Patient's daughter aware. * Telephone Encounter - Subha Kilpatrick OSA - 04/09/2023 11:21 AM EDT Pt's daughter, Lena, called to request a lab order to be placed for Troponin levels. Lena stated Pt had on completed yesterday and it seemed high and would like for Pt to recheck it today. Pt is scheduled for an appointment on 04/16 to be seen due to elevated troponin and dizziness and is on the wait list for a sooner appointment. Please return Lena's call to advise. documented in this encounter Plan of Treatment Upcoming Encounters Date Type Department Care Team (Late st Contact Info) Description 04/14/2023 2:40 PM EDT Office Visit General Internal Medicine [facility] [address] [facility] [place] [address] Doron Gibbs MD [address] [facility] [place] [address] 04/16/2023 9:00 AM EDT Office Visit Cardiology, [facility] [address] [facility] [place] [address] Beth Pisano PA-C [address] [facility] [place] [id number] 08/20/2023 9:20 AM EST Office Visit Neurology [facility] [address] [facility] [place] [address] Jasmyn Santana CRNP [address] [place] [address] Health Maintenance Due Date Last Done Comments [...] Documents on File Type Date Recorded Patient Line Production Cook Expl anation POLST 06/19/2019 POLST - Care Teams Welding Machine Operator Gas Metal Arc Relationship Specialty Start Date End Date Doron Gibbs MD [address] [place] [address] PCP - General Internal Medicine 02/16/14 documented as of this encounter
--- OUTSIDE RECORDS SUMMARY | 2023-08-13 11:42 | External Medical Summary | Summary of Care ---
Author Name Unknown Organization [facility] Address [address] [place] [address] Phone [phone] Care Team Providers Care Loading And Unloading Supervisor Name Role Phone Doron Gibbs MD Primary Care Provider + Reason for Visit * Reason Comments Dizziness Encounter Details Date Type Department Care Team ([facility] Contact Info) Description 04/08/2023 4:15 PM EDT Convenient Care Visit [facility] [address] [place] [address] Keegan Wagner PA-C [address] [place] [address] Confusion*; Dizziness; Palpitations; Acute UTI Allergies Active [...] their healthcare provider of changes. MAL ARA [id number] 03/03/200505/2017 BREAST CANCER UPPER INNER 01/13/2005 Malignant neoplasm of female breast 09/23/2016 Overview: Breast documented as of this encounter (statuses as of 04/08/2023) Immunizations Name Administration Dates Next Due COVID-19 mRNA, LNP-s, No Pre serve, 2-Dose Series ([employer]) 04/14/2021,08/03/2020,07/13/2020 Pneumococcal Conjugate Vacc, 13 Valent (Prevnar) [...] - 04/08/2023 4:34 PM EDT Labs at [facility] today or tomorrow morning. Follow-up with Neurology [...] episodes have been happening in morning) and senior living resident Context: not head injury, not recent [...] PM EDT Office Visit General Internal Medicine [facility] [address] [facility] [place] [address] Doron Gibbs MD [address] [facility] [place] [address] 08/20/2023 9:20 AM EST Office Visit Neurology [facility] [address] [facility] [place] [address] Jasmyn Santana CRNP [address] [place] [address] Scheduled Orders Name Type Priority Associated Diagnoses Order Schedule URINALYSIS, POINT OF CARE (ENTER/EDIT) Point of Care Testing Routine Confusion Ordered: 04/08/2023 CULTURE, URINE, QUANTITATIVE Lab Routine Confusion Ordered: 04/08/2023 GLUCOSE METER, POINT OF CARE (ENTER/EDIT) Point of Care Testing Routine Confusion Ordered: 04/08/2023 EKG EKG Routine Confusion Dizziness Palpitations Expected: 04/08/2023 (Approximate), Expires: 05/09/2023 CBC WITH WBC DIFFERENTIAL Lab STAT Confusion Dizziness Palpitations Expected: 04/08/2023, Expires: 05/09/2023 COMPREHENSIVE METABOLIC PANEL Lab STAT Confusion Dizziness Palpitations Expected: 04/08/2023, Expires: 05/09/2023 TROPONIN T, HIGH SENSITIVITY Lab [...] as of this encounter Visit Diagnoses Diagnosis Confusion- Primary Unspecified psychosis Dizziness Dizziness and giddiness Palpitations Acute UTI Urinary tract infection, site not specified documented in this encounter Advance Directives Documents on File Type Date Recorded Patient Lumite Injector Expl anation POLST 06/19/2019 POLST - Care Teams Loading And Unloading Supervisor Relationship Specialty Start Date End Date Doron Gibbs MD [address] [place] [address] PCP - General Internal Medicine 02/16/14 documented as of this encounter
--- OUTSIDE RECORDS SUMMARY | 2023-08-13 11:42 | External Medical Summary | Summary of Care ---
Author Name Unknown Organization [facility] Address [address] [place] [address] Phone [phone] Care Team Providers Care Senior Net Web Developer Name Role Phone Doron Gibbs MD Primary Care Provider + Reason for Visit * Reason Comments Dizziness Encounter Details Date Type Department Care Team ([facility] Contact Info) Description 04/08/2023 4:15 PM EDT Convenient Care Visit [facility] [address] [place] [address] Keegan Wagner PA-C [address] [place] [address] Confusion*; Dizziness; Palpitations; Acute UTI Allergies Active [...] their healthcare provider of changes. MAL ARA [id number] 03/03/200505/2017 BREAST CANCER UPPER INNER 01/13/2005 Malignant neoplasm of female breast 09/23/2016 Overview: Breast documented as of this encounter (statuses as of 04/08/2023) Immunizations Name Administration Dates Next Due COVID-19 mRNA, LNP-s, No Pre serve, 2-Dose Series ([employer]) 04/14/2021,08/03/2020,07/13/2020 Pneumococcal Conjugate Vacc, 13 Valent (Prevnar) [...] - 04/08/2023 4:34 PM EDT Labs at [facility] today or tomorrow morning. Follow-up with Neurology [...] episodes have been happening in morning) and intermediate resident Context: not head injury, not recent [...] PM EDT Office Visit General Internal Medicine [facility] [address] [facility] [place] [address] Doron Gibbs MD [address] [facility] [place] [address] 08/20/2023 9:20 AM EST Office Visit Neurology [facility] [address] [facility] [place] [address] Jasmyn Santana CRNP [address] [place] [address] Pending Results Name Type Priority Associated Diagnoses Date /Time CULTURE, URINE, QUANTITATIVE Lab Routine Confusion 04/08/2023 5:12 PM EDT COMPREHENSIVE METABOLIC PANEL Lab STAT Confusion Dizziness [...] of Care Testing Routine Confusion Ordered: 04/08/2023 GLUCOSE METER, POINT OF CARE (ENTER/EDIT) Point of Care Testing Routine Confusion Ordered: 04/08/2023 EKG EKG Routine Confusion Dizziness Palpitations Expected: 04/08/2023 (Approximate), Expires: 05/09/2023 COMPREHENSIVE METABOLIC PANEL Lab STAT [...] Documents on File Type Date Recorded Patient Instructor Physical Education Expl anation POLST 06/19/2019 POLST - Care Teams Senior Net Web Developer Relationship Specialty Start Date End Date Doron Gibbs MD [address] [place] [address] PCP - General Internal Medicine 02/16/14 documented as of this encounter
--- OUTSIDE RECORDS SUMMARY | 2023-08-13 11:42 | External Medical Summary | Summary of Care ---
Author Name Unknown Organization [facility] Address [address] [place] [address] Phone [phone] Care Team Providers Care Motor Builder Assembler Name Role Phone Doron Gibbs MD Primary Care Provider + Reason for Visit * Reason Comments Dizziness Encounter Details Date Type Department Care Team ([facility] Contact Info) Description 04/08/2023 4:15 PM EDT Convenient Care Visit [facility] [address] [place] [address] Keegan Wagner PA-C [address] [place] [address] Confusion*; Dizziness; Palpitations; Acute UTI Allergies Active [...] Retinal change 03/01/2021 Moderate aortic stenosis 03/18/2020 PLAMA (generalized anxiety disorder) 01/24/2019 Type 2 diabetes [...] their healthcare provider of changes. MAL ARA [id number] 03/03/200505/2017 BREAST CANCER UPPER INNER 01/13/2005 Malignant neoplasm of female breast 09/23/2016 Overview: Breast documented as of this encounter (statuses as of 04/08/2023) Immunizations Name Administration Dates Next Due COVID-19 mRNA, LNP-s, No Pre serve, 2-Dose Series ([employer]) 04/14/2021,08/03/2020,07/13/2020 Pneumococcal Conjugate Vacc, 13 Valent (Prevnar) [...] - 04/08/2023 4:34 PM EDT Labs at [facility] today or tomorrow morning. Follow-up with Neurology [...] episodes have been happening in morning) and [facility] resident Context: not head injury, not recent [...] PM EDT Office Visit General Internal Medicine [facility] [address] [place] [address] Doron Gibbs MD [address] [facility] [place] [address] 08/20/2023 9:20 AM EST Office Visit Neurology [facility] [address] [facility] [place] [address] Jasmyn Santana CRNP [address] [place] [address] Scheduled Orders Name Type Priority Associated Diagnoses [...] Documents on File Type Date Recorded Patient Wildlife Officer Expl anation POLST 06/19/2019 POLST - Care Teams Motor Builder Assembler Relationship Specialty Start Date End Date Doron Gibbs MD [address] [facility] [place] [address] PCP - General Internal Medicine 02/16/14 documented as of this encounter
--- OUTSIDE RECORDS SUMMARY | 2023-08-13 11:43 | External Medical Summary ---
Author Name Unknown Address Unknown Organization [id number]:[facility] [place] [address] [facility] [address] Laboratory Report Ordering Provider Test Date Status KIESHA OOTOLE 04/08/2023 16:58:53 Final Observation Date Value Abnormality Reference (Units ) Status TSH 04/08/2023 16:58:53 3.11 0.27-4.20 (uIU/mL) Final Performing Location [facility] [place] - [address] [facility] [address]
--- OUTSIDE RECORDS SUMMARY | 2023-08-13 11:43 | External Medical Summary ---
Author Name Unknown Address Unknown Organization [id number]:LABORATORY [facility] [place] [address] - [address] [place] [address] Laboratory Report Ordering Provider Test Date Status KIESHA OTOOLE 04/08/2023 16:58:53 Final Observation Date Value Abnormality Reference (Units ) Status WBC, Total 04/08/2023 16:58:53 10.86 Above high normal 4 .00-10.80 (K/uL) Final RBC 04/08/2023 16:58:53 4.82 3.85-5.15 (M/uL) Final Hemoglobin 04/08/2023 16:58:53 14.1 12.0-15.3 (g/dL) Final HCT 04/08/2023 16:58:53 43.9 36.0-45.2 (%) Final MCV 04/08/2023 16:58:53 91.1 81.5-97.5 (fL) Final MCH 04/08/2023 16:58:53 29.3 27.0-34.0 (pg) Final MCHC 04/08/2023 16:58:53 32.1 32.0-36.0 (g/dL) Final RDW 04/08/2023 16:58:53 13.3 11.5-15.5 (%) Final Platelets 04/08/2023 16:58:53 262 140-400 (K /uL) Final MPV 04/08/2023 16:58:53 8.7 6.6-11.1 ( fL) Final Performing Location LABORATORY [facility] [address] - [address] [place] [address]
--- OUTSIDE RECORDS SUMMARY | 2023-08-13 11:43 | External Medical Summary ---
Author Name Unknown Address Unknown Organization [id number]:LAB[facility]ATORY [place] [address] - [address] [place] [address] Laboratory Report Ordering Provider Test Date Status KIESHA OTOOLE 04/08/2023 16:58:53 Final Observation Date Value Abnormality Reference (Units ) Status BUN 04/08/2023 16:58:53 12 6-20 (mg/dL) Final Creatinine 04/08/2023 16:58:53 0.8 0.5-1.0 (mg/dL) Final Glomerular filtration rate/1.73 sq M.predicted [Volume Rate/Area] in Serum, Plasma or Blood by Creatinine-based formula (CKD-EPI) 04/08/2023 16:58:53 73 >=60 (mL/min) Final eGFR is calculated based on the CKD-EPI 2020 equation SODIUM 04/08/2023 16:58:53 132 Below low normal 135 -146 (mmol/L) Final Potassium 04/08/2023 16:58:53 4.5 3.5-5.1 (m mol/L) Final Cl 04/08/2023 16:58:53 90 Below low normal 98- 107 (mmol/L) Final CO2 04/08/2023 16:58:53 30 22-32 (mmo l/L) Final Anion gap 04/08/2023 16:58:53 12 7-15 (mmol /L) Final Glucose 04/08/2023 16:58:53 108 70-120 (mg /dL) Final Albumin 04/08/2023 16:58:53 4.3 3.8-5.0 (g /dL) Final AST (Aspartate aminotransferase) 04/08/2023 16:58:53 29 10-35 (U/L) Fin al Alk Phos 04/08/2023 16:58:53 74 35-130 (U/ L) Final Bilirubin, Total 04/08/2023 16:58:53 0.5 <=1 .2 (mg/dL) Final Calcium 04/08/2023 16:58:53 9.6 8.4-10.2 ( mg/dL) Final Protein 04/08/2023 16:58:53 7.1 6.0-8.3 (g /dL) Final ALT (Alanine aminotransferase) 04/08/2023 16:58:53 21 10-35 (U/L) Jose alberts Performing Location LABORATORY [place] [facility] [address] - [address] [facility] [address]
--- OUTSIDE RECORDS SUMMARY | 2023-08-13 11:43 | External Medical Summary ---
Author Name Unknown Address Unknown Organization [id number]:[place] [place] [address] [facility] [place] [address] Laboratory Report Ordering Provider Test Date Status KIESHA OTOOLE 04/08/2023 16:58:53 Final Observation Date Value Abnormality Reference (Units ) Status Iron 04/08/2023 16:58:53 73 33-151 (ug /dL) Final Iron-binding capacity 04/08/2023 16:58:53 315 250-425 (ug/dL) Final Transferrin Sat % 04/08/2023 16:58:53 23 15 -55 (%) Final Performing Location [facility] [place] [address] [place] [address]
--- OUTSIDE RECORDS SUMMARY | 2023-08-13 11:43 | External Medical Summary | Summary of Care ---
Author Name Unknown Organization [facility] Address [address] [place] [address] Phone [phone] Care Team Providers Care Underwater Photographer Name Role Phone Doron Gibbs MD Primary Care Provider + Reason for Visit * Reason Onset Date Comments Health Maintenance 03/26/2023 Encounter Details Date Type Department Care Team Description 03/26/2023 Telephone General Internal Medicine [facility] [place] [address] [facility] [place] [address] Dor[facility] [address] [facility] [id number] Health Maintenance Allergies Active Allergy Reactions Severity Noted Date Comments Alendronate Sodium Other (Please comment) High 03/07 GERD Brimonidine Tartrate 09/17/2021 Codeine 01/07/2011 nausea Donepezil Nausea/vomiting 03/15/2023 Nausea with 1 month trial Latex Rash 10/13/2017 Rivastigmine Rash 03/15/2023 Rivastigmine patch caused skin rash documented as of this encounter (statuses as of 03/26/2023) Medications Medication Sig Dispensed Refills Start Date [...] 180 Tablet 2 03/05/2023 Active Memantine HCl 5 MG Oral Tablet (Namenda) Take by mouth 1 tab daily week 1, 1 tab twice daily week 2, 2 tabs in am & 1 tab in pm week 3. 42 Tablet 0 03/10/2023 03/31/2023 Active Memantine HCl 10 MG Oral Tablet (Namenda) Take 1 Tablet by mouth in the morning and 1 Tablet before bedtime. Do not start before April 01, 2023. 60 Tablet 3 04/01/2023 Active documented as of this encounter (statuses as of 03/26/2023) Active Problems Problem Noted Date Mild dementia with anxiety 09/23/2022 Bilateral carotid artery disease 022 SVT (supraventricular tachycardia) 05/13 Obesity, Class I, BMI 30.0-34.9 (see act ual BMI) 03/01/2021 Exudative age-related macular degenerati on of right eye 03/01/2021 Retinal change 03/01/2021 Moderate aortic stenosis 03/18/2020 PALMA (generalized anxiety disorder) 01/24 Type 2 diabetes mellitus with hemoglobin A1c goal of less than 8.5% 02/16/2018 Chronic left-sided low back pain without sciatica 02/15/2018 BPPV (benign paroxysmal positional verti go) 11/24/2016 PAF (paroxysmal atrial fibrillation) 03/2016 Hyperlipidemia 03/12/2014 HTN, goal below 140/90 03/07/2014 documented as of this encounter (statuses as of 03/26/2023) Resolved Problems Problem Noted Date Resolved Date Disorder of arteries and arterioles, unspecified 09/12/2020 08/29/2021 PAD (peripheral artery disease) 02/15/2018 03/10/2018 Carotid atherosclerosis 11/24/2016 10/20/19 19 Kidney disease, chronic, stage III (GFR 30-59 ml /min) 12/23/2015 10/13/2017 Overview: Per CKD protocol #1 Vertigo 09/25/2015 03/02/2018 Mild aortic stenosis by prior echocardiogram 03/18/2020 ADVANCE DIRECTIVE INFORMATION 06/03/2005 Overview: Yes, Copy scanned at patient level in the electronic medical record.(Go to Action, Patient File to view) Patient aware they must notify their healthcare provider of changes. MAL ARA [id number] 03/03/2005 017 BREAST CANCER UPPER INNER 01/13/20052016 Malignant neoplasm of female breast 09/23/2016 Overview: Breast documented as of this encounter (statuses as of 03/26/2023) Immunizations Name Administration Dates Next Due COVID-19 mRNA, LNP-s, No Pre serve, 2-Dose Series ([employer]) 04/14/2021,08/03/2020,07/13/2020 Pneumococcal Conjugate Vacc, 13 Valent (Prevnar) [...] drink = 0.6 oz pur e alcohol) Food Insecurity Answer Date Recorded Within the past 12 months, y ou worried that your food would run out before you got money to buy more. Never true 05/24/2020 Within the past 12 months, t he food you bought just didn't last and you didn't have money to get more. Never true 05/24/2020 Sex Assigned at Date Recorded Female 01/24/2019 2:37 PM E DT Job Start Date Occupation Industry Not on file Not on file Not on file documented as of this encounter Miscellaneous Notes * Telephone Encounter - Carla Ames LPN - 03/26/2023 10:11 AM EDT Care Gaps Comprehensive Care Outreach Last Office/Telemedicine Visit: 11/25/2022 (in office), Visit date not found (telemedicine) Next Office Visit: 04/14/2023 Hemoglobin AIC Results: Lab Results Component Value Date/Time HEMOGLOBIN A1C - [facility] 6.9 (H) 09/23/2022 03:47 PM HEMOGLOBIN A1C - [facility] 6.6 (H) 04/02/2022 08:38 AM HEMOGLOBIN A1C - [facility] 7.0 (H) 08/29/2021 11:31 AM HEMOGLOBIN A1C - [facility] 7.4 (H) 07/10/2020 03:16 PM HEMOGLOBIN A1C - [facility] 7.1 (H) 01/05/2020 04:17 PM HEMOGLOBIN A1C - [facility] 6.8 (H) 04/26/2019 03:33 PM Reviewed Health Maintenance below: Health Maintenance Topic Date Due Zoster Vaccines (1 of 2) Never done Depression Screening 05/24/2021 DIABETES-EYE EXAM 11/24/2022 DXA Scan 01/19/2023 Influenza Vaccine (FLU shot) (1) 02/12/2023 COVID-19 Vaccine ( season) 2023 HbA1c 03/25/2023 Eye Dexa labs Care Gap Outreach Action Taken: Unable to reach won't ring through documented in this encounter Plan of Treatment Upcoming Encounters Date Type Specialty Care Team Description 04/14/2023 Office Visit Internal Medicine Doron Gibbs MD [address] [place] [address] 08/20/2023 Office Visit Neurology Avis Patricia, DO [address] [place] [facility] [place] [address] Health Maintenance Due Date Last Done Comments Zoster Vaccines (1 of 2) 1985 Depression Screening 05/24/2021 05/24/2020 DIABETES-EYE EXAM 11/24/2022 [...] on patient's age to complete this topic Hepatitis B Aged Out No longer eligi ble based on patient's age to complete this topic MENINGOCOCCAL (MENACTRA/MENVEO) Aged Out No longer eligible based on patient's age to complete this topic documented as of this encounter Medical Devices Not on filedocumented as of this encounter Advance Directives Documents on File Type Date Recorded 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
--- OUTSIDE RECORDS SUMMARY | 2023-08-13 11:43 | External Medical Summary ---
Author Name Unknown Address Unknown Organization [id number]:LABORATORY [facility] [place] - [address] [place] [address] Laboratory Report Ordering Provider Test Date Status KIESHA OTOOLE 04/08/2023 16:58:53 Final Observation Date Value Abnormality Reference (Units ) Status Troponin T 04/08/2023 16:58:53 26 Above high normal < =14 (ng/L) Final Performing Location LABORATORY [facility] [place] - [address] [place] [address]
--- OUTSIDE RECORDS SUMMARY | 2023-08-13 11:43 | External Medical Summary ---
Author Name Unknown Address Unknown Organization K0G:LABORATORY [place] [address] - [address] [place] [address] Laboratory Report Ordering Provider Test Date Status KIESHA OTOOLE 04/08/2023 16:58:53 Final Observation Date Value Abnormality Reference (Units ) Status SYNC LEUKOCYTES IN BLOOD BY AUTOMATED COUNT 04/08/2023 16:58:53 10.86 Above high normal 4.00-10.80 (K/uL) Final Segs 04/08/2023 16:58:53 54.4 40.0-75.0 (%) Final Lymphs % 04/08/2023 16:58:53 33.9 18.0-42.0 (%) Final Monos 04/08/2023 16:58:53 10.4 1.0-11.0 (%) Final Eosinophils 04/08/2023 16:58:53 1.0 0.0-6.0 (%) Final Basos 04/08/2023 16:58:53 0.3 0.0-2.0 (%) Final Absolute Segs 04/08/2023 16:58:53 5.91 1.80-7.70 (K/uL) Final Lymphs, absolute 04/08/2023 16:58:53 3.68 1.00-4.80 (K/ul) Final Monos, Abs 04/08/2023 16:58:53 1.13 Above high normal 0.00-1.10 (K/uL) Final Eos, Abs 04/08/2023 16:58:53 0.11 0.00-0.70 (K/uL) Final Basos, Abs 04/08/2023 16:58:53 0.03 0.00-0.20 (K/uL) Final Performing Location LABORATORY [place] [address] - [address] [place] [address]
--- OUTSIDE RECORDS SUMMARY | 2023-08-13 11:43 | External Medical Summary ---
Author Name Unknown Address Unknown Organization K01:LABORATORY [place] [address] [place] [address] Laboratory Report Ordering Provider Test Date Status KIESHA OTOOLE 04/08/2023 16:58:53 Final Rheumatoid factor at a level above 50 IU/mL may lead to an overestimation of the D-dimer level. A normal D-dimer result (<0.50 ug/mL FEU) has a negative predictive value of approximately 95% for the exclusion of acute pulmonary embolism (PE) or deep vein thrombosis when there is low or moderate pretest PE probability. Increased D-dimer values are abnormal but do not indicate a specific disease state and the D-dimer increase does not definitively correlate with clinical severity of disease. Observation Date Value Abnormality Reference (Units ) Status Fibrin D-dimer FEU [Mass/volume] in Platelet poor plasma by Immunoassay 04/08/2023 16:58:53 0.82 Above high normal <0.50 (ug/mL FEU) Final Performing Location LABORATORY [facility] [place] - [facility] [place]note 2] [place] [address]
--- OUTSIDE RECORDS SUMMARY | 2023-08-13 11:43 | External Medical Summary | Summary of Care ---
Author Name Unknown Organization [facility] Address [address] [place] [address] Phone [phone] Care Team Providers Care Customer Sales Service Manager Name Role Phone Doron Gibbs MD Primary Care Provider + Reason for Visit * Reason Comments Follow Up Dementia * Evaluate & Treat - Unlimited Visits (Within 30 days (routine)) - Authorized Specialty Diagnoses / Procedures Referred By Grecia murray Referred To Contact Neurology Diagnoses Mild dementia with anxiety, unspecified dementia type (HCC) Doron Gibbs MD [address] [place] [address] Referral ID Status Reason Start Date Expiration Date Visits Requested Visits Authorized [id number] Authorized Specialty Services Required 02/08/2023 02/27/[phone] Encounter Details Date Type Department Care Team Description [facility] [address] [place] [address] Avis Patricia, [address], [place] [id number] Mixed Alzheimer's and vascular dementia (HCC)* Allergies Active Allergy Reactions Severity Noted Date Comments Alendronate Sodium Other (Please comment) High 03/07 GERD Brimonidine Tartrate 09/17/2021 Codeine 01/07/2011 nausea Donepezil Nausea/vomiting 03/15/2023 Nausea with 1 month trial Latex Rash 10/13/2017 Rivastigmine Rash 03/15/2023 Rivastigmine patch caused skin rash documented as of this encounter (statuses as of 03/15/2023) Medications Medication Sig Dispensed Refills Start Date [...] as of this encounter (statuses as of 03/15/2023) Active Problems Problem Noted Date Mild dementia [...] as of this encounter (statuses as of 03/15/2023) Resolved Problems Problem Noted Date Resolved Date [...] their healthcare provider of changes. MAL ARA [id number] 03/03/2005 017 BREAST CANCER UPPER INNER 01/13/20052016 Malignant neoplasm of female breast 09/23/2016 Overview: Breast documented as of this encounter (statuses as of 03/15/2023) Immunizations Name Administration Dates Next Due COVID-19 mRNA, LNP-s, No Pre serve, 2-Dose Series (GetO2) 04/14/2021,08/03/2020,07/13/2020 Pneumococcal Conjugate Vacc, 13 Valent (Prevnar) [...] on file documented as of this encounter Patient Instructions * Patient Instructions* PHILIPP Kendall - 03/10/2023 10:38 AM EDT Please start memantine. The drug Namenda (memantine) is a weak NMDA antagonist that theoretically may block nerve cells from dying. It can provide some small improvement in memory, thinking, and/or behavior in Alzheimers disease. This drug is relatively low in side effects. Most common ones are headache, dizziness and drowsiness. However in our clinic I have noted that increased agitation can occur rarely, and in some patients' agitation improve with Namenda. If agitation occurs from starting or increasing the medication, call our office. Reducing the Namenda (memantine) to the last tolerated dose or simply halting it should stop the agitation. We will slowly increase the dose as follows: AM PM Week 1 5 mg Week 2 5 mg 5 mg Week 3 10 mg 5 mg Week 4 and thereafter 10 mg 10 mg Because we are titrating up on the dose, 2 separate prescriptions are sent. One script for 5 mg tablets, and one script for 10 mg tablets. documented in this encounter Progress Notes * PHILIPP Kendall - 03/10/2023 10:32 AM EDT Images from the original note were not included. [facility] Memory and Cognition Program Return Telemedicine Visit Patient: Marianne Myrick Visit date: 03/10/2023 Dr. Patricia last saw the patient on 11/27/2022. She is accompanied by her daughters Lena and Selena. HISTORY OF PRESENT ILLNESS Ms. Marianne Myrick is a 87 year old right-handed female with 12 years of education presenting for follow up for mixed AD and vascular dementia. She has a history significant for obesity, hypertension, hyperlipidemia (well controlled), type 2 diabetes (A1c 6.9 in 09/2022), CAD, paroxysmal atrial fibrillation SVT, and generalized anxiety disorder. Relevant labs: Normal BMP except for elevated glucose of 151, normal CBC, LFT, LDL, TSH, B12. Abnormal: A1c 6.9. Not done ever or recently: vitamin D MRI from 09/2021 showed mild generalized atrophy with prominent atrophy of the hippocampus, L>R; ifqk-tv-qocchgyn chronic small vessel disease. Medications are significant for aspirin 81 mg p.o. daily rosuvastatin 10 mg daily. She lives in independent living at [facility]. She can do simple meal prep and house chores. Needs help from daughter for management of medications (uses pill box) and finances. Previous cognitive screening: MMSE 03/24/22 She underwent neuropsychological testing with Dr. Gomez on 09/01/22 and diagnosed with mild dementia(mixed VaD and AD) given amnestic profile and a somewhat frontal subcortical pattern of deficits ontesting, and MRI finding of mild to moderate CSVD. Summary of findings: - Language: Variable (intact confrontation naming and phonemic fluency; exceptionally low semantic fluency) Visual spatial: Average - Executive: Below average - Memory: impaired verbal and visual (poor encoding, amnestic) Dr. Patricia's plan from the last visit was: Mixed Alzheimer's and vascular dementia (HCC) - start donepezil with slow titration. - Discussed most common side effects, especially watch out for dizziness given her history of [place]. - If intolerant, consider rivastigmine patch or memantine. - Educational material provided at check out for families. Follow Up: Return in about 3 months (around 02/27/2023) for Clinic Visit. Interval history: Wasn't able to tolerate donepezil. She took it for a month, but was nauseated all day, so she stopped it. States she would not be able to tolerate rivastigmine patches either due to history of skin reaction to adhesives and patches in the past. Patient continues to live at [facility]. Feels she's been doing well. Seems to have limited insight into her memory impairment and is a poor historian. Hospitalizations? No New diagnosis? No Medication changes? No Falls? No, uses rolling walker all of the time FUNCTIONAL ASSESSMENT: Intact/impaired Comments Goyal ADLs: Bathing intact Dressing intact Toileting intact Transferring (bed to chair) intact Continence intact Feeding intact [place] iADLs Using the Telephone intact Shopping impaired Food preparation intact Housekeeping impaired Laundry intact Transportation impaired Medication management impaired daughter Lena helps put in pill boxes Finances impaired Cognition: continues to have trouble with memory. Repeating herself. Forgetting conversations. Likes to do word search puzzles Appetite and weight: good Exercise: does a lot of walking up and down the hallway at [facility]. Sleep: sleeping well. Denies trouble falling asleep. Denies trouble staying asleep. Denies vivid dreams. Denies dream enactment. Thinks she snores. Wakes feeling rested. May take a cat nap every oncein a while Mood: Mood has been good. Denies anxiety or depression. Denies suicidal or homicidal ideations planor intent. Psychiatric and behavior symptoms: Hallucinations: no Delusions: no Paranoia: no Safety Concerns: none at this time OBJECTIVE Medical history, surgical history, social history, allergies and medications remains unchanged. Past Medical History: Diagnosis Date BREAST CANCER UPPER INNER 01/13/2005 HTN, goal below 140/90 03/07/2014 INFORMATION 12/2009 DVT left leg/[facility]/Dr. Burns MAL ARA [id number] 03/03/2005 Malignant neoplasm of female breast (HCC) Breast Malignant neoplasm of female breast (HCC) Breast Mild aortic stenosis by prior echocardiogram 03/07/2014 Severe Alzheimer's dementia (HCC) Shingles 08/2015 left chest wall Type 2 diabetes mellitus with hemoglobin A1c goal of less than 8.5% (HCC) 02/16/2018 Vertigo 09/25/2015 Past Surgical History: Procedure Laterality Date BX BREAST PERCUT W/IMAGE 01/01/2005 Left US-CNB at [facility] NONE 09/12/2004 right knee replacement at [facility] NONE 06/14/1995 right shoulder replacement [facility] NONE 06/14/1972 gallbladder [facility] PARTIAL MASTECTOMY 01/30/2005 Left PM/ALND at [facility] Dr. Castellon SPINAL FUSION, LUMBAR, COMBINED 03/08/2020 L3-5 with decompression Social History Socioeconomic History Marital status: Spouse name: Ronn Number of children: 1 Years of education: Not on file Highest education level: Not on file Occupational History Occupation: retired Occupation: [employer] Tobacco Use Smoking status: Never Smokeless tobacco: Never Vaping Use Vaping Use: Never used Substance and Sexual Activity Alcohol use: No Drug use: No Sexual activity: Not on file Other Topics Concern Not on file Social History Narrative Not on file Social Determinants of Health Financial Resource Strain: Not on file Food Insecurity: Not on file Transportation Needs: Not on file Physical Activity: Not on file Stress: Not on file Social Connections: Not on file Intimate Partner Violence: Not on file Housing Stability: Not on file Family History Problem Relation Age of Onset Arthritis Mother Heart failure Mother Arthritis Father Glaucoma Father Heart failure Brother COPD Brother Other (chrones) Sister Obesity Sister Cancer Sister Cervical Multiple Sclerosis Daughter Cancer Brother Lung Review of patient's allergies indicates: Allergen Reactions Alendronate Sodium Other (Please comment) GERD Brimonidine Tartrate Codeine nausea Latex Rash Current Outpatient Medications Medication Sig Dispense Refill Acetaminophen 500 MG Oral Tablet (Tylenol) Take 2 Tablets by mouth every 8 hours as needed for Pain, Severe. 100 Tablet 0 Aspirin 81 MG Tablet Take 1 Tab by mouth daily. 34 Tab 5 CENTRUM SILVER PO TABS 1 po qd 0 0 Latanoprost 0.005 % Ophthalmic Solution (Xalatan) INSTILL 1 DROP INTO EACH EYE ONCE DAILY AT NIGHT Lisinopril 40 MG Oral Tablet TAKE 1 TABLET DAILY 90 Tablet 3 meclizine (ANTIVERT) 25 MG Tablet TAKE 1 TABLET BY MOUTH THREE TIMES DAILY NEEDED FOR DIZZINESS 270 Tab 1 [START ON 04/01/2023] Memantine HCl 10 MG Oral Tablet (Namenda) Take 1 Tablet by mouth in the morning and 1 Tablet before bedtime. Do not start before April 01, 2023. 60 Tablet 3 Memantine HCl 5 MG Oral Tablet (Namenda) Take by mouth 1 tab daily week 1, 1 tab twice daily week 2, 2 tabs in am & 1 tab in pm week 3. 42 Tablet 0 Metoprolol Tartrate 25 MG Oral Tablet (Lopressor) TAKE 1 TABLET IN THE MORNING AND 1 TABLET BEFORE BEDTIME 180 Tablet 2 Rosuvastatin Calcium 10 MG Oral Tablet (Crestor) TAKE 1 TABLET DAILY 90 Tablet 2 No current facility-administered medications for this visit. LABS: Results for orders placed or performed in visit on 09/23/22 CBC Result Value Ref Range WBC 8.39 4.00 - 10.80 K/uL RBC 4.49 3.85 - 5.15 M/uL HGB 13.2 12.0 - 15.3 g/dL HCT 40.9 36.0 - 45.2 % MCV 91.1 81.5 - 97.5 fL MCH 29.4 27.0 - 34.0 pg MCHC 32.3 32.0 - 36.0 g/dL RDW 13.2 11.5 - 15.5 % PLT 261 140 - 400 K/uL MPV 8.8 6.6 - 11.1 fL Results for orders placed or performed in visit on 05/13/21 BASIC METABOLIC PANEL Result Value Ref Range BUN 13 6 - 20 mg/dL Creatinine 0.8 0.5 - 1.0 mg/dL Estimated Glomerular Filtration Rate 69 >=60 mL/min Sodium 133 (L) 135 - 146 mmol/L Potassium 5.0 3.5 - 5.1 mmol/L Chloride 94 (L) 98 - 107 mmol/L CO2 29 22 - 32 mmol/L Anion Gap 10 7 - 15 mmol/L Glucose 103 70 - 120 mg/dL Calcium 9.7 8.4 - 10.2 mg/dL Results for orders placed or performed in visit on 10/13/17 LIPID PANEL Result Value Ref Range HOURS FASTING 12 hours Triglycerides 110 <200 mg/dL Cholesterol 196 <200 mg/dL HDL Cholesterol 57 >39 mg/dL Cholesterol-HDL Ratio 3.4 LDL Cholesterol 117 0 - 129 mg/dL Results for orders placed or performed in visit on 04/02/22 LIPID PANEL WITH DIRECT LDL IF TG IS HIGH Result Value Ref Range Triglycerides 71 <=174 mg/dL Cholesterol 137 <200 mg/dL HDL Cholesterol 66 >49 mg/dL Non-HDL Cholesterol 71 <=159 mg/dL LDL Cholesterol 57 <=129 mg/dL Lab Results Component Value Date/Time HEMOGLOBIN A1C - [facility] 6.9 (H) 09/23/2022 03:47 PM HEMOGLOBIN A1C - [facility] 6.6 (H) 04/02/2022 08:38 AM HEMOGLOBIN A1C - [facility] 7.0 (H) 08/29/2021 11:31 AM HEMOGLOBIN A1C - [facility] 7.4 (H) 07/10/2020 03:16 PM HEMOGLOBIN A1C - [facility] 7.1 (H) 01/05/2020 04:17 PM HEMOGLOBIN A1C - [facility] 6.8 (H) 04/26/2019 03:33 PM Lab Results Component Value Date/Time TSH - [facility] 2.68 09/23/2022 03:47 PM TSH - [facility] 3.56 04/02/2022 08:38 AM TSH - [facility] 2.99 03/01/2021 01:43 PM TSH - [facility] 2.40 01/05/2020 04:17 PM TSH - [facility] 3.07 03/30/2017 02:15 PM TSH - [facility] 3.56 11/11/2016 12:56 PM No results found for: JOSE No results found for: HEPATITIS No results found for: LYME No results found for: RPR No results found for: FTA-ABS No results found for: VDRL Results for orders placed or performed in visit on 04/02/22 VITAMIN B12 Result Value Ref Range Vitamin B12 934 232-1,245 pg/mL No results found for: [id number] No results found for: [id number] No results found for: [id number] 25OH VITAMIN D TOTAL (ng/mL) Date Value 01/30/2016 41 Vitamin D Level Interpretation deficient: <20 ng/ml insufficient: 20-30 ng/ml normal: 31-100 ng/ml IMAGING STUDIES: MRI brain without contrast, 09/29/21, ordered for worsening vertigo: Mild generalized atrophy with prominent atrophy of the hippocampus, left worse than right. Oquz-yw-cfxcurzk periventricular and subcortical white matter hyperintensity, most consistent with chronic small vessel disease. No SWI signal abnormality or restricted diffusion. Radiology interpretation: No acute intracranial abnormality. Pepw-fn-lmxdrtzx chronic microvascular changes and global volume loss PHYSICAL EXAM Vital signs: There were no vitals taken for this visit. General: Well nourished. Appears as stated age. No acute distress. HEENT: normocephalic, atraumatic. Neurologic exam Mental status: alert and awake Mini Mental State Exam Question: Answer: Patient is oriented to the year, season, date, day, month? 2 out of 5 (03/10/231199) Patient is oriented to the state, country, town, hospital/clinic, floor? 5 out of 5 (03/10/231199) Patient repeated three words (ex: ball, flag, tree) 3 out of 3 (03/10/231199) Patient counted backwards from 100 by 7's (93, 86, 79, 72, 65) or spelled WORLD backwards (D, L, R,O W) 5 out of 5 (03/10/231199) Patient recalled the three words previously asked (ball, flag, tree) 0 out of 3 (03/10/231199) Patient is able to identify a watch and pencil 2 out of 2 (03/10/231199) Patient is able to repeat "No ifs, ands or buts" 1 out of 1 (09/27/23 1200) Patient is able to take a piece of paper, fold in half and place on the floor 0 out of 3 (03/10/231199) Patient is able to read and follow directions (show patient card reading "close your eyes") 1 out of 1 (03/10/23 1200) Patient is able to write a sentence 1 out of 1 (03/10/231199) Patient is able to copy a drawing of intersecting pentagons 0 out of 1 (03/10/231199) Score 20 (03/10/231199) Comments (not recorded) Cranial Nerves: CN VII - no facial assymetry CN VIII - Intact to normal conversation CN IX, X: Dysarthria: None ASSESSMENT & PLAN Marianne Myrick is a 87 year old right handed female with 12 years of education presenting for follow up for mild Alzheimer's Disease and Vascular Dementia. Since the last visit, she stopped donepezil due to GI side effects. Unable to tolerate patches or adhesives in the past, so will avoid Rivastigmine patches. Repeat MMSE today 20/30 with impairment in orientation, attention, visuopatial executive function and delayed recall, which is stable (MMSE 03/24/2022 20/30). Intact with all of her ADLs and [...] Do not start before April 01, 2023. Follow Up: Return for 4-6 months , Clinic Visit anderson . | For: 4-6 months , Clinic Visit anderson Patient Instructions Patient Instructions Please start memantine. The drug Namenda (memantine) is a weak NMDA antagonist that theoretically may block nerve cells from dying. It can provide some small improvement in memory, thinking, and/or behavior in Alzheimers disease. This drug is relatively low in side effects. Most common ones are headache, dizziness and drowsiness. However in our clinic I have noted that increased agitation can occur rarely, and in some patients' agitation improve with Namenda. If agitation occurs from starting or increasing the medication, call our office. Reducing the Namenda (memantine) to the last tolerated dose or simply halting it should stop the agitation. We will slowly increase the dose as follows: AM PM Week 1 5 mg Week 2 5 mg 5 mg Week 3 10 mg 5 mg Week 4 and thereafter 10 mg 10 mg Because we are titrating up on the dose, 2 separate prescriptions are sent. One script for 5 mg tablets, and one script for 10 mg tablets. I spent a total of 90 minutes coordinating, documenting, and providing care for this patient excluding time spent in the performance of separately billed services or time spent by another provider/QHP. PHILIPP Panchal Nurse Practitioner Neuroscience [facility] 03/10/2023 Attending attestation: I have reviewed the advanced practitioner documentation and agree. I did not see or evaluated the patient but have discussed her care on date of service referenced in note. Avis Patricia DO Cognitive and Behavioral Neurology [facility] 03/15/2023 3:51 PM documented in this encounter Plan of Treatment Upcoming Encounters Date Type Specialty Care Team Description 04/14/2023 Office Visit Internal Medicine [facility] Gibbs [facility] [address] [facility] [address] 08/20/2023 [facility] Visit [facility] [address] [facility] [place] [address] Health Maintenance Due Date Last Done Comments Zoster Vaccines (1 of 2) 1984 Depression Screening 05/24/2021 05/24/2020 COVID-19 Vaccine (4 - Pfizer series) 06/09/2021 04/14/2021, 08/03/2020, 07/13/2020 DIABETES-EYE EXAM 11/24/2022 11/24/2021, , 08/06/2020, Additional history exists DXA Scan 01/19/2023 01/20/2016, 07/2007, 02/14/2008, Additional history exists Influenza Vaccine (FLU shot) (#1) 2023 03/24/2022, [...] and vascular dementia (HCC)- Primary Alzheimer's disease documented in this encounter Advance Directives Documents on File Type Date Recorded 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 [address] PCP - General Internal Medicine 02/16/14 documented as of this encounter
--- OUTSIDE RECORDS SUMMARY | 2023-08-13 11:43 | External Medical Summary | Summary of Care ---
Author Name Unknown Organization [facility] Address [address] [place] [address] Phone [phone] Care Team Providers Care Research Physician Name Role Phone Doron Escobar MD Primary Care Provider + Reason for Visit * Reason Comments eRx-Medication Refill Encounter Details Date Type Department Care Team Description 03/05/2023 Refill General Internal Medicine [facility] [address] [facility] [place] [address] Doron Escobar MD [address] [place] [address] Palpitations; PAF (paroxysmal atrial fibrillation) ([facility]); HTN, goal below 140/90 Allergies Active Allergy Reactions Severity Noted Date Comments Alendronate Sodium Other (Please comment) High 03/07 GERD Brimonidine Tartrate 09/17/2021 Codeine 01/07/2011 nausea Latex Rash 10/13/2017 documented as of this encounter (statuses as of 03/05/2023) Medications Medication Sig Dispensed Refills Start Date [...] BEFORE BEDTIME 180 Tablet 2 03/05/2023 Active Metoprolol Tartrate 25 MG Oral Tablet (Lopressor)Indica tions:Palpitation s,PAF (paroxysmal atrial fibrillation) (HCC),HTN, goal below 140/90 Take 1 Tablet by mouth in the morning and 1 Tablet before bedtime. 180 Tablet 1 09/23/2022 3 Discontinued documented as of this encounter (statuses as of 03/05/2023) Active Problems Problem Noted Date Mild dementia [...] as of this encounter (statuses as of 03/05/2023) Resolved Problems Problem Noted Date Resolved Date [...] their healthcare provider of changes. MAL ARA [id number] 03/03/2005 017 BREAST CANCER UPPER INNER 01/13/20052016 Malignant neoplasm of female breast 09/23/2016 Overview: Breast documented as of this encounter (statuses as of 03/05/2023) Immunizations Name Administration Dates Next Due COVID-19 mRNA, LNP-s, No Pre serve, 2-Dose Series ([place]) 04/14/2021,08/03/2020,07/13/2020 Pneumococcal Conjugate Vacc, 13 Valent (Prevnar) 03/12/2015 Pneumococcal Polysaccharide PPV23 (Pneumovax) 06/14/2004 Season Influenza, Quad, PF, Adjuvanted, 65+ Yrs, IM (FLUAD) 04/05/2020 Seasonal Influenza, PF, 6 mo ns & Above, IM , (Flulaval) 03/08/2018 Seasonal Influenza, Quadriva lent Hd (Fluzone [...] encounter Miscellaneous Notes * Telephone Encounter - Daniel Bearden RPh - 03/05/2023 8:45 AM EDT Signed Prescriptions: Disp Refills Metoprolol Tartrate 25 MG Oral Tablet (Lop*180 Ta*2 Sig: TAKE 1 TABLET IN THE MORNING AND 1 TABLET BEFORE BEDTIMEAuthorizing Provider: DORON ESCOBARUser: DANIEL BEARDEN documented in this encounter Plan of Treatment Upcoming Encounters Date Type Specialty Care Team Description 03/10/2023 Telemedicine Neurology Avis Patricia DO [address] [place] [address] 04/14/2023 Office Visit Internal Medicine Doron Escobar MD [address] [place] [address] Health Maintenance Due Date Last Done Comments [...] as of this encounter Visit Diagnoses Diagnosis Palpitations PAF (paroxysmal atrial fibrillation) (HCC) Atrial fibrillation HTN, goal below 140/90 Unspecified essential hypertension documented in this encounter Advance Directives Documents on File Type Date Recorded 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
--- NOTE | 2023-08-13 15:47 | Hospitalist Progress Note ---
Date of Service August 13, 2023 Assessment & Plan (1) Fracture of left hip: Plan: -Admit to med telemetry -Check CXR for preop clearance, EKG reviewed personally without signs of acute ST wave inversions or ischemia -Last echo reviewed from June 23, 2023 showing EF of 55 to 59%, moderate to severe aortic stenosis, heard on exam -Status post left hip cephalomedullary nailing of intertrochanteric femur fracture . -Continue with pain medications and bowel regimen. -Orthopedics on board, appreciate recommendation. -PT/OT, possible DC to rehab. (2) Paroxysmal A-fib: Plan: -Chronic, stable, rate controlled on metoprolol 12.5 twice daily -She is not on anticoagulation other than baby aspirin (3) Hypertension: Plan: -Chronic, stable. Continue home medications as able. (4) Hyperlipidemia: Plan: -Continue statin therapy -Chronic, stable (5) Aortic stenosis: Plan: -Present on exam, reviewed most recent echo done on 06/23/2023 as above -Chronic, stable (6) History of breast cancer: Plan: -Remote history of such status post partial mastectomy, right, XRT, no history of chemotherapy (7) Type 2 diabetes mellitus: Plan: -ISS with Accu-Cheks ACHS -Check A1c, patient is not on any oral anti-hyperglycemic medications DVT PPx:teds, scds Lines: 2 PIV FEN/GI: N.p.o. for now, await Ortho to determine if patient can have diet today CODE: Full code Admission and Anticipated Discharge Date Admission Date: August 12, 2023 Subjective Patient was seen and examined at bedside. She is awake and alert, left hip pain at operative site fairly under control. Denies any headache/dizziness/chest pain/palpitation. Reports feeling better. Reports eating okay, has not moved bowel. Is moving gas. No other complaints. Physical Exam Physical Exam: General: awake, alert, no apparent distress, elderly white female Head: Normocephalic, atraumatic ENT: PERRL, EOMI, no pharyngeal exudate, mucous membranes moist Chest: Clear to auscultation, on room air, no adventitious breath sounds Cardiac: Regular rate and rhythm, loud MARY grade 3/4 with radiation to carotids, no JVD, normal peripheral pulses, good capillary refill Abdominal: NABS x 4 quadrants, soft, nondistended, nontender to palpation, no rebound or guarding Extremities: Left hip w/ clean dressing wo soakage, sensation to light touch intact, distal pulses present and equal bilaterally 2+, no peripheral edema or erythema, calfs nontender to palpation Psych: Normal mood and affect Neuro: AAO x 3, strength intact bilaterally and rated 5/5 in all extremities except strength not tested in LLE, no motor deficits, speech is clear, no peripheral sensory deficits Results & Data Results & Data Vital Signs (Past 12 Hours) Vital Signs Temp Pulse Resp BP Pulse Ox O2 Del Method O2 Flow Rate 08/13/23 15:16 36.7 C 70 16 95/54 L 95 Room Air 08/13/23 08:02 Nasal Cannula 08/13/23 07:49 36.5 C 76 16 104/58 L 97 Room Air, Nasal Cannula 2
[2023-08-13] MEDS: SODIUM CHLORIDE 0.9% 1,000 ML IV SCH (18:00)
[2023-08-13] MEDS: traMADol HCL 50 MG TABLET PO PRN (20:27)
[2023-08-14 07:58] LABS: Hematocrit (blood only) 27.5 % (37.0-47.0); Mean Corpuscular Hemoglobin 29.2 pg (25.0-34.0); Mean Corpuscular Hgb Conc 32.7 g/dL (32.0-36.0); Mean Corpuscular Volume 89.3 fL (80.0-100.0); Mean Platelet Volume 9.2 fL (9.4-12.4); Platelet Count 173 K/uL (130-400); RDW Coefficient of Variation 12.7 % (11.5-14.5); RDW Standard Deviation 41.6 fL (36.4-46.3); Red Blood Count 3.08 M/uL (4.20-5.40); White Blood Count 11.63 K/ul (4.8-10.8)
[2023-08-14 08:06] LABS: BUN Creatinine Ratio 21.5 (10-20); Creatinine Clr Calc Pharmacy 58.4 ml/min; Est GFR (African American) 91.9 ml/min; Est GFR (Non-African American) 79.3 ml/min; Magnesium 1.8 mg/dl (1.7-2.4); Phosphorus 2.9 mg/dl (2.5-4.9)
--- NOTE | 2023-08-14 08:44 | Orthopedic Progress Note ---
Date of Service August 14, 2023 Assessment & Plan (1) Intertrochanteric fracture of left hip: Plan: Postop day 2 status post left TFN PT/OT protocols. DVT prophylaxis-aspirin 325 mg p.o. daily-SCDs Pain management as written. DC planning-patient is a resident of [facility]. Plans will be to transfer to their nursing facility for a short-term stay before returning to her apartment. Orthopedics will sign off at this time. Patient should follow-up with Dr. Bryant's Office 10 to 14 days postop. She can call [phone] for an appointment. Please call with any questions or concerns. Admission and Anticipated Discharge Date Admission Date: August 12, 2023 Subjective Patient does have some soreness to her left hip. Otherwise no complaints. Denies chest pain, shortness of breath, nausea/vomiting/diarrhea, headaches or dizziness. Review of Systems Review of Systems: All systems reviewed & are unremarkable except as noted in Subjective Physical Exam Physical Exam: Left hip: Dressing is clean, dry, intact. Compartments are soft mild swelling, no tenderness. No calf tenderness. Toes are mobile with good dorsiflexion. Distal neurovascular status and sensation is grossly intact. Results & Data Vital Signs (Past 12 Hours) Vital Signs Temp Pulse Resp BP Pulse Ox Pulse Ox O2 Del Method 08/14/23 07:59 36.4 C L 72 16 112/61 93 Room Air 08/14/23 04:14 94 08/14/23 00:18 96 O2 Del Method 08/14/23 07:59 08/14/23 04:14 Room Air 08/14/23 00:18 Room Air (1) Intertrochanteric fracture of left hip Encounter type: initial encounter Fracture type: closed Fracture alignment: displaced Qualified Code(s): S72.142A - Displaced intertrochanteric fracture of left femur, initial encounter for closed fracture
--- NOTE | 2023-08-14 16:08 | XRay Report ---
XR lumbar spine 2-3V HISTORY: 87 years-old Female r/o Fracture acute low back pain COMPARISON: CT 10/13/2018 TECHNIQUE: 3 views of the lumbar spine FINDINGS: Cholecystectomy. Moderate fecal retention. Partially imaged ORIF hardware of the left femur. Deminera lized appearance of the bones. Skin larisa project over the left hip. Posterior interbody cesar and sc rew fusion hardware noted at L3-L5. No evidence of hardware complication. Chronic moderate T12 compre ssion deformity. No acute lumbar spine fracture or subluxation identified. Mild lumbar levoscoliosis. IMPRESSION: 1. No acute fracture or subluxation identified. 2. Chronic T12 compression fracture. ACT 112: Negative or not required by law. The above report was generated using voice recognition software. It may contain grammatical, syntax o r spelling errors. Electronically signed by: Logan Gary M.D. 08/14/2023 4:06 PM
[2023-08-14] MEDS: LIDOCAINE 5% 1 PATCH TD SCH (18:06)
--- NOTE | 2023-08-14 18:55 | Hospitalist Progress Note ---
Date of Service August 14, 2023 Assessment & Plan (1) Fracture of left hip: Plan: -Admit to med telemetry -Check CXR for preop clearance, EKG reviewed personally without signs of acute ST wave inversions or ischemia -Last echo reviewed from June 23, 2023 showing EF of 55 to 59%, moderate to severe aortic stenosis, heard on exam -Status post left hip cephalomedullary nailing of intertrochanteric femur fracture . -Continue with pain medications and bowel regimen. -Orthopedics on board, appreciate recommendation. -PT/OT, possible DC to rehab. -Clinically stable and the pain seems to be controlled with as needed narcotic pain medications -She does not have any problem with urine or bowel habit -She will need to go to rehab following discharge Acute on chronic back pain Admits to have more pain in the back-could be due to the position in bed History of back surgery X-ray of the lumbar spine did show old thoracic spine fracture Will give lidocaine patch as she was using at home Continue with PT and OT (2) Paroxysmal A-fib: Plan: -Chronic, stable, rate controlled on metoprolol 12.5 twice daily -She is not on anticoagulation other than baby aspirin -Rate is controlled (3) Hypertension: Plan: -Chronic, stable. Continue home medications as able. (4) Hyperlipidemia: Plan: -Continue statin therapy -Chronic, stable (5) Aortic stenosis: Plan: -Present on exam, reviewed most recent echo done on 06/23/2023 as above -Chronic, stable (6) History of breast cancer: Plan: -Remote history of such status post partial mastectomy, right, XRT, no history of chemotherapy (7) Type 2 diabetes mellitus: Plan: -ISS with Accu-Cheks ACHS -Check A1c, patient is not on any oral anti-hyperglycemic medications DVT PPx:teds, scds Lines: 2 PIV FEN/GI: N.p.o. for now, await Ortho to determine if patient can have diet today CODE: Full code Admission and Anticipated Discharge Date Admission Date: August 12, 2023 Subjective 08/14/2023 The patient was seen and examined in medical floor in presence of the She has been complaining of more back pain than before She has had a fall but did not injure the back but had fractures of the hip that has been corrected Denies any bladder and/or bowel problem Does not have radiation of pain History of back surgery Review of Systems Review of Systems: All systems reviewed and are unremarkable except as noted below Physical Exam Physical Exam: Lying in bed without any acute distress Constitutional: well developed, well nourished, + ill appearing and + obese Eyes: PERRL, conjunctivae normal, anicteric sclerae ENMT: external ear and nose normal, oropharynx normal Neck: trachea midline, no thyromegaly Respiratory: no respiratory distress Auscultation: lungs clear to auscultation bilaterally Cardiovascular: Rate/Rhythm: regular rate and regular rhythm; not tachycardic Heart Sounds: normal S1, normal S2 and + murmur Extremities: + edema (Trace edema bilaterally) Gastrointestinal (Abdomen): Inspection/Auscultation: normal bowel sounds; abdomen not distended Percussion/Palpation: abdomen soft; abdomen nontender Musculoskeletal: No acute arthritis involving any of the joint but has left hip pain with movement Neurologic: normal touch/pain/proprioception and moves all extremities; no focal motor deficits Psychiatric: A+Ox3, euthymic affect Lymphatic: no cervical or axillary lymphadenopathy Results & Data Results & Data Vital Signs (Past 12 Hours) Vital Signs Temp Pulse Resp BP Pulse Ox O2 Del Method 08/14/23 16:41 Room Air 08/14/23 16:25 36.6 C 66 16 127/63 92 Room Air 08/14/23 07:59 36.4 C L 72 16 112/61 93 Room Air Laboratory Results Short CBC 08/14/23 Range/Units 07:35 WBC 11.63 H (4.8-10.8) K/ul Hgb 9.0 L (12.0-16.0) g/dl Hct 27.5 L (37.0-47.0) % Plt Count 173 (130-400) K/uL BMP 08/14/23 07:35 Sodium 130 L Potassium 5.0 Chloride 97 L Carbon Dioxide 31 BUN 14 Creatinine 0.65 Glucose 135 H Calcium 8.0 L Medications Administered Current Inpatient Medications Acetaminophen (Acetaminophen 500 Mg Tab) 1,000 mg PO Q8H [facility] Stop: 09/11/23 21:59 Last Admin: 08/14/23 12:24 Dose: 1,000 mg Aspirin (Aspirin 325 Mg Ectab) 325 mg PO QAM [facility] Stop: 09/12/23 08:59 Last Admin: 08/14/23 08:52 Dose: 325 mg Bisacodyl (Bisacodyl 5 Mg Tabec) 5 mg PO DAILY [facility] Stop: 09/12/23 08:59 Last Admin: 08/14/23 08:52 Dose: 5 mg Bisacodyl (Bisacodyl 10 Mg Supp) 10 mg GA DAILY PRN PRN Reason: Constipation Stop: 09/11/23 16:10 Latanoprost (Latanoprost 0.005% Op Soln 2.5 Ml Btl) 1 drops OPB DAILY [facility] Stop: 09/12/23 08:59 Last Admin: 08/14/23 08:54 Dose: 1 drops Lidocaine (Lidocaine 5% 1 Patch) [facility] Stop: 09/13/23 17:44 Last Admin: 08/14/23 18:06 Dose: 1 patch Lisinopril (Lisinopril 40 Mg Tab) 40 mg PO QAM [facility] Stop: 09/12/23 08:59 Last Admin: 08/13/23 08:11 Dose: 40 mg Magnesium Hydroxide (Magnesium Hydroxide Susp 30 Ml Udc) 30 ml PO DAILY PRN PRN Reason: Constipation Stop: 09/11/23 16:10 Metoprolol Tartrate (Metoprolol Tartrate 25 Mg Tab) 12.5 mg PO BID [facility] Stop: 09/11/23 20:59 Last Admin: 08/14/23 08:53 Dose: 12.5 mg Miscellaneous (Remove Lidoderm Patch) 1 each N/A DAILY@2100 [facility] Stop: 09/13/23 20:59 Multivitamins/Minerals (Cerovite Adv Formula Tab) 1 tab PO QAM [facility] Stop: 09/12/23 08:59 Last Admin: 08/14/23 08:53 Dose: 1 tab Naloxone HCl (Naloxone Hcl 0.4 Mg/1 Ml Vial/Carp) 0.1 mg IV UD PRN PRN Reason: Opiate Overdose Stop: 09/11/23 16:10 Ondansetron HCl (Ondansetron Inj 2 Mg/Ml 2 Ml Vial) 4 mg IV Q4H PRN PRN Reason: Nausea And Vomiting Stop: 09/11/23 16:10 Polyethylene Glycol (Polyethylene (Miralax) 17 Gm Pack) 17 gm PO DAILY [facility] Stop: 09/11/23 16:10 Last Admin: 08/14/23 08:53 Dose: 17 gm Rosuvastatin Calcium (Rosuvastatin Calcium 10 Mg Tab) 10 mg PO HS [facility] Stop: 09/11/23 20:59 Last Admin: 08/13/23 20:29 Dose: 10 mg Tramadol HCl (Tramadol Hcl 50 Mg Tablet) 50 mg PO Q4H PRN PRN Reason: Moderate Pain (Scale 4, 5, 6) Stop: 09/11/23 14:25 Last Admin: 08/14/23 15:56 Dose: 50 mg
[2023-08-15 06:14] LABS: Basophils # (auto) 0.04 K/uL (0.00-0.20); Basophils % (auto) 0.4 %; Eosinophils # (auto) 0.19 K/uL (0.00-0.50); Eosinophils % (auto) 1.8 %; Hematocrit (blood only) 27.8 % (37.0-47.0); Hemoglobin 9.1 g/dl (12.0-16.0); Immature Granulocytes # (auto) 0.05 K/uL (0.01-0.20); Immature Granulocytes % (auto) 0.5 %; Lymphocytes # (auto) 3.04 K/uL (1.20-3.40); Lymphocytes % (auto) 28.3 %; Mean Corpuscular Hemoglobin 28.7 pg (25.0-34.0); Mean Corpuscular Hgb Conc 32.7 g/dL (32.0-36.0); Mean Corpuscular Volume 87.7 fL (80.0-100.0); Mean Platelet Volume 9.2 fL (9.4-12.4); Monocytes # (auto) 1.22 K/uL (0.11-0.59); Monocytes % (auto) 11.3 %; Neutrophils # (auto) 6.21 K/uL (1.40-6.50); Neutrophils % (auto) 57.7 %; Platelet Count 178 K/uL (130-400); RDW Coefficient of Variation 12.8 % (11.5-14.5); Red Blood Count 3.17 M/uL (4.20-5.40); White Blood Count 10.75 K/ul (4.8-10.8)
[2023-08-15 06:32] LABS: BUN Creatinine Ratio 26.4 (10-20); Calcium 8.1 mg/dl (8.6-10.3); Creatinine Clr Calc Pharmacy 71.7 ml/min; Est GFR (African American) 98.3 ml/min; Est GFR (Non-African American) 84.8 ml/min; Magnesium 1.9 mg/dl (1.7-2.4); Phosphorus 3.1 mg/dl (2.5-4.9); Potassium 4.9 mmol/L (3.5-5.1)
--- NOTE | 2023-08-15 16:43 | Hospitalist Progress Note ---
Date of Service August 15, 2023 Assessment & Plan (1) Fracture of left hip: Plan: -Admit to med telemetry -Check CXR for preop clearance, EKG reviewed personally without signs of acute ST wave inversions or ischemia -Last echo reviewed from June 23, 2023 showing EF of 55 to 59%, moderate to severe aortic stenosis, heard on exam -Status post left hip cephalomedullary nailing of intertrochanteric femur fracture . -Continue with pain medications and bowel regimen. -Orthopedics on board, appreciate recommendation. -PT/OT, possible DC to rehab. -Clinically stable and the pain seems to be controlled with as needed narcotic pain medications -She does not have any problem with urine or bowel habit -She will need to go to rehab following discharge -She has been getting scheduled Tylenol and as needed tramadol for pain control -Seems to be remains pleasantly confused but does not have any acute distress -Continue PT and OT and will need placement Acute on chronic back pain Admits to have more pain in the back-could be due to the position in bed History of back surgery X-ray of the lumbar spine did show old thoracic spine fracture Will give lidocaine patch as she was using at home Lidocaine patch has been applied (2) Paroxysmal A-fib: Plan: -Chronic, stable, rate controlled on metoprolol 12.5 twice daily -She is not on anticoagulation other than baby aspirin -Rate is controlled does not have any cardiac symptoms (3) Hypertension: Plan: -Chronic, stable. Continue home medications as able. -Blood pressure is controlled with current medication (4) Hyperlipidemia: Plan: -Continue statin therapy -Chronic, stable (5) Aortic stenosis: Plan: -Present on exam, reviewed most recent echo done on 06/23/2023 as above -Chronic, stable (6) History of breast cancer: Plan: -Remote history of such status post partial mastectomy, right, XRT, no history of chemotherapy (7) Type 2 diabetes mellitus: Plan: -ISS with Accu-Cheks ACHS -Check A1c, patient is not on any oral anti-hyperglycemic medications DVT PPx:teds, scds Lines: 2 PIV FEN/GI: N.p.o. for now, await Ortho to determine if patient can have diet today CODE: Full code Admission and Anticipated Discharge Date Admission Date: August 12, 2023 Subjective 08/14/2023 The patient was seen and examined in medical floor in presence of the She has been complaining of more back pain than before She has had a fall but did not injure the back but had fractures of the hip that has been corrected Denies any bladder and/or bowel problem Does not have radiation of pain History of back surgery 08/15/2023 The patient was seen and examined in medical floor in presence of the the and the daughter She has been complaining of back pain and pain in the left hip Remains generally weak Denies any chest pain, palpitation or shortness of breath Review of Systems Review of Systems: All systems reviewed and are unremarkable except as noted below Physical Exam Physical Exam: Lying in bed without any acute distress Constitutional: well developed, well nourished, + ill appearing and + obese Eyes: PERRL, conjunctivae normal, anicteric sclerae ENMT: external ear and nose normal, oropharynx normal Neck: trachea midline, no thyromegaly Respiratory: no respiratory distress Auscultation: lungs clear to auscultation bilaterally Cardiovascular: Rate/Rhythm: regular rate and regular rhythm; not tachycardic Heart Sounds: normal S1, normal S2 and + murmur Extremities: + edema (Trace edema bilaterally) Gastrointestinal (Abdomen): Inspection/Auscultation: normal bowel sounds; abdomen not distended Percussion/Palpation: abdomen soft; abdomen nontender Musculoskeletal: Pain in the left hip with movement of the left lower extremity and back pain with movement Neurologic: normal touch/pain/proprioception and moves all extremities; no focal motor deficits Psychiatric: A+Ox3, euthymic affect Lymphatic: no cervical or axillary lymphadenopathy Results & Data Results & Data Vital Signs (Past 12 Hours) Vital Signs Temp Pulse Resp BP Pulse Ox O2 Del Method 08/15/23 14:59 36.4 C L 73 17 138/71 95 Room Air 08/15/23 07:58 36.4 C L 69 16 120/65 94 Room Air Laboratory Results Short CBC 08/15/23 Range/Units 05:41 WBC 10.75 (4.8-10.8) K/ul Hgb 9.1 L (12.0-16.0) g/dl Hct 27.8 L (37.0-47.0) % Plt Count 178 (130-400) K/uL BMP 08/15/23 05:41 Sodium 127 L Potassium 4.9 Chloride 95 L Carbon Dioxide 31 BUN 14 Creatinine 0.53 L Glucose 122 H Calcium 8.1 L Medications Administered Current Inpatient Medications Acetaminophen (Acetaminophen 500 Mg Tab) 1,000 mg PO Q8H [facility] Stop: 09/11/23 21:59 Last Admin: 08/15/23 13:45 Dose: 1,000 mg Aspirin (Aspirin 325 Mg Ectab) [facility] Stop: 09/12/23 08:59 Last Admin: 08/15/23 08:49 Dose: 325 mg Bisacodyl (Bisacodyl 5 Mg Tabec) 5 mg PO DAILY [facility] Stop: 09/12/23 08:59 Last Admin: 08/15/23 08:49 Dose: 5 mg Bisacodyl (Bisacodyl 10 Mg Supp) 10 mg OR DAILY PRN PRN Reason: Constipation Stop: 09/11/23 16:10 Latanoprost (Latanoprost 0.005% Op Soln 2.5 Ml Btl) 1 drops OPB DAILY [facility] Stop: 09/12/23 08:59 Last Admin: 08/15/23 08:49 Dose: 1 drops Lidocaine (Lidocaine 5% 1 Patch) 1 patch TD [facility] Stop: 09/13/23 17:44 Last Admin: 08/15/23 09:41 Dose: Not Given Lisinopril (Lisinopril 40 Mg Tab) 40 mg PO [facility] Stop: 09/12/23 08:59 Last Admin: 08/13/23 08:11 Dose: 40 mg Magnesium Hydroxide (Magnesium Hydroxide Susp 30 Ml Udc) 30 ml PO DAILY PRN PRN Reason: Constipation Stop: 09/11/23 16:10 Metoprolol Tartrate (Metoprolol Tartrate 25 Mg Tab) 12.5 mg PO BID [facility] Stop: 09/11/23 20:59 Last Admin: 08/15/23 08:47 Dose: 12.5 mg Miscellaneous (Remove Lidoderm Patch) 1 each N/A DAILY@2100 [facility] Stop: 09/13/23 20:59 Last Admin: 08/14/23 20:27 Dose: 1 each Multivitamins/Minerals (Cerovite Adv Formula Tab) [facility] Stop: 09/12/23 08:59 Last Admin: 08/15/23 08:49 Dose: 1 tab Naloxone HCl (Naloxone Hcl 0.4 Mg/1 Ml Vial/Carp) 0.1 mg IV UD PRN PRN Reason: Opiate Overdose Stop: 09/11/23 16:10 Ondansetron HCl (Ondansetron Inj 2 Mg/Ml 2 Ml Vial) 4 mg IV Q4H PRN PRN Reason: Nausea And Vomiting Stop: 09/11/23 16:10 Polyethylene Glycol (Polyethylene (Miralax) 17 Gm Pack) 17 gm PO DAILY [facility] Stop: 09/11/23 16:10 Last Admin: 08/15/23 08:49 Dose: 17 gm Rosuvastatin Calcium (Rosuvastatin Calcium 10 Mg Tab) 10 mg PO HS [facility] Stop: 09/11/23 20:59 Last Admin: 08/14/23 20:27 Dose: 10 mg Tramadol HCl (Tramadol Hcl 50 Mg Tablet) 50 mg PO Q4H PRN PRN Reason: Moderate Pain (Scale 4, 5, 6) Stop: 09/11/23 14:25 Last Admin: 08/15/23 13:46 Dose: 50 mg
[2023-08-15] MEDS: MAGNESIUM HYDROXIDE SUSP 30 ML UDC PO PRN (21:38)
[2023-08-15] MEDS: SODIUM CHLORIDE 1 GM TABLET PO SCH (21:39)
[2023-08-16 08:36] LABS: BUN Creatinine Ratio 20.4 (10-20); Calcium 8.3 mg/dl (8.6-10.3); Creatinine Clr Calc Pharmacy 70.3 ml/min; Est GFR (African American) 97.6 ml/min; Est GFR (Non-African American) 84.3 ml/min; Potassium 5.1 mmol/L (3.5-5.1)
--- NOTE | 2023-08-16 16:30 | Hospitalist Progress Note ---
Date of Service August 16, 2023 Assessment & Plan (1) Fracture of left hip: Plan: -Admit to med telemetry -Check CXR for preop clearance, EKG reviewed personally without signs of acute ST wave inversions or ischemia -Last echo reviewed from June 23, 2023 showing EF of 55 to 59%, moderate to severe aortic stenosis, heard on exam -Status post left hip cephalomedullary nailing of intertrochanteric femur fracture . -Continue with pain medications and bowel regimen. -Orthopedics on board, appreciate recommendation. -PT/OT, possible DC to rehab. -Clinically stable and the pain seems to be controlled with as needed narcotic pain medications -She does not have any problem with urine or bowel habit -She will need to go to rehab following discharge -She has been getting scheduled Tylenol and as needed tramadol for pain control -Seems to be remains pleasantly confused but does not have any acute distress -Continue PT and OT and will need placement -Doing much better today and the pain seems to be reasonably controlled with current medications Acute on chronic back pain Admits to have more pain in the back-could be due to the position in bed History of back surgery X-ray of the lumbar spine did show old thoracic spine fracture Will give lidocaine patch as she was using at home Lidocaine patch has been applied Will apply diclofenac sodium locally as well for better pain control (2) Paroxysmal A-fib: Plan: -Chronic, stable, rate controlled on metoprolol 12.5 twice daily -She is not on anticoagulation other than baby aspirin -Rate is controlled does not have any cardiac symptoms (3) Hypertension: Plan: -Chronic, stable. Continue home medications as able. -Blood pressure is controlled with current medication -Blood pressure seems to be elevated at 158/74-will restart her home medications (4) Hyperlipidemia: Plan: -Continue statin therapy -Chronic, stable (5) Aortic stenosis: Plan: -Present on exam, reviewed most recent echo done on 06/23/2023 as above -Chronic, stable (6) History of breast cancer: Plan: -Remote history of such status post partial mastectomy, right, XRT, no history of chemotherapy (7) Type 2 diabetes mellitus: Plan: -ISS with Accu-Cheks ACHS -Check A1c, patient is not on any oral anti-hyperglycemic medications DVT PPx:teds, scds Lines: 2 PIV FEN/GI: N.p.o. for now, await Ortho to determine if patient can have diet today CODE: Full code Admission and Anticipated Discharge Date Admission Date: August 12, 2023 Subjective 08/14/2023 The patient was seen and examined in medical floor in presence of the She has been complaining of more back pain than before She has had a fall but did not injure the back but had fractures of the hip that has been corrected Denies any bladder and/or bowel problem Does not have radiation of pain History of back surgery 08/15/2023 The patient was seen and examined in medical floor in presence of the the and the daughter She has been complaining of back pain and pain in the left hip Remains generally weak Denies any chest pain, palpitation or shortness of breath 08/16/2023 The patient was seen and examined in medical floor She has been feeling much better with decreasing pain at the back and also left hip pain Denies any cough and no shortness of Review of Systems Review of Systems: All systems reviewed and are unremarkable except as noted below Physical Exam Physical Exam: Lying in bed without any acute distress Constitutional: well developed, well nourished, + ill appearing and + obese Eyes: PERRL, conjunctivae normal, anicteric sclerae ENMT: external ear and nose normal, oropharynx normal Neck: trachea midline, no thyromegaly Respiratory: no respiratory distress Auscultation: lungs clear to auscultation bilaterally Cardiovascular: Rate/Rhythm: regular rate and regular rhythm; not tachycardic Heart Sounds: normal S1, normal S2 and + murmur Extremities: + edema (Trace edema bilaterally) Gastrointestinal (Abdomen): Inspection/Auscultation: normal bowel sounds; abdomen not distended Percussion/Palpation: abdomen soft; abdomen nontender Neurologic: normal touch/pain/proprioception and moves all extremities; no focal motor deficits Psychiatric: A+Ox3, euthymic affect Lymphatic: no cervical or axillary lymphadenopathy Results & Data Results & Data Vital Signs (Past 12 Hours) Vital Signs Temp Pulse Pulse Resp BP Pulse Ox O2 Del Method 08/16/23 15:21 36.7 C 74 16 158/74 H 95 Room Air 08/16/23 11:41 36.5 C 67 14 155/76 H 96 Room Air 08/16/23 07:39 36.4 C L 77 14 160/70 H 94 Room Air Laboratory Results [facility] 08/16/23 07:20 Sodium 128 L Potassium 5.1 Chloride 92 L Carbon Dioxide 35 H BUN 11 Creatinine 0.54 L Glucose 145 H Calcium 8.3 L Medications Administered Current Inpatient Medications Acetaminophen (Acetaminophen 500 Mg Tab) 1,000 mg PO Q8H [facility] Stop: 09/11/23 21:59 Last Admin: 08/16/23 14:00 Dose: 1,000 mg Aspirin (Aspirin 325 Mg Ectab) [facility] Stop: 09/12/23 08:59 Last Admin: 08/16/23 08:51 Dose: 325 mg Bisacodyl (Bisacodyl 5 Mg Tabec) 5 mg PO DAILY [facility] Stop: 09/12/23 08:59 Last Admin: 08/16/23 08:55 Dose: 5 mg Bisacodyl (Bisacodyl 10 Mg Supp) 10 mg [place] DAILY PRN PRN Reason: Constipation Stop: 09/11/23 16:10 Latanoprost (Latanoprost 0.005% Op Soln 2.5 Ml Btl) 1 drops OPB DAILY [facility] Stop: 09/12/23 08:59 Last Admin: 08/16/23 08:51 Dose: 1 drops Lidocaine (Lidocaine 5% 1 Patch) 1 patch TD [facility] Stop: 09/13/23 17:44 Last Admin: 08/16/23 08:51 Dose: 1 patch Lisinopril (Lisinopril 40 Mg Tab) 40 mg PO [facility] Stop: 09/12/23 08:59 Last Admin: 08/13/23 08:11 Dose: 40 mg Magnesium Hydroxide (Magnesium Hydroxide Susp 30 Ml Udc) 30 ml PO DAILY PRN PRN Reason: Constipation Stop: 09/11/23 16:10 Last Admin: 08/15/23 21:38 Dose: 30 ml Metoprolol Tartrate (Metoprolol Tartrate 25 Mg Tab) 12.5 mg PO BID [facility] Stop: 09/11/23 20:59 Last Admin: 08/16/23 08:51 Dose: 12.5 mg Miscellaneous (Remove Lidoderm Patch) 1 each N/A DAILY@2100 [facility] Stop: 09/13/23 20:59 Last Admin: 08/15/23 21:51 Dose: Not Given Multivitamins/Minerals (Cerovite Adv Formula Tab) [facility] Stop: 09/12/23 08:59 Last Admin: 08/16/23 08:51 Dose: 1 tab Naloxone HCl (Naloxone Hcl 0.4 Mg/1 Ml Vial/Carp) 0.1 mg IV UD PRN PRN Reason: Opiate Overdose Stop: 09/11/23 16:10 Ondansetron HCl (Ondansetron Inj 2 Mg/Ml 2 Ml Vial) 4 mg IV Q4H PRN PRN Reason: Nausea And Vomiting Stop: 09/11/23 16:10 Polyethylene Glycol (Polyethylene (Miralax) 17 Gm Pack) 17 gm PO DAILY [facility] Stop: 09/11/23 16:10 Last Admin: 08/16/23 08:55 Dose: 17 gm Rosuvastatin Calcium (Rosuvastatin Calcium 10 Mg Tab) 10 mg PO HS [facility] Stop: 09/11/23 20:59 Last Admin: 08/15/23 21:39 Dose: 10 mg Sodium Chloride (Sodium Chloride 1 Gm Tablet) 1 gm PO BID [facility] Stop: 09/14/23 20:59 Last Admin: 08/16/23 08:51 Dose: 1 gm Tramadol HCl (Tramadol Hcl 50 Mg Tablet) 50 mg PO Q4H PRN PRN Reason: Moderate Pain (Scale 4, 5, 6) Stop: 09/11/23 14:25 Last Admin: 08/16/23 12:45 Dose: 50 mg
[2023-08-16] MEDS: lisinopril 10 MG TAB PO ONE (17:15)
[2023-08-16] MEDS: DICLOFENAC SOD 1% GEL 100 GM TUBE EXT SCH (20:13)
[2023-08-17 07:08] LABS: BUN Creatinine Ratio 22.2 (10-20); Calcium 8.2 mg/dl (8.6-10.3); Creatinine Clr Calc Pharmacy 70.3 ml/min; Est GFR (African American) 97.6 ml/min; Est GFR (Non-African American) 84.3 ml/min; Potassium 4.6 mmol/L (3.5-5.1)
[2023-08-17] MEDS: lisinopril 20 MG TAB PO SCH (09:09)
[2023-08-17] MEDS: lisinopril 20 MG TAB PO STA (11:12)
--- NOTE | 2023-08-17 16:09 | Hospitalist Progress Note ---
Date of Service August 17, 2023 Assessment & Plan (1) Fracture of left hip: Plan: -Admit to med telemetry -Check CXR for preop clearance, EKG reviewed personally without signs of acute ST wave inversions or ischemia -Last echo reviewed from June 23, 2023 showing EF of 55 to 59%, moderate to severe aortic stenosis, heard on exam -Status post left hip cephalomedullary nailing of intertrochanteric femur fracture . -Continue with pain medications and bowel regimen. -Orthopedics on board, appreciate recommendation. -PT/OT, possible DC to rehab. -Clinically stable and the pain seems to be controlled with as needed narcotic pain medications -She does not have any problem with urine or bowel habit -She will need to go to rehab following discharge -She has been getting scheduled Tylenol and as needed tramadol for pain control -Seems to be remains pleasantly confused but does not have any acute distress -Continue PT and OT and will need placement -Doing much better today and the pain seems to be reasonably controlled with current medications -Remains stable and the pain is getting better day by day -Ready to be discharged and awaiting placement Acute on chronic back pain Admits to have more pain in the back-could be due to the position in bed History of back surgery X-ray of the lumbar spine did show old thoracic spine fracture Will give lidocaine patch as she was using at home Lidocaine patch has been applied Will apply diclofenac sodium locally as well for better pain control Pain is better controlled with diclofenac and lidocaine patch (2) Paroxysmal A-fib: Plan: -Chronic, stable, rate controlled on metoprolol 12.5 twice daily -She is not on anticoagulation other than baby aspirin -Rate is controlled does not have any cardiac symptoms (3) Hypertension: Plan: -Chronic, stable. Continue home medications as able. -Blood pressure is controlled with current medication -Blood pressure seems to be elevated at 158/74-will restart her home medications -Blood pressure has been going up -Lisinopril has been restarted the full dose from today (4) Hyperlipidemia: Plan: -Continue statin therapy -Chronic, stable (5) Aortic stenosis: Plan: -Present on exam, reviewed most recent echo done on 06/23/2023 as above -Chronic, stable (6) History of breast cancer: Plan: -Remote history of such status post partial mastectomy, right, XRT, no history of chemotherapy (7) Type 2 diabetes mellitus: Plan: -ISS with Accu-Cheks ACHS -Check A1c, patient is not on any oral anti-hyperglycemic medications DVT PPx:teds, scds Lines: 2 PIV FEN/GI: N.p.o. for now, await Ortho to determine if patient can have diet today CODE: Full code Discussed with the daughter Likely discharge in a day or 2 Admission and Anticipated Discharge Date Admission Date: August 12, 2023 Subjective 08/14/2023 The patient was seen and examined in medical floor in presence of the She has been complaining of more back pain than before She has had a fall but did not injure the back but had fractures of the hip that has been corrected Denies any bladder and/or bowel problem Does not have radiation of pain History of back surgery 08/15/2023 The patient was seen and examined in medical floor in presence of the the and the daughter She has been complaining of back pain and pain in the left hip Remains generally weak Denies any chest pain, palpitation or shortness of breath 08/16/2023 The patient was seen and examined in medical floor She has been feeling much better with decreasing pain at the back and also left hip pain Denies any cough and no shortness of breath 08/17/2023 The patient was seen and examined in medical floor in presence of the family members specially the daughter She has been feeling much better Out of bed on a chair does not look in any distress She complains to have soreness involving the left hip area Review of Systems Review of Systems: All systems reviewed and are unremarkable except as noted below Physical Exam Physical Exam: Lying in bed without any acute distress Constitutional: well developed, well nourished, + ill appearing and + obese Eyes: PERRL, conjunctivae normal, anicteric sclerae ENMT: external ear and nose normal, oropharynx normal Neck: trachea midline, no thyromegaly Respiratory: no respiratory distress Auscultation: lungs clear to auscultation bilaterally Cardiovascular: Rate/Rhythm: regular rate and regular rhythm; not tachycardic Heart Sounds: normal S1, normal S2 and + murmur Extremities: + edema (Trace edema bilaterally) Gastrointestinal (Abdomen): Inspection/Auscultation: normal bowel sounds; abdomen not distended Percussion/Palpation: abdomen soft; abdomen nontender Neurologic: normal touch/pain/proprioception and moves all extremities; no focal motor deficits Psychiatric: A+Ox3, euthymic affect Lymphatic: no cervical or axillary lymphadenopathy Results & Data Results & Data Vital Signs (Past 12 Hours) Vital Signs Temp Pulse Resp BP Pulse Ox O2 Del Method 08/17/23 15:01 36.4 C L 76 16 159/67 H 95 Room Air 08/17/23 07:35 36.4 C L 67 16 175/80 H 95 Room Air Laboratory Results [facility] 08/17/23 05:58 Sodium 128 L Potassium 4.6 Chloride 93 L Carbon Dioxide 30 BUN 12 Creatinine 0.54 L Glucose 124 H Calcium 8.2 L Medications Administered Current Inpatient Medications Acetaminophen (Acetaminophen 500 Mg Tab) 1,000 mg PO Q8H [facility] Stop: 09/11/23 21:59 Last Admin: 08/17/23 13:55 Dose: 1,000 mg Aspirin (Aspirin 325 Mg Ectab) 325 mg PO [facility] Stop: 09/12/23 08:59 Last Admin: 08/17/23 09:09 Dose: 325 mg Bisacodyl (Bisacodyl 5 Mg Tabec) 5 mg PO DAILY [facility] Stop: 09/12/23 08:59 Last Admin: 08/17/23 09:11 Dose: Not Given Bisacodyl (Bisacodyl 10 Mg Supp) [address] DAILY PRN PRN Reason: Constipation Stop: 09/11/23 16:10 Diclofenac Sodium (Diclofenac Sod 1% Gel 100 Gm Tube) 2 gm EXT BID [facility]; Protocol Stop: 09/15/23 20:59 Last Admin: 08/17/23 09:10 Dose: 2 gm Latanoprost (Latanoprost 0.005% Op Soln 2.5 Ml Btl) 1 drops OPB DAILY [facility] Stop: 09/12/23 08:59 Last Admin: 08/17/23 09:11 Dose: 1 drops Lidocaine (Lidocaine 5% 1 Patch) 1 patch TD [facility] Stop: 09/13/23 17:44 Last Admin: 08/17/23 09:11 Dose: 1 patch Lisinopril (Lisinopril 40 Mg Tab) 40 mg PO [facility] Stop: 09/17/23 08:59 Magnesium Hydroxide (Magnesium Hydroxide Susp 30 Ml Udc) 30 ml PO DAILY PRN PRN Reason: Constipation Stop: 09/11/23 16:10 Last Admin: 08/16/23 20:13 Dose: 30 ml Metoprolol Tartrate (Metoprolol Tartrate 25 Mg Tab) 12.5 mg PO BID [facility] Stop: 09/11/23 20:59 Last Admin: 08/17/23 09:09 Dose: 12.5 mg Miscellaneous (Remove Lidoderm Patch) 1 each N/A DAILY@2100 [facility] Stop: 09/13/23 20:59 Last Admin: 08/16/23 20:15 Dose: 1 each Multivitamins/Minerals (Cerovite Adv Formula Tab) 1 tab PO QAM [facility] Stop: 09/12/23 08:59 Last Admin: 08/17/23 09:09 Dose: 1 tab Naloxone HCl (Naloxone Hcl 0.4 Mg/1 Ml Vial/Carp) 0.1 mg IV UD PRN PRN Reason: Opiate Overdose Stop: 09/11/23 16:10 Ondansetron HCl (Ondansetron Inj 2 Mg/Ml 2 Ml Vial) 4 mg IV Q4H PRN PRN Reason: Nausea And Vomiting Stop: 09/11/23 16:10 Polyethylene Glycol (Polyethylene (Miralax) 17 Gm Pack) 17 gm PO DAILY [facility] Stop: 09/11/23 16:10 Last Admin: 08/17/23 09:11 Dose: Not Given Rosuvastatin Calcium (Rosuvastatin Calcium 10 Mg Tab) 10 mg PO HS [facility] Stop: 09/11/23 20:59 Last Admin: 08/16/23 20:14 Dose: 10 mg Sodium Chloride (Sodium Chloride 1 Gm Tablet) 1 gm PO BID [facility] Stop: 09/14/23 20:59 Last Admin: 08/17/23 09:10 Dose: 1 gm Tramadol HCl (Tramadol Hcl 50 Mg Tablet) 50 mg PO Q4H PRN PRN Reason: Moderate Pain (Scale 4, 5, 6) Stop: 09/11/23 14:25 Last Admin: 08/17/23 11:12 Dose: 50 mg
[2023-08-18] MEDS: lisinopril 40 MG TAB PO SCH (08:51)
[2023-08-18 11:12] LABS: BUN Creatinine Ratio 23.2 (10-20); Calcium 8.5 mg/dl (8.6-10.3); Creatinine Clr Calc Pharmacy 67.8 ml/min; Est GFR (African American) 96.5 ml/min; Est GFR (Non-African American) 83.2 ml/min; Potassium 4.5 mmol/L (3.5-5.1)
[2023-08-18] MEDS: METOPROLOL TARTRATE 25 MG TAB PO ONE (12:22)
--- NOTE | 2023-08-18 17:11 | Hospitalist Progress Note ---
Date of Service August 18, 2023 Assessment & Plan (1) Fracture of left hip: Plan: Left hip fracture S/P left hip cephalomedullary nailing of intertrochanteric femur fracture by on 08/12/23 Continue PT OT Fall precautions Appreciate orthopedics input Plan to discharge to SNF as able Pain control Needs follow-up with orthopedics on discharge Acute on chronic back pain Chronic T12 compression fracture Lumbar spine x-ray:No acute fracture or subluxation identified. Chronic T12 compression fracture. Pain control Continue PT OT Chronic hyponatremia Monitor sodium levels Liberalize salt in diet (2) Paroxysmal A-fib: Plan: -Chronic, stable, rate controlled on metoprolol -She is not on anticoagulation other than baby aspirin Asymptomatic (3) Hypertension: Plan: Chronic BP variable Continue lisinopril, metoprolol Monitor (4) Hyperlipidemia: Plan: -Continue statin therapy -Chronic, stable (5) Aortic stenosis: Plan: -Noted on recent echo done on 06/23/2023 -Chronic, stable Follow-up as outpatient (6) History of breast cancer: Plan: -S/P partial mastectomy, right, XRT, no history of chemotherapy (7) Type 2 diabetes mellitus: Plan: Check HbA1c Diet controlled DVT Px: Teds,SCDs Also on aspirin 325 mg daily CODE STATUS: Full code Disposition SNF when accepted Admission and Anticipated Discharge Date Admission Date: August 12, 2023 Subjective Patient is seen and examined at bedside Left hip pain is controlled Reports chronic nausea unchanged Denies vomiting, abdominal pain, chest pain, dyspnea Discussed with patient's daughter at bedside Waiting for placement Review of Systems Review of Systems: All systems reviewed & are unremarkable except as noted in Subjective Physical Exam Physical Exam: Physical Exam: Vitals signs as noted above General Appearance:Elderly, Moderately built and nourished, no apparent distress Head: normocephalic, Atraumatic Eyes: normal inspection, EOMI Neck: supple, Trachea midline Respiratory/Chest: Normal breath sounds, CTA, No accessory muscle use Cardiovascular: S1, S2, +murmur Abdomen/GI:Soft, Non tender, Bowel sounds present Extremities/Musculoskeletal:normal inspection, Trace edema, left hip surgical site in dressing Neurologic/Psych:AAOX3, grossly no focal neurological deficits Skin: normal color, warm Results & Data Results & Data Vital Signs (Past 12 Hours) Vital Signs Temp Pulse Resp BP Pulse Ox O2 Del Method 08/18/23 15:31 36.6 C 58 L 16 159/75 H 95 Room Air 08/18/23 07:23 36.4 C L 71 16 161/65 H 94 Room Air Laboratory Results [facility] 08/18/23 10:37 Sodium 128 L Potassium 4.5 Chloride 93 L Carbon Dioxide 32 BUN 13 Creatinine 0.56 L Glucose 160 H Calcium 8.5 L
[2023-08-18] MEDS: METOPROLOL TARTRATE 25 MG TAB PO SCH (21:07)
[2023-08-19 06:50] LABS: Hematocrit (blood only) 27.8 % (37.0-47.0); Hemoglobin 9.2 g/dl (12.0-16.0); Mean Corpuscular Hemoglobin 29.5 pg (25.0-34.0); Mean Corpuscular Hgb Conc 33.1 g/dL (32.0-36.0); Mean Corpuscular Volume 89.1 fL (80.0-100.0); Mean Platelet Volume 8.8 fL (9.4-12.4); Platelet Count 293 K/uL (130-400); RDW Coefficient of Variation 13.2 % (11.5-14.5); RDW Standard Deviation 42.2 fL (36.4-46.3); Red Blood Count 3.12 M/uL (4.20-5.40); White Blood Count 11.06 K/ul (4.8-10.8)
[2023-08-19 07:12] LABS: BUN Creatinine Ratio 22.2 (10-20); Calcium 8.1 mg/dl (8.6-10.3); Creatinine Clr Calc Pharmacy 70.3 ml/min; Est GFR (African American) 97.6 ml/min; Est GFR (Non-African American) 84.3 ml/min; Potassium 4.3 mmol/L (3.5-5.1)
[2023-08-19 08:49] LABS: Estimated Average Glucose 154 mg/dl
[2023-08-19] MEDS ORDERED: ALUMINUM/MAGNESIUM/SIMETH (MAALOX MAX) 30 ML UDC PO PRN (13:09)
[2023-08-19] MEDS: amLODIPine BESYLATE 5 MG TAB PO SCH (13:44)
--- NOTE | 2023-08-19 16:02 | Ultrasound Report ---
US venous doppler LE BI CLINICAL HISTORY: LEG SWELLING, R/O DVT TECHNIQUE: Bilateral lower extremity real-time compression venous ultrasound with Color Doppler imagi ng. Utilizing real-time ultrasonic imaging multiple real time high-resolution ultrasonic images with compression and noncompression maneuvers of the deep venous system in addition to color doppler imagi ng were performed from the common femoral vein through the proximal calf veins. COMPARISON: Comparison is made to previous Doppler ultrasound 02/21/2010 FINDINGS/IMPRESSION: Currently there is normal compressibility of the deep venous system from the common femoral vein thro ugh the proximal calf veins. No superficial venous thrombosis is identified. ACT 112: Negative or not required by law. Electronically signed by: Ambrose Quintanilla M.D. 08/19/2023 4:01 PM
--- NOTE | 2023-08-19 16:45 | XRay Report ---
KUB CLINICAL HISTORY: Left lower quadrant abdominal pain. FINDINGS: 2 AP, portable, supine abdominal radiographs are correlated with abdominal CT dated 9. There is rectosigmoid fecal retention. No bowel obstruction is identified. No evidence of intraper itoneal free air is seen on these supine images. Cholecystectomy clips and suture material project ov er the right upper quadrant. There are no abnormal abdominal calcifications. Phleboliths are seen in the pelvis. The skeletal structures are osteopenic. Advanced spondylotic and postsurgical change is n oted in the lumbar spine. There is chronic deformity and postsurgical change noted in the left proxim al femur. IMPRESSION: No acute abnormality is identified noting retrosigmoid fecal retention. Electronically signed by: Haroon Norris M.D. 08/19/2023 4:44 PM
--- NOTE | 2023-08-19 16:51 | Hospitalist Progress Note ---
Date of Service August 19, 2023 Assessment & Plan (1) Fracture of left hip: Plan: Left hip fracture S/P left hip cephalomedullary nailing of intertrochanteric femur fracture by on 08/12/23 --Venous Doppler:Currently there is normal compressibility of the deep venous system from the common femoral vein through the proximal calf veins. No superficial venous thrombosis is identified. Continue PT OT Fall precautions Appreciate orthopedics input Plan to discharge to SNF as able Pain control Needs follow-up with orthopedics on discharge Waiting for rehab placement Acute on chronic back pain Chronic T12 compression fracture Lumbar spine x-ray:No acute fracture or subluxation identified. Chronic T12 compression fracture. Pain control Continue PT OT Constipation KUB: Showed no obstruction, but noted rectosigmoid fecal retention Continue bowel regimen Encouraged to ambulate Chronic hyponatremia Monitor sodium levels Liberalize salt in diet (2) Paroxysmal A-fib: Plan: -Chronic, stable, rate controlled on metoprolol -She is not on anticoagulation other than baby aspirin Asymptomatic (3) Hypertension: Plan: Chronic BP variable Continue lisinopril, metoprolol Monitor (4) Hyperlipidemia: Plan: -Continue statin therapy -Chronic, stable (5) Aortic stenosis: Plan: -Noted on recent echo done on 06/23/2023 -Chronic, stable Follow-up as outpatient (6) History of breast cancer: Plan: -S/P partial mastectomy, right, XRT, no history of chemotherapy (7) Type 2 diabetes mellitus: Plan: Check HbA1c Diet controlled DVT Px: Teds,SCDs Also on aspirin 325 mg daily CODE STATUS: Full code Disposition SNF when accepted Admission and Anticipated Discharge Date Admission Date: August 12, 2023 Subjective Patient is seen and examined at bedside Discussed with patient's daughter at bedside Patient's daughter concerned about increased lower extremity swelling Patient also admits to having mild left lower quadrant abdominal discomfort Reported nausea but no vomiting No other complaints Denies chest pain, dyspnea Waiting for placement Review of Systems Review of Systems: All systems reviewed & are unremarkable except as noted in Subjective Physical Exam Physical Exam: Physical Exam: Vitals signs as noted above General Appearance:Elderly, Moderately built and nourished, no apparent distress Head: normocephalic, Atraumatic Eyes: normal inspection, EOMI Neck: supple, Trachea midline Respiratory/Chest: Normal breath sounds, CTA, No accessory muscle use Cardiovascular: S1, S2, +murmur Abdomen/GI:Soft, Non tender, Bowel sounds present Extremities/Musculoskeletal:normal inspection, Trace edema, left hip surgical site in dressing Neurologic/Psych:AAOX3, grossly no focal neurological deficits Skin: normal color, warm Results & Data Results & Data Vital Signs (Past 12 Hours) Vital Signs Temp Pulse Resp BP BP Pulse Ox O2 Del Method 08/19/23 16:45 36.4 C L 63 18 187/74 H 94 Room Air 08/19/23 11:26 36.9 C 87 18 178/80 H 177/66 H 94 Room Air 08/19/23 09:43 79 182/69 H 96 Room Air 08/19/23 07:58 Room Air 08/19/23 07:25 36.4 C L 69 18 172/69 H 94 Room Air Laboratory Results Short CBC 08/19/23 Range/Units 05:59 WBC 11.06 H (4.8-10.8) K/ul Hgb 9.2 L (12.0-16.0) g/dl Hct 27.8 L (37.0-47.0) % Plt Count 293 (130-400) K/uL BMP 08/19/23 05:59 Sodium 129 L Potassium 4.3 Chloride 94 L Carbon Dioxide 31 BUN 12 Creatinine 0.54 L Glucose 109 H Calcium 8.1 L
[2023-08-19] MEDS: DOCUSATE SODIUM 100 MG CAP PO SCH (20:58)
[2023-08-20 06:31] LABS: Basophils # (auto) 0.05 K/uL (0.00-0.20); Basophils % (auto) 0.4 %; Eosinophils # (auto) 0.25 K/uL (0.00-0.50); Hematocrit (blood only) 30.4 % (37.0-47.0); Hemoglobin 9.9 g/dl (12.0-16.0); Immature Granulocytes # (auto) 0.09 K/uL (0.01-0.20); Immature Granulocytes % (auto) 0.7 %; Lymphocytes # (auto) 2.89 K/uL (1.20-3.40); Lymphocytes % (auto) 23.7 %; Mean Corpuscular Hemoglobin 28.7 pg (25.0-34.0); Mean Corpuscular Hgb Conc 32.6 g/dL (32.0-36.0); Mean Corpuscular Volume 88.1 fL (80.0-100.0); Mean Platelet Volume 8.6 fL (9.4-12.4); Monocytes # (auto) 1.31 K/uL (0.11-0.59); Monocytes % (auto) 10.7 %; Neutrophils # (auto) 7.61 K/uL (1.40-6.50); Neutrophils % (auto) 62.5 %; Platelet Count 334 K/uL (130-400); RDW Coefficient of Variation 13.6 % (11.5-14.5); RDW Standard Deviation 41.6 fL (36.4-46.3); Red Blood Count 3.45 M/uL (4.20-5.40)
[2023-08-20 07:08] LABS: BUN Creatinine Ratio 23.5 (10-20); Calcium 8.3 mg/dl (8.6-10.3); Creatinine Clr Calc Pharmacy 74.5 ml/min; Est GFR (African American) 99.5 ml/min; Est GFR (Non-African American) 85.9 ml/min; Potassium 4.3 mmol/L (3.5-5.1)
[2023-08-20] MEDS: oxyCODONE/ACETAMINOPHEN 5mg/325mg TAB PO PRN (18:16)
--- NOTE | 2023-08-20 19:50 | Nephrology Consultation ---
Date of Consultation August 20, 2023 Assessment & Plan (1) Chronic hyponatremia: challenging to assess but she may well be volume depleted based on hx, thirst (though salt tabs can cause thirst too); lung scarring noted on XR and structural lung disease/SIADH picture possible as well. not floridly overloaded on exam, no evidence of HF -stop salt tablets -no FR for now -maintain eukalemia -1/2 L NS overnight -repeat bmp in AM History of Present Illness Reason for Consultation: hyponatremia Requesting Physician: Dr Palafox Attending Physician: Brody Palafox MD History of Present Illness 87 y/o F whom I am asked to see for hyponatremia was admitted July with a left hip fracture after a fall. Her presenting sodium was 131. Today it is 126. Past medical history includes paroxysmal atrial fibrillation, severe aortic stenosis and history of SVT, hypertension, diabetes, mild dementia hyperlipidemia, 2022 spinal surgery, R shoulder replacement, 2004 breast cancer status post partial mastectomy. She underwent left cephalomedullary intertrochanteric femur fracture nailing procedure on the day of admission. She has had mild hyponatremia with sodium levels greater than 130 in the serum at prior encounters in [facility]. Her sodium has slowly trended down since admission. Serum osm's are 267, urine osm's are 355 with a urine sodium of 41. She was started on twice daily 1 g sodium chloride in the evening of August 14. Her home lisinopril was continued. No other medications on her list that affect sodium. She has not had diuretics since admission. since starting the salt tablets her blood pressure has been elevated She denies shortness of breath, chest pain, palpitations, edema, uncontrolled pain (provided she does not try to maneuver); no n/v or abdominal discomfort. no rash. does endorse thirst and tells me she really likes to drink fluids. Not clear how accurate I/O are but according to them she is 7.4L negative on the admission and has had no diuretics this admission per pharmacy. Allergies Allergy/AdvReac Type Severity Reaction Status Date / Time latex Allergy Redness of Verified 09/09/21 08:26 Skin codeine AdvReac Mild HALLUCINATI Verified 09/09/21 08:26 ONS Home Medications Medication Instructions Recorded Confirmed Type lisinopril 10 mg tablet 40 mg PO QAM 10/13/18 08/12/23 History rosuvastatin 10 mg tablet 10 mg PO HS 10/13/18 08/12/23 History multivitamin-ferrous 1 tab PO QAM 02/20/20 08/12/23 History fumarate-folic acid 18 mg-400 mcg tablet (Centrum) latanoprost 0.005 % eye drops 1 drp OPB DAILY 09/09/21 08/12/23 History metoprolol tartrate 25 mg tablet 25 mg PO BID 09/09/21 08/18/23 History Stool Softener See Rx Instructions .Route .COMPLEX 08/12/23 08/12/23 History aspirin 81 mg tablet,delayed 81 mg PO PM 08/12/23 08/12/23 History release Patient History Medical History Type 2 diabetes mellitus Diet "controlled," though glucose > 200 on pre-op labs and most recent A1C with PCP 01/04 7.1% Aortic stenosis Moderate per February 2020 echo Paroxysmal A-fib Follows with [facility] cardiology, Dr. Cid History of breast cancer left breast GERD (gastroesophageal reflux disease) Macular degeneration Glaucoma Hyperlipidemia Hypertension Shingles 2013 Surgical History History of lumpectomy of left breast with lymph node dissection. LEFT LIMB RESTRICTION History of appendectomy Status post right knee replacement History of right shoulder replacement History of colonoscopy H/O: hysterectomy History of cholecystectomy [place] teeth extracted History of tonsillectomy Family History Other Cancer Heart disease Social History Smoking Status: Never smoker Second Hand Exposure: No; Do You Dip or Chew Tobacco: No; Hx Alcohol Use: No Hx Substance Use: No Preferred Language: Pashto Communication Ability: Effective Dry Finisher Required: No Beliefs That Will Affect Care: None Current Living Situation: Family Current Living Situation Comment: Lives in independent living [facility] Feels Safe at Home: Yes Safety Concerns: Feels Safe At This Time Assistive Devices: None Review of Systems 2 Review of Systems: All systems reviewed & are unremarkable except as noted in HPI & below Physical Exam 2 Constitutional: well developed (lying in bed HOB at 30 degrees on RA), well nourished and cooperative; no acute distress Eyes: EOM intact bilaterally ENMT: Ears: no external ear abnormality Nose: no external nose abnormality Mouth: + dry oral mucous membranes Neck: no nuchal rigidity Respiratory: normal respiratory effort Auscultation: + diminished lung sounds Cardiovascular: Rate/Rhythm: regular rate and regular rhythm (w/ frequent skipped beats) Heart Sounds: + murmur Extremities: no edema Gastrointestinal (Abdomen): Inspection/Auscultation: normal bowel sounds P ercussion/Palpation: abdomen soft; abdomen nontender Musculoskeletal: Extremities: + limited ROM of extremities (cannot maneuver d/t hip pain L) and strength 5/5 throughout Skin: no rashes, warm and dry Neurologic: sidhu, fluent speech, no tremor Psychiatric: Orientation: alert, oriented to person and oriented to place Results & Data Vital Signs (Past 12 Hours) Vital Signs Temp Pulse Resp BP Pulse Ox O2 Del Method 08/20/23 15:51 36.6 C 64 16 146/66 H 94 Room Air Laboratory Results 08/20/23 05:23 08/20/23 12:54 Diagnostic Findings admission cxr FINDINGS: No pneumothorax. No pleural effusions. There are low lung volumes. Left basilar linear densities favor subsegmental atelectasis or scarring. This is similar to the prior study. The heart remains mildly enlarged. No evidence for pulmonary edema. No new focal lung consolidations. The right shoulder prosthesis, prior cholecystectomy, lumbar spinal fusion hardware again noted. No acute fractures identified.
[2023-08-20] MEDS: SODIUM CHLORIDE 0.9% 500 ML IV SCH (20:48)
--- NOTE | 2023-08-20 21:54 | Hospitalist Progress Note ---
Date of Service August 20, 2023 Assessment & Plan (1) Fracture of left hip: Plan: Left hip fracture S/P left hip cephalomedullary nailing of intertrochanteric femur fracture by on 08/12/23 --Venous Doppler:Currently there is normal compressibility of the deep venous system from the common femoral vein through the proximal calf veins. No superficial venous thrombosis is identified. Continue PT OT Fall precautions Appreciate orthopedics input Plan to discharge to SNF as able Pain control Needs follow-up with orthopedics on discharge Waiting for rehab placement Change Tylenol to Percocet for better pain control Acute on chronic back pain Chronic T12 compression fracture Lumbar spine x-ray:No acute fracture or subluxation identified. Chronic T12 compression fracture. Pain control Continue PT OT Constipation KUB: Showed no obstruction, but noted rectosigmoid fecal retention Continue bowel regimen Encouraged to ambulate Chronic hyponatremia Serum osmolality 267, urine sodium 41, urine osmolality 355 Monitor sodium levels Salt tablets discontinued Sodium 126 today IV fluids as per nephrology patient nephrology input Increase increase protein intake (2) Paroxysmal A-fib: Plan: -Chronic, stable, rate controlled on metoprolol -She is not on anticoagulation other than baby aspirin Asymptomatic (3) Hypertension: Plan: Chronic BP variable Continue lisinopril, metoprolol Monitor (4) Hyperlipidemia: Plan: -Continue statin therapy -Chronic, stable (5) Aortic stenosis: Plan: -Noted on recent echo done on 06/23/2023 -Chronic, stable Follow-up as outpatient (6) History of breast cancer: Plan: -S/P partial mastectomy, right, XRT, no history of chemotherapy (7) Type 2 diabetes mellitus: Plan: HbA1c 7.0 Diet controlled DVT Px: Teds,SCDs Also on aspirin 325 mg daily CODE STATUS: Full code Disposition SNF as able Admission and Anticipated Discharge Date Admission Date: August 12, 2023 Subjective Patient is seen and examined at bedside Reports nausea but no vomiting Poor oral intake per family Discussed with patient's daughter at bedside Reports leg pain at surgical site Sodium levels worsened Denies chest pain, dyspnea, abd pain Review of Systems Review of Systems: All systems reviewed & are unremarkable except as noted in Subjective Physical Exam Physical Exam: Physical Exam: Vitals signs as noted above General Appearance:Elderly, Moderately built and nourished, no apparent distress Head: normocephalic, Atraumatic Eyes: normal inspection, EOMI Neck: supple, Trachea midline Respiratory/Chest: Normal breath sounds, CTA, No accessory muscle use Cardiovascular: S1, S2, +murmur Abdomen/GI:Soft, Non tender, Bowel sounds present Extremities/Musculoskeletal:normal inspection, Trace edema, left hip surgical site in dressing Neurologic/Psych:AAOX3, grossly no focal neurological deficits Skin: normal color, warm Results & Data Results & Data Vital Signs (Past 12 Hours) Vital Signs Temp Pulse Resp BP BP Pulse Ox O2 Del Method 08/20/23 20:11 36.6 C 64 16 122/52 L 98 Room Air 08/20/23 15:51 36.6 C 64 16 146/66 H 94 Room Air Laboratory Results Short CBC 08/20/23 Range/Units 05:23 WBC 12.20 H (4.8-10.8) K/ul Hgb 9.9 L (12.0-16.0) g/dl Hct 30.4 L (37.0-47.0) % Plt Count 334 (130-400) K/uL BMP 08/20/23 08/20/23 05:23 12:54 Sodium 127 L 126 L Potassium 4.3 Chloride 93 L Carbon Dioxide 29 BUN 12 Creatinine 0.51 L Glucose 95 Calcium 8.3 L
[2023-08-21 06:37] LABS: BUN Creatinine Ratio 19.6 (10-20); Creatinine Clr Calc Pharmacy 67.8 ml/min; Est GFR (African American) 96.5 ml/min; Est GFR (Non-African American) 83.2 ml/min; Potassium 4.1 mmol/L (3.5-5.1)
--- NOTE | 2023-08-21 14:25 | Nephrology Progress Note ---
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 volume depletion. na went up a bit 129 now with NS. Might need some lasix also to raise further. Daily labs. Monitor gross hematuria--Not concerning in luciano trauma setting but Daughter very worried about it. S--had some gross hematuria and luciano removed. na 129 now. Exam: Physical Exam Physical Exam: General Appearance:Elderly, Moderately built and nourished, no apparent distress Head: normocephalic, Atraumatic Eyes: normal inspection, EOMI Neck: supple, Trachea midline Respiratory/Chest: Normal breath sounds, CTA, No accessory muscle use Cardiovascular: S1, S2, +murmur Abdomen/GI:Soft, Non tender, Bowel sounds present Extremities/Musculoskeletal:normal inspection, Trace edema, left hip surgical site in dressing Neurologic/Psych:AAOX3, grossly no focal neurological deficits Skin: normal color, warm Results & Data Vital Signs (Past 12 Hours) Vital Signs Temp Pulse Resp BP Pulse Ox O2 Del Method 08/21/23 11:06 68 95 Room Air 08/21/23 09:20 104 H 132/69 08/21/23 07:17 37.1 C 75 16 147/67 H 93 Room Air
--- NOTE | 2023-08-21 15:32 | Hospitalist Progress Note ---
Date of Service August 21, 2023 Assessment & Plan (1) Fracture of left hip: Plan: Left hip fracture S/P left hip cephalomedullary nailing of intertrochanteric femur fracture by on 08/12/23 --Venous Doppler:Currently there is normal compressibility of the deep venous system from the common femoral vein through the proximal calf veins. No superficial venous thrombosis is identified. Continue PT OT Fall precautions Appreciate orthopedics input Needs follow-up with orthopedics on discharge Pain is better controlled Plan to discharge to rehab as able Minimal hematuria ? Traumatic catheter Check urinalysis to rule out UTI Peace catheter discontinued Bladder scan as needed to monitor for any retention UA pending Acute on chronic back pain Chronic T12 compression fracture Lumbar spine x-ray:No acute fracture or subluxation identified. Chronic T12 compression fracture. Pain control Continue PT OT Constipation KUB: Showed no obstruction, but noted rectosigmoid fecal retention Continue bowel regimen Encouraged to ambulate Chronic hyponatremia Serum osmolality 267, urine sodium 41, urine osmolality 355 Monitor sodium levels Salt tablets discontinued Sodium 129 today continue IV fluids as per nephrology Appreciate nephrology input Increase increase protein intake Nephrology following (2) Paroxysmal A-fib: Plan: -Chronic, stable, rate controlled on metoprolol -She is not on anticoagulation other than baby aspirin Asymptomatic (3) Hypertension: Plan: Chronic BP variable Continue lisinopril, metoprolol Monitor (4) Hyperlipidemia: Plan: -Continue statin therapy -Chronic, stable (5) Aortic stenosis: Plan: -Noted on recent echo done on 06/23/2023 -Chronic, stable Follow-up as outpatient (6) History of breast cancer: Plan: -S/P partial mastectomy, right, XRT, no history of chemotherapy (7) Type 2 diabetes mellitus: Plan: HbA1c 7.0 Diet controlled DVT Px: Teds,SCDs Also on aspirin 325 mg daily CODE STATUS: Full code Disposition SNF as able Admission and Anticipated Discharge Date Admission Date: August 12, 2023 Subjective Patient is seen and examined at bedside No nausea, vomiting today Leg pain is better controlled per patient Noticed minimal blood-tinged urine Patient denies any dysuria Appetite seems to be slowly improving Sodium improved to 129 today Denies chest pain, dyspnea, abd pain Admits to have some back pain today Review of Systems Review of Systems: All systems reviewed & are unremarkable except as noted in Subjective Physical Exam Physical Exam: Physical Exam: Vitals signs as noted above General Appearance:Elderly, Moderately built and nourished, no apparent distress Head: normocephalic, Atraumatic Eyes: normal inspection, EOMI Neck: supple, Trachea midline Respiratory/Chest: Normal breath sounds, CTA, No accessory muscle use Cardiovascular: S1, S2, +murmur Abdomen/GI:Soft, Non tender, Bowel sounds present Extremities/Musculoskeletal:normal inspection, Trace edema, left hip surgical site in dressing Neurologic/Psych:AAOX3, grossly no focal neurological deficits Skin: normal color, warm Results & Data Results & Data Vital Signs (Past 12 Hours) Vital Signs Temp Pulse Resp BP Pulse Ox O2 Del Method 08/21/23 15:18 36.8 C 72 16 118/55 L 93 Room Air 08/21/23 11:06 68 95 Room Air 08/21/23 09:20 104 H 132/69 08/21/23 07:17 37.1 C 75 16 147/67 H 93 Room Air Laboratory Results [facility] 08/21/23 05:36 Sodium 129 L Potassium 4.1 Chloride 97 L Carbon Dioxide 28 BUN 11 Creatinine 0.56 L Glucose 106 H Calcium 8.0 L
[2023-08-21 16:34] LABS: Appearance Urine Clear (Clear); Bacteria Urine Automated 2+ (Negative); Bilirubin Urine Negative (Negative); Blood Urine 3+ (Negative); Color Urine Yellow; Epithelial Cell Urine Auto 0-5 /lpf (0-5); Glucose Urine UA Negative (Negative); Ketones Urine Negative (Negative); Leukocyte Esterase Urine 2+ (Negative); Nitrite Urine Negative (Negative); Protein Urine Trace (Negative); Specific Gravity Urine 1.009 (1.000-1.030); Urobilinogen Urine Negative (Negative); WBC Urine Automated >30 /hpf (0-5); pH Urine 6.5 (4.5-7.5)
[2023-08-21] MEDS: cefTRIAXone SODIUM 1,000 MG in DEXTROSE 5 % MINI-B 50 ML IV SCH (19:32)
[2023-08-21] MEDS: ACETAMINOPHEN 1,000 MG/100 ML VIAL IV STA (23:22)
[2023-08-22] MEDS: oxyCODONE HCL IR 5 MG TAB (IMMEDIATE RELEASE) PO PRN ×2 (00:12→13:02)
[2023-08-22 06:34] LABS: Hematocrit (blood only) 27.6 % (37.0-47.0); Hemoglobin 9.1 g/dl (12.0-16.0); Mean Corpuscular Hemoglobin 29.1 pg (25.0-34.0); Mean Corpuscular Volume 88.2 fL (80.0-100.0); Mean Platelet Volume 8.3 fL (9.4-12.4); Platelet Count 345 K/uL (130-400); RDW Coefficient of Variation 14.2 % (11.5-14.5); RDW Standard Deviation 43.3 fL (36.4-46.3); Red Blood Count 3.13 M/uL (4.20-5.40); White Blood Count 11.36 K/ul (4.8-10.8)
[2023-08-22 07:01] LABS: Calcium 8.1 mg/dl (8.6-10.3); Creatinine Clr Calc Pharmacy 63.3 ml/min; Est GFR (African American) 94.3 ml/min; Est GFR (Non-African American) 81.4 ml/min; Potassium 4.1 mmol/L (3.5-5.1)
[2023-08-22] MEDS: ACETAMINOPHEN 325 MG TAB PO PRN (11:04)
--- NOTE | 2023-08-22 17:27 | Hospitalist Progress Note ---
Date of Service August 22, 2023 Assessment & Plan (1) Fracture of left hip: Plan: Left hip fracture S/P left hip cephalomedullary nailing of intertrochanteric femur fracture by on 08/12/23 --Venous Doppler:Currently there is normal compressibility of the deep venous system from the common femoral vein through the proximal calf veins. No superficial venous thrombosis is identified. Continue PT OT Fall precautions Appreciate orthopedics input Needs follow-up with orthopedics on discharge Pain is better controlled Plan to discharge to rehab as able Minimal hematuria ? Traumatic catheter Suspected UTI due to catheter Peace catheter discontinued Bladder scan as needed to monitor for any retention Urine culture growing gram-negative bacilli Started on Rocephin empirically Acute on chronic back pain Chronic T12 compression fracture Lumbar spine x-ray:No acute fracture or subluxation identified. Chronic T12 compression fracture. Pain control Continue PT OT Constipation KUB: Showed no obstruction, but noted rectosigmoid fecal retention Continue bowel regimen Encouraged to ambulate Chronic hyponatremia Serum osmolality 267, urine sodium 41, urine osmolality 355 Monitor sodium levels Salt tablets discontinued Sodium 132 today continue IV fluids as per nephrology Appreciate nephrology input Increase increase protein intake Nephrology following (2) Paroxysmal A-fib: Plan: -Chronic, stable, rate controlled on metoprolol -She is not on anticoagulation other than baby aspirin Asymptomatic (3) Hypertension: Plan: Chronic BP variable Continue lisinopril, metoprolol Monitor (4) Hyperlipidemia: Plan: -Continue statin therapy -Chronic, stable (5) Aortic stenosis: Plan: -Noted on recent echo done on 06/23/2023 -Chronic, stable Follow-up as outpatient (6) History of breast cancer: Plan: -S/P partial mastectomy, right, XRT, no history of chemotherapy (7) Type 2 diabetes mellitus: Plan: HbA1c 7.0 Diet controlled DVT Px: Teds,SCDs Also on aspirin 325 mg daily CODE STATUS: Full code Disposition SNF as able Admission and Anticipated Discharge Date Admission Date: August 12, 2023 Subjective Patient is seen and examined at bedside Reports left leg pain at surgical site No recurrence of nausea Hematuria resolved Sodium levels improved to 132 Discussed with patient's daughter at bedside Urine culture growing gram-negative bacilli Review of Systems Review of Systems: All systems reviewed & are unremarkable except as noted in Subjective Physical Exam Physical Exam: Physical Exam: Vitals signs as noted above General Appearance:Elderly, Moderately built and nourished, no apparent distress Head: normocephalic, Atraumatic Eyes: normal inspection, EOMI Neck: supple, Trachea midline Respiratory/Chest: Normal breath sounds, CTA, No accessory muscle use Cardiovascular: S1, S2, +murmur Abdomen/GI:Soft, Non tender, Bowel sounds present Extremities/Musculoskeletal:normal inspection, Trace edema, left hip surgical site in dressing Neurologic/Psych:AAOX3, grossly no focal neurological deficits Skin: normal color, warm Results & Data Results & Data Vital Signs (Past 12 Hours) Vital Signs Temp Pulse Resp BP Pulse Ox O2 Del Method 08/22/23 15:11 36.6 C 74 16 156/75 H 97 Room Air 08/22/23 09:01 85 17 132/63 95 Room Air 08/22/23 07:23 36.2 C L 73 16 128/70 91 Room Air Laboratory Results Short CBC 08/22/23 Range/Units 06:01 WBC 11.36 H (4.8-10.8) K/ul Hgb 9.1 L (12.0-16.0) g/dl Hct 27.6 L (37.0-47.0) % Plt Count 345 (130-400) K/uL BMP 08/22/23 06:01 Sodium 132 L Potassium 4.1 Chloride 100 Carbon Dioxide 27 BUN 12 Creatinine 0.60 Glucose 121 H Calcium 8.1 L Urine 08/21/23 Range/Units 16:00 Urine Color Yellow Urine Appearance Clear (Clear) Urine pH 6.5 (4.5-7.5) Ur Specific [place] 1.009 (1.000-1.030) Urine Protein Trace H (Negative) Urine Glucose (UA) Negative (Negative)
[2023-08-23 08:11] LABS: Hematocrit (blood only) 30.1 % (37.0-47.0); Hemoglobin 9.6 g/dl (12.0-16.0); Mean Corpuscular Hemoglobin 28.7 pg (25.0-34.0); Mean Corpuscular Hgb Conc 31.9 g/dL (32.0-36.0); Mean Corpuscular Volume 89.9 fL (80.0-100.0); Mean Platelet Volume 8.1 fL (9.4-12.4); Nucleated RBC # (auto) 0.02 K/uL (0.00-0.12); Nucleated RBC % (auto) 0.2 %; Platelet Count 378 K/uL (130-400); RDW Coefficient of Variation 14.8 % (11.5-14.5); RDW Standard Deviation 46.5 fL (36.4-46.3); Red Blood Count 3.35 M/uL (4.20-5.40); White Blood Count 9.86 K/ul (4.8-10.8)
[2023-08-23 08:26] LABS: BUN Creatinine Ratio 16.7 (10-20); Calcium 8.5 mg/dl (8.6-10.3); Creatinine Clr Calc Pharmacy 70.3 ml/min; Est GFR (African American) 97.6 ml/min; Est GFR (Non-African American) 84.3 ml/min; Potassium 4.4 mmol/L (3.5-5.1)
[2023-08-23] MEDS: cefTRIAXone SODIUM 1,000 MG in DEXTROSE 5 % MINI-B 50 ML IV SCH (11:17)
--- NOTE | 2023-08-23 17:02 | Hospitalist Progress Note ---
Date of Service August 23, 2023 Assessment & Plan (1) Fracture of left hip: Plan: Left hip fracture S/P left hip cephalomedullary nailing of intertrochanteric femur fracture by on 08/12/23 --Venous Doppler:Currently there is normal compressibility of the deep venous system from the common femoral vein through the proximal calf veins. No superficial venous thrombosis is identified. Continue PT OT Fall precautions Appreciate orthopedics input Needs follow-up with orthopedics on discharge Pain is better controlled Waiting for rehab placement Case management to help with discharge planning Minimal hematuria--Resolved UTI due to catheter Peace catheter discontinued Bladder scan as needed to monitor for any retention Urine culture grew Ecoli Continue Rocephin Acute on chronic back pain Chronic T12 compression fracture Lumbar spine x-ray:No acute fracture or subluxation identified. Chronic T12 compression fracture. Pain control Continue PT OT Constipation KUB: Showed no obstruction, but noted rectosigmoid fecal retention Continue bowel regimen Encouraged to ambulate Will repeat KUB tomorrow Chronic hyponatremia Serum osmolality 267, urine sodium 41, urine osmolality 355 Salt tablets discontinued Sodium 134 today Appreciate nephrology input: Discontinue IV fluids Increase increase protein intake Monitor sodium levels (2) Paroxysmal A-fib: Plan: -Chronic, stable, rate controlled on metoprolol -She is not on anticoagulation other than baby aspirin Asymptomatic (3) Hypertension: Plan: Chronic BP variable Continue lisinopril, metoprolol Monitor (4) Hyperlipidemia: Plan: -Continue statin therapy -Chronic, stable (5) Aortic stenosis: Plan: -Noted on recent echo done on 06/23/2023 -Chronic, stable Follow-up as outpatient (6) History of breast cancer: Plan: -S/P partial mastectomy, right, XRT, no history of chemotherapy (7) Type 2 diabetes mellitus: Plan: HbA1c 7.0 Diet controlled DVT Px: Teds,SCDs Also on aspirin 325 mg daily CODE STATUS: Full code Disposition SNF as able Admission and Anticipated Discharge Date Admission Date: August 12, 2023 Subjective Patient is seen and examined at bedside Has some left leg pain at surgical site Sodium levels improved to 134 Discussed with nephrology today Patient's daughter at bedside Waiting for rehab placement Review of Systems Review of Systems: All systems reviewed & are unremarkable except as noted in Subjective Physical Exam Physical Exam: Physical Exam: Vitals signs as noted above General Appearance:Elderly, Moderately built and nourished, no apparent distress Head: normocephalic, Atraumatic Eyes: normal inspection, EOMI Neck: supple, Trachea midline Respiratory/Chest: Normal breath sounds, CTA, No accessory muscle use Cardiovascular: S1, S2, +murmur Abdomen/GI:Soft, Non tender, Bowel sounds present Extremities/Musculoskeletal:normal inspection, Trace edema, left hip surgical site in dressing Neurologic/Psych:AAOX3, grossly no focal neurological deficits Skin: normal color, warm Results & Data Results & Data Vital Signs (Past 12 Hours) Vital Signs Temp Pulse Pulse Resp BP Pulse Ox O2 Del Method 08/23/23 15:50 36.7 C 71 16 113/62 94 Room Air 08/23/23 11:58 36.7 C 68 24 129/62 96 Room Air 08/23/23 08:15 36.4 C L 78 20 146/64 H 95 Room Air 08/23/23 07:35 36.7 C 79 16 143/69 H 93 Room Air 08/23/23 07:23 Room Air Laboratory Results Short CBC 08/23/23 Range/Units 07:48 WBC 9.86 (4.8-10.8) K/ul Hgb 9.6 L (12.0-16.0) g/dl Hct 30.1 L (37.0-47.0) % Plt Count 378 (130-400) K/uL BMP 08/23/23 07:48 Sodium 134 L Potassium 4.4 Chloride 100 Carbon Dioxide 28 BUN 9 Creatinine 0.54 L Glucose 124 H Calcium 8.5 L
[2023-08-23] MEDS: SENNA 8.6 MG TAB PO SCH (20:01)
[2023-08-24 08:48] LABS: Hematocrit (blood only) 31.3 % (37.0-47.0); Hemoglobin 10.2 g/dl (12.0-16.0); Mean Corpuscular Hemoglobin 29.1 pg (25.0-34.0); Mean Corpuscular Hgb Conc 32.6 g/dL (32.0-36.0); Mean Corpuscular Volume 89.4 fL (80.0-100.0); Mean Platelet Volume 8.1 fL (9.4-12.4); Platelet Count 422 K/uL (130-400); RDW Coefficient of Variation 14.8 % (11.5-14.5); RDW Standard Deviation 46.5 fL (36.4-46.3); White Blood Count 8.78 K/ul (4.8-10.8)
[2023-08-24 09:14] LABS: BUN Creatinine Ratio 22.4 (10-20); Calcium 8.8 mg/dl (8.6-10.3); Creatinine Clr Calc Pharmacy 77.5 ml/min; Est GFR (African American) 100.8 ml/min; Potassium 4.3 mmol/L (3.5-5.1)
--- NOTE | 2023-08-24 10:04 | CT Scan Report ---
CT head/brain wo con CLINICAL HISTORY: 87 years-old Female with diplopia. Acute double vision TECHNIQUE: Multiple axial CT images of the head were obtained without contrast. A dose lowering tech nique was utilized adhering to the principles of ALARA. CT DOSE: 1624.85 mGy.cm COMPARISON: 04/10/2023 FINDINGS: No acute intracranial hemorrhage, midline shift, intracranial mass, acute hydrocephalus, territorial ischemia or abnormal extra-axial collection. Involutional changes with chronic microvascular ischemic disease and unchanged mild ventriculomegaly, likely on an ex vacuo basis. The calvarium is intact. Prior bilateral lens repair. The paranasal sinuses, mastoid air cells, and m iddle ear cavities are clear. IMPRESSION: No acute intracranial abnormality. ACT 112: Negative or not required by law. The above report was generated using voice recognition software. It may contain grammatical, syntax o r spelling errors. Electronically signed by: Logan Gary M.D. 08/24/2023 10:02 AM
--- NOTE | 2023-08-24 11:55 | XRay Report ---
KUB CLINICAL HISTORY: Constipation. COMPARISON STUDY: CT of the abdomen and pelvis October 13, 2018. KUB August 19, 2023. FINDINGS: Cholecystectomy clips, lumbar spine fusion hardware left femoral internal fixation hardware are incidentally noted. The bowel gas pattern is normal. There is mild gaseous distention of the sto mach. There is a moderate amount of stool within the rectum. Small amount of stool within the colon i s present. IMPRESSION: 1. No evidence for a bowel obstruction. 2. Moderate amount of stool within the rectum. Small amount of stool within the colon. ACT 112: Negative or not required by law. Electronically signed by: Akhil Lombardo M.D. 08/24/2023 11:54 AM
--- NOTE | 2023-08-24 12:20 | Discharge Summary ---
Discharge Summary Date of Service August 24, 2023 Notes For Next Care Provider L hip fracture s/p CMN by Dr. Bryant on 08/12/23. UTI -culture growing e.coli, complete antibiotics. Medication Changes From Visit Amlodipine 5 mg daily aspirin 325 mg daily cefuroxime 500 mg twice daily diclofenac 1% gel 2 g twice daily docusate sodium 100 mg twice daily as needed for constipation lidocaine patch 5% transdermal apply for 12 hours and keep off for 12 hours oxycodone 5 mg every 6 hours as needed for severe pain MiraLAX 17 g daily sennosides 8.6 mg at at bedtime as needed. Continue all other medications as prescribed. Please hold baby aspirin while on full-strength aspirin. Please resume baby aspirin once orthopedics discontinue your full-strength aspirin. Admission HPI Per Admitting Provider This is an 87-year-old female with PMHx of paroxysmal A-fib, severe aortic stenosis, history of SVT, HTN, HLD, DM type II, anxiety, mild dementia, remote history of breast cancer in 2004 noticed post partial mastectomy, who presents to the hospital with acute fall, suffering a left-sided hip fracture. Her son in law is present with her at bedside and supports the history. Patient walks with a walker at baseline. Was ambulating outside to son's car to grab some groceries this morning ultimately had mechanical fall and tripped over the edge of the sidewalk. She was unable to stand up, could not bear weight on the leg due to pain. She has good sensation in her lower leg and can move/wiggle toes. She is not on any blood thinning medications, took her medications last yesterday. She has not eaten anything yet today. Last bowel movement was 3 days ago, patient notes this is not normal for her, is willing to take stool softener today. Her pain is fairly well-controlled in her hip but it reports chronic lower back pain and states that this is the thing that is bothering her the worst currently. She underwent spinal surgery by Dr. Mack approximately 1 year ago. Other orthopedic surgeries include a right shoulder replacement which was done in a different facility many years ago. She has no preference on orthopedic surgeon currently. Admission Exam Per Admitting Provider General: awake, alert, no apparent distress, elderly white female Head: Normocephalic, atraumatic ENT: PERRL, EOMI, no pharyngeal exudate, mucous membranes moist Chest: Clear to auscultation, on room air, no adventitious breath sounds Cardiac: Regular rate and rhythm, loud MARY grade 3/4 with radiation to carotids, no JVD, normal peripheral pulses, good capillary refill Abdominal: NABS x 4 quadrants, soft, nondistended, nontender to palpation, no rebound or guarding Extremities: LLE shortened and externally rotated, sensation to light touch intact, distal pulses present and equal bilaterally 2+, no peripheral edema or erythema, calfs nontender to palpation Psych: Normal mood and affect Neuro: AAO x 3, strength intact bilaterally and rated 5/5 in all extremities except strength not tested in LLE, no motor deficits, speech is clear, no peripheral sensory deficits Principal Dx & Hospital Course #1 = Principal Diagnosis (1) Fracture of left hip: Left hip fracture S/P left hip cephalomedullary nailing of intertrochanteric femur fracture by on 08/12/23 --Venous Doppler:Currently there is normal compressibility of the deep venous system from the common femoral vein through the proximal calf veins. No superficial venous thrombosis is identified. Continue PT OT Fall precautions Appreciate orthopedics input Needs follow-up with orthopedics on discharge Pain is better controlled Plan to discharge today Minimal hematuria--Resolved UTI due to catheter Peace catheter discontinued Bladder scan as needed to monitor for any retention, voiding w/o difficulty Urine culture grew Ecoli will discharge of cefuroxime bid for additional 5 days Acute on chronic back pain Chronic T12 compression fracture Lumbar spine x-ray:No acute fracture or subluxation identified. Chronic T12 compression fracture. Pain control Continue PT OT Constipation KUB: Showed no obstruction, but noted rectosigmoid fecal retention Continue bowel regimen Encouraged to ambulate KUB today shows moderate amount of stool in rectum continue stool softeners Chronic hyponatremia Serum osmolality 267, urine sodium 41, urine osmolality 355 Salt tablets discontinued Sodium 134 today Appreciate nephrology input: Discontinue IV fluids Increase increase protein intake Monitor sodium levels follow up with nephrology as outpatient (2) Paroxysmal A-fib: -Chronic, stable, rate controlled on metoprolol -She is not on anticoagulation other than baby aspirin Asymptomatic (3) Hypertension: Chronic BP variable Continue lisinopril, metoprolol Monitor (4) Hyperlipidemia: -Continue statin therapy -Chronic, stable (5) Aortic stenosis: -Noted on recent echo done on 06/23/2023 -Chronic, stable Follow-up as outpatient (6) History of breast cancer: -S/P partial mastectomy, right, XRT, no history of chemotherapy (7) Type 2 diabetes mellitus: HbA1c 7.0 Diet controlled DVT Px: Teds,SCDs Also on aspirin 325 mg daily CODE STATUS: Full code Disposition SNF as able Discharge Exam Gen: WD/WN, NAD, A&O x3 HEENT: Normocephalic, atraumatic, conjunctivae moist, sclerae anicteric, mucous membranes moist. Lung: Clear to Auscultation bilaterally, no wheezes/rales/rhonchi Heart: Regular rate, regular rhythm, no murmurs, rubs, or gallops Abdomen: Soft, NT, ND +BS x 4 Extremities: No edema Skin: Warm, no rash, negative turgor. Updated Medication List Medication Instructions Recorded Confirmed Type lisinopril 10 mg tablet 40 mg PO QAM 10/13/18 08/12/23 History rosuvastatin 10 mg tablet 10 mg PO HS 10/13/18 08/12/23 History multivitamin-ferrous 1 tab PO QAM 02/20/20 08/12/23 History fumarate-folic acid 18 mg-400 mcg tablet (Centrum) latanoprost 0.005 % eye drops 1 drp OPB DAILY 09/09/21 08/12/23 History metoprolol tartrate 25 mg tablet 25 mg PO BID 09/09/21 08/18/23 History Stool Softener See Rx Instructions .Route .COMPLEX 08/12/23 08/12/23 History aspirin 81 mg tablet,delayed 81 mg PO PM 08/12/23 08/12/23 History release amlodipine 5 mg tablet (Norvasc) 5 mg PO QAM #30 tabs 08/24/23 Rx aspirin 325 mg tablet,delayed 325 mg PO QAM #30 tabs 08/24/23 Rx release (Ecotrin) cefuroxime axetil 500 mg tablet 500 mg PO BID 5 days #10 tabs 08/24/23 Rx diclofenac sodium 1 % topical gel 2 g EXT BID #100 grams 08/24/23 Rx (Voltaren Arthritis Pain) docusate sodium 100 mg capsule 100 mg PO BID PRN constipation #7 08/24/23 Rx caps lidocaine 5 % topical patch 1 patch transdermal QAM #7 ea 08/24/23 Rx oxycodone 5 mg tablet 5 mg PO Q6H PRN pain #14 tabs 08/24/23 Rx polyethylene glycol 3350 17 gram 17 g PO DAILY #14 ea 08/24/23 Rx oral powder packet (Miralax) sennosides 8.6 mg tablet (Senokot) 8.6 mg PO HS PRN constipation #30 08/24/23 Rx tabs Hospital Stay Data Consultations 08/12/23 13:55 ED Decision to Admit Stat 08/12/23 14:48 Consult Orthopedic Surgery Routine 08/20/23 13:35 Consult Nephrology Routine Procedures Performed Operation Date: 08/12/23 12:45 Actual Procedures p Left Hip Cephalomedullary Nailing of Intertrochanteric Femur Fracture(Left) - Eric Bryant M.D. Diagnostic Imagining Performed Chest X-Ray 08/12/23 00:00 XR chest 1V not portable HISTORY: Left hip fracture. Preop. COMPARISON: Chest 04/10/2023. FINDINGS: No pneumothorax. No pleural effusions. There are low lung volumes. Left basilar linear densities favor subsegmental atelectasis or scarring. This is similar to the prior study. The heart remains mildly enlarged. No evidence for pulmonary edema. No new focal lung consolidations. The right shoulder prosthesis, prior cholecystectomy, lumbar spinal fusion hardware again noted. No acute fractures identified. IMPRESSION: No significant change compared to the prior study. No acute process. ACT 112: Negative or not required by law. Electronically signed by: Mario More M.D. 08/12/2023 2:09 PM Hip X-Ray 08/12/23 00:00 INTRAOPERATIVE RADIOGRAPHS CLINICAL HISTORY: Open reduction and internal fixation of the left proximal femur. Fluoro time: 66 seconds Ka,r: 16.68 mGy FINDINGS: 5 spot fluoroscopic views of the left femur are correlated with radiographs dated 08/12/2023. There has been intertrochanteric and intramedullary nail fixation of a comminuted intertrochanteric fracture of the left proximal femur. Near anatomic alignment is restored. A single cortical lag screw transfixes the distal end of the intramedullary nail. IMPRESSION: Intraoperative images from open reduction and internal fixation of the left proximal femur as above. Electronically signed by: Haroon Norris M.D. 08/12/2023 7:13 PM Hip/Pelvis X-Ray 08/12/23 12:17 SINGLE VIEW PELVIS; 2 VIEWS LEFT HIP CLINICAL HISTORY: Fall. Left hip injury. FINDINGS: An AP, portable, supine view of the pelvis with AP and crosstable lateral views of the left hip are correlated with pelvic CT dated 10/13/2018. The skeletal structures are osteopenic. There is a comminuted and angulated intertrochanteric fracture of the left proximal femur. Fragments are offset by up to 1.5 cm. Overlying soft tissue edema is noted. No additional acute fracture is seen involving the right hip or the bony pelvis. Moderate arthritic change and joint space narrowing is seen in the hips, left greater than right. Degenerative sclerosis is noted in the sacroiliac joints and pubic symphysis. Spondylotic and postsurgical change is noted in the lower lumbar spine. There are numerous pelvic phleboliths. IMPRESSION: Intertrochanteric fracture of the left proximal femur as above. Electronically signed by: Haroon Norris M.D. 08/12/2023 1:43 PM Hip X-Ray 08/12/23 18:52 LEFT HIP 2 VIEWS CLINICAL HISTORY: Postoperative examination. FINDINGS: AP and crosstable lateral views of the left hip are compared to study dated 08/12/2023. The skeletal structures are osteopenic. Intertrochanteric and intramedullary nails have been placed transfixing a comminuted intertrochanteric fracture of the left proximal femur. Near-anatomic alignment is restored. A single cortical lag screw transfixes the distal end of the intramedullary nail. No new fracture is seen. The visualized left hemipelvis appears intact. Mild arthritic change and joint space narrowing is seen in the left hip. Fusion hardware is noted in the lower lumbar spine. Skin clips, subcutaneous gas, and soft tissue swelling overlying the left hip are expected postsurgical changes. There is atherosclerotic calcification of the left femoral artery. IMPRESSION: Expected postsurgical findings status post open reduction PA and internal fixation of the left proximal femur. Near anatomic alignment is restored. Electronically signed by: Haroon Norris M.D. 08/13/2023 12:35 AM Lumbar Spine X-Ray 08/14/23 13:59 XR lumbar spine 2-3V HISTORY: 87 years-old Female r/o Fracture acute low back pain COMPARISON: CT 10/13/2018 TECHNIQUE: 3 views of the lumbar spine FINDINGS: Cholecystectomy. Moderate fecal retention. Partially imaged ORIF hardware of the left femur. Demineralized appearance of the bones. Skin larisa project over the left hip. Posterior interbody cesar and screw fusion hardware noted at L3-L5. No evidence of hardware complication. Chronic moderate T12 compression deformity. No acute lumbar spine fracture or subluxation identified. Mild lumbar levoscoliosis. IMPRESSION: 1. No acute fracture or subluxation identified. 2. Chronic T12 compression fracture. ACT 112: Negative or not required by law. The above report was generated using voice recognition software. It may contain grammatical, syntax or spelling errors. Electronically signed by: Logan Gary M.D. 08/14/2023 4:06 PM KUB X-Ray 08/19/23 11:38 KUB CLINICAL HISTORY: Left lower quadrant abdominal pain. FINDINGS: 2 AP, portable, supine abdominal radiographs are correlated with abdominal CT dated 10/13/2018. There is rectosigmoid fecal retention. No bowel obstruction is identified. No evidence of intraperitoneal free air is seen on these supine images. Cholecystectomy clips and suture material project over the right upper quadrant. There are no abnormal abdominal calcifications. Phleboliths are seen in the pelvis. The skeletal structures are osteopenic. Advanced spondylotic and postsurgical change is noted in the lumbar spine. There is chronic deformity and postsurgical change noted in the left proximal femur. IMPRESSION: No acute abnormality is identified noting retrosigmoid fecal retention. Electronically signed by: Haroon Norris M.D. 08/19/2023 4:44 PM Venous Doppler Study 08/19/23 11:38 US venous doppler LE CLINICAL HISTORY: LEG SWELLING, R/O DVT TECHNIQUE: Bilateral lower extremity real-time compression venous ultrasound with Color Doppler imaging. Utilizing real-time ultrasonic imaging multiple real time high-resolution ultrasonic images with compression and noncompression maneuvers of the deep venous system in addition to color doppler imaging were performed from the common femoral vein through the proximal calf veins. COMPARISON: Comparison is made to previous Doppler ultrasound 02/21/2010 FINDINGS/IMPRESSION: Currently there is normal compressibility of the deep venous system from the common femoral vein through the proximal calf veins. No superficial venous thrombosis is identified. ACT 112: Negative or not required by law. Electronically signed by: Ambrose Quintanilla M.D. 08/19/2023 4:01 PM KUB X-Ray 08/24/23 07:00 KUB CLINICAL HISTORY: Constipation. COMPARISON STUDY: CT of the abdomen and pelvis October 13, 2018. KUB August 19, 2023. FINDINGS: Cholecystectomy clips, lumbar spine fusion hardware left femoral internal fixation hardware are incidentally noted. The bowel gas pattern is normal. There is mild gaseous distention of the stomach. There is a moderate amount of stool within the rectum. Small amount of stool within the colon is present. IMPRESSION: 1. No evidence for a bowel obstruction. 2. Moderate amount of stool within the rectum. Small amount of stool within the colon. ACT 112: Negative or not required by law. Electronically signed by: Akhil Lombardo M.D. 08/24/2023 11:[address] 08/24/23 09:20 CT head/brain wo con CLINICAL HISTORY: 87 years-old Female with diplopia. Acute double vision TECHNIQUE: Multiple axial CT images of the head were obtained without contrast. A dose lowering technique was utilized adhering to the principles of ALARA. CT DOSE: 1624.85 mGy.cm COMPARISON: 04/10/2023 FINDINGS: No acute intracranial hemorrhage, midline shift, intracranial mass, acute hydrocephalus, territorial ischemia or abnormal extra-axial collection. Involutional changes with chronic microvascular ischemic disease and unchanged mild ventriculomegaly, likely on an ex vacuo basis. The calvarium is intact. Prior bilateral lens repair. The paranasal sinuses, mastoid air cells, and middle ear cavities are clear. IMPRESSION: No acute intracranial abnormality. ACT 112: Negative or not required by law. The above report was generated using voice recognition software. It may contain grammatical, syntax or spelling errors. Electronically signed by: Logan Gary M.D. 08/24/2023 10:02 AM Pending Results Patient Have Any Pending Studies at Discharge: No Discharge Instructions Given to Patient (Per Discharging Provider) Follow-up with your primary care physician in 1 week upon discharge from rehab facility Follow-up with your orthopedic surgeon as recommended Follow-up with your class c truck driver with repeat blood work--basic metabolic panel in 1 week --Continue aspirin 325 mg daily as recommended by your orthopedic surgeon for deep vein thrombosis prophylaxis. Whenever they recommend you stop Aspirin 325mg daily it is recommended that you resume your baby aspirin 81mg daily. -- Complete the antibiotic course as prescribed for urinary tract infection. --Continue bowel regimen for constipation --Please follow up with your intermodal dispatcher if you continue to have double vision --Increase protein intake. Recommend following with public health nurse while at rehab for further assistance on this. Seek immediate medical attention if your symptoms reoccur or worsen Please take all medications as instructed on discharge list below. Please call if you have any questions or problems. You can reach a [facility] hospitalist on duty at [facility] 24 hours a day by calling [phone] Total Time Total Time Spent Total Time Spent (In Minutes): 45 minutes Supervising Physician Co-Signing Physician Notes Patient is seen and examined on day of discharge. States feeling well today. Offers no new complaints during my encounter. Reported transient double vision this morning which resolved. CT head showed no acute intracranial abnormality. Physical exam remains unchanged from yesterday. I personally reviewed the chart including CT head today and examined patient on day of discharge. Patient's care is coordinated with Susanne Moerl PA-C. I have reviewed the advanced practitioner's documentation, and I agree with, and take responsibility for that plan of care. Please refer to the documentation above for details of patient's presentation and for discussion of other issues. I spent a total [id number] coordinating, documenting, and providing care for this patient excluding time spent in the performance of separately billed services.
[2023-08-24] MEDS: bisacodyL 10 MG SUPP PR PRN (12:42)
[2023-08-24] MEDS: bisacodyL 10 MG SUPP PR STA (13:08)
== END 2023-08-24 14:25 | DRG 481 ==
LOC: EDSEX → ED 11:50 → SUATTDRO 15:12 → EDINP 15:12 → 3W 19:28